=== PATIENT | male | born 1935 | race Caucasian/White ===

== ENCOUNTER 2018-05-21 10:45 | Outpatient (CLI) | payer MEDICARE, BC, SELFPAY ==
[2018-05-21 13:43] LABS: Anion Gap 10.1 mmol/L (3-11); BUN 28 mg/dL (7-18); CO2 24.9 mmol/L (21.0-32.0); CREATININE 1.37 mg/dL (0.70-1.30); Calcium 9.1 mg/dL (8.5-10.1); Chloride 106 mmol/L (98-107); Cholesterol 131 mg/dL (50-200); Glucose 118 mg/dL (70-100); HDL Cholesterol 37 mg/dL (40-60); LDL CHOLESTEROL 86 mg/dL (<100); Potassium 4.6 mmol/L (3.5-5.1); Sodium 141 mmol/L (136-145); Triglyceride 41 mg/dL (30-150)
[2018-05-21 13:55] LABS: Hemoglobin A1C 6.7 % (4.5-6.2)
[2018-05-21 14:02] LABS: Vitamin D 25 Total 94.3 ng/ml (30-100)
== END 2018-05-21 11:05 ==
PROVIDERS: PCP Family Medicine; Visit Provider Family Medicine
DX: I10 Essential (primary) hypertension (principal); E11.9 Type 2 diabetes mellitus without complications
CPT/HCPCS: 36415; 80048; 80061; 82306; 83721; 83036

== ENCOUNTER 2018-08-20 10:43 | Outpatient (CLI) | payer MEDICARE, BC, SELFPAY ==
[2018-08-20 13:51] LABS: Hemoglobin A1C 6.8 % (4.5-6.2)
== END 2018-08-20 11:03 ==
PROVIDERS: PCP Family Medicine; Visit Provider Family Medicine
DX: E11.9 Type 2 diabetes mellitus without complications (principal)
CPT/HCPCS: 36415; 83036

== ENCOUNTER 2018-09-16 13:09 | Inpatient (IN) | payer MEDICARE, BC, SELFPAY ==
[2018-09-16] VITALS (36 sets, daily range): BP systolic 100–131; BP diastolic 47–71; PULSE 63–99; RESP 9–26; TEMP 36.7–37.7; O2SAT 94–98
--- NOTE | 2018-09-16 13:38 | DI.RAD_ITS ---
SYMPTOMS/DIAGNOSIS: NOTABLE RIGHT LOWER LOBE RHONCHI AND RALES CHEST X-RAY, PA AND LATERAL: Comparison is 05/30/17. The heart size and pulmonary vasculature are within normal limits given the technique. The lungs are clear. No effusions or pneumothoraces are identified. The bones appear intact. IMPRESSION: No acute pulmonary process.
[2018-09-16 14:14] LABS: Abs Immature Grans 0.02 k/cumm (0.0-0.09); Absolute Basophil Count 0.02 k/cumm (0.0-0.2); Absolute Eosinophil Count 0.02 k/cumm (0.0-0.7); Absolute Lymphocyte Count 1.05 k/cumm (1.2-3.4); Absolute Monocyte Count 0.72 k/cumm (0.11-0.7); Absolute Neutrophil Count 7.17 k/cumm (1.2-6.7); Basophils % 0.2; Eosinophils % 0.2; HCT 37.7 % (40.0-50.0); HGB 12.6 g/dL (13.5-17.5); Immature Grans % 0.2; Lymphocytes % 11.7; Mean Corp. HGB Concentration 33.4 g/dL (32.0-36.0); Mean Corpuscular Hemoglobin 32.8 pg (27.0-33.0); Mean Corpuscular Volume 98.2 fL (80-95); Mean Platelet Volume 11.3 fL (8.0-11.0); Neutrophils % 79.7; Platelet Count 126 x1000/uL (130-400); RBC 3.84 m/cumm (4.50-6.00); RBC Distribution Width 14.3 % (11.8-14.1)
[2018-09-16 14:20] LABS: Bilirubin Negative (Negative); Blood Negative (Negative); Clarity Clear; Glucose Negative (Negative); Ketones Negative (Negative); Leukocyte Esterase Negative (Negative); Nitrite Negative (Negative); Specific Gravity 1.015 (1.005-1.025); Urobilinogen 0.2 EU/dL (Up TO 0.2)
[2018-09-16 14:23] LABS: PTT Activated 28.5 sec (21.0-31.4); Prothrombin Time 12.5 sec (9.3-11.0)
[2018-09-16 14:26] LABS: INR 1.2 (0.9-1.1)
[2018-09-16 14:31] LABS: ALT 19 U/L (12-78); AST 19 U/L (15-37); Albumin 3.2 g/dL (3.4-5.0); Alkaline Phosphatase 104 U/L (46-116); Anion Gap 10.4 mmol/L (3-11); BUN 27 mg/dL (7-18); Bilirubin, Total 0.9 mg/dL (0.2-1.0); CO2 25.6 mmol/L (21.0-32.0); CREATININE 1.25 mg/dL (0.70-1.30); Calcium 8.7 mg/dL (8.5-10.1); Chloride 98 mmol/L (98-107); Estimated GFR 55.57 (mL/min/1.73m2); Glucose 124 mg/dL (70-100); NT-proBNP 5542 pg/mL; Potassium 3.9 mmol/L (3.5-5.1); Sodium 134 mmol/L (136-145); Total Protein 7.1 g/dL (6.4-8.2)
--- NOTE | 2018-09-16 14:31 | W.ED.GENAD ---
Discharge Plan Disposition Patient Disposition: [facility] INPATIENT Condition: Stable Discharge Details Chief Complaint: RespSymp Clinical Impression: CHF exacerbation, Community acquired pneumonia Primary Care Provider: Zander Mancini ED Provider: Rigoberto Lopez Home Meds and New Rx's Prescriptions: No Action escitalopram oxalate 5 mg tablet 5 mg PO DAILY Qty: 90 RF: 4 blood-glucose meter [OneTouch UltraMini] 1 EACH kit 1 kit UD PRN RF: 0 Multi-Betic 1 EACH tablet 1 tab PO DAILY RF: 0 OneTouch Ultra Test 1 EACH strip 1 strip Intradermal 2X/WEEK Qty: 100 RF: 4 lancets [OneTouch Delica Lancets] 1 EACH misc 1 ea Intradermal 2X/WEEK Qty: 100 RF: 4 acetaminophen [Acetaminophen Extra Strength] 500 MG tablet 500 mg PO BID RF: 0 cholecalciferol (vitamin D3) 5,000 UNIT tablet 5,000 unit PO DAILY RF: 0 torsemide 10 MG tablet 10 mg PO DAILY Qty: 90 RF: 3 diltiazem HCl 120 MG capsule,extended release 24hr 120 mg PO DAILY Qty: 90 RF: 4 spironolactone 25 MG tablet 25 mg PO DAILY Qty: 90 RF: 4 metformin 500 mg tablet 500 mg PO BID Qty: 180 RF: 3 levothyroxine 50 mcg tablet 50 mcg PO DAILY Qty: 90 RF: 3 apixaban 2.5 mg tablet 2.5 mg PO BID Qty: 180 RF: 4 Medical Decision Making This is a pleasant 82-year-old male who presents with his daughter for evaluation of cough for the last 4 days, mild chest tightness, chills, foul-smelling urine, and shortness of breath, worsened when he lies flat at night, improved by sitting upright. Exam demonstrates multiple rhonchi throughout, notably worse on the right than the left. Crackles in the bases, significant pitting edema of his lower extremities bilaterally. Vital signs are otherwise unremarkable and stable. Oxygen saturation stable, non-tachycardic, afebrile. He is normally on spironolactone and has been on diuretics in the past. He has a systolic ejection fraction of 60 to 70%, and is hyperkinetic. There is evidence of wall thickness. Clinically the patient shows signs and symptoms concerning for fluid overload, however infectious etiology is also concerning with his isolated rhonchi in the right lower lung butler, his chills, cough. We will evaluate for fluid overload and likely diuresis. Will evaluate for potential infectious etiologies. Will rule out ACS. 4:32 PM Laboratory work-up has returned, the patient demonstrates no significant white count, no bandemia, electrolytes are normal, renal function stable. Troponin is elevated at 0.12, which is his chronic baseline, proBNP is high at 5500 which is higher than normal. Urinalysis shows evidence of no urinary tract infection. Chest x-ray is read by radiology is negative for acute process however I do feel that there is both a combination of air bronchograms and mild consolidation, worse on the right than the left which would correlate clinically with his symptomatology. With no admission in the last 90 days, his notable decrease in energy, and capability at home, as well as other sick contacts at home I do feel that he would benefit from inpatient admission especially in conjunction with the combination of fluid overload, as well as community-acquired pneumonia both the patient's curb 65 score and port score both recommend admission which I do feel is clinically appropriate at this time. Because of his slightly prolonged QTC we will start on Rocephin and doxycycline. We will diurese with 20 of Lasix. I discussed the case with Dr. Ballard, she agrees with the assessment and plan. I have extensively reviewed the treatment plan with the patient. I have addressed all patient concerns at this time. I have also discussed the plan with the admitting physician and they agree with the current assessment and plan and have agreed to assume responsibility for the patient. All parties demonstrate verbal understanding and agreement with our assessment and plan at this time. EKG 13: 48 Rate 94, QTc 490, QRS 106, atrial fibrillation, no significant ST elevations or depression, no T wave inversions, Q waves are noted in lead III, aVF. Artifact is present in V3, however no true ST elevation is present. No evidence of STEMI. Exam(s) a RAD:XR chest 2V PA & lateral SYMPTOMS/DIAGNOSIS: NOTABLE RIGHT LOWER LOBE RHONCHI AND RALES CHEST X-RAY, PA AND LATERAL: Comparison is 05/30/17. The heart size and pulmonary vasculature are within normal limits given the technique. The lungs are clear. No effusions or pneumothoraces are identified. The bones appear intact. IMPRESSION: No acute pulmonary process. Ordered By: Rigoberto Lopez DO CC: HPI General Date/Time Provider Initiated Documentation: 09/16/18 13:30. [facility] Narrative: This is an 82-year-old male with a past medical history of diabetes mellitus, A. fib, chronically elevated troponin, heart failure on regular diuretics, with hyperdynamic systolic dysfunction with a EF in the 60s to 70s, notable hypertrophy on echo, as well as high cholesterol and ulcerative colitis. He presents today with his daughter who is 1 of our nurses, with complaints of cough for the last 4 days, mild chest tightness, chills, and notable shortness of breath over the last 12 to 24 hours, significantly worse when he lays flat, improved by sitting upright. In addition to a mild subtle weight gain and notable swelling in his lower extremities. He denies any fevers. He does admit to other sick contacts with similar symptoms. He also admits to mild urinary incontinence, and some foul-smelling urine which is atypical for him. He is on Eliquis for his atrial fibrillation. He denies any recent medications. He has not been eating or drinking well at home secondary to his symptoms. He denies any other complaints or any other modifying factors. He has no history of myocardial infarction. He denies any vomiting or diarrhea. He denies any neck pain or stiffness. He is not on home oxygen. Related Data Home Medications Medication Instructions Recorded Confirmed Multi-Betic 1 tab PO DAILY 07/24/12 09/16/18 blood-glucose meter [OneTouch kit 07/24/12 09/16/18 UltraMini] Lonely SockTouch Ultra Test #100 strip 06/30/14 09/16/18 lancets [OneTouch Delica Lancets] #100 ea 06/30/14 09/16/18 acetaminophen [Acetaminophen Extra 500 mg PO BID tab-cap 06/05/17 09/16/18 Strength] cholecalciferol (vitamin D3) 5,000 unit PO DAILY 06/05/17 09/16/18 torsemide 10 mg PO DAILY #90 tab-cap 09/19/17 09/16/18 diltiazem HCl 120 mg PO DAILY #90 cap 12/25/17 09/16/18 spironolactone 25 mg PO DAILY #90 tab 01/01/18 09/16/18 metformin 500 mg tablet 500 mg PO BID #180 tab-cap 08/03/18 09/16/18 escitalopram 5 mg tablet 5 mg PO DAILY #90 tab-cap 08/20/18 09/16/18 levothyroxine 50 mcg tablet 50 mcg PO DAILY #90 tab-cap 08/31/18 09/16/18 apixaban 2.5 mg tablet 2.5 mg PO BID #180 tab 09/07/18 09/16/18 Previous Rx's Medication Instructions Recorded torsemide 10 mg PO DAILY #90 tab-cap 09/19/17 diltiazem HCl 120 mg PO DAILY #90 cap 12/25/17 spironolactone 25 mg PO DAILY #90 tab 01/01/18 metformin 500 mg tablet 500 mg PO BID #180 tab-cap 08/03/18 escitalopram 5 mg tablet 5 mg PO DAILY #90 tab-cap 08/20/18 levothyroxine 50 mcg tablet 50 mcg PO DAILY #90 tab-cap 08/31/18 apixaban 2.5 mg tablet 2.5 mg PO BID #180 tab 09/07/18 Allergies Allergy/AdvReac Type Severity Reaction Status Date / Time procaine [Procaine] Allergy Severe Anaphylaxsi Unverified 09/16/18 13:27 s thiopental [Thiopental] Allergy Severe Anaphylaxsi Unverified 09/16/18 13:27 s shellfish derived Allergy Intermediate Swelling/Ed Unverified 09/16/18 13:27 gerson Iodinated Contrast- Oral and Allergy Unknown Swelling/Ed Unverified 09/16/18 13:27 IV Dye gerson nitroglycerin AdvReac Severe bottomed Unverified 09/16/18 13:27 out BP General Stated Complaint: RespSymp IRWIN: 3 Review of Systems Review of Systems All systems reviewed & are unremarkable except as noted in HPI and below PFSH Family History Mother Diabetes Stroke Father Heart disease Sister Psoriasis Social History Smoking/Tobacco Use Status: Former Tobacco Use Alcohol Intake: current Alcohol Intake frequency: a few times a month Drug use: Never Sun/Alevism: No preference Special sun needs: No Do you feel safe at home: Yes Do you feel safe in your relationship?: Yes Exam Narrative Exam Narrative: 1.Const: Well-nourished, Well-developed, appearing stated age 2.Eyes: PERRL, no conjunctival injection, and symmetrical lids. 3.ENT: Atraumatic external nose and ears. Moist MM. Neck: Symmetric, trachea midline, No thyromegaly. 4.CVS: +S1/S2, No murmurs or gallops. Peripheral pulses 2+ and equal in all extremities. Brisk capillary refill in all extremities. 5.RESP: Mildly labored respiratory effort, notable rhonchi throughout, crackles in the bases bilaterally, significantly worse on the right than the left. 6.GI: Soft, Nontender/Nondistended, No hepatosplenomegaly. No guarding or rebound. 7.MSK: Normocephalic/Atraumatic, Extremities w/o deformity or ttp No cyanosis or clubbing, Normal movement of all extremities. +2 pitting edema of the lower extremities bilaterally. No calf tenderness. 8.Skin: Warm, Dry. No rashes or lesions. 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 Sensation grossly intact, no focal neurologic deficits. 10.Psych: (AAO) x3. Appropriate mood and affect Course Vital Signs Temperature 37.1 C 09/16/18 13:25 Pulse 93 H 09/16/18 13:25 Respiratory Rate 20 09/16/18 13:25 Blood Pressure 119/69 09/16/18 13:25 Pulse Oximetry 97 09/16/18 13:25 Temperature 37.1 C 09/16/18 13:25 Temperature Source Temporal Artery Scan 09/16/18 13:25 Pulse 93 H 09/16/18 13:25 Respiratory Rate 20 09/16/18 13:25 Respiratory Effort Non-Labored 09/16/18 14:14 Respiratory Depth Normal 09/16/18 14:14 Blood Pressure 119/69 09/16/18 13:25 Pulse Oximetry 97 09/16/18 13:25 Pain Level 0 09/16/18 13:25 Lab/Test Results Lab/Test Results: 09/16/18 14:08 Urine - Voided Urine Culture - Pending 09/16/18 13:38 Blood Blood Culture - Pending 09/16/18 13:38 Blood Blood Culture - Pending Laboratory Tests Range/Units 09/16/18 09/16/18 14:00 14:00 WBC (4.4-10.8) k/cumm 9.00 RBC (4.50-6.00) m/cumm 3.84 L Hgb (13.5-17.5) g/dL 12.6 L Hct (40.0-50.0) % 37.7 L MCV (80-95) fL 98.2 H MCH (27.0-33.0) pg 32.8 MCHC (32.0-36.0) g/dL 33.4 RDW (11.8-14.1) % 14.3 H Plt Count (130-400) x1000/uL 126 L MPV (8.0-11.0) fL 11.3 H Immature Gran % 0.2 Neutrophils % 79.7 Lymphocytes % 11.7 Monocytes % 8.0 Eosinophils % 0.2 Basophils % 0.2 Absolute Neutrophils (1.2-6.7) k/cumm 7.17 H Absolute Lymphocytes (1.2-3.4) k/cumm 1.05 L Absolute Monocytes (0.11-0.7) k/cumm 0.72 H Absolute Eosinophils (0.0-0.7) k/cumm 0.02 Absolute Basophils (0.0-0.2) k/cumm 0.02 PT (9.3-11.0) sec 12.5 H INR (0.9-1.1) 1.2 H APTT (21.0-31.4) sec 28.5
[2018-09-16 14:40] LABS: Troponin I 0.12 ng/mL (0.00-0.06)
[2018-09-16] MEDS: Furosemide 20 MG/2 ML VIAL IVP ×2 (15:45→21:48)
[2018-09-16] MEDS: cefTRIAXone 2 GM/50 ML BAG IVPB (16:50)
--- NOTE | 2018-09-16 17:21 | W.PM.HP.N ---
Date of service: 09/16/18 Time of Service: 17:22 Assessment and Plan (1) Pneumonia: Current visit: Yes Status: Acute Either aspiration given hx or CAP. Abx adjusted to doxycycline + zosyn. Monitor respiratory status. Obtain sputum cx. Await blood cultures. (2) Acute on chronic diastolic (congestive) heart failure: Current visit: Yes Status: Acute Diurese, monitoring strict I/O's and daily weights. Ensure that the reason that the patient went into CHF this time is not rapid Afib - monitor on tele. Check TSH. (3) Toxic metabolic encephalopathy: Current visit: Yes Status: Acute Treat underlying infection. Ensure no urinary retention. (4) Non-insulin dependent type 2 diabetes mellitus: Current visit: Yes Status: Acute Hold metformin while in the hospital. Cover with SSI (5) Hypertension: Current visit: Yes Status: Chronic No change in tx except for holding torsemide while getting diuresed with IV lasix. (6) Ambulatory dysfunction: Current visit: Yes Status: Acute PT/OT consults (7) Hyperlipidemia: Current visit: No Status: Chronic Does not appear to be on a statin as outpatient. Follow up as outpatient. (8) Hypothyroidism: Current visit: No Status: Chronic Continue synthroid. Check TSH. (9) Atrial fibrillation: Current visit: No Status: Chronic Currently rate controlled. Continue cardizem CD, anticoagulation with eliquis. Monitor on tele to ensure that the rate does not become high. (10) Urinary incontinence: Current visit: Yes Status: Chronic Monitor PVRs (11) DVT prophylaxis: Current visit: Yes Status: Acute Therapeutic eliquis (12) Discharge planning issues: Current visit: Yes Status: Acute Full code History of Present Illness Chief Complaint: I couldn't breathe Narrative: Mr Borrego is an 82 year old male with PMHx of chronic diastolic CHF with EF of 65-70% due to hypertrophic cardiomyopathy, Atrial fibrillation on eliquis, NIDDM2, HTN, hyperlipidemia, hypothyroidism, who came in to [facility] ED today complaining of shortness of breath, which he describes as starting acutely last night, cough, productive of green-yellow sputum for 2-3 days, and orthopnea. The patient reports palpitations at home, denies chest pain, but reports chest squeezing last night at the top of his chest, reports feeling warm for the last two days. He states he had a choking episode yesterday evening. His daughter also reports generalized weakness for 1 week, acute on chronic confusion, which is normal for him when he gets sick, and urinary incontinence of large amounts of urine. She also states that the patient's , with whom he lives, has also had a respiratory illness. She does not think that his edema looks any different than normal. His daughter also mentions that he has had a lot of nosebleeds, most recent being about 2 weeks ago. His eliquis dose was recently lowered due to this. The patient uses a walker to ambulate. There have not been any falls at home. Review of Systems Review of Systems 12 systems reviewed. Pertinent positives and negatives as per HPI. [facility] Medical History Ulcerative colitis (Inactive) Type 2 diabetes mellitus without complication (Chronic) Spinal stenosis (Chronic) Rosacea (Chronic) Osteoarthritis (Chronic) Hypothyroidism (Chronic) Hyperlipidemia (Chronic) Essential hypertension, benign (Chronic 12/01/14) 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) Decubitus ulcer of left buttock, stage 2 (Resolved 07/18/17) Cataracts, bilateral (Resolved 10/24/15) Atrial fibrillation (Chronic) Ataxia (Chronic) Mild cognitive impairment (Chronic) Surgical History Appendectomy Colonoscopy - IV Sedation (11/18/12) Family History Mother Diabetes Stroke Father Heart disease Sister Psoriasis Social History Smoking/Tobacco Use Status: Former Tobacco Use Alcohol Intake: current Alcohol Intake frequency: a few times a month Drug use: Never Sun/Christianity: No preference Special sun needs: No Do you feel safe at home: Yes Do you feel safe in your relationship?: Yes Meds Home Medications Medication Instructions Recorded Confirmed Type blood-glucose meter [OneTouch kit 07/24/12 09/16/18 History UltraMini] OneTouch Ultra Test #100 strip 06/30/14 09/16/18 History lancets [OneTouch Delica Lancets] #100 ea 06/30/14 09/16/18 History torsemide 10 mg PO DAILY #90 tab-cap 09/19/17 09/16/18 Rx diltiazem HCl 120 mg PO DAILY #90 cap 12/25/17 09/16/18 Rx spironolactone 25 mg PO DAILY #90 tab 01/01/18 09/16/18 Rx metformin 500 mg tablet 500 mg PO BID #180 tab-cap 08/03/18 09/16/18 Rx escitalopram 5 mg tablet 5 mg PO DAILY #90 tab-cap 08/20/18 09/16/18 Rx levothyroxine 50 mcg tablet 50 mcg PO DAILY #90 tab-cap 08/31/18 09/16/18 Rx apixaban 2.5 mg tablet 2.5 mg PO BID #180 tab 09/07/18 09/16/18 Rx Allergies Allergy/AdvReac Type Severity Reaction Status Date / Time procaine [Procaine] Allergy Severe Anaphylaxsi Unverified 09/16/18 13:27 s thiopental [Thiopental] Allergy Severe Anaphylaxsi Unverified 09/16/18 13:27 s shellfish derived Allergy Intermediate Swelling/Ed Unverified 09/16/18 13:27 gerson Iodinated Contrast- Oral and Allergy Unknown Swelling/Ed Unverified 09/16/18 13:27 IV Dye gerson nitroglycerin AdvReac Severe bottomed Unverified 09/16/18 13:27 out BP Exam Narrative Exam Narrative: General: Very pleasant elderly male, sitting up in bed at about 30 degree angle, does not appear to have shortness of breath speaking, appears weak, A&Ox2, NAD Neurological: A&Ox2, quickly forgets what he was just talking about, uses large words; knows who the president is ; no focal deficits Psychiatric: appropriate speech pattern/content Skin: chronic venous stasis dermatitis HEENT: Atraumatic, normocephalic, EOMI, MMM, clear oropharynx, no submandibular or cervical lymphadenopathy, no goiter or JVD Cardiovascular: seemingly RRR, quiet [place]. Lungs: Crackles at B bases Gastrointestinal: abdomen is soft, nontender, nondistended Extremities: 2+ edema BLE's, 2+ BLE pedal pulses, dry skin on feet, no lesions, preserved sensation on feet, no clubbing/cyanosis. Chronic venous stasis dermatitis. Results Imaging Additional studies: CXR: per official read, no acute pulmonary process. Per my read, air bronchograms are seen in RML/RLL. Also, vascular congestion can be seen. EKG: Afib (though in some places it does look as NSR), PVCs, no acute ischemia Labs : 09/16/18 14:00 09/16/18 14:00 Laboratory Results - last 24 hr 09/16/18 09/16/18 09/16/18 14:00 14:00 14:00 WBC 9.00 RBC 3.84 L Hgb 12.6 L Hct 37.7 L MCV 98.2 H MCH 32.8 MCHC 33.4 RDW 14.3 H Plt Count 126 L MPV 11.3 H Immature Gran % 0.2 Neutrophils % 79.7 Lymphocytes % 11.7 Monocytes % 8.0 Eosinophils % 0.2 Basophils % 0.2 Absolute Neutrophils 7.17 H Absolute Lymphocytes 1.05 L Absolute Monocytes 0.72 H Absolute Eosinophils 0.02 Absolute Basophils 0.02 PT 12.5 H INR 1.2 H APTT 28.5 Sodium 134 L Potassium 3.9 Chloride 98 Carbon Dioxide 25.6 Anion Gap 10.4 BUN 27 H Creatinine 1.25 Estimated GFR/1.73 m2 55.57 Glucose 124 H Calcium 8.7 Total Bilirubin 0.9 AST 19 ALT 19 Alkaline Phosphatase 104 Troponin I 0.12 H* NT-Pro-B Natriuret Pep 5542 H Total Protein 7.1 Albumin 3.2 L Urine Color Urine Clarity Urine pH Ur Specific [place] Urine Protein Urine Ketones Urine Blood Urine Nitrite Urine Bilirubin Urine Urobilinogen Ur Leukocyte Esterase Urine Glucose 09/16/18 14:08 WBC RBC Hgb Hct MCV MCH MCHC RDW Plt Count MPV Immature Gran % Neutrophils % Lymphocytes % Monocytes % Eosinophils % Basophils % Absolute Neutrophils Absolute Lymphocytes Absolute Monocytes Absolute Eosinophils Absolute Basophils PT INR APTT Sodium Potassium Chloride Carbon Dioxide Anion Gap BUN Creatinine Estimated GFR/1.73 m2 Glucose Calcium Total Bilirubin AST ALT Alkaline Phosphatase Troponin I NT-Pro-B Natriuret Pep Total Protein Albumin Urine Color Yellow Urine Clarity Clear Urine pH 6.0 Ur Specific [place] 1.015 Urine Protein Negative Urine Ketones Negative Urine Blood Negative Urine Nitrite Negative Urine Bilirubin Negative Urine Urobilinogen 0.2 Ur Leukocyte Esterase Negative Urine Glucose Negative Last Vital Signs Temp 37.1 C 09/16/18 13:25 Pulse 86 09/16/18 16:46 Resp 25 H 09/16/18 16:50 BP 123/67 09/16/18 16:46 Pulse Ox 96 09/16/18 16:50
--- NOTE | 2018-09-16 17:33 | HPE_ITS ---
Date of service: 09/16/18 Time of Service: 17:22 Assessment and Plan (1) Pneumonia: Current visit: Yes Status: Acute Either aspiration given hx or CAP. Abx adjusted to doxycycline + zosyn. Monitor respiratory status. Obtain sputum cx. Await blood cultures. (2) Acute on chronic diastolic (congestive) heart failure: Current visit: Yes Status: Acute Diurese, monitoring strict I/O's and daily weights. Ensure that the reason that the patient went into CHF this time is not rapid Afib - monitor on tele. Check TSH. (3) Toxic metabolic encephalopathy: Current visit: Yes Status: Acute Treat underlying infection. Ensure no urinary retention. (4) Non-insulin dependent type 2 diabetes mellitus: Current visit: Yes Status: Acute Hold metformin while in the hospital. Cover with SSI (5) Hypertension: Current visit: Yes Status: Chronic No change in tx except for holding torsemide while getting diuresed with IV lasix. (6) Ambulatory dysfunction: Current visit: Yes Status: Acute PT/OT consults (7) Hyperlipidemia: Current visit: No Status: Chronic Does not appear to be on a statin as outpatient. Follow up as outpatient. (8) Hypothyroidism: Current visit: No Status: Chronic Continue synthroid. Check TSH. (9) Atrial fibrillation: Current visit: No Status: Chronic Currently rate controlled. Continue cardizem CD, anticoagulation with eliquis. Monitor on tele to ensure that the rate does not become high. (10) Urinary incontinence: Current visit: Yes Status: Chronic Monitor PVRs (11) DVT prophylaxis: Current visit: Yes Status: Acute Therapeutic eliquis (12) Discharge planning issues: Current visit: Yes Status: Acute Full code History of Present Illness Chief Complaint: I couldn't breathe Narrative: Mr Borrego is an 82 year old male with PMHx of chronic diastolic CHF with EF of 65-70% due to hypertrophic c ardiomyopathy, Atrial fibrillation on eliquis, NIDDM2, HTN, hyperlipidemia, hypothyroidism, who came in to [facility] ED today complaining of shortness of breath, which he describes as starting acutely last night, cough, productive of green- yellow sputum for 2-3 days, and orthopnea. The patient reports palpitations at home, denies chest pain, but reports chest squeezing last night at the top of his chest, reports feeling warm for the last two days. He states he had a choking episode yesterday evening. His daughter also reports generalized weakness for 1 week, acute on chronic confusion, which is normal for him when he gets sick, and urinary incontinence of large amounts of urine. She also states that the patient's , with whom he lives, has also had a respiratory illness. She does not think that his edema looks any different than normal. His daughter also mentions that he has had a lot of nosebleeds, most recent being about 2 weeks ago. His eliquis dose was recently lowered due to this. The patient uses a walker to ambulate. There have not been any falls at home. Review of Systems Review of Systems 12 systems reviewed. Pertinent positives and negatives as per HPI. [facility]LY [facility] Medical History Ulcerative colitis (Inactive) Type 2 diabetes mellitus without complication (Chronic) Spinal stenosis (Chronic) Rosacea (Chronic) Osteoarthritis (Chronic) Hypothyroidism (Chronic) Hyperlipidemia (Chronic) Essential hypertension, benign (Chronic 12/01/14) 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) Decubitus ulcer of left buttock, stage 2 (Resolved 07/18/17) Cataracts, bilateral (Resolved 10/24/15) Atrial fibrillation (Chronic) Ataxia (Chronic) Mild cognitive impairment (Chronic) Surgical History Appendectomy Colonoscopy - IV Sedation (11/18/12) Family History Mother Diabetes Stroke Father Heart disease Sister Psoriasis Social History Smoking/Tobacco Use Status: Former Tobacco Use Alcohol Intake: current Alcohol Intake frequency: a few times a month Drug use: Never Sun/Advent: No preference Special sun needs: No Do you feel safe at home: Yes Do you feel safe in your relationship?: Yes Meds Home Medications Medication Instructions Recorded Confirmed Type blood-glucose meter [OneTouch kit 07/24/12 09/16/18 History UltraMini] OneTouch Ultra Test #100 strip 06/30/14 09/16/18 History lancets [OneTouch Delica Lancets] #100 ea 06/30/14 09/16/18 History torsemide 10 mg PO DAILY #90 tab-cap 09/19/17 09/16/18 Rx diltiazem HCl 120 mg PO DAILY #90 cap 12/25/17 09/16/18 Rx spironolactone 25 mg PO DAILY #90 tab 01/01/18 09/16/18 Rx metformin 500 mg tablet 500 mg PO BID #180 tab-cap 08/03/18 09/16/18 Rx escitalopram 5 mg tablet 5 mg PO DAILY #90 tab-cap 08/20/18 09/16/18 Rx levothyroxine 50 mcg tablet 50 mcg PO DAILY #90 tab-cap 08/31/18 09/16/18 Rx apixaban 2.5 mg tablet 2.5 mg PO BID #180 tab 09/07/18 09/16/18 Rx Allergies Allergy/AdvReac Type Severity Reaction Status Date / Time procaine [Procaine] Allergy Severe Anaphylaxsi Unverified 09/16/18 13:27 s thiopental [Thiopental] Allergy Severe Anaphylaxsi Unverified 09/16/18 13:27 s shellfish derived Allergy Intermediate Swelling/Ed Unverified 09/16/18 13:27 gerson Iodinated Contrast- Oral and Allergy Unknown Swelling/Ed Unverified 09/16/18 13:27 IV Dye gerson nitroglycerin AdvReac Severe bottomed Unverified 09/16/18 13:27 out BP Exam Narrative Exam Narrative: General: Very pleasant elderly male, sitting up in bed at about 30 degree angle, does not appear to have shortness of breath speaking, appears weak, A&Ox2, NAD Neurological: A&Ox2, quickly forgets what he was just talking about, uses large words; knows who the president is ; no focal deficits Psychiatric: appropriate speech pattern/content Skin: chronic venous stasis dermatitis HEENT: Atraumatic, normocephalic, EOMI, MMM, clear oropharynx, no submandibular or cervical lymphadenopathy, no goiter or JVD Cardiovascular: seemingly RRR, quiet MILTON. Lungs: Crackles at B bases Gastrointestinal: abdomen is soft, nontender, nondistended Extremities: 2+ edema BLE's, 2+ BLE pedal pulses, dry skin on feet, no lesions, preserved sensation on feet, no clubbing/cyanosis. Chronic venous stasis dermatitis. Results Imaging Additional studies: CXR: per official read, no acute pulmonary process. Per my read, air bronchograms are seen in RML/RLL. Also, vascular congestion can be seen. EKG: Afib (though in some places it does look as NSR), PVCs, no acute ischemia Labs : 09/16/18 14:00 09/16/18 14:00 Laboratory Results - last 24 hr 09/16/18 09/16/18 09/16/18 14:00 14:00 14:00 WBC 9.00 RBC 3.84 L Hgb 12.6 L Hct 37.7 L MCV 98.2 H MCH 32.8 MCHC 33.4 RDW 14.3 H Plt Count 126 L MPV 11.3 H Immature Gran % 0.2 Neutrophils % 79.7 Lymphocytes % 11.7 Monocytes % 8.0 Eosinophils % 0.2 Basophils % 0.2 Absolute Neutrophils 7.17 H Absolute Lymphocytes 1.05 L Absolute Monocytes 0.72 H Absolute Eosinophils 0.02 Absolute Basophils 0.02 PT 12.5 H INR 1.2 H APTT 28.5 Sodium 134 L Potassium 3.9 Chloride 98 Carbon Dioxide 25.6 Anion Gap 10.4 BUN 27 H Creatinine 1.25 Estimated GFR/1.73 m2 55.57 Glucose 124 H Calcium 8.7 Total Bilirubin 0.9 AST 19 ALT 19 Alkaline Phosphatase 104 Troponin I 0.12 H* NT-Pro-B Natriuret Pep 5542 H Total Protein 7.1 Albumin 3.2 L Urine Color Urine Clarity Urine pH Ur Specific [place] Urine Protein Urine Ketones Urine Blood Urine Nitrite Urine Bilirubin Urine Urobilinogen Ur Leukocyte Esterase Urine Glucose 09/16/18 14:08 WBC RBC Hgb Hct MCV MCH MCHC RDW Plt Count MPV Immature Gran % Neutrophils % Lymphocytes % Monocytes % Eosinophils % Basophils % Absolute Neutrophils Absolute Lymphocytes Absolute Monocytes Absolute Eosinophils Absolute Basophils PT INR APTT Sodium Potassium Chloride Carbon Dioxide Anion Gap BUN Creatinine Estimated GFR/1.73 m2 Glucose Calcium Total Bilirubin AST ALT Alkaline Phosphatase Troponin I NT-Pro-B Natriuret Pep Total Protein Albumin Urine Color Yellow Urine Clarity Clear Urine pH 6.0 Ur Specific [place] 1.015 Urine Protein Negative Urine Ketones Negative Urine Blood Negative Urine Nitrite Negative Urine Bilirubin Negative Urine Urobilinogen 0.2 Ur Leukocyte Esterase Negative Urine Glucose Negative Last Vital Signs Temp 37.1 C 09/16/18 13:25 Pulse 86 09/16/18 16:46 Resp 25 H 09/16/18 16:50 BP 123/67 09/16/18 16:46 Pulse Ox 96 09/16/18 16:50
[2018-09-16] MEDS: Albuterol/Ipratropium 3 ML UPD VIAL UPD (17:51)
[2018-09-16] MEDS: DOXYCYCLINE 100 MG in Normal Saline 100 ML IVPB (18:35)
[2018-09-16 19:31] LABS: Troponin I 0.12 ng/mL (0.00-0.06)
[2018-09-16 19:32] LABS: Potassium 3.8 mmol/L (3.5-5.1)
[2018-09-16] MEDS: Docusate Sodium 100 MG CAP PO (19:33)
[2018-09-16] MEDS: guaiFENesin 600 MG TABCR PO (19:33)
[2018-09-16] MEDS: Apixaban 2.5 MG TAB PO (19:34)
[2018-09-16] MEDS: Acetaminophen 325 MG TAB PO (19:43)
[2018-09-16] MEDS: PIPERACILLIN/TAZO 3.375 GM in Normal Saline 50 ML IVPB (19:57)
[2018-09-16] MEDS: Potassium Chloride 10 MEQ CAPCR 20 MEQ PO (20:24)
[2018-09-16 23:42] LABS: Troponin I 0.19 ng/mL (0.00-0.06)
[2018-09-17] VITALS (13 sets, daily range): BP systolic 104–133; BP diastolic 60–76; PULSE 63–98; RESP 8–20; TEMP 36.3–36.9; O2SAT 93–97
[2018-09-17] MEDS: PIPERACILLIN/TAZO 3.375 GM in Normal Saline 50 ML IVPB ×3 (03:57→20:32)
[2018-09-17] MEDS: Levothyroxine 50 MCG TAB PO (06:06)
[2018-09-17] MEDS: Albuterol/Ipratropium 3 ML UPD VIAL UPD ×4 (06:06→23:40)
[2018-09-17 07:02] LABS: Abs Immature Grans 0.01 k/cumm (0.0-0.09); Absolute Basophil Count 0.03 k/cumm (0.0-0.2); Absolute Eosinophil Count 0.08 k/cumm (0.0-0.7); Absolute Lymphocyte Count 1.38 k/cumm (1.2-3.4); Absolute Monocyte Count 0.67 k/cumm (0.11-0.7); Absolute Neutrophil Count 5.58 k/cumm (1.2-6.7); Basophils % 0.4; HCT 35.5 % (40.0-50.0); HGB 11.8 g/dL (13.5-17.5); Immature Grans % 0.1; Lymphocytes % 17.8; Mean Corp. HGB Concentration 33.2 g/dL (32.0-36.0); Mean Corpuscular Hemoglobin 32.8 pg (27.0-33.0); Mean Corpuscular Volume 98.6 fL (80-95); Mean Platelet Volume 11.2 fL (8.0-11.0); Monocytes % 8.6; Neutrophils % 72.1; Platelet Count 129 x1000/uL (130-400); RBC Distribution Width 14.4 % (11.8-14.1); White Blood Cell Count 7.75 k/cumm (4.4-10.8)
[2018-09-17 07:18] LABS: BUN 27 mg/dL (7-18); Chloride 100 mmol/L (98-107); Estimated GFR 45.03 (mL/min/1.73m2); Glucose 119 mg/dL (70-100); Magnesium 2.1 mg/dL (1.8-2.4); Potassium 3.7 mmol/L (3.5-5.1); Sodium 138 mmol/L (136-145)
[2018-09-17 07:29] LABS: Troponin I 0.18 ng/mL (0.00-0.06)
--- NOTE | 2018-09-17 07:51 | INITIAL_ITS ---
- If Service Date Differs Date of service: 09/17/18 Time of Service: 07:35 Care Management Initial Assess REASON FOR HOSPITALIZATION:: Pneumonia PAST MEDICAL HISTORY/PAST SURGICAL HISTORY:: Ulcerative colitis (Inactive). Type 2 diabetes mellitus without complication (Chronic). Spinal stenosis (Chronic). Rosacea (Chronic). Osteoarthritis (Chronic). Hypothyroidism (Chronic). Hyperlipidemia (Chronic). Essential hypertension, benign (Chronic 12/01/14). 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 Decubitus ulcer of left buttock, stage 2 (Resolved 07/18/17). Cataracts, bilateral (Resolved 10/24/15). Atrial fibrillation (Chronic). Ataxia (Chronic). Mild cognitive impairment (Chronic). Appendectomy. Colonoscopy - IV Sedation (11/18/12 PREVIOUS FUNCTIONAL STATUS/SOCIAL/FAMILY SUPPORTS:: Juan Pablo resides with his Mel in [facility]. He has three daughters, two of whom reside locally (Rut & Tash). Juan Pablo reports that he no longer drives and depends on his to transport him to appointments. His daughter Rut brings him on outings a couple times a week as well. CURRENT FUNCTIONAL STATUS:: Currently Juan Pablo is sitting up in his chair. His daughter Rut and two grandsons are visiting. Juan Pablo is pleasant and receptive to discussion. ADVANCE DIRECTIVES:: [employer] on file. AD - Rut Hess is agent, Tash Borrego is alternate agent Has patient been provided with information about the portal?: Yes Did the patient sign up for the portal?: No CODE STATUS:: Full Code INSURANCE COVERAGE / FINANCIAL ISSUES:: MCR, BCBS CURRENT HOME/COMMUNITY SERVICES/EQUIPMENT:: Currently Juan Pablo has no services in the community. He does have a FWW, Tray for walker, grab bars, and glucometer at home. PRIMARY CARE PHYSICIAN:: Dr. Mancini POTENTIAL DISCHARGE NEEDS:: F/U appointment with PCP PATIENT/FAMILY EDUCATION NEEDS:: Review DC instructions, any limitations, and ongoing DC planning discussion. Discuss Ask Me Three ANTICIPATED BARRIERS TO DISCHARGE:: None identified at this time TRANSPORTATION:: Via private vehicle with with Mel PLAN:: Juan Pablo will return home with no anticipated services once medically cleared. He will F/U with PCP and plan of care as prescribed. Mel to transport when ready.
[2018-09-17] MEDS: DOXYCYCLINE 100 MG in Normal Saline 100 ML IVPB ×2 (08:27→18:25)
[2018-09-17] MEDS: guaiFENesin 600 MG TABCR PO ×2 (08:30→20:32)
[2018-09-17] MEDS: Spironolactone 25 MG TAB PO (08:30)
[2018-09-17] MEDS: dilTIAZem CD 120 MG CAPCR PO (08:30)
[2018-09-17] MEDS: Escitalopram 10 MG TAB 5 MG PO (08:30)
[2018-09-17] MEDS: Furosemide 20 MG/2 ML VIAL IVP ×2 (08:30→16:27)
[2018-09-17] MEDS: Docusate Sodium 100 MG CAP PO ×3 (08:30→20:32)
[2018-09-17] MEDS: Apixaban 2.5 MG TAB PO ×2 (08:31→20:32)
--- NOTE | 2018-09-17 09:05 | MERGE_ITS ---
*[facility]* *[facility]* [address] [place] [address] Date of study: 09/17/2018 Transthoracic Echocardiography M-mode, complete 2D, complete spectral Doppler, and color Doppler *STUDY CONCLUSIONS* Impressions: Severe LVH. Summary: 1. Left ventricle: The cavity size was at the lower limits of normal. Wall thickness was increased in a pattern of severe LVH. Systolic function was at the lower limits of normal. The estimated ejection fraction was 50-55%. Moderate hypokinesis of the basalinferolateral and inferior myocardium. 2. Aortic valve: There was mild to moderate regurgitation. 3. Aortic root: The aortic root was at upper normal limits. 4. Ascending aorta: The ascending aorta was at upper normal limits. 5. Mitral valve: There was moderate regurgitation. 6. Left atrium: The atrium was severely dilated. 7. Right ventricle: The cavity size was mildly dilated. Wall thickness was normal. Systolic function was normal. 8. Right atrium: The atrium was moderately dilated. 9. Atrial septum: No defect or patent foramen ovale was identified. 10. Tricuspid valve: There was moderate regurgitation. 11. Pulmonic valve: There was moderate regurgitation. 12. Pulmonary arteries: Pulmonary systolic pressure was mildly increased. PA peak pressure: 47mm Hg (S). *PATIENT PRESENTATION* Height: 170.2cm ((67in) ) S/D Pressure: 122 / 69 Weight: 80.3kg ((176.6lb) ) BSA: 1.97m^2 Test start time: 09:15 AM. Test stop time: 10:35 AM. PERFORMING Unknown CONSULTING Zander Mancini [facility] ORDERING Nolan Pizarro REFERRING Nolan Pizarro MANAGER PROGRAM MANAGEMENT Kim Hoppe, RT (R)(CT), [facility] *PROCEDURE DATA* Procedure information: The patient was identified by two identifiers. This study was interpreted by [facility]. Pertinent images and digital data are archived for permanent storage and are available for subsequent review. Comparison was made to the study of 10/28/2016. Study status: Routine. Transthoracic echocardiography. M-mode, complete 2D, complete spectral Doppler, and color Doppler. A Transthoracic Echocardiogram was performed. Scanning was performed from the parasternal, apical, subcostal, and suprasternal notch acoustic windows. Images were obtained using an [id number] cardiac ultrasound machine. Image quality was fair. Study completion: The patient tolerated the procedure well. History: PMH: Acute CHF exacerbation. Eval LV function. *CARDIAC ANATOMY* Left ventricle: The cavity size was at the lower limits of normal. Wall thickness was increased in a pattern of severe LVH. Systolic function was at the lower limits of normal. The estimated ejection fraction was 50-55%. Regional wall motion abnormalities: Moderate hypokinesis of the basalinferolateral and inferior myocardium. Aortic valve: Trileaflet; mildly thickened leaflets. Mobility was not restricted. Doppler: Transvalvular velocity was within the normal range. There was no stenosis. There was mild to moderate regurgitation. VTI ratio of LVOT to aortic valve: 0.83. Valve area (VTI): 3.5cm^2. Indexed valve area (VTI): 1.8cm^2/m^2. Peak velocity ratio of LVOT to aortic valve: 0.76. Valve area (Vmax): 3.2cm^2. Indexed valve area (Vmax): 1.6cm^2/m^2. Mean velocity ratio of LVOT to aortic valve: 0.77. Valve area (Vmean): 3.2cm^2. Indexed valve area (Vmean): 1.6cm^2/m^2. Mean gradient (S): 3.6mm Hg. Peak gradient (S): 5.5mm Hg. Aorta: Aortic root: The aortic root was at upper normal limits. Ascending aorta: The ascending aorta was at upper normal limits. Mitral valve: Mildly thickened leaflets. Mobility was not restricted. Doppler: Transvalvular velocity was within the normal range. There was no evidence for stenosis. There was moderate regurgitation. Valve area by pressure half-time: 4.1cm^2. Indexed valve area by pressure half-time: 2.1cm^2/m^2. Peak gradient (D): 2.5mm Hg. Left atrium: The atrium was severely dilated. Atrial septum: No defect or patent foramen ovale was identified. Right ventricle: The cavity size was mildly dilated. Wall thickness was normal. Systolic function was normal. Pulmonic valve: Doppler: Transvalvular velocity was within the normal range. There was no evidence for stenosis. There was moderate regurgitation. Tricuspid valve: Structurally normal valve. Doppler: Transvalvular velocity was within the normal range. There was no evidence for stenosis. There was moderate regurgitation. Pulmonary artery: Pulmonary systolic pressure was mildly increased. Main pulmonary artery: The artery was not well visualized. Right atrium: The atrium was moderately dilated. Pericardium: There was no pericardial effusion. Systemic veins: Inferior vena cava: The vessel was patent and dilated. The respirophasic diameter changes were blunted (less than 50%), consistent with elevated central venous pressure. Baseline ECG: Atrial fibrillation. Measurements Left ventricle Value 10/28/2016 Reference LV ID, ED, PLAX (L) 3.3 cm 3.5 3.5 - 6.0 LV ID, ES, PLAX 2.6 cm 2.8 2.1 - 4.0 LV PW thickness, ED, PLAX 1.5 cm 1.9 LV end-diastolic volume, 44 ml 50 1-p A2C LV ejection fraction, 1-p 49 % 55 A2C LV end-diastolic volume, 42 ml 105 1-p A4C LV ejection fraction, 1-p 48 % 48 A4C LV e', lateral 0.074 m/sec LV E/e', lateral 11 LV e', medial 0.052 m/sec LV E/e', medial 15 LV e', average 0.063 m/sec LV E/e', average 13 Ventricular septum Value 10/28/2016 Reference IVS thickness, ED, PLAX 2.5 cm 2.0 LVOT Value 10/28/2016 Reference LVOT ID, A-P 2.3 cm 2.3 LVOT area 4.2 cm^2 4 LVOT peak velocity, S 0.88 m/sec 0.85 LVOT mean velocity, S 0.7 m/sec LVOT VTI, S 17.5 cm 17.8 LVOT peak gradient, S 3.1 mm Hg LVOT mean gradient, S 2.2 mm Hg 1.5 Stroke volume (SV), LVOT 73 ml DP Stroke index (SV/bsa), 37 ml/m^2 LVOT DP Aortic valve Value 10/28/2016 Reference Aortic valve peak 1.2 m/sec velocity, S Aortic valve mean 0.9 m/sec velocity, S Aortic valve VTI, S 21.0 cm Aortic mean gradient, S 3.6 mm Hg Aortic peak gradient, S 5.5 mm Hg VTI ratio, LVOT/AV 0.83 Aortic valve area, VTI 3.5 cm^2 2.9 Velocity ratio, peak, 0.76 LVOT/AV Aortic valve area, peak 3.2 cm^2 2.7 velocity Velocity ratio, mean, 0.77 LVOT/AV Aortic valve area, mean 3.2 cm^2 velocity Aortic valve area/bsa, 1.6 cm^2/m^2 mean velocity Aorta Value 10/28/2016 Reference Aortic root ID, ED 4.0 cm 4.0 Ascending aorta ID, A-P, S 3.8 cm 3.7 Left atrium Value 10/28/2016 Reference LA ID, A-P, ES 4.0 cm LA ID/bsa, A-P 2.0 cm/m^2 <=2.2 LA area, ES, A4C (H) 29.9 cm^2 31 8.8 - 23.4 LA volume/bsa, ES, 1-p A4C 59 ml/m^2 56 LA/aortic root ratio 1 0.99 Mitral valve Value 10/28/2016 Reference Mitral E-wave peak 0.79 m/sec 0.97 velocity Mitral deceleration time 185 ms 150 - 230 Mitral pressure half-time 54 ms 39 Mitral peak gradient, D 2.5 mm Hg 3.8 Mitral valve area, PHT, DP 4.1 cm^2 5.6 Pulmonary arteries Value 10/28/2016 Reference PA pressure, S, DP (H) 47 mm Hg <=30 Tricuspid valve Value 10/28/2016 Reference Tricuspid regurg peak 3.2 m/sec 3 velocity Tricuspid peak RV-RA 41 mm Hg 36 gradient Right atrium Value 10/28/2016 Reference RA area, ES, A4C (H) 25.3 cm^2 20.5 8.3 - 19.5 Systemic veins Value 10/28/2016 Reference Estimated CVP 10 mm Hg Right ventricle Value 10/28/2016 Reference RV pressure, S, DP (H) 51 mm Hg <=30 Legend: (L) and (H) [place] values outside specified reference range. I have personally reviewed the images and have reviewed and edited the reported findings. Electronically signed by Ruben Manning 09/17/2018 17:02
--- NOTE | 2018-09-17 10:51 | OT.INIE ---
Occupational Therapy Notes Inpatient Occupational Therapy Evaluation Date: 09/17/18 Referring Doctor:Dania Chavarria MD OT Orders: Eval and Treat Precautions: Fall, Standard PATIENT PROFILE/ADMITTING DIAGNOSIS: Pt is an 82 year old male who was admitted through the ER for Pneumonia. Past Medical History: Medical History Ulcerative colitis (Inactive) Type 2 diabetes mellitus without complication (Chronic) Spinal stenosis (Chronic) Rosacea (Chronic) Osteoarthritis (Chronic) Hypothyroidism (Chronic) Hyperlipidemia (Chronic) Essential hypertension, benign (Chronic 12/01/14) 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) Decubitus ulcer of left buttock, stage 2 (Resolved 07/18/17) Cataracts, bilateral (Resolved 10/24/15) Atrial fibrillation (Chronic) Ataxia (Chronic) Mild cognitive impairment (Chronic) Surgical History Appendectomy Colonoscopy - IV Sedation (11/18/12) Social History/Home Situation: Pt lives with his in a private home. He reports that he has two daughters who check on him frequently. He states that prior to admission he was (I) with his ADLs/IADLs. Equipment owned/DME: Grab bars, shower seat SUBJECTIVE: Pt was transferring to chair with nursing when OT arrived. Pt states that he is agreeable to OT session and has a test that he has to go to at 9:00. OBJECTIVE: General Observation: Pleasant and answers questions appropriately Mental Status: A&Ox3 Pain: no c/o pain ROM: RUE Shoulder flexion 100*, elbow WNL, hand/wrist WNL L UE Shoulder flexion 120*, elbow WNL, hand/wrist WNL STRENGTH: RUE Shoulder flexion 3-/5, elbow 4/5, fitness plan coordinator is weak (L) > (R) LUE Shoulder flexion 3+/5, elbow 4/5, fitness plan coordinator is weak (L) > (R) *Pt states that he is ambidextrous FUNCTIONAL MOBILITY/ADLS: Sit-Stand SBA, FWW Stand-sit SBA, FWW EATING Sitting in chair pt states that he is unable to feed himself. Per OT assessment pt was able to functionally grab cup and drink milk (I), cut his food (I) and (I) with food to mouth translation. BALANCE: Static sitting Good Dynamic Sitting Good Static Standing Good Dynamic Standing Good SPECIAL TESTS: Daily Activity Limitations Standardized Measure [facility] AM -PAC ?6 clicks? Daily Activity Inpatient Short Form: Raw score: 22 Standardized score: 47.10 CMS score: 25.80% INFORMED CONSENT/EDUCATION: Pt instructed in purpose of OT Consult and plan of care. ASSESSMENT: Patient is a 82-year-old female referred to occupational therapy services with diagnosis of pneumonia. Patient presents with clinical signs and symptoms consistent with dx, as demonstrated by the following impairment level findings/ functional limitations: Decreased functional activity tolerance, decreased strength in (B) hands/fitness plan coordinator, decreased (R) ROM which pt states is d/t rotator issue, decreased functional mobility tolerance. AMPAC score 22, CMS score 25.80% Patient is assessed as a Moderate 23464 complexity based on the following: History: See Above Examination: See Above Presentation: Evolving Decision Making: Moderate complexity GOALS Goals x1 week in hospital setting 1. Transfers FWW (I) 2. Dressing (I) sitting in chair 3. Bathing (I) sitting in chair 4. Toileting (I) on toilet 5. Eating (I) 6. Grooming (I) standing at sink PLAN OF CARE/TREATMENT PLAN: 1x/day, 5 days/ week x 1week Initiate Occupational Therapy Services for bathing, dressing, grooming, toileting, eating, transfer training. DISCHARGE RECOMMENDATIONS Home with services TREATMENT TIME/MINUTES/CODES 37342, 20 minutes (08:00) HALLE Zambrano/[facility]
[2018-09-17] MEDS: Insulin Aspart 300 UNITS/3 ML PEN SC ×2 (12:02→17:29)
--- NOTE | 2018-09-17 12:47 | PHARADMIT ---
Admission Pharmacy Clinical Review acute exacerbation os CHF, CAP Vs aspiration Code Status Full Code Current Weight Wgt-79.1 kg Renally Cleared and Narrow Therapeutic Index Meds CrCl~ 36 Ml/MIN Meds-OK QTc Value / Action Taken QTc-489 (Lexapro, Lasix, Zosyn) BP Control, Fever BP- 118/72 Tmax- 36.7C Electrolytes reviewed Na-138 K+3.7 mag-2.1 DVT Prophylaxis Apixaban Opiate Usage / Scheduled Bowel Regimen Ordered No Yes Plt/SCr for Heparin / Enoxaparin Plts-129 SCr-1.50 INR for Warfarin INR-1.2 H/H stable, WBC/Bands H&H- 11.8/35.5 WBC- 7.75 Antibiotic appropriateness Doxycycline, Zosyn Cultures and Sensitivities Urine-mixed flavia, Blood-pending Surgical ABX d/c within 24 hr NA DM control / Insulin Dosing BG-119 Aspart Heart Failure (Check EF%) (AMRY's, B-Block, Diuretics) Diltiazem, Lasix, Spironolactone IV to PO Switch No Home Meds Reviewed Yes Home Meds Not Ordered Metformin, Torsemide Comments
--- NOTE | 2018-09-17 13:42 | PGE_ITS ---
Date of Service Date of service: 09/17/18 Time of Service: 13:40 Assessment and Plan (1) Pneumonia: Current visit: Yes Status: Acute Either aspiration given hx or CAP. Continue doxycycline/zosyn - day 2. Not requiring oxygen. Blood cultures are pending; sputum culture not yet collected - obtain. Discussed with nursing. Repeat CXR in am. (2) Acute on chronic diastolic (congestive) heart failure: Current visit: Yes Status: Acute Continue diuresis; monitoring strict I/O's and daily weights. No rapid Afib on tele; did have 21 beats of vtach - asymptomatic overnight. Continue tele. Await echo read. Check TSH. (3) Toxic metabolic encephalopathy: Current visit: Yes Status: Acute Treat underlying infection. Ensure no urinary retention. (4) Non-insulin dependent type 2 diabetes mellitus: Current visit: Yes Status: Acute Hold metformin while in the hospital. Cover with SSI (5) Hypertension: Current visit: Yes Status: Chronic No change in tx except for holding torsemide while getting diuresed with IV lasix. (6) Ambulatory dysfunction: Current visit: Yes Status: Acute PT/OT consults (7) Hyperlipidemia: Current visit: No Status: Chronic Does not appear to be on a statin as outpatient. Follow up as outpatient. (8) Hypothyroidism: Current visit: No Status: Chronic Continue synthroid. Check TSH. (9) Atrial fibrillation: Current visit: No Status: Chronic Currently rate controlled. Continue cardizem CD, anticoagulation with eliquis. Monitor on tele to ensure that the rate does not become high. (10) Urinary incontinence: Current visit: Yes Status: Chronic Monitor PVRs (11) DVT prophylaxis: Current visit: Yes Status: Acute Therapeutic eliquis (12) Discharge planning issues: Current visit: Yes Status: Acute Full code Subjective Interval history since last seen: Mr Borrego says that he has been urinating/having urinary incontinence a lot since he was put on lasix. His PVRs have been low (20 cc, 136 cc). He states his breathing is better. He is still coughing, cough is productive of yellow green sputum. Complains of dizziness when he got out of bed. Denies chest pain, nausea, vomiting. Exam Narrative Exam Narrative: General: Very pleasant elderly male, sitting in a chair, speaking fluently, not on oxygen, A&Ox2, NAD HEENT: EOMI, MMM, no JVD Cardiovascular: seemingly RRR, quiet MILTON. Lungs: Crackles at B bases, which I hear more today on the left than the R. Gastrointestinal: abdomen is soft, nontender, nondistended Extremities: 2+ edema BLE's, improved from yesterday, some wrinkling noted, chronic venous stasis dermatitis, no c/c. Objective Objective Clinical Data: Abnormal lab results 09/16/18 09/16/18 09/16/18 Range/Units 14:00 14:00 14:00 RBC 3.84 L (4.50-6.00) m/cumm Hgb 12.6 L (13.5-17.5) g/dL Hct 37.7 L (40.0-50.0) % MCV 98.2 H (80-95) fL RDW 14.3 H (11.8-14.1) % Plt Count 126 L (130-400) x1000/uL MPV 11.3 H (8.0-11.0) fL Absolute Neutrophils 7.17 H (1.2-6.7) k/cumm Absolute Lymphocytes 1.05 L (1.2-3.4) k/cumm Absolute Monocytes 0.72 H (0.11-0.7) k/cumm PT 12.5 H (9.3-11.0) sec INR 1.2 H (0.9-1.1) Sodium 134 L (136-145) mmol/L BUN 27 H (7-18) mg/dL Creatinine (0.70-1.30) mg/dL Glucose 124 H (70-100) mg/dL Troponin I 0.12 H* (0.00-0.06) ng/mL NT-Pro-B Natriuret Pep 5542 H ( - 299) pg/mL Albumin 3.2 L (3.4-5.0) g/dL 09/16/18 09/16/18 09/17/18 Range/Units 19:00 23:00 06:30 RBC (4.50-6.00) m/cumm Hgb (13.5-17.5) g/dL Hct (40.0-50.0) % MCV (80-95) fL RDW (11.8-14.1) % Plt Count (130-400) x1000/uL MPV (8.0-11.0) fL Absolute Neutrophils (1.2-6.7) k/cumm Absolute Lymphocytes (1.2-3.4) k/cumm Absolute Monocytes (0.11-0.7) k/cumm PT (9.3-11.0) sec INR (0.9-1.1) Sodium (136-145) mmol/L BUN 27 H (7-18) mg/dL Creatinine 1.50 H (0.70-1.30) mg/dL Glucose 119 H (70-100) mg/dL Troponin I 0.12 H* 0.19 H* 0.18 H* (0.00-0.06) ng/mL NT-Pro-B Natriuret Pep ( - 299) pg/mL Albumin (3.4-5.0) g/dL 09/17/18 Range/Units 06:30 RBC 3.60 L (4.50-6.00) m/cumm Hgb 11.8 L (13.5-17.5) g/dL Hct 35.5 L (40.0-50.0) % MCV 98.6 H (80-95) fL RDW 14.4 H (11.8-14.1) % Plt Count 129 L (130-400) x1000/uL MPV 11.2 H (8.0-11.0) fL Absolute Neutrophils (1.2-6.7) k/cumm Absolute Lymphocytes (1.2-3.4) k/cumm Absolute Monocytes (0.11-0.7) k/cumm PT (9.3-11.0) sec INR (0.9-1.1) Sodium (136-145) mmol/L BUN (7-18) mg/dL Creatinine (0.70-1.30) mg/dL Glucose (70-100) mg/dL Troponin I (0.00-0.06) ng/mL NT-Pro-B Natriuret Pep ( - 299) pg/mL Albumin (3.4-5.0) g/dL Vital Signs Temperature 36.6 C 09/17/18 11:05 Temperature Source Tympanic 09/17/18 11:05 Pulse 69 09/17/18 11:05 Pulse Rhythm Irregular 09/17/18 07:50 Pulse 79 09/16/18 16:50 Respiratory Rate 20 09/17/18 11:05 Respiratory Effort Non-Labored 09/17/18 07:50 Respiratory Depth Normal 09/17/18 07:50 Respiratory Pattern Normal 09/17/18 07:50 Blood Pressure 118/72 09/17/18 11:05 Blood Pressure Mean 81 09/16/18 16:46 Pulse Oximetry 97 09/17/18 11:05 Oxygen Delivery Method Room Air 09/17/18 11:05 Oxygen Flow Rate 0 09/17/18 11:05 Pain Level 0 09/16/18 17:30 Intake & Output 09/16/18 09/17/18 09/17/18 23:59 11:59 23:59 Intake Total 1350 / 1350 650 / 650 Output Total 1350 / 1350 550 / 550 Balance 0 / 0 100 / 100 Weight 80.739 kg 79.1 kg Intake: IV 150 / 150 150 / 150 Oral 1200 / 1200 500 / 500 Output: Urine 1350 / 1350 550 / 550 Other: Urine Color Yellow Yellow Urine Appearance Clear Clear Urine Odor Normal None Comment patient was also incontinent of large amount of urine. Stool Occult Blood Negative Stool Size Moderate Stool Characteristics Soft Brown Voiding Methods Bedside Commode Urinal Diaper Incontinent Laboratory Results WBC 7.75 k/cumm (4.4-10.8) 09/17/18 06:30 RBC 3.60 m/cumm (4.50-6.00) L 09/17/18 06:30 Hgb 11.8 g/dL (13.5-17.5) L 09/17/18 06:30 Hct 35.5 % (40.0-50.0) L 09/17/18 06:30 MCV 98.6 fL (80-95) H 09/17/18 06:30 MCH 32.8 pg (27.0-33.0) 09/17/18 06:30 MCHC 33.2 g/dL (32.0-36.0) 09/17/18 06:30 RDW 14.4 % (11.8-14.1) H 09/17/18 06:30 Plt Count 129 x1000/uL (130-400) L 09/17/18 06:30 MPV 11.2 fL (8.0-11.0) H 09/17/18 06:30 Immature Gran % 0.1 09/17/18 06:30 Neutrophils % 72.1 09/17/18 06:30 Lymphocytes % 17.8 09/17/18 06:30 Monocytes % 8.6 09/17/18 06:30 Eosinophils % 1.0 09/17/18 06:30 Basophils % 0.4 09/17/18 06:30 Absolute Neutrophils 5.58 k/cumm (1.2-6.7) 09/17/18 06:30 Absolute Lymphocytes 1.38 k/cumm (1.2-3.4) 09/17/18 06:30 Absolute Monocytes 0.67 k/cumm (0.11-0.7) 09/17/18 06:30 Absolute Eosinophils 0.08 k/cumm (0.0-0.7) 09/17/18 06:30 Absolute Basophils 0.03 k/cumm (0.0-0.2) 09/17/18 06:30 PT 12.5 sec (9.3-11.0) H 09/16/18 14:00 INR 1.2 (0.9-1.1) H 09/16/18 14:00 APTT 28.5 sec (21.0-31.4) 09/16/18 14:00 Sodium 138 mmol/L (136-145) 09/17/18 06:30 Potassium 3.7 mmol/L (3.5-5.1) 09/17/18 06:30 Chloride 100 mmol/L (98-107) 09/17/18 06:30 Carbon Dioxide 30.0 mmol/L (21.0-32.0) 09/17/18 06:30 Anion Gap 8.0 mmol/L (3-11) 09/17/18 06:30 BUN 27 mg/dL (7-18) H 09/17/18 06:30 Creatinine 1.50 mg/dL (0.70-1.30) H 09/17/18 06:30 Estimated GFR/1.73 m2 45.03 (mL/min/1.73m2) 09/17/18 06:30 Glucose 119 mg/dL (70-100) H 09/17/18 06:30 Calcium 9.0 mg/dL (8.5-10.1) 09/17/18 06:30 Magnesium 2.1 mg/dL (1.8-2.4) 09/17/18 06:30 Total Bilirubin 0.9 mg/dL (0.2-1.0) 09/16/18 14:00 AST 19 U/L (15-37) 09/16/18 14:00 ALT 19 U/L (12-78) 09/16/18 14:00 Alkaline Phosphatase 104 U/L (46-116) 09/16/18 14:00 Troponin I 0.18 ng/mL (0.00-0.06) H* 09/17/18 06:30 NT-Pro-B Natriuret Pep 5542 pg/mL (-299) H 09/16/18 14:00 Total Protein 7.1 g/dL (6.4-8.2) 09/16/18 14:00 Albumin 3.2 g/dL (3.4-5.0) L 09/16/18 14:00 Urine Color Yellow (Yellow) 09/16/18 14:08 Urine Clarity Clear 09/16/18 14:08 Urine pH 6.0 (5-8) 09/16/18 14:08 Ur Specific [place] 1.015 (1.005-1.025) 09/16/18 14:08 Urine Protein Negative mg/dL (Negative) 09/16/18 14:08 Urine Ketones Negative mg/dL (Negative) 09/16/18 14:08 Urine Blood Negative (Negative) 09/16/18 14:08 Urine Nitrite Negative (Negative) 09/16/18 14:08 Urine Bilirubin Negative (Negative) 09/16/18 14:08 Urine Urobilinogen 0.2 EU/dL (Up TO 0.2) 09/16/18 14:08 Ur Leukocyte Esterase Negative (Negative) 09/16/18 14:08 Urine Glucose Negative mg/dL (Negative) 09/16/18 14:08
[2018-09-17] MEDS: Lidocaine 2% Jelly 11 ML SYR UR (14:02)
[2018-09-17 14:32] LABS: TSH 4.46 uIU/mL (0.358-3.74)
--- NOTE | 2018-09-17 15:43 | PT.INTREAT ---
Date of service: 09/17/18 Time of Service: 15:43 PT Notes Inpatient Physical Therapy Treatment Note [facility] Date: 09/17/18 PRECAUTIONS: Fall SUBJECTIVE: Juan Pablo is agreeable to participating in PT. He reports that he just had a Martin catheter inserted this afternoon and that he is still getting used to how it feels. OBJECTIVE: PAIN: No c/o pain BED MOBILITY/TRANSFERS Supine-sit: SBA Sit-stand: SBA Stand-sit: CGA GAIT Assistive Device: FWW Weight bearing: Full Assist: CGA Distance: 150' Deviation: Decreased alireza and stride TOILETING: Patient toileted with assist ASSESSMENT: Patient tolerated session well without complaint. He would benefit from continued gait and transfers and strengthening for improved mobility and improved activity tolerance. PLAN: Continue with PT's POC TREATMENT CODE/TIME: 20 minutes; 63183
[2018-09-17] MEDS: Normal Saline Flush 10 ML SYR (16:28)
--- NOTE | 2018-09-17 16:31 | PT.INIE ---
Date of service: 09/17/18 Time of Service: 11:21 PT Notes Inpatient Physical Therapy Evaluation Date: 09/17/2018 Referring Doctor: Dania Navas MD PT Orders: PT CONSULT: Eval/treat Precautions: Fall. Standard. Patient Profile/Admitting Diagnosis: Orders received for this 82-year-old male who presented to the ED on 09/16/2018 with chief complaints of shortness of breath, cough, green-yellow sputum, generalized weakness, and orthopnea. Patient was diagnosed with pneumonia, toxic metabolic encephalopathy, and NIDDM. 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 He reports that he has two daughters who check on him frequently. Patient was independent with all transfers and ambulation task performance using a FWW. Current Functional Limitations: Need for assistance for all mobility ADL performance using FWW. Equipment Owned/DME: FWW, grab bars, shower seat Subjective: Patient available for and agreeable to a physical therapy evaluation. He denies pain, headache, and chest pain throughout this session. Objective: General Observation: Patient seen sitting on recliner chair. IV in the right UE. Brownish discoloration of bilateral legs most probably from hemosiderin staining related to possible presence of chronic venous insufficiency with right leg more discolored than the left. Swelling noted to bilateral legs with the right more affected than the left. Mental Status: Patient is able to follow instructions with repetition and redirection needed. Some mild confusion noted during conversation. Pain: 0/10 Vital Signs: 98% on room air, 87 bpm. ROM: Right Upper Extremity: Shoulder Flexion 0 to 110 degrees. Shoulder abduction 0 to 80 degrees. Elbow flexion WFL. Wrist flexion WFL. Functional opening and closing of hand WFL. Left Upper Extremity: Shoulder Flexion 0 to 110 degrees. Shoulder abduction 0 to 80 degrees. Elbow flexion WFL. Wrist flexion WFL. Functional opening and closing of hand WFL. Right Lower Extremity: Hip flexion WFL. Hip abduction WFL. Knee flexion WFL. Ankle dorsiflexion 10 degrees beyond neutral. Ankle plantarflexion WFL. Left Lower Extremity: Hip flexion WFL. Hip abduction WFL. Knee flexion WFL. Ankle dorsiflexion 10 degrees beyond neutral. Ankle plantarflexion WFL. Strength: Right Upper Extremity: Shoulder flexors 3-/5. Shoulder abductors 3-/5. Elbow flexors 4-/5. Elbow extensors 4-/5. Debt Recovery Officer strong. Left Upper Extremity: Shoulder flexors 3-/5. Shoulder abductors 3-/5. Elbow flexors 4-/5. Elbow extensors 4-/5. Debt Recovery Officer strong. Right Lower Extremity: Hip flexors 4-/5. Hip abductors 4-/5. Knee flexors 4-/5. Knee extensors 53+5. Ankle dorsiflexors 4/5. Ankle plantarflexors 4/5. Left Lower Extremity:Hip flexors 4-/5. Hip abductors 4-/5. Knee flexors 4-/5. Knee extensors 53+5. Ankle dorsiflexors 4/5. Ankle plantarflexors 4/5. Sensation: Bed Mobility/Transfers: Sit to stand minimal assist Stand to sit minimal assist Bed to chair minimal assist Chair to bed minimal assist Gait: Patient tolerated level surface ambulation with minimal assist using FWW with full weight bearing for 120 feet with 4 turns, moderate verbal cues given for directions and continued focus to task. Patient demonstrated increased tendency to shuffle with fatigue, mild retropulsion x 2 during gait activity. Balance: Static Sitting: Good Dynamic Sitting: Good Static Standing: Fair Dynamic Standing: Fair Special Tests: Mobility Limitations Standardized Measure [facility] 6 clicks Basic Mobility Inpatient Short Form: Raw Score: 18 CMS Score: 47% deficit Informed Consent/Education: Patient instructed in purpose of PT consult and plan of care. Assessment: Patient is a 82 year old male referred to physical therapy services with the diagnosis of generalized weakness from pneumonia, toxic metabolic encephalopathy, and NIDDM. Patient presents with clinical signs and symptoms consistent with current/admitting diagnoses that have resulted to mobility limitations, gait instability, generalized weakness, and impairment of motor control as demonstrated by the following impairment level findings: 1. Decreased strength to B LE major muscle groups 2. Impaired sitting/standing balance 3. Impaired activity tolerance 4. Limitation of joint range of motion in both shoulders (chronic) Impairments are contributing to the following functional limitations: 1. Dependent bed mobility skills 2. Increased dependence with transfers 3. Inability to safely ambulate without assistive device and physical assistance 4. Increase completion time for mobility ADL performance 5. Increased fall risk 6. Inability to negotiate steps alone safely Patient is assessed as a Moderate 72099 complexity based on the following: History: Patient is a 82 year old male referred to physical therapy services with the diagnosis of generalized weakness from pneumonia, toxic metabolic encephalopathy, and NIDDM Examination: Underlying impairments and functional limitations as noted above Presentation: Evolving Decision Makin moderate complexity Goals: Goals X1 week 1. Supine-Sit independent 2. Sit-Supine independent 3. Sit-Stand independent 4. Stand-Sit independent 5. Bed-Chair independent 6. Chair-Bed independent 7. Independent gait on level surface with use of least restrictive device for at least 300 feet without report of pain nor dyspnea 8. Independent stair negotiation while holding onto bilateral rails for at least 10 steps without report of pain nor dyspnea 9. Independent with home exercise program 10. Good static and dynamic standing balance/tolerance Plan of Care/Treatment Plan: 1-2x/day, 7 days/week x 1 week. Plan of care has been reviewed with the DAMPER FITTER providing the service under Physical Therapy direction. Initiate Physical Therapy intervention for strengthening, bed mobility, transfers, gait, stairs, balance training, use of assistive device. DISCHARGE RECOMMENDATIONS: Patient will benefit from care home facility placement in order to maximize functional mobility level, reduce fall risks, and regain premorbid independent level using FWW. No equipment needs at this time. TREATMENT CODE/TIME: 17800 for 36 minutes beginning at 11:21 AM. Thank you for this referral. Amanda Perkins, PT, DPT, CLT [facility]
[2018-09-17] MEDS: Normal Saline Flush 10 ML SYR IVP ×2 (18:24→20:32)
[2018-09-18] VITALS (9 sets, daily range): BP systolic 106–120; BP diastolic 64–74; PULSE 77–97; RESP 8–18; TEMP 36.3–37.2; O2SAT 93–98
[2018-09-18] MEDS: Acetaminophen 325 MG TAB PO (01:05)
[2018-09-18] MEDS: Normal Saline Flush 10 ML SYR IVP ×3 (03:55→12:03)
[2018-09-18] MEDS: PIPERACILLIN/TAZO 3.375 GM in Normal Saline 50 ML IVPB ×2 (03:55→12:04)
[2018-09-18] MEDS: DOXYCYCLINE 100 MG in Normal Saline 100 ML IVPB (06:04)
[2018-09-18] MEDS: Levothyroxine 50 MCG TAB PO (06:04)
[2018-09-18] MEDS: Albuterol/Ipratropium 3 ML UPD VIAL UPD ×2 (06:10→11:38)
[2018-09-18 07:27] LABS: Abs Immature Grans 0.02 k/cumm (0.0-0.09); Absolute Basophil Count 0.02 k/cumm (0.0-0.2); Absolute Eosinophil Count 0.11 k/cumm (0.0-0.7); Absolute Lymphocyte Count 1.93 k/cumm (1.2-3.4); Absolute Monocyte Count 0.65 k/cumm (0.11-0.7); Absolute Neutrophil Count 5.58 k/cumm (1.2-6.7); Basophils % 0.2; Eosinophils % 1.3; HCT 35.2 % (40.0-50.0); HGB 11.8 g/dL (13.5-17.5); Immature Grans % 0.2; Lymphocytes % 23.2; Mean Corp. HGB Concentration 33.5 g/dL (32.0-36.0); Mean Corpuscular Hemoglobin 32.9 pg (27.0-33.0); Mean Corpuscular Volume 98.1 fL (80-95); Mean Platelet Volume 11.1 fL (8.0-11.0); Monocytes % 7.8; Neutrophils % 67.3; Platelet Count 132 x1000/uL (130-400); RBC 3.59 m/cumm (4.50-6.00); RBC Distribution Width 14.3 % (11.8-14.1); White Blood Cell Count 8.31 k/cumm (4.4-10.8)
[2018-09-18 07:44] LABS: Anion Gap 8.2 mmol/L (3-11); BUN 26 mg/dL (7-18); CO2 28.8 mmol/L (21.0-32.0); CREATININE 1.41 mg/dL (0.70-1.30); Calcium 8.9 mg/dL (8.5-10.1); Chloride 100 mmol/L (98-107); Estimated GFR 48.36 (mL/min/1.73m2); Glucose 138 mg/dL (70-100); Potassium 3.5 mmol/L (3.5-5.1); Sodium 137 mmol/L (136-145)
--- NOTE | 2018-09-18 08:30 | DI.RAD_ITS ---
NAILA/DIAGNOSIS: FOLLOW UP CHF/PNA PORTABLE AP CHEST: 0720 HOURS 09/18/18 The heart appears enlarged. The lungs are grossly clear. No pleural effusion seen on this frontal film. CONCLUSION: Cardiomegaly, lungs appear clear.
[2018-09-18] MEDS: guaiFENesin 600 MG TABCR PO (08:32)
[2018-09-18] MEDS: Apixaban 2.5 MG TAB PO (08:32)
[2018-09-18] MEDS: Docusate Sodium 100 MG CAP PO ×2 (08:32→14:12)
[2018-09-18] MEDS: dilTIAZem CD 120 MG CAPCR PO (08:32)
[2018-09-18] MEDS: Spironolactone 25 MG TAB PO (08:32)
[2018-09-18] MEDS: Escitalopram 10 MG TAB 5 MG PO (08:32)
[2018-09-18] MEDS: Insulin Aspart 300 UNITS/3 ML PEN SC ×2 (08:33→12:01)
[2018-09-18] MEDS: Furosemide 20 MG/2 ML VIAL IVP ×2 (08:33→15:47)
--- NOTE | 2018-09-18 09:20 | EVALE_ITS ---
Date of service: 09/18/18 Time of Service: 07:15 Speech Therapy Evaluation Note: REFERRING PROVICER: Dr. Chavarria BACKGROUND This is an 82 year old naturally right-handed male who presented to the ED from home on 09/16/18 with c/o dyspnea, productive cough and orthopnea. A CXR done on that date showed clear lungs bilaterally by official read, but air brochograms RML/RUL by Dr. Chavarria's read. He was admitted for tx of pneumonia (either CAP or possibly aspiration) and a CHF exacerbation. A swallow evaluation was requested to assess for aspiration risk. PMH: CHF, A-fib, DM II, essential HTN, mild cognitive impairment, hyperlipidemia, hypothyroidism, ataxia, cataracts and a h/o tobacco use. The patient (pt) is able to provide some additional background information with regard to p.o. consistencies taken at home in the weeks prior to this admission. He states that he takes what, by description, are Thin liquids and whole pills usually in puree food. He is unclear about why he prefers his pills in puree and says that he probably could take them with a liquid. He is also unclear regarding what diet consistency he has been taking. OBJECTIVE Nursing reports: - T: 36.3 - O2 sat: 95% on RA - Pt is currently on ABX Dietary staff reports pt is currently on a Regular consistency diet and Thin liquids. The pt is sitting up in bed in the middle of a coughing episode. The cough is congested-sounding but unproductive. This is in the absence of any p.o. intake. He is able to converse but has difficulty with topic maintenance at times. 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 Oral Sensorimotor Exam The pt has some of his own dentition but is partially edentulous on both upper and lower ridges. He wears both upper and lower partial dentures to fill in these spaces. The dentures show good fit and oral hygiene is adequate. He denies any discomfort with both his teeth and dentures. Oral sensation is WNL bilaterally (B) for buccal, labial and lingual areas. Motorically, the smile is symmetrical as are forehead wrinkles. Buccal & labial strength/coordination are both WNL. No lingual deviation on protrusion is seen in a setting of good excursion. Lingual lateralization is WNL-B as are lingual rapid alternating movements. Lingual strength is WNL-B. Mandibular lateralization is WNL-B. Velopharyngeal elevation is strong & symmetrical. Volitional cough and throat- clear are both strong. Speech intelligibility to this unfamiliar listener in a setting of mild background noise is 100%. Vocal quality and intensity are both WNL. Swallowing - Honey-thick liquid: Good bolus control & posterior oral transit (POT); no laurie signs/symptoms (s/s) of aspiration/penetration (A/P); oral clearance 100%; no oral escape. These results are true for both single & consecutive swallows by cup. - [place]-thick liquid: Results are the same as for Honey-thick liquid. These results are true for single & consecutive swallows by both cup and straw. - Thin liquid: Results are the same as for [place]-thick liquid. - Puree food: Good bolus control & linguopalatal bolus compression; POT WNL; no laurie s/s A/P; oral clearance 100%; no oral escape. - Mechanically Altered food: Good bolus control & mastication quality; POT WNL; no laurie s/s A/P; oral clearance 100%; no oral escape. - Dysphagia Advanced food: Results are the same as for M.A. food. - Modified Regular food: Increased mastication time is used but this does result in good mastication quality; POT WNL; no laurie s/s A.P; oral clearance 100%; no oral escape. - Regular food: Results are the same as for modified Regular food. The pt is observed to independently self-feed with both L & R UEs, but doees need help with tray set-up due to decreased strength & mobility of UEs (e. g., removing lids, ect.). IMPRESSION The pt shows no clinical signs of an oropharyngeal dysphagia. Therefore, it is felt that his current pulmonary status is likely not an aspiration pneumonia. RECOMMENDATIONS 1. Continue current p. o. consistencies of Thin liquids and a Regular consistency diet. 2. Whole pills either with a liquid wash or in puree as desired. 3. Independent self-feeding with assist for tray set-up. 4. No speech therapy for swallowing is indicated at this time. Thank you for referring this pt.
--- NOTE | 2018-09-18 09:40 | OT.INTREAT ---
Date of service: 09/18/18 Time of Service: 08:35 Occupational Therapy Notes Occupational Therapy Inpatient Treatment Note Date: 09/18/18 PRECAUTIONS: Fall, Standard SUBJECTIVE: Pt was sitting in bed when OT arrived. He was agreeable to OT session. OBJECTIVE: PAIN:no c/o pain FUNCTIONAL MOBILITY Supine-sit: (I) Sit-supine: (I) BATHING: Sitting in bed max (A) set up Upper Body: (I) with mod vc and step by step instructions, max (A) back. Pt verbalizes what he is going to wash to maintain sequence during session. Lower Body: Max (A) (B) LE DRESSING: Sitting in bed Upper Extremity: Min (A) [facility] gown Lower Extremity: Max (A) (B) socks ASSESSMENT/PLAN: Pt is progressing with ADLs. He was pleasant and tolerated bathing in sitting position well. He does report that he is tired post bathing and dressing routines. OT will continue to progress pt per goals established per evaluation. TREATMENT CODES/TIME: [id number], 40 minutes (08:35) Adalgisa Hodges OTR/[facility]
--- NOTE | 2018-09-18 09:44 | PT.INTREAT ---
Date of service: 09/18/18 Time of Service: 09:44 PT Notes 09/18/18 SUBJECTIVE: Juan Pablo stating he has no pain. He notes he sometimes gets dizzy when walking but as long as he focuses on a spot on the wall he remains balanced and not dizzy. OBJECTIVE: Agreeable to PT treatment. TRANSFERS Supine in sit: SBA Sit to supine: Mod A Sit to stand: SBA Stand to sit: SBA GAIT Device: FWW Weight bearing: Full Assist: CGA Distance: 150' Deviation: Decreased alireza and stride length ASSESSMENT: No LOB during ambulation today without complaints of dizziness. He did require increased assistance to get back into bed today. PLAN: Continue current POC progressing toward's established goals. Treatment time: 20 minutes [id number] Betsy Corrales PTA
--- NOTE | 2018-09-18 09:45 | OTTR_ITS ---
Date of service: 09/18/18 Time of Service: 08:35 Occupational Therapy Notes Occupational Therapy Inpatient Treatment Note Date: 09/18/18 PRECAUTIONS: Fall, Standard SUBJECTIVE: Pt was sitting in bed when OT arrived. He was agreeable to OT session. OBJECTIVE: PAIN:no c/o pain FUNCTIONAL MOBILITY Supine-sit: (I) Sit-supine: (I) BATHING: Sitting in bed max (A) set up Upper Body: (I) with mod vc and step by step instructions, max (A) back. Pt verbalizes what he is going to wash to maintain sequence during session. Lower Body: Max (A) (B) LE DRESSING: Sitting in bed Upper Extremity: Min (A) [facility] gown Lower Extremity: Max (A) (B) socks ASSESSMENT/PLAN: Pt is progressing with ADLs. He was pleasant and tolerated bathing in sitting position well. He does report that he is tired post bathing and dressing routines. OT will continue to progress pt per goals established per evaluation. TREATMENT CODES/TIME: [id number], 40 minutes (08:35) Adalgisa Hodges OTR/[facility]
--- NOTE | 2018-09-18 12:17 | PDOC.CMPRO ---
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 Juan Pablo's telemetry to [place] today. CM outreached to Juan Pablo's daughter/DPOA Rut in regards to home services. A VM has been left for Rut, awaiting call at this time. A: 82 y/o male admitted 09/16/18 for acute exacerbation of CHF. P: Juan Pablo will return home with ? home health telehealth for daily weight checks, if his family is unable to help him with this. Juan Pablo's Mel will transport when ready.
--- NOTE | 2018-09-18 14:07 | W.INDIABCONS ---
Date of service: 09/18/18 Time of Service: 14:07 Diabetes Inpatient Consult DESCRIPTION/ASSESSMENT: Appreciate diabetes consult for Mr. Borrego, 82 years, who is hospitalized with pneumonia and chronic CHF. A1c 6.8 down from 7.5 in 2013. BMI 26 Blood sugars this hospitalization 99-147 except at bedtime at 223mg/dl on sensitive insulin correction. He eats well 40-60 grams carbohydrate per meal. Blood sugars at home managed with 50mg Metformin twice daily. INTERVENTION: Well managed diabetes at home with A1c consistently at goal of less than 8 for this 82 year old. No intervention suggested at this time. PLAN: Follow blood sugars and f/u with him as appropriate Time Spent in Nutritional Counseling and Treatment: 0 face to face
--- NOTE | 2018-09-18 14:19 | W.PM.DS.N ---
Date of service: 09/18/18 Time of Service: 14:19 DS: Diagnosis Discharge Diagnosis (1) Pneumonia: Status: Acute (2) Acute on chronic diastolic (congestive) heart failure: Status: Acute Asessment and Plan: EF 50-55%, moderate hypokineses of the basalinferolateral and inferior myocardium. (3) Toxic metabolic encephalopathy: Status: Acute (4) Non-insulin dependent type 2 diabetes mellitus: Status: Acute (5) Hypertension: Status: Chronic (6) Ambulatory dysfunction: Status: Acute (7) Hyperlipidemia: Status: Chronic (8) Hypothyroidism: Status: Chronic (9) Atrial fibrillation: Status: Chronic (10) Urinary incontinence: Status: Chronic Discharge Plan Disposition Patient Disposition: HOME W/HOME HEALTH SERVICE Condition: Stable Discharge Details Reason For Visit: ACUTE EXACERBATION OF CHF, CAP VS ASPIRATION PNA Admit Date/Time: 09/16/18 16:01 Admit Provider: Dania Chavarria Attending Provider: Dania Chavarria Primary Care Provider: Zander Mancini Hospital Course Hospital Course: Mr Borrego is an 82 year old male with PMHx of chronic diastolic CHF with EF of 65-70% due ot hypertrophic cardiomyopathy, Afib on eliquis, NIDDM2, hypertension, hypothyroidism, hyperlipidemia, admitted to [facility] on 09/16/18 with CAP vs acute bronchitis, acute on chronic diastolic CHF, generalized weakness and mild toxic metabolic encephalopathy. He was treated with IV doxycycline, rocephin, IV lasix, compression stockings. His swallowing was evaluated due to a report of a choking episodes at home - he does not have any evidence of oropharyngeal dysphagia. He is at his baseline, though continues to have a productive cough. He will be discharged home today with 2 days of double his normal home dose of torsemide, in addition to 3 more days of antibiotics (doxycycline,augmentin). We feel that the patient would benefit from daily weight checks and prn torsemide at home. The patient is recommended to have home health (ideally, telealth) to ensure that his CHF remains managed at home. Finally, because there was one episode of non-sustaine Vtach (21 beats, asymptomatic) and because the patient did report palpitations at home, it is felt that the patient would benefit from wearing a 30 day event monitor on discharge with follow up with his PCP. Home Meds and New Rx's Prescriptions: New guaifenesin [Mucinex] 600 mg Tablet Extended Release 12hr 600 mg PO BID PRN PRN (Reason: cough) Qty: 10 RF: 0 levothyroxine 75 mcg capsule 75 mcg PO DAILY Qty: 30 RF: 0 albuterol sulfate [ProAir HFA] 90 mcg/actuation HFA aerosol inhaler 2 puff IH Q6H PRN PRN (Reason: shortness of breath) Qty: 8 RF: 0 doxycycline hyclate 100 mg capsule 100 mg PO BID Qty: 6 RF: 0 amoxicillin-pot clavulanate [Augmentin] 500-125 mg tablet 1 tab PO BID Qty: 6 RF: 0 Continued escitalopram oxalate 5 mg tablet 5 mg PO DAILY Qty: 90 RF: 4 blood-glucose meter [[employer] UltraMini] 1 EACH kit 1 kit UD PRN RF: 0 GeneluxTouch Ultra Test 1 EACH strip 1 strip Intradermal 2X/WEEK Qty: 100 RF: 4 lancets [GeneluxTouch Delica Lancets] 1 EACH misc 1 ea Intradermal 2X/WEEK Qty: 100 RF: 4 diltiazem HCl 120 MG capsule,extended release 24hr 120 mg PO DAILY Qty: 90 RF: 4 spironolactone 25 MG tablet 25 mg PO DAILY Qty: 90 RF: 4 metformin 500 mg tablet 500 mg PO BID Qty: 180 RF: 3 apixaban 2.5 mg tablet 2.5 mg PO BID Qty: 180 RF: 4 Changed torsemide 10 MG tablet 10 mg PO DIRECTED Qty: 10 RF: 0 Discontinued levothyroxine 50 mcg tablet 50 mcg PO DAILY Qty: 90 RF: 3 Discharge Instructions Instructions: Doxycycline (By mouth), Amoxicillin/Clavulanate Potassium (By mouth), Heart Failure (DC), Bacterial Pneumonia (DC) Additional Instructions: Finish your antibiotics and steroids as prescribed. Return to the hospital with any fever, bleeding, chest pain, or worsening shortness of breath. Weigh yourself daily. Keep a log of your weights. Take an extra dose of torsemide if you have gained more than 3 lbs in 3 days. Care Plan Goals: Home with telealth via home health, physical and occupational therapy Stand Alone Forms: Nursing Discharge Form Activity:: Activity as Tolerated Equipment/Supplies:: No Equipment Needed Diet:: diabetic cardiac Discharge Orders Discharge Orders: Discharge Order (Routine); Ordered 09/18/18 Ordered By: Dania Chavarria Other Ambulatory Orders: Basic Metabolic Panel (Routine) Timeframe: 1 Week Location: Determined by Patient Ordered By: Dania Chavarria Magnesium (Routine) Timeframe: 1 Week Location: Determined by Patient Ordered By: Dania Chavarria Cardiac Event Recorder (Outpt) (ONCE) Location: Determined by Patient Ordered By: Dania Chavarria Exam Narrative Exam Narrative: General: Very pleasant elderly male, sitting up in bed, speaking fluently, not on oxygen, A&Ox2, NAD HEENT: EOMI, MMM, no JVD Cardiovascular: seemingly RRR, quiet MILTON. Lungs: CTAB Gastrointestinal: abdomen is soft, nontender, nondistended Extremities: 1+ edema BLE's, improved from yesterday, some wrinkling noted, chronic venous stasis dermatitis, no c/c. DS: Data Vitals/I&O Vitals and I&O: Vital Signs Temperature 36.8 C 09/18/18 11:22 Temperature Source Tympanic 09/18/18 11:22 Pulse 84 09/18/18 11:22 Pulse Rhythm Irregular 09/18/18 08:20 Pulse 79 09/16/18 16:50 Respiratory Rate 18 09/18/18 11:22 Respiratory Effort 09/18/18 08:20 Respiratory Depth Normal 09/18/18 08:20 Respiratory Pattern Normal 09/18/18 08:20 Blood Pressure 107/67 09/18/18 11:22 Blood Pressure Mean 81 09/16/18 16:46 Pulse Oximetry 97 09/18/18 11:22 Oxygen Delivery Method Room Air 09/18/18 11:22 Oxygen Flow Rate 0 09/18/18 11:22 Pain Level 0 09/18/18 03:30 Intake & Output 09/17/18 09/18/18 09/18/18 23:59 11:59 23:59 Intake Total 700 / 1350 790 / 1030 240 / 1030 Output Total 1825 / 2875 2200 / 2600 400 / 2600 Balance -1125 / -1525 -1410 / -1570 -160 / -1570 Weight 77.8 kg Intake: IV 220 / 370 150 / 150 Oral 480 / 980 640 / 880 240 / 880 Output: Urine 1825 / 2875 2200 / 2600 400 / 2600 Other: Urine Color Yellow Yellow Yellow Urine Appearance Clear Clear Clear Comment LEAKING AROUND ESTEBAN CATHETER. CLEANSED WITH WARM WIPES, ROSA APPLIED AND BRIEF CHANGED TO DIAPER. ESTEBAN CHECKED FOR KINKS. Stool Size Large Stool Characteristics Formed Hard Brown Voiding Methods Indwelling Catheter Completed studies during hospitalization [Text1]: CXR 09/16/18: No acute pulmonary process. Echo 09/17/18: Severe LVH. Summary: 1. Left ventricle: The cavity size was at the lower limits of normal. Wall thickness was increased in a pattern of severe LVH. Systolic function was at the lower limits of normal. The estimated ejection fraction was 50-55%. Moderate hypokinesis of the basalinferolateral and inferior myocardium. 2. Aortic valve: There was mild to moderate regurgitation. 3. Aortic root: The aortic root was at upper normal limits. 4. Ascending aorta: The ascending aorta was at upper normal limits. 5. Mitral valve: There was moderate regurgitation. 6. Left atrium: The atrium was severely dilated. 7. Right ventricle: The cavity size was mildly dilated. Wall thickness was normal. Systolic function was normal. 8. Right atrium: The atrium was moderately dilated. 9. Atrial septum: No defect or patent foramen ovale was identified. 10. Tricuspid valve: There was moderate regurgitation. 11. Pulmonic valve: There was moderate regurgitation. 12. Pulmonary arteries: Pulmonary systolic pressure was mildly increased. PA peak pressure: 47mm Hg (S). CXR 09/18/18: Cardiomegaly, lungs appear clear Labs on day of discharge: Labs from last 24 hours 09/18/18 09/18/18 09/17/18 06:45 06:45 06:30 WBC 8.31 RBC 3.59 L Hgb 11.8 L Hct 35.2 L MCV 98.1 H MCH 32.9 MCHC 33.5 RDW 14.3 H Plt Count 132 MPV 11.1 H Immature Gran % 0.2 Neutrophils % 67.3 Lymphocytes % 23.2 Monocytes % 7.8 Eosinophils % 1.3 Basophils % 0.2 Absolute Neutrophils 5.58 Absolute Lymphocytes 1.93 Absolute Monocytes 0.65 Absolute Eosinophils 0.11 Absolute Basophils 0.02 Sodium 137 Potassium 3.5 Chloride 100 Carbon Dioxide 28.8 Anion Gap 8.2 BUN 26 H Creatinine 1.41 H Estimated GFR/1.73 m2 48.36 Glucose 138 H Calcium 8.9 Magnesium 2.0 TSH 4.46 H Preliminary micro results at discharge 09/17/18 14:15 Sputum Culture - Preliminary Sputum Normal [place] 09/16/18 15:00 Blood Culture - Preliminary Blood NO GROWTH 24 HOURS 09/16/18 14:39 Blood Culture - Preliminary Blood NO GROWTH 24 HOURS PFSH Medical History Ulcerative colitis (Inactive) Type 2 diabetes mellitus without complication (Chronic) Spinal stenosis (Chronic) Rosacea (Chronic) Osteoarthritis (Chronic) Hypothyroidism (Chronic) Hyperlipidemia (Chronic) Essential hypertension, benign (Chronic 12/01/14) 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) Decubitus ulcer of left buttock, stage 2 (Resolved 07/18/17) Cataracts, bilateral (Resolved 10/24/15) Atrial fibrillation (Chronic) Ataxia (Chronic) Mild cognitive impairment (Chronic) Surgical History Appendectomy Colonoscopy - IV Sedation (11/18/12) Family History Mother Diabetes Stroke Father Heart disease Sister Psoriasis Social History Smoking/Tobacco Use Status: Former Tobacco Use Alcohol Intake: current Alcohol Intake frequency: a few times a month Drug use: Never Sun/Mormonism: No preference Special sun needs: No Do you feel safe at home: Yes Do you feel safe in your relationship?: Yes
--- NOTE | 2018-09-18 14:42 | PDOC.HHF2F ---
1. Encounter Date and Reason I certify that DELROY NEVES was seen by Dania Chavarria on 09/18/18 and that I had a [id number] encounter with this patient that meets the physician face to face encounter requirements. 2. Clinical Findings Supporting Skilled Need and Homebound Status I certify that home health services are medically necessary, include either intermittent fci and/or physical/speech therapy, and that this patient is homebound in that absences from the home require considerable and taxing effort and are infrequent or of short duration, or are attributable to the need to receive medical care. [X] (a) Attached documentation from encounter provides clinical findings supporting skilled need and homebound status (including what assistance patient requires to leave the home). The encounter with the patient was in whole, or in part, for the following medical condition, which is the primary reason for home health care: ACUTE EXACERBATION OF CHF, CAP VS ASPIRATION PNA Long-Term: evaluate and teach: CHF, Afib. Evaluate for telehealth. Please, collect CBC, BMP, Magnesium on 09/25/18. Physical Therapy: evaluate and treat Occupational therapy: evaluate and treat Homebound: Unable to leave home without assistance. 3. Certification and Authentication I certify that I composed the above information based on my clinical judgement relating to this patient's medical condition and, if applicable, clinical findings communicated to me by the NPP or inpatient physician who performed the Home Health Referral. All further orders will be obtained through Dr Zander Mancini (Community Based Physician - PCP)
--- NOTE | 2018-09-21 08:14 | OT.INDS ---
Date of service: 09/21/18 Time of Service: 08:15 Occupational Therapy Notes Occupational Therapy Inpatient Discharge Summary Date: 09/21/18 for 09/18/18 Dates of Service: 09/17/18-09/18/18 Referring Doctor:Dania Chavarria MD OT Orders: Eval and Treat Precautions: Fall, Standard PATIENT PROFILE/ADMITTING DIAGNOSIS: Pt is an 82 year old male who was admitted through the ER for Pneumonia. Past Medical History: Medical History Ulcerative colitis (Inactive) Type 2 diabetes mellitus without complication (Chronic) Spinal stenosis (Chronic) Rosacea (Chronic) Osteoarthritis (Chronic) Hypothyroidism (Chronic) Hyperlipidemia (Chronic) Essential hypertension, benign (Chronic 12/01/14) 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) Decubitus ulcer of left buttock, stage 2 (Resolved 07/18/17) Cataracts, bilateral (Resolved 10/24/15) Atrial fibrillation (Chronic) Ataxia (Chronic) Mild cognitive impairment (Chronic) Surgical History Appendectomy Colonoscopy - IV Sedation (11/18/12) Social History/Home Situation: Pt lives with his in a private home. He reports that he has two daughters who check on him frequently. He states that prior to admission he was (I) with his ADLs/IADLs. Equipment owned/DME: Grab bars, shower seat SUBJECTIVE: NT OBJECTIVE: Dates of Service: 09/17/18-09/18/18 ROM: RUE Shoulder flexion 100*, elbow WNL, hand/wrist WNL L UE Shoulder flexion 120*, elbow WNL, hand/wrist WNL STRENGTH: RUE Shoulder flexion 3-/5, elbow 4/5, research worker encyclopedia is weak (L) > (R) LUE Shoulder flexion 3+/5, elbow 4/5, research worker encyclopedia is weak (L) > (R) *Pt states that he is ambidextrous FUNCTIONAL MOBILITY/ADLS: Sit-Stand SBA, FWW Stand-sit SBA, FWW Supine-sit: (I) Sit-supine: (I) BATHING: Sitting in bed max (A) set up Upper Body: (I) with mod vc and step by step instructions, max (A) back. Lower Body: Max (A) (B) LE DRESSING: Sitting in bed Upper Extremity: Min (A) [facility] gown Lower Extremity: Max (A) (B) socks EATING Sitting in chair (I) BALANCE: Static sitting Good Dynamic Sitting Good Static Standing Good Dynamic Standing Good ASSESSMENT: Patient is a 82-year-old female referred to occupational therapy services with diagnosis of pneumonia. Pt was seen for 2 skilled OT sessions. Pt was able to demonstrate increased (I). Pt was able to perform eating, bathing and dressing (I) in sitting position. Pt was discharged home on 09/18/18 with HH Services when medically cleared per MD. GOALS 1. Transfers FWW (I) Not Met 2. Dressing (I) sitting in chair Met 3. Bathing (I) sitting in chair Met 4. Toileting (I) on toilet Met 5. Eating (I) Met 6. Grooming (I) standing at sink Not Met PLAN OF CARE/TREATMENT PLAN: Discharge from skilled OT services at this time. DISCHARGE RECOMMENDATIONS Discharged on 09/18/18 home with HH services TREATMENT TIME/MINUTES/CODES N/A Adalgisa Hodges OTR/L [facility]
--- NOTE | 2018-09-21 08:19 | OTDS_ITS ---
Date of service: 09/21/18 Time of Service: 08:15 Occupational Therapy Notes Occupational Therapy Inpatient Discharge Summary Date: 09/21/18 for 09/18/18 Dates of Service: 09/17/18-09/18/18 Referring Doctor:Dania Chavarria MD OT Orders: Eval and Treat Precautions: Fall, Standard PATIENT PROFILE/ADMITTING DIAGNOSIS: Pt is an 82 year old male who was admitted through the ER for Pneumonia. Past Medical History: Medical History Ulcerative colitis (Inactive) Type 2 diabetes mellitus without complication (Chronic) Spinal stenosis (Chronic) Rosacea (Chronic) Osteoarthritis (Chronic) Hypothyroidism (Chronic) Hyperlipidemia (Chronic) Essential hypertension, benign (Chronic 12/01/14) 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) Decubitus ulcer of left buttock, stage 2 (Resolved 07/18/17) Cataracts, bilateral (Resolved 10/24/15) Atrial fibrillation (Chronic) Ataxia (Chronic) Mild cognitive impairment (Chronic) Surgical History Appendectomy Colonoscopy - IV Sedation (11/18/12) Social History/Home Situation: Pt lives with his in a private home. He reports that he has two daughters who check on him frequently. He states that prior to admission he was (I) with his ADLs/IADLs. Equipment owned/DME: Grab bars, shower seat SUBJECTIVE: NT OBJECTIVE: Dates of Service: 09/17/18-09/18/18 ROM: RUE Shoulder flexion 100*, elbow WNL, hand/wrist WNL L UE Shoulder flexion 120*, elbow WNL, hand/wrist WNL STRENGTH: RUE Shoulder flexion 3-/5, elbow 4/5, assembly department supervisor is weak (L) > (R) LUE Shoulder flexion 3+/5, elbow 4/5, assembly department supervisor is weak (L) > (R) *Pt states that he is ambidextrous FUNCTIONAL MOBILITY/ADLS: Sit-Stand SBA, FWW Stand-sit SBA, FWW Supine-sit: (I) Sit-supine: (I) BATHING: Sitting in bed max (A) set up Upper Body: (I) with mod vc and step by step instructions, max (A) back. Lower Body: Max (A) (B) LE DRESSING: Sitting in bed Upper Extremity: Min (A) [facility] gown Lower Extremity: Max (A) (B) socks EATING Sitting in chair (I) BALANCE: Static sitting Good Dynamic Sitting Good Static Standing Good Dynamic Standing Good ASSESSMENT: Patient is a 82-year-old female referred to occupational therapy services with diagnosis of pneumonia. Pt was seen for 2 skilled OT sessions. Pt was able to demonstrate increased (I). Pt was able to perform eating, bathing and dressing (I) in sitting position. Pt was discharged home on 09/18/18 with HH Services when medically cleared per MD. GOALS 1. Transfers FWW (I) Not Met 2. Dressing (I) sitting in chair Met 3. Bathing (I) sitting in chair Met 4. Toileting (I) on toilet Met 5. Eating (I) Met 6. Grooming (I) standing at sink Not Met PLAN OF CARE/TREATMENT PLAN: Discharge from skilled OT services at this time. DISCHARGE RECOMMENDATIONS Discharged on 09/18/18 home with HH services TREATMENT TIME/MINUTES/CODES N/A Adalgisa Hodges OTR/L [facility]
--- NOTE | 2018-09-21 12:41 | PT.INDS ---
Date of service: 09/21/18 PT Notes Inpatient Physical Therapy Discharge Summary Dates: 09/21/2018 Dates of Service: 09/17/2018 through 09/18/2018 This is a clinical summary of skilled PT services provided on the dates listed above. No charge was made in the completion of this documentation. Referring Doctor: Dania Navas MD PT Orders: PT CONSULT: Eval/treat Precautions: Fall. Standard. Patient Profile/Admitting Diagnosis: Orders received for this 82-year-old male who presented to the ED on 09/16/2018 with chief complaints of shortness of breath, cough, green-yellow sputum, generalized weakness, and orthopnea. Patient was diagnosed with pneumonia, toxic metabolic encephalopathy, and NIDDM. 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 He reports that he has two daughters who check on him frequently. Patient was independent with all transfers and ambulation task performance using a FWW. Current Functional Limitations: Need for assistance for all mobility ADL performance using FWW. Equipment Owned/DME: FWW, grab bars, shower seat Subjective: NT. Please refer to [employer] WAREHOUSE AGENT notes on 09/18/2018. Objective: Please refer to [employer] AGENT notes on 09/18/2018. General Observation: NT. Please refer to [employer] W[employer] AGENT notes on 09/18/2018. Mental Status: NT. Please refer to [employer] W[employer] AGENT notes on 09/18/2018. Pain: NT ROM: Right Upper Extremity: Shoulder Flexion 0 to 110 degrees. Shoulder abduction 0 to 80 degrees. Elbow flexion WFL. Wrist flexion WFL. Functional opening and closing of hand WFL. Left Upper Extremity: Shoulder Flexion 0 to 110 degrees. Shoulder abduction 0 to 80 degrees. Elbow flexion WFL. Wrist flexion WFL. Functional opening and closing of hand WFL. Right Lower Extremity: Hip flexion WFL. Hip abduction WFL. Knee flexion WFL. Ankle dorsiflexion 10 degrees beyond neutral. Ankle plantarflexion WFL. Left Lower Extremity: Hip flexion WFL. Hip abduction WFL. Knee flexion WFL. Ankle dorsiflexion 10 degrees beyond neutral. Ankle plantarflexion WFL. Strength: Right Upper Extremity: Shoulder flexors 3-/5. Shoulder abductors 3-/5. Elbow flexors 4-/5. Elbow extensors 4-/5. Mailmaster strong. Left Upper Extremity: Shoulder flexors 3-/5. Shoulder abductors 3-/5. Elbow flexors 4-/5. Elbow extensors 4-/5. Mailmaster strong. Right Lower Extremity: Hip flexors 4-/5. Hip abductors 4-/5. Knee flexors 4-/5. Knee extensors 53+5. Ankle dorsiflexors 4/5. Ankle plantarflexors 4/5. Left Lower Extremity:Hip flexors 4-/5. Hip abductors 4-/5. Knee flexors 4-/5. Knee extensors 53+5. Ankle dorsiflexors 4/5. Ankle plantarflexors 4/5. Sensation: Bed Mobility/Transfers: Sit to stand SBA Stand to sit SBA Bed to chair SBA Chair to bed SBA Gait: Patient tolerated level surface ambulation with minimal assist using FWW with full weight bearing for 150 feet with 4 turns, moderate verbal cues given for directions and continued focus to task. Patient demonstrated increased tendency to shuffle with fatigue, mild retropulsion x 2 during gait activity. Balance: Static Sitting: Good Dynamic Sitting: Good Static Standing: Fair Dynamic Standing: Fair Assessment: Patient is a 82 year old male referred to physical therapy services with the diagnosis of generalized weakness from pneumonia, toxic metabolic encephalopathy, and NIDDM. Patient presents with clinical signs and symptoms consistent with current/admitting diagnoses that have resulted to mobility limitations, gait instability, generalized weakness, and impairment of motor control as demonstrated by the following impairment level findings: 1. Decreased strength to B LE major muscle groups 2. Impaired sitting/standing balance 3. Impaired activity tolerance 4. Limitation of joint range of motion in both shoulders (chronic) Impairments are contributing to the following functional limitations: 1. Dependent bed mobility skills 2. Increased dependence with transfers 3. Inability to safely ambulate without assistive device and physical assistance 4. Increase completion time for mobility ADL performance 5. Increased fall risk 6. Inability to negotiate steps alone safel Goals: Goals X1 week 1. Supine-Sit independent NOT MET 2. Sit-Supine independent NOT MET 3. Sit-Stand independent NOT MET 4. Stand-Sit independent NOT MET 5. Bed-Chair independent NOT MET 6. Chair-Bed independent NOT MET 7. Independent gait on level surface with use of least restrictive device for at least 300 feet without report of pain nor dyspnea NOT MET 8. Independent stair negotiation while holding onto bilateral rails for at least 10 steps without report of pain nor dyspnea NOT MET 9. Independent with home exercise program NOT MET 10. Good static and dynamic standing balance/tolerance NOT MET DISCHARGE RECOMMENDATIONS: Patient will benefit from PT/OT services in order to maximize functional mobility level, reduce fall risks, and regain premorbid independent level using FWW. No equipment needs at this time. TREATMENT CODE/TIME: CO Thank you for this referral. Amanda Perkins, PT, DPT, CLT [facility]
--- NOTE | 2018-09-21 12:48 | INDS_ITS ---
Date of service: 09/21/18 PT Notes Inpatient Physical Therapy Discharge Summary Dates: 09/21/2018 Dates of Service: 09/17/2018 through 09/18/2018 This is a clinical summary of skilled PT services provided on the dates listed above. No charge was made in the completion of this documentation. Referring Doctor: Dania Navas MD PT Orders: PT CONSULT: Eval/treat Precautions: Fall. Standard. Patient Profile/Admitting Diagnosis: Orders received for this 82-year-old male who presented to the ED on 09/16/2018 with chief complaints of shortness of breath, cough, green-yellow sputum, generalized weakness, and orthopnea. Patient was diagnosed with pneumonia, toxic metabolic encephalopathy, and NIDDM. 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 He reports that he has two daughters who check on him frequently. Patient was independent with all transfers and ambulation task performance using a FWW. Current Functional Limitations: Need for assistance for all mobility ADL performance using FWW. Equipment Owned/DME: FWW, grab bars, shower seat Subjective: NT. Please refer to OSHA INSPECTOR notes on 09/18/2018. Objective: Please refer to OSHA INSPECTOR notes on 09/18/2018. General Observation: NT. Please refer to OSHA INSPECTOR notes on 09/18/2018. Mental Status: NT. Please refer to OSHA INSPECTOR notes on 09/18/2018. Pain: NT ROM: Right Upper Extremity: Shoulder Flexion 0 to 110 degrees. Shoulder abduction 0 to 80 degrees. Elbow flexion WFL. Wrist flexion WFL. Functional opening and closing of hand WFL. Left Upper Extremity: Shoulder Flexion 0 to 110 degrees. Shoulder abduction 0 to 80 degrees. Elbow flexion WFL. Wrist flexion WFL. Functional opening and closing of hand WFL. Right Lower Extremity: Hip flexion WFL. Hip abduction WFL. Knee flexion WFL. Ankle dorsiflexion 10 degrees beyond neutral. Ankle plantarflexion WFL. Left Lower Extremity: Hip flexion WFL. Hip abduction WFL. Knee flexion WFL. Ankle dorsiflexion 10 degrees beyond neutral. Ankle plantarflexion WFL. Strength: Right Upper Extremity: Shoulder flexors 3-/5. Shoulder abductors 3-/5. Elbow flexors 4-/5. Elbow extensors 4-/5. Sterile Process Tech strong. Left Upper Extremity: Shoulder flexors 3-/5. Shoulder abductors 3-/5. Elbow flexors 4-/5. Elbow extensors 4-/5. Sterile Process Tech strong. Right Lower Extremity: Hip flexors 4-/5. Hip abductors 4-/5. Knee flexors 4-/5. Knee extensors 53+5. Ankle dorsiflexors 4/5. Ankle plantarflexors 4/5. Left Lower Extremity:Hip flexors 4-/5. Hip abductors 4-/5. Knee flexors 4-/5. Knee extensors 53+5. Ankle dorsiflexors 4/5. Ankle plantarflexors 4/5. Sensation: Bed Mobility/Transfers: Sit to stand SBA Stand to sit SBA Bed to chair SBA Chair to bed SBA Gait: Patient tolerated level surface ambulation with minimal assist using FWW with full weight bearing for 150 feet with 4 turns, moderate verbal cues given for directions and continued focus to task. Patient demonstrated increased tendency to shuffle with fatigue, mild retropulsion x 2 during gait activity. Balance: Static Sitting: Good Dynamic Sitting: Good Static Standing: Fair Dynamic Standing: Fair Assessment: Patient is a 82 year old male referred to physical therapy services with the diagnosis of generalized weakness from pneumonia, toxic metabolic encephalopathy, and NIDDM. Patient presents with clinical signs and symptoms consistent with current/admitting diagnoses that have resulted to mobility limitations, gait instability, generalized weakness, and impairment of motor control as demonstrated by the following impairment level findings: 1. Decreased strength to B LE major muscle groups 2. Impaired sitting/standing balance 3. Impaired activity tolerance 4. Limitation of joint range of motion in both shoulders (chronic) Impairments are contributing to the following functional limitations: 1. Dependent bed mobility skills 2. Increased dependence with transfers 3. Inability to safely ambulate without assistive device and physical assistance 4. Increase completion time for mobility ADL performance 5. Increased fall risk 6. Inability to negotiate steps alone safel Goals: Goals X1 week 1. Supine-Sit independent NOT MET 2. Sit-Supine independent NOT MET 3. Sit-Stand independent NOT MET 4. Stand-Sit independent NOT MET 5. Bed-Chair independent NOT MET 6. Chair-Bed independent NOT MET 7. Independent gait on level surface with use of least restrictive device for at least 300 feet without report of pain nor dyspnea NOT MET 8. Independent stair negotiation while holding onto bilateral rails for at least 10 steps without report of pain nor dyspnea NOT MET 9. Independent with home exercise program NOT MET 10. Good static and dynamic standing balance/tolerance NOT MET DISCHARGE RECOMMENDATIONS: Patient will benefit from PT/OT services in order to maximize functional mobility level, reduce fall risks, and regain premorbid independent level using FWW. No equipment needs at this time. TREATMENT CODE/TIME: [place] Thank you for this referral. Amanda Perkins, PT, DPT, CLT [facility]
--- NOTE | 2018-10-20 10:58 | CER_ITS ---
DATE OF DICTATION: October 20, 2018 [employer] MONITOR REPORT 1. Enrollment: 27 days, September 18 - October 14, 2018 2. Baseline rhythm atrial flutter with variable conduction. Average rate 80 bpm. 3. Atrial fibrillation/flutter noted to be present 67% of the time. 4. Ventricular ectopy 1% of total beats. 5. No significant bradycardia noted. 6. 20 triggered events, 2 serious: atrial flutter with variable conduction, one run NSVT, 6-beat dur ation. 7. Two symptomatic episodes, tired or fatigue noted during atrial flutter with variable conduction, 7 4, 80 bpm. 8. Eighteen auto-triggers, all during atrial flutter with variable conduction, one run of NSVT, 6-samira t duration as above, one additional run of NSVT x 5-beat duration.
== END 2018-09-18 16:55 | disposition home health service (06) | DRG 177 ==
LOC: ER 16:36 → MS 17:06
PROVIDERS: Internal Medicine; Admitting Provider Internal Medicine; Emergency Provider Student in an Organized Health Care Education/Training Program; PCP Family Medicine; Visit Provider Internal Medicine
DX: J69.0 Pneumonitis due to inhalation of food and vomit (principal); I50.33 Acute on chronic diastolic (congestive) heart failure; G92 Toxic encephalopathy; I42.2 Other hypertrophic cardiomyopathy; I47.2 Ventricular tachycardia; J18.9 Pneumonia, unspecified organism; E11.9 Type 2 diabetes mellitus without complications; I11.0 Hypertensive heart disease with heart failure; Z79.84 Long term (current) use of oral hypoglycemic drugs; R26.2 Difficulty in walking, not elsewhere classified; R53.1 Weakness; E78.5 Hyperlipidemia, unspecified; E03.9 Hypothyroidism, unspecified; I48.91 Unspecified atrial fibrillation; R32 Unspecified urinary incontinence; Z79.01 Long term (current) use of anticoagulants; I51.7 Cardiomegaly; I08.3 Combined rheumatic disorders of mitral, aortic and tricuspid valves
CPT/HCPCS: 36410; 36415; 80048; 80053; 87040; 92610; 93005; 93270; 93306; 96374; 97162; 97166; 97530; 97535; 99223; 99232; 99239; 99285; 71045; 71046; 81003; 83735; 83880; 84132; 84443; 84484; 85025; 85610; 85730; 87070; 87086; 87205; 93010; 94640; J1941; J2543; J7620

== ENCOUNTER 2018-09-24 16:31 | Outpatient (REF) | payer MEDICARE, BC, SELFPAY ==
[2018-09-24 19:10] LABS: Abs Immature Grans 0.02 k/cumm (0.0-0.09); Absolute Basophil Count 0.04 k/cumm (0.0-0.2); Absolute Eosinophil Count 0.07 k/cumm (0.0-0.7); Absolute Lymphocyte Count 1.52 k/cumm (1.2-3.4); Absolute Neutrophil Count 5.34 k/cumm (1.2-6.7); Basophils % 0.5; Eosinophils % 0.9; HCT 37.4 % (40.0-50.0); HGB 12.1 g/dL (13.5-17.5); Immature Grans % 0.3; Lymphocytes % 20.3; Mean Corp. HGB Concentration 32.4 g/dL (32.0-36.0); Mean Corpuscular Hemoglobin 32.4 pg (27.0-33.0); Mean Platelet Volume 10.7 fL (8.0-11.0); Monocytes % 6.7; Neutrophils % 71.3; Platelet Count 209 x1000/uL (130-400); RBC 3.74 m/cumm (4.50-6.00); White Blood Cell Count 7.49 k/cumm (4.4-10.8)
[2018-09-24 19:29] LABS: Anion Gap 10.3 mmol/L (3-11); BUN 38 mg/dL (7-18); CO2 26.7 mmol/L (21.0-32.0); CREATININE 1.41 mg/dL (0.70-1.30); Calcium 9.1 mg/dL (8.5-10.1); Chloride 101 mmol/L (98-107); Estimated GFR 48.36 (mL/min/1.73m2); Glucose 130 mg/dL (70-100); Potassium 4.4 mmol/L (3.5-5.1); Sodium 138 mmol/L (136-145)
== END 2018-09-24 16:51 ==
LOC: LBN 16:31
PROVIDERS: PCP Family Medicine; Visit Provider Family Medicine
DX: I50.32 Chronic diastolic (congestive) heart failure (principal); G93.41 Metabolic encephalopathy
CPT/HCPCS: 80048; 83735; 85025

== ENCOUNTER 2018-10-19 17:43 | Outpatient (CLI) | payer MEDICARE, BC, SELFPAY | END 2018-10-19 18:03 | PROVIDERS: PCP Family Medicine; Referring Provider Family Medicine; Visit Provider Internal Medicine Interventional Cardiology | DX: I48.92 Unspecified atrial flutter (principal) | CPT/HCPCS: 93228 ==

== ENCOUNTER 2018-11-16 19:34 | Emergency (ER) | payer MEDICARE, BC, SELFPAY ==
[2018-11-16 19:40] VITALS: BP 142/66; PULSE 66; RESP 16; TEMP 36.9; O2SAT 99
--- NOTE | 2018-11-16 19:59 | W.ED.GENAD ---
Discharge Plan Disposition Patient Disposition: HOME Condition: Stable Discharge Details Chief Complaint: Cellulitis Clinical Impression: Diabetic infection of right foot Primary Care Provider: Zander Mancini ED Provider: Ludwig De Oliveira Home Meds and New Rx's Prescriptions: New amoxicillin-pot clavulanate [Augmentin] 875-125 mg tablet 1 tab PO BID 14 Days Qty: 28 RF: 0 clindamycin HCl 150 mg capsule 450 mg PO TID 14 Days Qty: 126 RF: 0 Continued escitalopram oxalate 5 mg tablet 5 mg PO DAILY Qty: 90 RF: 4 blood-glucose meter [ZAO [employer] UltraMini] 1 EACH kit 1 kit UD PRN RF: 0 OneTouch Ultra Test 1 EACH strip 1 strip Intradermal 2X/WEEK Qty: 100 RF: 4 lancets [PanXchange Delica Lancets] 1 EACH misc 1 ea Intradermal 2X/WEEK Qty: 100 RF: 4 diltiazem HCl 120 MG capsule,extended release 24hr 120 mg PO DAILY Qty: 90 RF: 4 spironolactone 25 MG tablet 25 mg PO DAILY Qty: 90 RF: 4 metformin 500 mg tablet 500 mg PO BID Qty: 180 RF: 3 apixaban 2.5 mg tablet 2.5 mg PO BID Qty: 180 RF: 4 torsemide 10 mg tablet 10 mg PO DAILY Qty: 90 RF: 4 guaifenesin [Mucinex] 600 mg Tablet Extended Release 12hr 600 mg PO BID PRN PRN (Reason: cough) Qty: 10 RF: 0 levothyroxine 75 mcg capsule 75 mcg PO DAILY Qty: 30 RF: 0 albuterol sulfate [ProAir HFA] 90 mcg/actuation HFA aerosol inhaler 2 puff IH Q6H PRN PRN (Reason: shortness of breath) Qty: 8 RF: 0 doxycycline hyclate 100 mg capsule 100 mg PO BID Qty: 6 RF: 0 amoxicillin-pot clavulanate [Augmentin] 500-125 mg tablet 1 tab PO BID Qty: 6 RF: 0 Discharge Instructions Instructions: Cellulitis (ED) Additional Instructions: follow up with your primary care provider's office within 1 week if you feel more ill, have high fevers or severe pain, or redness spreads up the leg return to the emergency department for reevaluation Medical Decision Making 83 yo male comes in with one week of worsening right foot redness. He denies fevers or severe pain. He apparently had a wound on top of the foot when this started but none visible now. Has redness of dorsal surface of his foot that is warm to touch, no severe pain or crepitus and extens to the distal left tibia. Suspect diabetic foot infection. Patient and family is open to trialing PO abx and return if worsening. He has no fevers and appears well systemically so doubt sepsis at this time. Differential Diagnosis right foot cellulitis, diabetic foot HPI General Mode of arrival: ambulatory. Date/Time Provider Initiated Documentation: 11/16/18 19:37. Limitations to Documentation: no limitations. Information obtained by: patient. History of Present Illness 83 year old M presents to the emergency department with the chief complaint of right foot infection, described as moderate, Quality is described as burning, and is localized to the right and lower extremity. Patient reports no radiation. Patient started experiencing this week(s) (1) and it has been constant. No relieving factors improve symptom(s), No exacerbating factors reported . Patient did receive the following treatments prior to arrival, none Related Data Home Medications Medication Instructions Recorded Confirmed blood-glucose meter [SignpostTouch kit 07/24/12 09/16/18 UltraMini] OneTouch Ultra Test #100 strip 06/30/14 09/16/18 lancets [OneTouch Delica Lancets] #100 ea 06/30/14 09/16/18 diltiazem HCl 120 mg PO DAILY #90 cap 12/25/17 09/16/18 spironolactone 25 mg PO DAILY #90 tab 01/01/18 09/16/18 metformin 500 mg tablet 500 mg PO BID #180 tab-cap 08/03/18 09/16/18 escitalopram 5 mg tablet 5 mg PO DAILY #90 tab-cap 08/20/18 09/16/18 apixaban 2.5 mg tablet 2.5 mg PO BID #180 tab 09/07/18 09/16/18 albuterol sulfate [ProAir HFA] 2 puff IH Q6H PRN PRN #8 gm 09/18/18 amoxicillin-pot clavulanate 1 tab PO BID #6 tab 09/18/18 [Augmentin] doxycycline hyclate 100 mg PO BID #6 cap 09/18/18 guaifenesin [Mucinex] 600 mg PO BID PRN PRN #10 tab 09/18/18 levothyroxine 75 mcg PO DAILY #30 cap 09/18/18 torsemide 10 mg tablet 10 mg PO DAILY #90 tab-cap 10/16/18 amoxicillin-pot clavulanate 1 tab PO BID 14 Days #28 tab 11/16/18 [Augmentin] clindamycin HCl 450 mg PO TID 14 Days #126 cap 11/16/18 Previous Rx's Medication Instructions Recorded diltiazem HCl 120 mg PO DAILY #90 cap 12/25/17 spironolactone 25 mg PO DAILY #90 tab 01/01/18 metformin 500 mg tablet 500 mg PO BID #180 tab-cap 08/03/18 escitalopram 5 mg tablet 5 mg PO DAILY #90 tab-cap 08/20/18 apixaban 2.5 mg tablet 2.5 mg PO BID #180 tab 09/07/18 albuterol sulfate [ProAir HFA] 2 puff IH Q6H PRN PRN #8 gm 09/18/18 amoxicillin-pot clavulanate 1 tab PO BID #6 tab 09/18/18 [Augmentin] doxycycline hyclate 100 mg PO BID #6 cap 09/18/18 guaifenesin [Mucinex] 600 mg PO BID PRN PRN #10 tab 09/18/18 levothyroxine 75 mcg PO DAILY #30 cap 09/18/18 torsemide 10 mg tablet 10 mg PO DAILY #90 tab-cap 10/16/18 amoxicillin-pot clavulanate 1 tab PO BID 14 Days #28 tab 11/16/18 [Augmentin] clindamycin HCl 450 mg PO TID 14 Days #126 cap 11/16/18 Allergies Allergy/AdvReac Type Severity Reaction Status Date / Time procaine [Procaine] Allergy Severe Anaphylaxsi Unverified 09/16/18 13:27 s thiopental [Thiopental] Allergy Severe Anaphylaxsi Unverified 09/16/18 13:27 s shellfish derived Allergy Intermediate Swelling/Ed Unverified 09/16/18 13:27 gerson Iodinated Contrast- Oral and Allergy Unknown Swelling/Ed Unverified 09/16/18 13:27 IV Dye gerson nitroglycerin AdvReac Severe bottomed Unverified 09/16/18 13:27 out BP General Stated Complaint: Cellulitis IRWIN: 3 Review of Systems Review of Systems All systems reviewed & are unremarkable except as noted in HPI and below Constitutional Denies chills, Denies fever(s) and Denies weakness Cardiovascular Denies chest pain and Denies dyspnea Respiratory Denies cough and Denies dyspnea Gastrointestinal Denies abdominal pain, Denies nausea and Denies vomiting Musculoskeletal Denies joint swelling Neurologic Denies weakness PFSH Medical History Ulcerative colitis (Inactive) Type 2 diabetes mellitus without complication (Chronic) Spinal stenosis (Chronic) Rosacea (Chronic) Osteoarthritis (Chronic) Hypothyroidism (Chronic) Hyperlipidemia (Chronic) Essential hypertension, benign (Chronic 12/01/14) 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) Decubitus ulcer of left buttock, stage 2 (Resolved 07/18/17) Cataracts, bilateral (Resolved 10/24/15) Atrial fibrillation (Chronic) Ataxia (Chronic) Mild cognitive impairment (Chronic) Surgical History Appendectomy Colonoscopy - IV Sedation (11/18/12) Family History Mother Diabetes Stroke Father Heart disease Sister Psoriasis Social History Smoking/Tobacco Use Status: Former Tobacco Use Alcohol Intake: never Drug use: Never Substance use type: does not use Sun/Oriental Orthodox: No preference Special sun needs: No Do you feel safe at home: Yes Do you feel safe in your relationship?: Yes Exam Const General: no acute distress Orientation: alert HENMT Head: normal to inspection Ears: external ears normal General nose exam: external nose normal Mouth: moist mucous membranes Eyes General: appearance normal, both eyes and all related structures Neck Neck: normal visual inspection Resp Effort & Inspection: normal respiratory effort and able to speak in complete sentences Cardio Rate: regular rate Skin General skin exam: elasticity normal Neuro General: alert and oriented x3 Extrem General: full ROM and normal capillary refill Psych Mental Status: mental status grossly normal Course Vital Signs Temperature 36.9 C 11/16/18 19:40 Pulse 66 11/16/18 19:40 Respiratory Rate 16 11/16/18 19:40 Blood Pressure 142/66 H 11/16/18 19:40 Pulse Oximetry 99 11/16/18 19:40 Temperature 36.9 C 11/16/18 19:40 Temperature Source Skin 11/16/18 19:40 Pulse 66 11/16/18 19:40 Respiratory Rate 16 11/16/18 19:40 Respiratory Effort Non-Labored 11/16/18 19:40 Blood Pressure 142/66 H 11/16/18 19:40 Pulse Oximetry 99 11/16/18 19:40 Oxygen Delivery Method Room Air 11/16/18 19:40 Oxygen Flow Rate 0 11/16/18 19:40
--- NOTE | 2018-11-16 20:05 | ED.GENADUL_ITS ---
Discharge Plan Disposition Patient Disposition: HOME Condition: Stable Discharge Details Chief Complaint: Cellulitis Clinical Impression: Diabetic infection of right foot Primary Care Provider: Zander Mancini ED Provider: Ludwig De Oliveira Home Meds and New Rx's Prescriptions: New amoxicillin-pot clavulanate [Augmentin] 875-125 mg tablet 1 tab PO BID 14 Days Qty: 28 RF: 0 clindamycin HCl 150 mg capsule 450 mg PO TID 14 Days Qty: 126 RF: 0 Continued escitalopram oxalate 5 mg tablet 5 mg PO DAILY Qty: 90 RF: 4 blood-glucose meter [[employer] UltraMini] 1 EACH kit 1 kit UD PRN RF: 0 OneTouch Ultra Test 1 EACH strip 1 strip Intradermal 2X/WEEK Qty: 100 RF: 4 lancets [[employer] Delica Lancets] 1 EACH misc 1 ea Intradermal 2X/WEEK Qty: 100 RF: 4 diltiazem HCl 120 MG capsule,extended release 24hr 120 mg PO DAILY Qty: 90 RF: 4 spironolactone 25 MG tablet 25 mg PO DAILY Qty: 90 RF: 4 metformin 500 mg tablet 500 mg PO BID Qty: 180 RF: 3 apixaban 2.5 mg tablet 2.5 mg PO BID Qty: 180 RF: 4 torsemide 10 mg tablet 10 mg PO DAILY Qty: 90 RF: 4 guaifenesin [Mucinex] 600 mg Tablet Extended Release 12hr 600 mg PO BID PRN PRN (Reason: cough) Qty: 10 RF: 0 levothyroxine 75 mcg capsule 75 mcg PO DAILY Qty: 30 RF: 0 albuterol sulfate [ProAir HFA] 90 mcg/actuation HFA aerosol inhaler 2 puff IH Q6H PRN PRN (Reason: shortness of breath) Qty: 8 RF: 0 doxycycline hyclate 100 mg capsule 100 mg PO BID Qty: 6 RF: 0 amoxicillin-pot clavulanate [Augmentin] 500-125 mg tablet 1 tab PO BID Qty: 6 RF: 0 Discharge Instructions Instructions: Cellulitis (ED) Additional Instructions: follow up with your primary care provider's office within 1 week if you feel more ill, have high fevers or severe pain, or redness spreads up the leg return to the emergency department for reevaluation Medical Decision Making 83 yo male comes in with one week of worsening right foot redness. He denies fevers or severe pain. He apparently had a wound on top of the foot when this started but none visible now. Has redness of dorsal surface of his foot that is warm to touch, no severe pain or crepitus and extens to the distal left tibia. Suspect diabetic foot infection. Patient and family is open to trialing PO abx and return if worsening. He has no fevers and appears well systemically so doubt sepsis at this time. Differential Diagnosis right foot cellulitis, diabetic foot HPI General Mode of arrival: ambulatory . Date/Time Provider Initiated Documentation: 11/16/18 19:37 . Limitations to Documentation: no limitations . Information obtained by: patient . History of Present Illness 83 year old M presents to the emergency department with the chief complaint of right foot infection, described as moderate, Quality is described as burning, and is localized to the right and lower extremity. Patient reports no radiation. Patient started experiencing this week(s) (1) and it has been constant. No relieving factors improve symptom(s), No exacerbating factors reported . Patient did receive the following treatments prior to arrival, none Related Data Home Medications Medication Instructions Recorded Confirmed blood-glucose meter [[employer]Touch kit 07/24/12 09/16/18 UltraMini] OneTouch Ultra Test #100 strip 06/30/14 09/16/18 lancets [OneTouch Delica Lancets] #100 ea 06/30/14 09/16/18 diltiazem HCl 120 mg PO DAILY #90 cap 12/25/17 09/16/18 spironolactone 25 mg PO DAILY #90 tab 01/01/18 09/16/18 metformin 500 mg tablet 500 mg PO BID #180 tab-cap 08/03/18 09/16/18 escitalopram 5 mg tablet 5 mg PO DAILY #90 tab-cap 08/20/18 09/16/18 apixaban 2.5 mg tablet 2.5 mg PO BID #180 tab 09/07/18 09/16/18 albuterol sulfate [ProAir HFA] 2 puff IH Q6H PRN PRN #8 gm 09/18/18 amoxicillin-pot clavulanate 1 tab PO BID #6 tab 09/18/18 [Augmentin] doxycycline hyclate 100 mg PO BID #6 cap 09/18/18 guaifenesin [Mucinex] 600 mg PO BID PRN PRN #10 tab 09/18/18 levothyroxine 75 mcg PO DAILY #30 cap 09/18/18 torsemide 10 mg tablet 10 mg PO DAILY #90 tab-cap 10/16/18 amoxicillin-pot clavulanate 1 tab PO BID 14 Days #28 tab 11/16/18 [Augmentin] clindamycin HCl 450 mg PO TID 14 Days #126 cap 11/16/18 Previous Rx's Medication Instructions Recorded diltiazem HCl 120 mg PO DAILY #90 cap 12/25/17 spironolactone 25 mg PO DAILY #90 tab 01/01/18 metformin 500 mg tablet 500 mg PO BID #180 tab-cap 08/03/18 escitalopram 5 mg tablet 5 mg PO DAILY #90 tab-cap 08/20/18 apixaban 2.5 mg tablet 2.5 mg PO BID #180 tab 09/07/18 albuterol sulfate [ProAir HFA] 2 puff IH Q6H PRN PRN #8 gm 09/18/18 amoxicillin-pot clavulanate 1 tab PO BID #6 tab 09/18/18 [Augmentin] doxycycline hyclate 100 mg PO BID #6 cap 09/18/18 guaifenesin [Mucinex] 600 mg PO BID PRN PRN #10 tab 09/18/18 levothyroxine 75 mcg PO DAILY #30 cap 09/18/18 torsemide 10 mg tablet 10 mg PO DAILY #90 tab-cap 10/16/18 amoxicillin-pot clavulanate 1 tab PO BID 14 Days #28 tab 11/16/18 [Augmentin] clindamycin HCl 450 mg PO TID 14 Days #126 cap 11/16/18 Allergies Allergy/AdvReac Type Severity Reaction Status Date / Time procaine [Procaine] Allergy Severe Anaphylaxsi Unverified 09/16/18 13:27 s thiopental [Thiopental] Allergy Severe Anaphylaxsi Unverified 09/16/18 13:27 s shellfish derived Allergy Intermediate Swelling/Ed Unverified 09/16/18 13:27 gerson Iodinated Contrast- Oral and Allergy Unknown Swelling/Ed Unverified 09/16/18 13:27 IV Dye gerson nitroglycerin AdvReac Severe bottomed Unverified 09/16/18 13:27 out BP General Stated Complaint: Cellulitis IRWIN: 3 Review of Systems Review of Systems All systems reviewed & are unremarkable except as noted in HPI and below Constitutional Denies chills, Denies fever(s) and Denies weakness Cardiovascular Denies chest pain and Denies dyspnea Respiratory Denies cough and Denies dyspnea Gastrointestinal Denies abdominal pain, Denies nausea and Denies vomiting Musculoskeletal Denies joint swelling Neurologic Denies weakness PFSH Medical History Ulcerative colitis (Inactive) Type 2 diabetes mellitus without complication (Chronic) Spinal stenosis (Chronic) Rosacea (Chronic) Osteoarthritis (Chronic) Hypothyroidism (Chronic) Hyperlipidemia (Chronic) Essential hypertension, benign (Chronic 12/01/14) 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) Decubitus ulcer of left buttock, stage 2 (Resolved 07/18/17) Cataracts, bilateral (Resolved 10/24/15) Atrial fibrillation (Chronic) Ataxia (Chronic) Mild cognitive impairment (Chronic) Surgical History Appendectomy Colonoscopy - IV Sedation (11/18/12) Family History Mother Diabetes Stroke Father Heart disease Sister Psoriasis Social History Smoking/Tobacco Use Status: Former Tobacco Use Alcohol Intake: never Drug use: Never Substance use type: does not use Sun/Faith: No preference Special sun needs: No Do you feel safe at home: Yes Do you feel safe in your relationship?: Yes Exam Const General: no acute distress Orientation: alert HENMT Head: normal to inspection Ears: external ears normal General nose exam: external nose normal Mouth: moist mucous membranes Eyes General: appearance normal, both eyes and all related structures Neck Neck: normal visual inspection Resp Effort & Inspection: normal respiratory effort and able to speak in complete sentences Cardio Rate: regular rate Skin General skin exam: elasticity normal Neuro General: alert and oriented x3 Extrem General: full ROM and normal capillary refill Psych Mental Status: mental status grossly normal Course Vital Signs Temperature 36.9 C 11/16/18 19:40 Pulse 66 11/16/18 19:40 Respiratory Rate 16 11/16/18 19:40 Blood Pressure 142/66 H 11/16/18 19:40 Pulse Oximetry 99 11/16/18 19:40 Temperature 36.9 C 11/16/18 19:40 Temperature Source Skin 11/16/18 19:40 Pulse 66 11/16/18 19:40 Respiratory Rate 16 11/16/18 19:40 Respiratory Effort Non-Labored 11/16/18 19:40 Blood Pressure 142/66 H 11/16/18 19:40 Pulse Oximetry 99 11/16/18 19:40 Oxygen Delivery Method Room Air 11/16/18 19:40 Oxygen Flow Rate 0 11/16/18 19:40
[2018-11-16] MEDS: Amoxicillin 875/Clav. 125 TAB PO (20:13)
[2018-11-16] MEDS: Clindamycin 150 MG CAP 450 MG PO (20:13)
[2018-11-16] MEDS: Water,Injection,Bacteriostatic 30 ML VIAL (20:15)
[2018-11-16] MEDS: ceFAZolin 1,000 MG VIAL 1000 MG IM (20:15)
== END 2018-11-16 20:24 | disposition home or self-care (01) ==
PROVIDERS: Emergency Provider Emergency Medicine; PCP Family Medicine
DX: L03.115 Cellulitis of right lower limb (principal); E11.621 Type 2 diabetes mellitus with foot ulcer; I10 Essential (primary) hypertension
CPT/HCPCS: 96372; 99284; J0690

== ENCOUNTER 2018-11-17 19:40 | Inpatient (IN) | payer MEDICARE, BC, SELFPAY ==
[2018-11-17] VITALS (21 sets, daily range): BP systolic 102–120; BP diastolic 47–69; PULSE 62–86; RESP 12–25; TEMP 36.6; O2SAT 96–100
--- NOTE | 2018-11-17 20:18 | DI.RAD_ITS ---
SYMPTOM/DIAGNOSIS: CELLULITIS, SWELLING, REDNESS RIGHT FOOT: Three views were obtained. The bones of the foot are markedly demineralized. There appears to be soft tissue swelling of the ankle and mid foot. No focal erosive or destructive lesion seen although it might be difficult to appreciate a lesion due to the marked patchy demineralization of the bones. No acute fracture is seen. CONCLUSION: The bones are demineralized but otherwise grossly unremarkable. Moderate degenerative change is seen. If there is a clinical suspicion of osteomyelitis, additional evaluation with MRI or bone scan would be recommended.
[2018-11-17] MEDS: Normal Saline Flush 10 ML SYR IVP (20:30)
[2018-11-17 21:05] LABS: Lactate 1.4 mmol/L (0.6-1.4)
[2018-11-17 21:10] LABS: Abs Immature Grans 0.01 k/cumm (0.0-0.09); Absolute Basophil Count 0.02 k/cumm (0.0-0.2); Absolute Eosinophil Count 0.06 k/cumm (0.0-0.7); Absolute Lymphocyte Count 1.27 k/cumm (1.2-3.4); Absolute Neutrophil Count 4.57 k/cumm (1.2-6.7); Basophils % 0.3; Eosinophils % 0.9; HCT 38.5 % (40.0-50.0); HGB 12.7 g/dL (13.5-17.5); Immature Grans % 0.2; Lymphocytes % 19.4; Mean Corpuscular Hemoglobin 32.9 pg (27.0-33.0); Mean Corpuscular Volume 99.7 fL (80-95); Mean Platelet Volume 11.6 fL (8.0-11.0); Monocytes % 9.2; Platelet Count 113 x1000/uL (130-400); RBC 3.86 m/cumm (4.50-6.00); RBC Distribution Width 14.4 % (11.8-14.1); White Blood Cell Count 6.53 k/cumm (4.4-10.8)
[2018-11-17] MEDS: VANCOMYCIN 1,500 MG in Normal Saline 250 ML 166.6666 MG IVPB (21:27)
[2018-11-17] MEDS: Furosemide 40 MG/4 ML VIAL IVP (21:27)
--- NOTE | 2018-11-17 21:28 | ED.GENADUL_ITS ---
Discharge Plan Disposition Patient Disposition: [facility] INPATIENT Condition: Poor Discharge Details Chief Complaint: Cellulitis Clinical Impression: Pitting edema, Cellulitis Primary Care Provider: Zander Mancini ED Provider: Summer Gonzalez Home Meds and New Rx's Prescriptions: No Action escitalopram oxalate 5 mg tablet 5 mg PO DAILY Qty: 90 RF: 4 blood-glucose meter [OneTouch UltraMini] 1 EACH kit 1 kit UD PRN RF: 0 OneTouch Ultra Test 1 EACH strip 1 strip Intradermal 2X/WEEK Qty: 100 RF: 4 lancets [OneTouch Delica Lancets] 1 EACH misc 1 ea Intradermal 2X/WEEK Qty: 100 RF: 4 diltiazem HCl 120 MG capsule,extended release 24hr 120 mg PO DAILY Qty: 90 RF: 4 spironolactone 25 MG tablet 25 mg PO DAILY Qty: 90 RF: 4 metformin 500 mg tablet 500 mg PO BID Qty: 180 RF: 3 apixaban 2.5 mg tablet 2.5 mg PO BID Qty: 180 RF: 4 torsemide 10 mg tablet 10 mg PO DAILY Qty: 90 RF: 4 levothyroxine 75 mcg capsule 75 mcg PO DAILY Qty: 30 RF: 0 albuterol sulfate [ProAir HFA] 90 mcg/actuation HFA aerosol inhaler 2 puff IH Q6H PRN PRN (Reason: shortness of breath) Qty: 8 RF: 0 doxycycline hyclate 100 mg capsule 100 mg PO BID Qty: 6 RF: 0 amoxicillin-pot clavulanate [Augmentin] 500-125 mg tablet 1 tab PO BID Qty: 6 RF: 0 amoxicillin-pot clavulanate [Augmentin] 875-125 mg tablet 1 tab PO BID 14 Days Qty: 28 RF: 0 clindamycin HCl 150 mg capsule 450 mg PO TID 14 Days Qty: 126 RF: 0 Medical Decision Making <TITI Castanon - Last Filed: 11/17/18 23:40> Artemio is an 83 year old male presenting today, brought in by his , with c/c of right foot cellulitis. Patient seen here yesterday with concern for one week of redness to the foot. Was started on clindamycin and augmentin orally. Returns today as he has noted that his chronic weakness, lightheadedness, poor balance and erythema have worsened today. Patient is reported that he has had difficulty with these symptoms that since his admission in September at which time he was having CHF exacerbation and pneumonia. He denies any fevers or chills. Denies having chest pain. Reports chronic shortness of breath remains largely unchanged. States that in particular, his weakness is greatly exacerbated today. They have also noted the erythema on the dorsum of the foot to be now wrapping around to the posterior aspect of the heel and ankle. Patient is noted to have deformity over the Achilles tendon, reports that he ruptured this over 20 years ago once again. They also noted change in color to the dorsum of the foot. He is noted to have area of purple on the dorsum of the foot extending into the proximal dorsal aspect of the fourth toe which is new since evaluation yesterday. He denies any change in sensation. Reports that he has chronic peripheral neuropathy. Pain remains fairly minimal. Capillary refill remains intact. Patient does have pitting edema which his reports is chronic. Patient is on diuretic. reports that she was instructed to increase this if needed but has not done so recently. Medical history concerning for atrial fibrillation, diabetes, hypertension, h yperlipidemia, cardiomyopathy, CHF. Patient is anticoagulated. Patient appears fatigued. Appears acutely nontoxic. Vital signs are reassuring. I am concerned for worsening infection including possible osteomyelitis. Will obtain laboratory evaluation and x-ray of the foot. We will begin the patient on IV vancomycin as well as IV Lasix. FINDINGS: Bones/joints: There is no obvious erosive bone changes. Soft tissues: There is soft tissue swelling along the dorsum of the foot. Vasculature: There is vascular calcification. Other findings: The patient is osteoporotic. IMPRESSION: Osteoporosis. No obvious bone erosion to suggest osteomyelitis. If there any skin defects consider repeating films with markers. Labs reveal no leukocytosis, patient is mildly anemic which is chronic and largely unchanged, creatinine is elevated 1.53 which is typical for the patient. His troponin is 0.1 which is typical for the patient. CRP is elevated 0.68, no previous to compare to. TSH is 4.02, free T4 remains pending. Free T4 is within normal limits. Discussed elevated troponin with the patient his , they were aware of this. EKG was reviewed by Dr. Lopez with no acute abnormalities noted, please see his note. Patient, his and I discussed laboratory findings as well as x-ray. I am concerned with the increase in his constitutional symptoms as well as the spreading of the erythema and new discoloration into the fourth toe, that he has progression of infection and will require intravenous antibiotics. We discussed disposition options and they prefer inpatient stay for continued care. Patient has been urinating well since the IV Lasix. Is tolerated the IV vancomycin well. Consulted with Dr. Rosales, hospitalist, who accepts patient in admission. <Rigoberto Lopez DO - Last Filed: 11/17/18 23:00> EKG 22: 48 Rate 64, intervals normal aside for QRS of 108, sinus rhythm, left axis anterior fascicular block, nonspecific T wave abnormalities with 1 mm J-point elevation in V2 and V3, review of EKG from 10/25/2016, 04/08/2015, and 05/20/2017 demonstrates similar and consistent findings. These ST components appear chronic old and not acute. HPI <TITI Castanon - Last Filed: 11/17/18 23:40> General Mode of arrival: ambulatory . Date/Time Provider Initiated Documentation: 11/17/18 19:54 . Limitations to Documentation: no limitations . Information obtained by: patient, family (accompanied by ) and RN notes reviewed . History of Present Illness 83 year old M presents to the emergency department with the chief complaint of right foot cellulitis, described as mild, and is localized to the right and lower extremity. Patient reports no radiation. Patient started experiencing this day(s) and it has been constant. Immobilization improves symptom(s), Movement worsens symptoms . Patient notes rash and weakness (generalized, worsening since September); denies confusion, chest pain, cough, diaphoresis, fever/chills, headaches, loss of appetite, nausea/vomiting, shortness of breath and syncope. Patient did receive the following treatments prior to arrival, other (on abx, begun last night) Related Data Home Medications Medication Instructions Recorded Confirmed blood-glucose meter [[employer]Touch kit 07/24/12 09/16/18 UltraMini] OneTouch Ultra Test #100 strip 06/30/14 09/16/18 lancets [OneTouch Delica Lancets] #100 ea 06/30/14 09/16/18 diltiazem HCl 120 mg PO DAILY #90 cap 12/25/17 11/17/18 spironolactone 25 mg PO DAILY #90 tab 01/01/18 11/17/18 metformin 500 mg tablet 500 mg PO BID #180 tab-cap 08/03/18 11/17/18 escitalopram 5 mg tablet 5 mg PO DAILY #90 tab-cap 08/20/18 11/17/18 apixaban 2.5 mg tablet 2.5 mg PO BID #180 tab 09/07/18 11/17/18 albuterol sulfate [ProAir HFA] 2 puff IH Q6H PRN PRN #8 gm 09/18/18 amoxicillin-pot clavulanate 1 tab PO BID #6 tab 09/18/18 [Augmentin] doxycycline hyclate 100 mg PO BID #6 cap 09/18/18 11/17/18 levothyroxine 75 mcg PO DAILY #30 cap 09/18/18 11/17/18 torsemide 10 mg tablet 10 mg PO DAILY #90 tab-cap 10/16/18 11/17/18 amoxicillin-pot clavulanate 1 tab PO BID 14 Days #28 tab 11/16/18 [Augmentin] clindamycin HCl 450 mg PO TID 14 Days #126 cap 11/16/18 11/17/18 Previous Rx's Medication Instructions Recorded diltiazem HCl 120 mg PO DAILY #90 cap 12/25/17 spironolactone 25 mg PO DAILY #90 tab 01/01/18 metformin 500 mg tablet 500 mg PO BID #180 tab-cap 08/03/18 escitalopram 5 mg tablet 5 mg PO DAILY #90 tab-cap 08/20/18 apixaban 2.5 mg tablet 2.5 mg PO BID #180 tab 09/07/18 albuterol sulfate [ProAir HFA] 2 puff IH Q6H PRN PRN #8 gm 09/18/18 amoxicillin-pot clavulanate 1 tab PO BID #6 tab 09/18/18 [Augmentin] doxycycline hyclate 100 mg PO BID #6 cap 09/18/18 levothyroxine 75 mcg PO DAILY #30 cap 09/18/18 torsemide 10 mg tablet 10 mg PO DAILY #90 tab-cap 10/16/18 amoxicillin-pot clavulanate 1 tab PO BID 14 Days #28 tab 11/16/18 [Augmentin] clindamycin HCl 450 mg PO TID 14 Days #126 cap 11/16/18 Allergies Allergy/AdvReac Type Severity Reaction Status Date / Time procaine [Procaine] Allergy Severe Anaphylaxsi Unverified 11/17/18 19:49 s thiopental [Thiopental] Allergy Severe Anaphylaxsi Unverified 11/17/18 19:49 s shellfish derived Allergy Intermediate Swelling/Ed Unverified 11/17/18 19:49 gerson Iodinated Contrast- Oral and Allergy Unknown Swelling/Ed Unverified 11/17/18 19:49 IV Dye gerson nitroglycerin AdvReac Severe bottomed Unverified 11/17/18 19:49 out BP General Stated Complaint: Cellulitis IRWIN: 3 Review of Systems <TITI Castanon Last Filed: 11/17/18 23:40> Constitutional Reports as per HPI, Denies chills, Reports fatigue, Denies fever(s), Reports malaise, Denies poor appetite and Reports weakness Cardiovascular Reports as per HPI, Denies chest pain, Denies dyspnea and Reports dyspnea on exertion Respiratory Reports as per HPI, Denies cough, Denies dyspnea and Reports dyspnea on exertion Gastrointestinal Reports as per HPI Genitourinary Denies system reviewed and no additional complaints, except as docu (patient denies any change in urinary habits, patient incontinent at [facility]) Musculoskeletal Reports as per HPI, Denies back pain and Reports numbness (Diabetic neuropathy affecting bilateral lower extrema) Integumentary/Breasts Reports as per HPI, Reports erythema (Dorsum of the foot extending around lateral aspect), Reports rash, Reports sores (Skin tear right lateral lower extremity) and Denies wounds Neurologic Reports as per HPI, Reports numbness (Diabetic neuropathy affecting bilateral lower extrema) and Reports weakness Endocrine Reports fatigue PFS <TITI Castanon Last Filed: 11/17/18 23:40> Medical History Ulcerative colitis (Inactive) Type 2 diabetes mellitus without complication (Chronic) Spinal stenosis (Chronic) Rosacea (Chronic) Osteoarthritis (Chronic) Hypothyroidism (Chronic) Hyperlipidemia (Chronic) Essential hypertension, benign (Chronic 12/01/14) 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) Decubitus ulcer of left buttock, stage 2 (Resolved 07/18/17) Cataracts, bilateral (Resolved 10/24/15) Atrial fibrillation (Chronic) Ataxia (Chronic) Mild cognitive impairment (Chronic) Surgical History Appendectomy Colonoscopy - IV Sedation (11/18/12) Family History Mother Diabetes Stroke Father Heart disease Sister Psoriasis Social History Smoking/Tobacco Use Status: Former Tobacco Use Alcohol Intake: never Drug use: Never Substance use type: does not use Sun/Moravian: No preference Special sun needs: No Do you feel safe at home: Yes Do you feel safe in your relationship?: Yes Exam <TITI Castanon - Last Filed: 11/17/18 23:40> Const General: cooperative, healthy appearing, comfortable, no acute distress and well developed Nutritional Appearance: average body habitus and well nourished Orientation: alert and awake HENMT Head: normal to inspection Mouth: moist mucous membranes Resp Effort & Inspection: normal respiratory effort, able to speak in complete sentences and no respiratory distress Auscultation: clear to auscultation bilaterally, no rales, no rhonchi and no wheezes Cardio Rate: regular rate Rhythm: abnormal rhythm irregularly irregular Heart Sounds: S1 normal and S2 normal Skin General skin exam: ecchymosis (Purple area of the dorsum of the foot extending into the proximal dorsal fo), erythema (Dorsum of the foot and around lateral aspect) and no fluctuance Neuro General: alert and awake Cognition: normal cognition Speech: speech normal Gait: gait abnormal (Ambulates with a walker, reports baseline) Extrem Right lower extremity: edema Details: pitting Left lower extremity: full ROM, normal capillary refill, edema Details: pitting, ankle Details: achilles tendon exam abnormal Details: step-off noted; no tenderness to palpation (Rupture is 20+ years); no warmth and foot Details: abnormal to inspection Details: erythematous, tenderness Location: of the dorsal foot Location: distally and laterally, toes with normal ROM, warmth, edema Location: of the dorsal foot and vascular exam Details: dorsalis pedis pulse present (found with doppler) Ankle/foot/toe images: 1. Area of erythema 2. Area of purple discoloration. No fluctuance palpated. Pitting edema in the feet and lower extreme Psych Appearance: grossly normal and well kempt Mental Status: mental status grossly normal Speech and Movement: speech and movement normal Course <TITI Castanon - Last Filed: 11/17/18 23:40> Vital Signs Temperature 36.6 C 11/17/18 19:44 Pulse 86 11/17/18 19:44 Respiratory Rate 20 11/17/18 19:44 Blood Pressure 120/69 11/17/18 19:44 Pulse Oximetry 100 11/17/18 19:44 Temperature 36.6 C 11/17/18 19:44 Temperature Source Skin 11/17/18 19:44 Pulse 86 11/17/18 19:44 Respiratory Rate 20 11/17/18 19:44 Respiratory Effort Non-Labored 11/17/18 19:52 Blood Pressure 120/69 11/17/18 19:44 Blood Pressure Position Sitting 11/17/18 19:44 Pulse Oximetry 100 11/17/18 19:44 Oxygen Delivery Method Room Air 11/17/18 19:44 Oxygen Flow Rate 0 11/17/18 19:44 Lab/Test Results Lab/Test Results: 11/17/18 20:11 Blood Blood Culture - Pending 11/17/18 20:11 Blood Blood Culture - Pending
[2018-11-17 21:38] LABS: Bilirubin Negative (Negative); Blood Negative (Negative); Clarity Clear (Clear); Glucose Negative (Negative); Ketones Trace mg/dL (Negative); Leukocyte Esterase Negative (Negative); Nitrite Negative (Negative); pH 5.5 (5-8)
[2018-11-17 21:40] LABS: ALT 13 U/L (12-78); AST 5 U/L (15-37); Albumin 3.5 g/dL (3.4-5.0); Alkaline Phosphatase 101 U/L (46-116); Anion Gap 10.2 mmol/L (3-11); BUN 34 mg/dL (7-18); Bilirubin, Total 0.7 mg/dL (0.2-1.0); C-Reactive Protein 0.68 mg/dL (0.0-0.3); CO2 26.8 mmol/L (21.0-32.0); CREATININE 1.53 mg/dL (0.70-1.30); Calcium 9.2 mg/dL (8.5-10.1); Chloride 103 mmol/L (98-107); Glucose 155 mg/dL (70-100); Potassium 4.4 mmol/L (3.5-5.1); Sodium 140 mmol/L (136-145); TSH (W/Ref FT4) 4.02 uIU/mL (0.358-3.74); Total Protein 7.1 g/dL (6.4-8.2)
--- NOTE | 2018-11-17 21:57 | DI.VRAD_ITS ---
EXAM: XR Right Foot Complete EXAM DATE/TIME: 11/17/2018 8:18 PM CLINICAL HISTORY: 83 years old, male; Cellulitis and other: Cellulitis; Foot; Right TECHNIQUE: Imaging protocol: XR Right foot. Views: 3 or more views. COMPARISON: No relevant prior studies available. FINDINGS: Bones/joints: There is no obvious erosive bone changes. Soft tissues: There is soft tissue swelling along the dorsum of the foot. Vasculature: There is vascular calcification. Other findings: The patient is osteoporotic. IMPRESSION: Osteoporosis. No obvious bone erosion to suggest osteomyelitis. If there any skin defects consider repeating films with markers. Dictated and Authenticated by: Elo Branch MD. Ordering:ABRIL Wheeler MD
[2018-11-17 22:35] LABS: FREE T4 1.03 ng/dL (0.76-1.46)
--- NOTE | 2018-11-17 23:16 | W.PM.HP.N ---
Date of service: 11/17/18 Time of Service: 23:16 Assessment and Plan (1) Cellulitis: Current visit: Yes Status: Acute Cellulitis of foot in diabetic. No clinical evidence of osteo. I think it reasonable to try full dose IV Ancef, along with diuresis, and can add Vanco if no response. Will continue usual meds as is with exception of substituting IV diuresis. Also Metformin contraindicated with renal insufficiency, will cover with SS for now but consider alternative oral agent. History of Present Illness Chief Complaint: foot pain Narrative: 83 male with DM here with few days of right foot pain. Seen one day [employer] and started on Clinda + Augmentin for cellulitiss. Returns with continued pain, redness and swelling. In ER cellulitis agin noted, film - osteo. Given dose Vanco and dmitted ffor further managemeent. 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) Decubitus ulcer of left buttock, stage 2 (Resolved 07/18/17) Cataracts, bilateral (Resolved 10/24/15) Atrial fibrillation (Chronic) Ataxia (Chronic) Mild cognitive impairment (Chronic) Surgical History Appendectomy Colonoscopy - IV Sedation (11/18/12) Family History Mother Diabetes Stroke Father Heart disease Sister Psoriasis Social History Smoking/Tobacco Use Status: Former Tobacco Use Alcohol Intake: never Drug use: Never Substance use type: does not use Sun/Jewish: No preference Special sun needs: No Do you feel safe at home: Yes Do you feel safe in your relationship?: Yes Meds Home Medications Medication Instructions Recorded Confirmed Type blood-glucose meter [OneTouch kit 07/24/12 09/16/18 History UltraMini] Targeted TechnologiesTouch Ultra Test #100 strip 06/30/14 09/16/18 History lancets [OneTouch Delica Lancets] #100 ea 06/30/14 09/16/18 History diltiazem HCl 120 mg PO DAILY #90 cap 12/25/17 11/17/18 Rx spironolactone 25 mg PO DAILY #90 tab 01/01/18 11/17/18 Rx metformin 500 mg tablet 500 mg PO BID #180 tab-cap 08/03/18 11/17/18 Rx escitalopram 5 mg tablet 5 mg PO DAILY #90 tab-cap 08/20/18 11/17/18 Rx apixaban 2.5 mg tablet 2.5 mg PO BID #180 tab 09/07/18 11/17/18 Rx albuterol sulfate [ProAir HFA] 2 puff IH Q6H PRN PRN #8 gm 09/18/18 Rx amoxicillin-pot clavulanate 1 tab PO BID #6 tab 09/18/18 Rx [Augmentin] doxycycline hyclate 100 mg PO BID #6 cap 09/18/18 11/17/18 Rx levothyroxine 75 mcg PO DAILY #30 cap 09/18/18 11/17/18 Rx torsemide 10 mg tablet 10 mg PO DAILY #90 tab-cap 10/16/18 11/17/18 Rx amoxicillin-pot clavulanate 1 tab PO BID 14 Days #28 tab 11/16/18 Rx [Augmentin] clindamycin HCl 450 mg PO TID 14 Days #126 cap 11/16/18 11/17/18 Rx Allergies Allergy/AdvReac Type Severity Reaction Status Date / Time procaine [Procaine] Allergy Severe Anaphylaxsi Unverified 11/17/18 19:49 s thiopental [Thiopental] Allergy Severe Anaphylaxsi Unverified 11/17/18 19:49 s shellfish derived Allergy Intermediate Swelling/Ed Unverified 11/17/18 19:49 gerson Iodinated Contrast- Oral and Allergy Unknown Swelling/Ed Unverified 11/17/18 19:49 IV Dye gerson nitroglycerin AdvReac Severe bottomed Unverified 11/17/18 19:49 out BP Exam Narrative Exam Narrative: 110/60, 71, 36.6, 15. HEENT unremarkable; neck supple; lungs clear; heart RRR; abdomen soft NT; /rectal deferred; extremities: 2+ bilateral pedal edema, there are chronic stasis changes of the shins, right > left; the right foot is a mix of erythema primarily laterally and purplish elsewhere with no clear difference in warmth compared to left; pulses are not palpable but are present by Doppler Results Labs : 11/17/18 20:55 11/17/18 20:55 Laboratory Results - last 24 hr 11/17/18 11/17/18 11/17/18 20:55 20:55 20:55 WBC 6.53 RBC 3.86 L Hgb 12.7 L Hct 38.5 L MCV 99.7 H MCH 32.9 MCHC 33.0 RDW 14.4 H Plt Count 113 L MPV 11.6 H Immature Gran % 0.2 Neutrophils % 70.0 Lymphocytes % 19.4 Monocytes % 9.2 Eosinophils % 0.9 Basophils % 0.3 Absolute Neutrophils 4.57 Absolute Lymphocytes 1.27 Absolute Monocytes 0.60 Absolute Eosinophils 0.06 Absolute Basophils 0.02 Sodium 140 Potassium 4.4 Chloride 103 Carbon Dioxide 26.8 Anion Gap 10.2 BUN 34 H Creatinine 1.53 H Estimated GFR/1.73 m2 43.90 Glucose 155 H Lactate 1.4 Calcium 9.2 Magnesium 2.0 Total Bilirubin 0.7 AST 5 L ALT 13 Alkaline Phosphatase 101 Troponin I 0.10 H* C-Reactive Protein 0.68 H Total Protein 7.1 Albumin 3.5 TSH 4.02 H Free T4 1.03 Urine Color Urine Clarity Urine pH Ur Specific [place] Urine Protein Urine Ketones Urine Blood Urine Nitrite Urine Bilirubin Urine Urobilinogen Ur Leukocyte Esterase Urine Glucose 11/17/18 21:25 WBC RBC Hgb Hct MCV MCH MCHC RDW Plt Count MPV Immature Gran % Neutrophils % Lymphocytes % Monocytes % Eosinophils % Basophils % Absolute Neutrophils Absolute Lymphocytes Absolute Monocytes Absolute Eosinophils Absolute Basophils Sodium Potassium Chloride Carbon Dioxide Anion Gap BUN Creatinine Estimated GFR/1.73 m2 Glucose Lactate Calcium Magnesium Total Bilirubin AST ALT Alkaline Phosphatase Troponin I C-Reactive Protein Total Protein Albumin TSH Free T4 Urine Color Yellow Urine Clarity Clear Urine pH 5.5 Ur Specific [place] 1.020 Urine Protein Negative Urine Ketones Trace H Urine Blood Negative Urine Nitrite Negative Urine Bilirubin Negative Urine Urobilinogen 1.0 H Ur Leukocyte Esterase Negative Urine Glucose Negative Last Vital Signs Temp 36.6 C 11/17/18 19:44 Pulse 63 11/17/18 22:46 Resp 15 11/17/18 22:50 BP 110/60 11/17/18 22:46 Pulse Ox 97 11/17/18 22:01
[2018-11-18] VITALS (12 sets, daily range): BP systolic 98–139; BP diastolic 53–69; PULSE 62–88; RESP 20–22; TEMP 36.3–36.9; O2SAT 96–100
[2018-11-18] MEDS: Acetaminophen 325 MG TAB 650 MG PO (01:06)
[2018-11-18] MEDS: Levothyroxine 75 MCG TAB PO (06:13)
[2018-11-18] MEDS: Apixaban 2.5 MG TAB PO ×2 (08:01→19:40)
[2018-11-18] MEDS: dilTIAZem CD 120 MG CAPCR PO (08:02)
[2018-11-18] MEDS: Escitalopram 10 MG TAB 5 MG PO (08:03)
[2018-11-18] MEDS: Torsemide 20 MG TAB 10 MG PO (09:27)
[2018-11-18 09:32] LABS: Abs Immature Grans 0.01 k/cumm (0.0-0.09); Absolute Basophil Count 0.03 k/cumm (0.0-0.2); Absolute Eosinophil Count 0.07 k/cumm (0.0-0.7); Absolute Lymphocyte Count 1.41 k/cumm (1.2-3.4); Absolute Monocyte Count 0.53 k/cumm (0.11-0.7); Absolute Neutrophil Count 4.51 k/cumm (1.2-6.7); Basophils % 0.5; Eosinophils % 1.1; HCT 40.2 % (40.0-50.0); HGB 13.4 g/dL (13.5-17.5); Immature Grans % 0.2; Lymphocytes % 21.5; Mean Corp. HGB Concentration 33.3 g/dL (32.0-36.0); Mean Corpuscular Hemoglobin 33.3 pg (27.0-33.0); Mean Corpuscular Volume 99.8 fL (80-95); Mean Platelet Volume 11.6 fL (8.0-11.0); Monocytes % 8.1; Neutrophils % 68.6; Platelet Count 114 x1000/uL (130-400); RBC 4.03 m/cumm (4.50-6.00); RBC Distribution Width 14.5 % (11.8-14.1); White Blood Cell Count 6.56 k/cumm (4.4-10.8)
[2018-11-18 09:38] LABS: Anion Gap 9.4 mmol/L (3-11); BUN 32 mg/dL (7-18); CO2 26.6 mmol/L (21.0-32.0); CREATININE 1.52 mg/dL (0.70-1.30); Calcium 9.2 mg/dL (8.5-10.1); Chloride 102 mmol/L (98-107); Estimated GFR 44.24 (mL/min/1.73m2); Glucose 155 mg/dL (70-100); Potassium 4.2 mmol/L (3.5-5.1); Sodium 138 mmol/L (136-145)
[2018-11-18 09:47] LABS: Magnesium 2.2 mg/dL (1.8-2.4)
--- NOTE | 2018-11-18 10:48 | PHARADMIT ---
Addendum entered by Humble Bradford III 11/19/18 12:36: Pharmacy Note Subjective Diabetic foot infection appears to be responding to IV ABX. considering transitioning to Oral ABX. Objective VS-OK SCr-1.56 K+3.9 WBC, H&H,Plts-OK FSBS-119 GB-127 Wgt-76 kg BM today Assessment Vancomycin, Ancef continue for for now. MD have been renally dosed for his CKD. Plan Patient is med/surg overflow and will be transferred to the floor for further treatment Original Note: Admission Pharmacy Clinical Review CELLULITIS-foot, Diabetic, unresponsive to outpt oral Anbx Code Status Full Code Current Weight 79.4 kg Renally Cleared and Narrow Therapeutic Index Meds CrCl~39ml/min QTc Value / Action Taken QTC 462 BP Control, Fever BP 123/57 Afebrile Pain 7/10 Electrolytes reviewed WNL DVT Prophylaxis Apixiban for Afib (dose ok 2.5mg po BID) Opiate Usage / Scheduled Bowel Regimen Ordered Plt/SCr for Heparin / Enoxaparin Plt 114 SCr 1.52 INR for Warfarin H/H stable, WBC/Bands H/H 13.4/40.2 WBC 6.56 Antibiotic appropriateness day#2 Cefazolin and Vanco-watch for narrowing of therapy Cultures and Sensitivities Blood pending Surgical ABX d/c within 24 hr DM control / Insulin Dosing BG 155 (Novolog) Heart Failure (Check EF%) (MARY's, B-Block, Diuretics) Diltiazem CD, Torsemide IV to PO Switch Home Meds Reviewed failed outpt treatment w/Clinda and Augmentin Home Meds Not Ordered Metformin held intentionally Comments troponin 0.1 x 2 redness and swelling improved per RN & daughter
--- NOTE | 2018-11-18 11:55 | INITIAL_ITS ---
- If Service Date Differs Date of service: 11/18/18 Time of Service: 11:09 Care Management Initial Assess REASON FOR HOSPITALIZATION:: Cellulitis PAST MEDICAL HISTORY/PAST SURGICAL HISTORY:: Ulcerative colitis (Inactive). Type 2 diabetes mellitus without complication (Chronic). Spinal stenosis (Chronic). Rosacea (Chronic). Osteoarthritis (Chronic). Hypothyroidism (Chronic). Hyperlipidemia (Chronic). Essential hypertension, benign (Chronic 12/01/14). 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 Decubitus ulcer of left buttock, stage 2 (Resolved 07/18/17). Cataracts, bilateral (Resolved 10/24/15). Atrial fibrillation (Chronic). Ataxia (Chronic). Mild cognitive impairment (Chronic). Appendectomy. Colonoscopy - IV Sedation (11/18/12 PREVIOUS FUNCTIONAL STATUS/SOCIAL/FAMILY SUPPORTS:: Juan Pablo resides with his Mel in [facility]. He has three daughters, two of whom reside locally (Rut & Tash). Juan Pablo reports that he no longer drives and depends on his to transport him to appointments. His daughter Rut brings him on outings a couple times a week as well. His daughter checks on him daily. CURRENT FUNCTIONAL STATUS:: Juan Pablo is alert and engaged with CM during visit. Juan Pablo does become confused at times while meeting with CM and has difficulty expressing himself. Juan Pablo reports he was concerned when he left the ED and saw that he was being admitted to the ICU. He feels better today and less confused he reports. CM reviewed events prior to admission his daughter has been monitoring him at home, they did try and get an appointment with however could not get in untill the end of this week and needed to bring him back to the ED. Home health had just closed services. CM will update CCC at primary. ADVANCE DIRECTIVES:: [facility] on file. ISSA - Rut Hess is agent, Tash Borrgeo is alternate agent Has patient been provided with information about the portal?: Yes Did the patient sign up for the portal?: No CODE STATUS:: Full Code INSURANCE COVERAGE / FINANCIAL ISSUES:: MCR, BCBS CURRENT HOME/COMMUNITY SERVICES/EQUIPMENT:: Currently Juan Pablo has no services in the community. He does have a FWW, Tray for walker, grab bars, and glucometer at home. PRIMARY CARE PHYSICIAN:: Dr. Mancini POTENTIAL DISCHARGE NEEDS:: F/U appointment with PCP, scheduled prior to discharge. PATIENT/FAMILY EDUCATION NEEDS:: Discharge education, limitations and follow up plan of care. ANTICIPATED BARRIERS TO DISCHARGE:: None identified TRANSPORTATION:: Via private car with his spouse at time of dishcarge. PLAN:: Juan Pablo is receiving IV antibioitc, he is acute at this time. CM spoke with his daughter Lizette and reviewed plan she will talk with Mel to discuss renewell of home health services wound management. She would like him to have compression wraps he is unable to place the compression stockings on and has 4+ edema in his lower extremities. He would benefit from the wraps, CM will send the referral to [facility]. Juan Pablo will be discharged home anticipate new home health services, he has a follow up with on 11/20/18 at 0900 if he will not be discharged by then please contact the office and reschedule. CM will continue to provide support discharge planning and disposition.
[2018-11-18] MEDS: Normal Saline Flush 10 ML SYR IVP ×3 (12:06→18:05)
--- NOTE | 2018-11-18 12:37 | W.PM.PROGNOT ---
Date of Service Date of service: 11/18/18 Time of Service: 12:39 Assessment and Plan (1) Cellulitis: Current visit: Yes Status: Acute Foot and LE infection in diabetic male - would not consider this as failure of oral antibiotics as he only received a day or so - will continue treatment of moderate diabetic foot infection. Continue 3rd generation Cephalosporine, but change to Ceftriaxone for ease of administration, and add IV Vancomycin. Continue to monitor wound, labs, and vitals. CRP minimally elevated only. (2) Elevated troponin: Current visit: Yes Status: Acute Minimal and equivocal elevation in setting of acute illness and poor clearance due to CKD. Repeat troponin unchanged, and patient appears asymptomatic. Monitor. (3) CKD (chronic kidney disease): Current visit: Yes Status: Acute Creatinine appears at the upper limits of patient's baseline - monitor carefully, renally dose medications, and avoid nephrotoxins. Will hold Spironolactone today, and monitor renal function. (4) Hypertension: Current visit: Yes Status: Chronic Continue BB with Spironolactone on hold. (5) Non-insulin dependent type 2 diabetes mellitus: Current visit: Yes Status: Chronic Continue to hold metformin. Sliding scale coverage and ADA diet. (6) Hypothyroidism: Current visit: No Status: Chronic On replacement therapy. (7) 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: Current visit: No Status: Chronic LVEF intact, with evidence of severe LVH, mild PHTN, and moderate AR/MR/TR. Continue Torsemide, and administer additional dose of IV Lasix tonight to assist with LE edema. ARB and spironolactone on hold. Monitor daily weights, renal function, and volume status carefully. (8) Atrial fibrillation: Current visit: No Status: Chronic Continue Diltiazem, Apixaban. Monitor on tele. (9) DVT prophylaxis: Current visit: Yes Status: Acute On chronic anticoagulation with Apixaban. Subjective Interval history since last seen: Very Pleasant 83 year old man with past medical history significant for DM, admitted from [facility] Emergency Department on 11/17 with a diagnosis of RLE cellulitis. Mr. Borrego has a past Medical History significant for DM, HTN, Dyslipidemia, CKD, Afib on chronic AC, and Depression. Prior ECHO has resulted in diagnosis of Diastolic CHF, PHTN, and moderate valvulopathy with MR, AR, and TR. The patient was originally seen on 11/16 in the Emergency Department with a complaint of worsening foot pain and erythema over the course of a week, with noted wound on the dorsal aspect of his right foot. As he was stable decision was made to attempt treatment with oral antibiotics (Clindamycin & Augmentin). However, he returned to the ED the following day with worsening symptoms, and as his exam appeared worse decision was made to admit him for further evaluation and treatment. This morning Mr. Borrego appears stable, with a normal WBC, temperature, and Lactate. He has a minimal and equivocal elevation in troponin, unchanged this morning from the time of admission. No overnight events were reported. He remains afebrile. Exam Narrative Exam Narrative: General: Patient appears comfortable, sitting up in bed, awake and alert, NAD Neck: Supple CV: Regular by exam, nontachycardic, S1S2, 3/6 LLSB murmur appreciated. Pulmonary: Clear to auscultation bilaterally, no crackles, wheezing, or rhonchi on limited anterior and lateral exam Abdomen: + Bowel Sounds, soft, nontender, nondistended Vascular: B/l LE Edema, 2-3+ on right, 1+ on left. Skin: Right foot and ankle, distal RLE with dark erythema and mild warmth. Small wound on lateral aspect of distal right leg with bandage in place. Small area of skin breakdown on dorsal aspect of right foot. Dry cracked skin surrounding digits. prominent onychomycosis. Psych: Normal mood and affect. Objective Objective Clinical Data: Abnormal lab results 11/17/18 11/17/18 11/17/18 Range/Units 20:55 20:55 21:25 RBC 3.86 L (4.50-6.00) m/cumm Hgb 12.7 L (13.5-17.5) g/dL Hct 38.5 L (40.0-50.0) % MCV 99.7 H (80-95) fL MCH (27.0-33.0) pg RDW 14.4 H (11.8-14.1) % Plt Count 113 L (130-400) x1000/uL MPV 11.6 H (8.0-11.0) fL BUN 34 H (7-18) mg/dL Creatinine 1.53 H (0.70-1.30) mg/dL Glucose 155 H (70-100) mg/dL AST 5 L (15-37) U/L Troponin I 0.10 H* (0.00-0.06) ng/mL C-Reactive Protein 0.68 H (0.0-0.3) mg/dL TSH 4.02 H (0.358-3.74) uIU/mL Urine Ketones Trace H (Negative) mg/dL Urine Urobilinogen 1.0 H (Up TO 0.2) EU/dL 11/18/18 11/18/18 11/18/18 Range/Units 09:18 09:18 09:18 RBC 4.03 L (4.50-6.00) m/cumm Hgb 13.4 L (13.5-17.5) g/dL Hct (40.0-50.0) % MCV 99.8 H (80-95) fL MCH 33.3 H (27.0-33.0) pg RDW 14.5 H (11.8-14.1) % Plt Count 114 L (130-400) x1000/uL MPV 11.6 H (8.0-11.0) fL BUN 32 H (7-18) mg/dL Creatinine 1.52 H (0.70-1.30) mg/dL Glucose 155 H (70-100) mg/dL AST (15-37) U/L Troponin I 0.10 H* (0.00-0.06) ng/mL C-Reactive Protein (0.0-0.3) mg/dL TSH (0.358-3.74) uIU/mL Urine Ketones (Negative) mg/dL Urine Urobilinogen (Up TO 0.2) EU/dL Vital Signs Temperature 36.6 C 11/18/18 11:28 Temperature Source Temporal Artery Scan 11/18/18 11:28 Pulse 62 11/18/18 11:28 Pulse Rhythm Regular 11/18/18 11:05 Pulse 63 11/18/18 00:00 Respiratory Rate 22 11/18/18 11:28 Respiratory Effort 11/18/18 11:05 Respiratory Depth Normal 11/18/18 11:05 Respiratory Pattern Normal 11/18/18 11:05 Blood Pressure 113/63 11/18/18 11:28 Blood Pressure Mean 75 11/18/18 11:00 Blood Pressure Position Sitting 11/18/18 00:42 Pulse Oximetry 96 11/18/18 11:28 Oxygen Delivery Method Room Air 11/18/18 11:28 Oxygen Flow Rate 0 11/18/18 11:28 Pain Level 0 11/18/18 11:28 Comment 11/18/18 11:28 Intake & Output 11/17/18 11/18/18 11/18/18 23:59 11:59 23:59 Intake Total 250 / 250 685 / 735 50 / 735 Output Total 1125 / 1125 1400 / 1400 Balance -875 / -875 -715 / -665 50 / -665 Weight 82.962 kg 79.4 kg Intake: IV 250 / 250 50 / 100 50 / 100 Oral 635 / 635 Output: Urine 1125 / 1125 1400 / 1400 Other: Urine Color Yellow [place] Urine Appearance Clear Urine Odor Normal Comment Amount approximated Stool Size Small Stool Characteristics Soft Formed Brown Voiding Methods Bedside Commode # Voids 2 Laboratory Results WBC 6.56 k/cumm (4.4-10.8) 11/18/18 09:18 RBC 4.03 m/cumm (4.50-6.00) L 11/18/18 09:18 Hgb 13.4 g/dL (13.5-17.5) L 11/18/18 09:18 Hct 40.2 % (40.0-50.0) 11/18/18 09:18 MCV 99.8 fL (80-95) H 11/18/18 09:18 MCH 33.3 pg (27.0-33.0) H 11/18/18 09:18 MCHC 33.3 g/dL (32.0-36.0) 11/18/18 09:18 RDW 14.5 % (11.8-14.1) H 11/18/18 09:18 Plt Count 114 x1000/uL (130-400) L 11/18/18 09:18 MPV 11.6 fL (8.0-11.0) H 11/18/18 09:18 Immature Gran % 0.2 11/18/18 09:18 Neutrophils % 68.6 11/18/18 09:18 Lymphocytes % 21.5 11/18/18 09:18 Monocytes % 8.1 11/18/18 09:18 Eosinophils % 1.1 11/18/18 09:18 Basophils % 0.5 11/18/18 09:18 Absolute Neutrophils 4.51 k/cumm (1.2-6.7) 11/18/18 09:18 Absolute Lymphocytes 1.41 k/cumm (1.2-3.4) 11/18/18 09:18 Absolute Monocytes 0.53 k/cumm (0.11-0.7) 11/18/18 09:18 Absolute Eosinophils 0.07 k/cumm (0.0-0.7) 11/18/18 09:18 Absolute Basophils 0.03 k/cumm (0.0-0.2) 11/18/18 09:18 Sodium 138 mmol/L (136-145) 11/18/18 09:18 Potassium 4.2 mmol/L (3.5-5.1) 11/18/18 09:18 Chloride 102 mmol/L (98-107) 11/18/18 09:18 Carbon Dioxide 26.6 mmol/L (21.0-32.0) 11/18/18 09:18 Anion Gap 9.4 mmol/L (3-11) 11/18/18 09:18 BUN 32 mg/dL (7-18) H 11/18/18 09:18 Creatinine 1.52 mg/dL (0.70-1.30) H 11/18/18 09:18 Estimated GFR/1.73 m2 44.24 (mL/min/1.73m2) 11/18/18 09:18 Glucose 155 mg/dL (70-100) H 11/18/18 09:18 Lactate 1.4 mmol/L (0.6-1.4) 11/17/18 20:55 Calcium 9.2 mg/dL (8.5-10.1) 11/18/18 09:18 Magnesium 2.2 mg/dL (1.8-2.4) 11/18/18 09:18 Total Bilirubin 0.7 mg/dL (0.2-1.0) 11/17/18 20:55 AST 5 U/L (15-37) L 11/17/18 20:55 ALT 13 U/L (12-78) 11/17/18 20:55 Alkaline Phosphatase 101 U/L (46-116) 11/17/18 20:55 Troponin I 0.10 ng/mL (0.00-0.06) H* 11/18/18 09:18 C-Reactive Protein 0.68 mg/dL (0.0-0.3) H 11/17/18 20:55 Total Protein 7.1 g/dL (6.4-8.2) 11/17/18 20:55 Albumin 3.5 g/dL (3.4-5.0) 11/17/18 20:55 TSH 4.02 uIU/mL (0.358-3.74) H 11/17/18 20:55 Free T4 1.03 ng/dL (0.76-1.46) 11/17/18 20:55 Urine Color Yellow (Yellow) 11/17/18 21:25 Urine Clarity Clear (Clear) 11/17/18 21:25 Urine pH 5.5 (5-8) 11/17/18 21:25 Ur Specific [place] 1.020 (1.005-1.025) 11/17/18 21:25 Urine Protein Negative mg/dL (Negative) 11/17/18 21:25 Urine Ketones Trace mg/dL (Negative) H 11/17/18 21:25 Urine Blood Negative (Negative) 11/17/18 21:25 Urine Nitrite Negative (Negative) 11/17/18 21:25 Urine Bilirubin Negative (Negative) 11/17/18 21:25 Urine Urobilinogen 1.0 EU/dL (Up TO 0.2) H 11/17/18 21:25 Ur Leukocyte Esterase Negative (Negative) 11/17/18 21:25 Urine Glucose Negative mg/dL (Negative) 11/17/18 21:25
[2018-11-18] MEDS: Normal Saline 500 ML IV (14:30)
--- NOTE | 2018-11-18 15:31 | CHAPLAIN ---
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 Juan Pablo is pleasant and engages easily in a conversation. He said he has been doing any energy work lately and asks about how the Reiki program is doing here. During our conversation Juan Pablo tells me that he know he is fuzzy in his thinking at times and says he is not always cognitive but is aware of this. He is reflective about this and says he has conversations with a friend who is similar in age about what it is like to be fuzzy at times. He said he has stopped driving and that was his decision. Juan Pablo seems to be well supported by his and daughters.
[2018-11-18] MEDS: Furosemide 40 MG/4 ML VIAL IVP (16:41)
[2018-11-18] MEDS: cefTRIAXone 2 GM/50 ML BAG IVPB (18:04)
[2018-11-19] VITALS (17 sets, daily range): BP systolic 98–137; BP diastolic 47–68; PULSE 48–76; RESP 12–18; TEMP 36.3–36.8; O2SAT 90–99
[2018-11-19] MEDS: Acetaminophen 325 MG TAB 650 MG PO ×2 (02:34→08:39)
[2018-11-19] MEDS: Levothyroxine 75 MCG TAB PO (05:45)
[2018-11-19 07:21] LABS: Abs Immature Grans 0.01 k/cumm (0.0-0.09); Absolute Basophil Count 0.03 k/cumm (0.0-0.2); Absolute Eosinophil Count 0.11 k/cumm (0.0-0.7); Absolute Lymphocyte Count 1.85 k/cumm (1.2-3.4); Absolute Monocyte Count 0.56 k/cumm (0.11-0.7); Absolute Neutrophil Count 3.21 k/cumm (1.2-6.7); Basophils % 0.5; Eosinophils % 1.9; HCT 37.2 % (40.0-50.0); HGB 12.3 g/dL (13.5-17.5); Immature Grans % 0.2; Lymphocytes % 32.1; Mean Corp. HGB Concentration 33.1 g/dL (32.0-36.0); Mean Corpuscular Hemoglobin 32.7 pg (27.0-33.0); Mean Corpuscular Volume 98.9 fL (80-95); Monocytes % 9.7; Neutrophils % 55.6; Platelet Count 117 x1000/uL (130-400); RBC 3.76 m/cumm (4.50-6.00); RBC Distribution Width 14.3 % (11.8-14.1); White Blood Cell Count 5.77 k/cumm (4.4-10.8)
[2018-11-19 07:26] LABS: Anion Gap 8.1 mmol/L (3-11); BUN 36 mg/dL (7-18); CO2 29.9 mmol/L (21.0-32.0); CREATININE 1.56 mg/dL (0.70-1.30); Calcium 8.6 mg/dL (8.5-10.1); Chloride 102 mmol/L (98-107); Estimated GFR 42.93 (mL/min/1.73m2); Glucose 127 mg/dL (70-100); Potassium 3.9 mmol/L (3.5-5.1); Sodium 140 mmol/L (136-145)
[2018-11-19] MEDS: Normal Saline Flush 10 ML SYR IVP (08:37)
[2018-11-19] MEDS: Escitalopram 10 MG TAB 5 MG PO (08:41)
[2018-11-19] MEDS: dilTIAZem CD 120 MG CAPCR PO (08:42)
[2018-11-19] MEDS: Apixaban 2.5 MG TAB PO ×2 (08:42→20:56)
[2018-11-19] MEDS: Torsemide 20 MG TAB 10 MG PO (08:42)
[2018-11-19] MEDS: Potassium Chloride 10 MEQ TABCR PO (11:25)
--- NOTE | 2018-11-19 12:15 | W.PM.PROGNOT ---
Date of Service Date of service: 11/19/18 Time of Service: 12:15 Assessment and Plan (1) Cellulitis: Current visit: No Status: Acute Foot and LE infection in diabetic male - would not consider this as failure of oral antibiotics as he only received a day or so of therapy - will continue treatment of moderate diabetic foot infection. Received Ceftriaxone and Vancomycin for 2 days. Will change to oral antibiotics today, and monitor for additional day. If continued improvement consider discharge home. Continue to monitor wound, labs, and vitals. CRP minimally elevated only. (2) Elevated troponin: Current visit: No Status: Acute Minimal and equivocal elevation in setting of acute illness and poor clearance due to CKD. Repeat troponin unchanged, and patient appears asymptomatic. Also with chronic elevation during times of illness. Monitor. (3) CKD (chronic kidney disease): Current visit: No Status: Acute Creatinine appears improved - monitor carefully, renally dose medications, and avoid nephrotoxins. Will reinitiate low dose Spironolactone, and monitor renal function and blood pressure, which appears to be normotensive currently. (4) Hypertension: Current visit: No Status: Chronic Continue BB with Spironolactone restarted as above. (5) Non-insulin dependent type 2 diabetes mellitus: Current visit: No Status: Chronic Continue to hold metformin. Currently on Sliding scale coverage and ADA diet. (6) Hypothyroidism: Current visit: No Status: Chronic On replacement therapy. (7) 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: Current visit: No Status: Chronic LVEF intact, with evidence of severe LVH, mild PHTN, and moderate AR/MR/TR. Continue Torsemide to assist with LE edema. Reinitiate Spironolactone as above. Monitor daily weights, renal function, and volume status carefully. (8) Atrial fibrillation: Current visit: No Status: Chronic Continue Diltiazem, Apixaban (dosed for age and renal function, with creatinine >1.5 on multiple occasions). (9) DVT prophylaxis: Current visit: No Status: Acute On chronic anticoagulation with Apixaban. Subjective Interval history since last seen: Very Pleasant 83 year old man with past medical history significant for DM, admitted from [facility] Emergency Department on 11/17 with a diagnosis of RLE cellulitis. Mr. Borrego has a past Medical History significant for DM, HTN, Dyslipidemia, CKD, Afib on chronic AC, and Depression. Prior ECHO has resulted in diagnosis of Diastolic CHF, PHTN, and moderate valvulopathy with MR, AR, and TR. The patient was originally seen on 11/16 in the Emergency Department with a complaint of worsening foot pain and erythema over the course of a week, with noted wound on the dorsal aspect of his right foot and lateral lower leg. As he was stable decision was made to attempt treatment with oral antibiotics (Clindamycin & Augmentin). However, he returned to the ED the following day with worsening symptoms, and as his exam appeared worse decision was made to admit him for further evaluation and treatment. This morning Mr. Borrego appears stable again, with reported stability overall in his wounds. He continues to have a normal WBC and temperature, and his prior Lactate was normal as well. His wound looks mildly better this morning. He had a minimal and equivocal elevation in troponin, unchanged the morning following his admission. No overnight events were reported. He remains afebrile. Exam Narrative Exam Narrative: General: Patient appears comfortable, sitting up out of bed in chair, awake and alert, NAD Neck: Supple CV: Regular by exam, nontachycardic, S1S2, 3/6 LLSB murmur appreciated. Pulmonary: Clear to auscultation bilaterally, no crackles, wheezing, or rhonchi on limited anterior and lateral exam Abdomen: + Bowel Sounds, soft, nontender, nondistended Vascular: B/l LE Edema, vastly improved and now 1+ on RLE, mild on left. Skin: Right foot and ankle, distal RLE with dark erythema and small superficial wound - no longer warm. Area of swelling and erythema on dorsal aspect of foot mildly improved since prior exam, still with mild warmth. Dry cracked skin surrounding digits. prominent onychomycosis. Psych: Normal mood and affect. Objective Objective Clinical Data: Abnormal lab results 11/19/18 11/19/18 Range/Units 06:32 06:32 RBC 3.76 L (4.50-6.00) m/cumm Hgb 12.3 L (13.5-17.5) g/dL Hct 37.2 L (40.0-50.0) % MCV 98.9 H (80-95) fL RDW 14.3 H (11.8-14.1) % Plt Count 117 L (130-400) x1000/uL MPV 12.0 H (8.0-11.0) fL BUN 36 H (7-18) mg/dL Creatinine 1.56 H (0.70-1.30) mg/dL Glucose 127 H (70-100) mg/dL Vital Signs Temperature 36.6 C 11/19/18 11:31 Temperature Source Temporal Artery Scan 11/19/18 11:31 Pulse 76 11/19/18 11:31 Pulse Rhythm Regular 11/19/18 09:06 Pulse 63 11/18/18 00:00 Respiratory Rate 12 11/19/18 11:31 Respiratory Effort Non-Labored 11/19/18 09:06 Respiratory Depth Normal 11/19/18 09:06 Respiratory Pattern Normal 11/19/18 09:06 Blood Pressure 110/57 L 11/19/18 11:21 Blood Pressure Mean 68 11/19/18 11:21 Blood Pressure Position Sitting 11/18/18 00:42 Pulse Oximetry 98 11/19/18 11:31 Oxygen Delivery Method Room Air 11/19/18 11:31 Oxygen Flow Rate 0 11/19/18 11:31 Pain Level 3 11/19/18 08:39 Comment 11/19/18 02:14 Intake & Output 11/18/18 11/19/18 11/19/18 23:59 11:59 23:59 Intake Total 830.045 / 1515.045 687 / 687 Output Total 1525 / 2925 915 / 915 Balance -694.955 / -1409.955 -228 / -228 Weight 76 kg Intake: IV 350.045 / 400.045 200 / 200 Oral 480 / 1115 487 / 487 Output: Urine 1525 / 2925 915 / 915 Other: Urine Color Yellow Yellow Urine Appearance Clear Clear Urine Odor Normal Normal Comment Small speck of blood noted in side pt's brief. Pt. states that's unusual! Will report to [facility]coming day shift. Stool Size Moderate Small Stool Characteristics Soft Formed Formed Hard Brown Voiding Methods Bedside Commode Urinal Laboratory Results WBC 5.77 k/cumm (4.4-10.8) 11/19/18 06:32 RBC 3.76 m/cumm (4.50-6.00) L 11/19/18 06:32 Hgb 12.3 g/dL (13.5-17.5) L 11/19/18 06:32 Hct 37.2 % (40.0-50.0) L 11/19/18 06:32 MCV 98.9 fL (80-95) H 11/19/18 06:32 MCH 32.7 pg (27.0-33.0) 11/19/18 06:32 MCHC 33.1 g/dL (32.0-36.0) 11/19/18 06:32 RDW 14.3 % (11.8-14.1) H 11/19/18 06:32 Plt Count 117 x1000/uL (130-400) L 11/19/18 06:32 MPV 12.0 fL (8.0-11.0) H 11/19/18 06:32 Immature Gran % 0.2 11/19/18 06:32 55.6 11/19/18 06:32 32.1 11/19/18 06:32 9.7 11/19/18 06:32 1.9 11/19/18 06:32 0.5 11/19/18 06:32 Absolute Neutrophils 3.21 k/cumm (1.2-6.7) 11/19/18 06:32 Absolute Lymphocytes 1.85 k/cumm (1.2-3.4) 11/19/18 06:32 Absolute Monocytes 0.56 k/cumm (0.11-0.7) 11/19/18 06:32 Absolute Eosinophils 0.11 k/cumm (0.0-0.7) 11/19/18 06:32 Absolute Basophils 0.03 k/cumm (0.0-0.2) 11/19/18 06:32 Sodium 140 mmol/L (136-145) 11/19/18 06:32 Potassium 3.9 mmol/L (3.5-5.1) 11/19/18 06:32 Chloride 102 mmol/L (98-107) 11/19/18 06:32 Carbon Dioxide 29.9 mmol/L (21.0-32.0) 11/19/18 06:32 8.1 mmol/L (3-11) 11/19/18 06:32 BUN 36 mg/dL (7-18) H 11/19/18 06:32 1.56 mg/dL (0.70-1.30) H 11/19/18 06:32 42.93 (mL/min/1.73m2) 11/19/18 06:32 Glucose 127 mg/dL (70-100) H 11/19/18 06:32 1.4 mmol/L (0.6-1.4) 11/17/18 20:55 Calcium 8.6 mg/dL (8.5-10.1) 11/19/18 06:32 Magnesium 2.0 mg/dL (1.8-2.4) 11/19/18 06:32 0.7 mg/dL (0.2-1.0) 11/17/18 20:55 AST 5 U/L (15-37) L 11/17/18 20:55 ALT 13 U/L (12-78) 11/17/18 20:55 101 U/L (46-116) 11/17/18 20:55 0.10 ng/mL (0.00-0.06) H* 11/18/18 09:18 0.68 mg/dL (0.0-0.3) H 11/17/18 20:55 7.1 g/dL (6.4-8.2) 11/17/18 20:55 3.5 g/dL (3.4-5.0) 11/17/18 20:55 TSH 4.02 uIU/mL (0.358-3.74) H 11/17/18 20:55 Free T4 1.03 ng/dL (0.76-1.46) 11/17/18 20:55 Yellow (Yellow) 11/17/18 21:25 Clear (Clear) 11/17/18 21:25 5.5 (5-8) 11/17/18 21:25 Ur Specific [place] 1.020 (1.005-1.025) 11/17/18 21:25 Negative mg/dL (Negative) 11/17/18 21:25 Trace mg/dL (Negative) H 11/17/18 21:25 Negative (Negative) 11/17/18 21:25 Negative (Negative) 11/17/18 21:25 Negative (Negative) 11/17/18 21:25 1.0 EU/dL (Up TO 0.2) H 11/17/18 21:25 Ur Leukocyte Esterase Negative (Negative) 11/17/18 21:25 Negative mg/dL (Negative) 11/17/18 21:25
--- NOTE | 2018-11-19 12:41 | CMPROGNOTE_ITS ---
- If Service Date Differs Date of service: 11/19/18 Time of Service: 12:41 Care Management Progress Note S/O: CM met with Juan Pablo and his spouse at the bedside. Juan Pablo is feeling better he continues on IV antibiotics he will transition to oral antibiotics when he is ready and plan to discharge home. He will have new home health services for wound care. Juan Pablo spouse would like compression wraps at home and diabetic shoes coordinated through [facility]. CM provided contact information for [facility] at [facility]. and CM will assist with LTM application. A:Juan Pablo is an 83 year old male admitted for Diabetic ulcer, LE cellulites with a history of CHF and DM. P:Juan Pablo is receiving IV antibiotic, He would benefit from the wraps, CM will send the referral to [facility]. Juan Pablo will be discharged home anticipate new home health services, he has a follow up with on 11/20/18 at 0900 if he will not be discharged by then please contact the office and reschedule. CM will continue to provide support discharge planning and disposition.
[2018-11-19] MEDS: Insulin Aspart 300 UNITS/3 ML PEN SC (16:36)
[2018-11-19] MEDS: cefTRIAXone 2 GM/50 ML BAG IVPB (18:01)
--- NOTE | 2018-11-20 01:51 | NUR.NOTE ---
Nursing Note: Transferred from ICU to Med/Surg room 211. VSS. Made comfortable in bed, call nichols in place.
[2018-11-20 01:58] VITALS: BP 125/75; PULSE 63; RESP 17; TEMP 36.5; O2SAT 98
[2018-11-20] MEDS: Levothyroxine 75 MCG TAB PO (05:54)
[2018-11-20 07:35] LABS: Abs Immature Grans 0.01 k/cumm (0.0-0.09); Absolute Basophil Count 0.03 k/cumm (0.0-0.2); Absolute Eosinophil Count 0.09 k/cumm (0.0-0.7); Absolute Lymphocyte Count 1.41 k/cumm (1.2-3.4); Absolute Monocyte Count 0.59 k/cumm (0.11-0.7); Absolute Neutrophil Count 3.35 k/cumm (1.2-6.7); Basophils % 0.5; Eosinophils % 1.6; HCT 37.6 % (40.0-50.0); HGB 12.2 g/dL (13.5-17.5); Immature Grans % 0.2; Lymphocytes % 25.7; Mean Corp. HGB Concentration 32.4 g/dL (32.0-36.0); Mean Corpuscular Hemoglobin 31.9 pg (27.0-33.0); Mean Corpuscular Volume 98.4 fL (80-95); Mean Platelet Volume 11.8 fL (8.0-11.0); Monocytes % 10.8; Neutrophils % 61.2; Platelet Count 120 x1000/uL (130-400); RBC 3.82 m/cumm (4.50-6.00); RBC Distribution Width 14.4 % (11.8-14.1); White Blood Cell Count 5.48 k/cumm (4.4-10.8)
[2018-11-20 07:40] VITALS: BP 117/67; PULSE 62; RESP 16; TEMP 36.5; O2SAT 97
[2018-11-20 08:30] LABS: Anion Gap 8.3 mmol/L (3-11); BUN 36 mg/dL (7-18); CO2 27.7 mmol/L (21.0-32.0); CREATININE 1.25 mg/dL (0.70-1.30); Calcium 8.8 mg/dL (8.5-10.1); Chloride 103 mmol/L (98-107); Estimated GFR 55.44 (mL/min/1.73m2); Glucose 116 mg/dL (70-100); Magnesium 2.2 mg/dL (1.8-2.4); Sodium 139 mmol/L (136-145)
[2018-11-20] MEDS: Apixaban 2.5 MG TAB PO ×2 (08:41→19:57)
[2018-11-20] MEDS: Torsemide 20 MG TAB 10 MG PO (08:41)
[2018-11-20] MEDS: Escitalopram 10 MG TAB 5 MG PO (08:42)
[2018-11-20] MEDS: Esomeprazole 40 MG CAPCR PO (08:42)
[2018-11-20] MEDS: Acetaminophen 325 MG TAB 650 MG PO ×2 (08:42→23:24)
[2018-11-20] MEDS: dilTIAZem CD 120 MG CAPCR PO (08:42)
[2018-11-20 11:35] VITALS: BP 126/69; PULSE 64; RESP 20; TEMP 36.2; O2SAT 98
[2018-11-20] MEDS: Insulin Aspart 300 UNITS/3 ML PEN SC ×2 (11:55→17:00)
--- NOTE | 2018-11-20 12:10 | PDOC.CMPRO ---
- If Service Date Differs Date of service: 11/20/18 Time of Service: 12:10 Care Management Progress Note S/O: CM met with Juan Pablo at the bedside he is slowly recovering he continues to receive IV antibiotics anticipate he will transition to oral and be discharged over the weekend. He will have new home health services for nursing only as requested by family. [facility] notified of new referral over the phone. CM contacted [facility] today and provided update. His appointment at [facility] was canceled it will need to be rescheduled prior to discharge. A:Juan Pablo is an 83 year old male admitted for Diabetic ulcer, LE cellulites with a history of CHF and DM. P:Juan Pablo is receiving IV antibiotic, He would benefit from the compression wraps, CM will send the referral to [facility]. Jua nPablo will be discharged home with new home health services for nursing wound care. CM will continue to provide support discharge planning and disposition.
[2018-11-20 13:24] LABS: Vancomycin, Trough 18.4 ug/mL (10.0-20.0)
[2018-11-20] MEDS: Clindamycin 150 MG CAP 450 MG PO ×2 (15:45→22:28)
[2018-11-20] MEDS: levoFLOXacin 500 MG, levoFLOXacin 250 MG 750 MG PO (15:45)
[2018-11-20 15:48] VITALS: BP 110/67; PULSE 63; RESP 19; TEMP 36.5; O2SAT 98
[2018-11-20 23:51] VITALS: BP 112/70; PULSE 61; RESP 19; TEMP 36.3; O2SAT 97
[2018-11-21] MEDS: Acetaminophen 325 MG TAB 650 MG PO (04:07)
[2018-11-21] MEDS: Clindamycin 150 MG CAP 450 MG PO ×2 (05:38→14:43)
[2018-11-21] MEDS: Levothyroxine 75 MCG TAB PO (05:38)
[2018-11-21 07:30] LABS: Abs Immature Grans 0.01 k/cumm (0.0-0.09); Absolute Basophil Count 0.03 k/cumm (0.0-0.2); Absolute Eosinophil Count 0.08 k/cumm (0.0-0.7); Absolute Lymphocyte Count 1.33 k/cumm (1.2-3.4); Absolute Neutrophil Count 2.82 k/cumm (1.2-6.7); Basophils % 0.6; Eosinophils % 1.7; HCT 36.9 % (40.0-50.0); HGB 12.3 g/dL (13.5-17.5); Immature Grans % 0.2; Lymphocytes % 27.9; Mean Corp. HGB Concentration 33.3 g/dL (32.0-36.0); Mean Corpuscular Hemoglobin 32.7 pg (27.0-33.0); Mean Corpuscular Volume 98.1 fL (80-95); Mean Platelet Volume 11.2 fL (8.0-11.0); Monocytes % 10.5; Neutrophils % 59.1; Platelet Count 124 x1000/uL (130-400); RBC 3.76 m/cumm (4.50-6.00); RBC Distribution Width 14.2 % (11.8-14.1); White Blood Cell Count 4.77 k/cumm (4.4-10.8)
[2018-11-21] MEDS: Esomeprazole 40 MG CAPCR PO (07:30)
[2018-11-21 07:35] VITALS: BP 116/70; PULSE 59; RESP 18; TEMP 36.2; O2SAT 97
[2018-11-21 07:44] LABS: Anion Gap 7.4 mmol/L (3-11); BUN 34 mg/dL (7-18); CO2 27.6 mmol/L (21.0-32.0); CREATININE 1.25 mg/dL (0.70-1.30); Calcium 8.7 mg/dL (8.5-10.1); Chloride 104 mmol/L (98-107); Estimated GFR 55.44 (mL/min/1.73m2); Glucose 120 mg/dL (70-100); Magnesium 2.1 mg/dL (1.8-2.4); Potassium 4.1 mmol/L (3.5-5.1); Sodium 139 mmol/L (136-145)
[2018-11-21] MEDS: Torsemide 20 MG TAB 10 MG PO (08:59)
[2018-11-21] MEDS: dilTIAZem CD 120 MG CAPCR PO (09:00)
[2018-11-21] MEDS: Escitalopram 10 MG TAB 5 MG PO (09:00)
[2018-11-21] MEDS: Apixaban 2.5 MG TAB PO (09:01)
[2018-11-21] MEDS: Spironolactone 25 MG TAB PO (09:01)
[2018-11-21] MEDS: Normal Saline Flush 10 ML SYR IVP (11:56)
[2018-11-21] MEDS: Insulin Aspart 300 UNITS/3 ML PEN SC (12:10)
--- NOTE | 2018-11-21 15:34 | W.PM.PROGNOT ---
Date of Service Date of service: 11/21/18 Time of Service: 15:34 Assessment and Plan (1) Cellulitis: Current visit: No Status: Acute R foot in setting of diabetes. Based on the appearance of the foot today, an abscess must be ruled out. No MRI is available today - CT of the foot is ordered. For now, continue clindamycin + levofloxaicn. (2) Elevated troponin: Current visit: No Status: Acute Minimal and equivocal, due to CKD and acute illness. No evidence for ACS at this time. (3) CKD (chronic kidney disease): Current visit: No Status: Acute Cr stable. No change in tx. (4) Hypertension: Current visit: No Status: Chronic BP stable on current tx - no changes. (5) Non-insulin dependent type 2 diabetes mellitus: Current visit: No Status: Chronic Continue to hold metformin. Currently on Sliding scale coverage and ADA diet. (6) Hypothyroidism: Current visit: No Status: Chronic On replacement therapy. (7) 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: Current visit: No Status: Chronic LVEF intact, with evidence of severe LVH, mild PHTN, and moderate AR/MR/TR. Continue spironolactone and torsemide. (8) Atrial fibrillation: Current visit: No Status: Chronic Continue Diltiazem, Apixaban (dose adjusted). (9) DVT prophylaxis: Current visit: No Status: Acute On chronic anticoagulation with Apixaban. Subjective Interval history since last seen: Mr Borrego states he is comfortable. He denies dizziness, chest pain, shortness of breath, nausea, vomiting. Exam Narrative Exam Narrative: General: very pleasant elderly male, napping in a chair, easily arousable HEENT: EOMI, MMM Heart: RRR Lungs; CTAB GI: abdomen is soft, nontender, nondistended Extremities: B feet with chronic venous stasis and dry skin. R foot with erythema and induration with focal tenderness to palpation dorsal surface of R foot. Objective Objective Clinical Data: Abnormal lab results 11/21/18 11/21/18 Range/Units 07:10 07:10 RBC 3.76 L (4.50-6.00) m/cumm Hgb 12.3 L (13.5-17.5) g/dL Hct 36.9 L (40.0-50.0) % MCV 98.1 H (80-95) fL RDW 14.2 H (11.8-14.1) % Plt Count 124 L (130-400) x1000/uL MPV 11.2 H (8.0-11.0) fL BUN 34 H (7-18) mg/dL Glucose 120 H (70-100) mg/dL Vital Signs Temperature 36.2 C L 11/21/18 07:35 Temperature Source Skin 11/21/18 07:35 Pulse 59 L 11/21/18 07:35 Pulse Rhythm Regular 11/21/18 07:31 Pulse 63 11/18/18 00:00 Respiratory Rate 18 11/21/18 07:35 Respiratory Effort Non-Labored 11/21/18 07:31 Respiratory Depth Normal 11/21/18 07:31 Respiratory Pattern Normal 11/21/18 07:31 Blood Pressure 116/70 11/21/18 07:35 Blood Pressure Mean 84 11/19/18 15:52 Blood Pressure Position Sitting 11/18/18 00:42 Pulse Oximetry 97 11/21/18 07:35 Oxygen Delivery Method Room Air 11/21/18 07:35 Oxygen Flow Rate 0 11/21/18 07:35 Pain Level 5 11/21/18 04:07 Comment 11/20/18 11:35 Intake & Output 11/20/18 11/21/18 11/21/18 23:59 11:59 23:59 Intake Total 1040 / 1840 430 / 430 Output Total 600 / 1900 Balance 440 / -60 430 / 430 Weight 78.4 kg Intake: IV Oral 1040 / 1640 420 / 420 Output: Urine 600 / 1900 Other: Urine Color Yellow Yellow Yellow Urine Appearance Clear Clear Clear Urine Odor Normal Comment pt was incontinent when brought to the bathroom, also voided on the toilet but was mixed with stool so couldn't measure Stool Size Small Small Stool Characteristics Soft Soft Formed Voiding Methods Urinal Bedside Commode Toilet Diaper Incontinent Laboratory Results WBC 4.77 k/cumm (4.4-10.8) 11/21/18 07:10 RBC 3.76 m/cumm (4.50-6.00) L 11/21/18 07:10 Hgb 12.3 g/dL (13.5-17.5) L 11/21/18 07:10 Hct 36.9 % (40.0-50.0) L 11/21/18 07:10 MCV 98.1 fL (80-95) H 11/21/18 07:10 MCH 32.7 pg (27.0-33.0) 11/21/18 07:10 MCHC 33.3 g/dL (32.0-36.0) 11/21/18 07:10 RDW 14.2 % (11.8-14.1) H 11/21/18 07:10 Plt Count 124 x1000/uL (130-400) L 11/21/18 07:10 MPV 11.2 fL (8.0-11.0) H 11/21/18 07:10 Immature Gran % 0.2 11/21/18 07:10 59.1 11/21/18 07:10 27.9 11/21/18 07:10 10.5 11/21/18 07:10 1.7 11/21/18 07:10 0.6 11/21/18 07:10 Absolute Neutrophils 2.82 k/cumm (1.2-6.7) 11/21/18 07:10 Absolute Lymphocytes 1.33 k/cumm (1.2-3.4) 11/21/18 07:10 Absolute Monocytes 0.50 k/cumm (0.11-0.7) 11/21/18 07:10 Absolute Eosinophils 0.08 k/cumm (0.0-0.7) 11/21/18 07:10 Absolute Basophils 0.03 k/cumm (0.0-0.2) 11/21/18 07:10 Sodium 139 mmol/L (136-145) 11/21/18 07:10 Potassium 4.1 mmol/L (3.5-5.1) 11/21/18 07:10 Chloride 104 mmol/L (98-107) 11/21/18 07:10 Carbon Dioxide 27.6 mmol/L (21.0-32.0) 11/21/18 07:10 7.4 mmol/L (3-11) 11/21/18 07:10 BUN 34 mg/dL (7-18) H 11/21/18 07:10 1.25 mg/dL (0.70-1.30) 11/21/18 07:10 55.44 (mL/min/1.73m2) 11/21/18 07:10 Glucose 120 mg/dL (70-100) H 11/21/18 07:10 1.4 mmol/L (0.6-1.4) 11/17/18 20:55 Calcium 8.7 mg/dL (8.5-10.1) 11/21/18 07:10 Magnesium 2.1 mg/dL (1.8-2.4) 11/21/18 07:10 0.7 mg/dL (0.2-1.0) 11/17/18 20:55 AST 5 U/L (15-37) L 11/17/18 20:55 ALT 13 U/L (12-78) 11/17/18 20:55 101 U/L (46-116) 11/17/18 20:55 0.10 ng/mL (0.00-0.06) H* 11/18/18 09:18 0.68 mg/dL (0.0-0.3) H 11/17/18 20:55 7.1 g/dL (6.4-8.2) 11/17/18 20:55 3.5 g/dL (3.4-5.0) 11/17/18 20:55 TSH 4.02 uIU/mL (0.358-3.74) H 11/17/18 20:55 Free T4 1.03 ng/dL (0.76-1.46) 11/17/18 20:55 Yellow (Yellow) 11/17/18 21:25 Clear (Clear) 11/17/18 21:25 5.5 (5-8) 11/17/18 21:25 Ur Specific [place] 1.020 (1.005-1.025) 11/17/18 21:25 Negative mg/dL (Negative) 11/17/18 21:25 Trace mg/dL (Negative) H 11/17/18 21:25 Negative (Negative) 11/17/18 21:25 Negative (Negative) 11/17/18 21:25 Negative (Negative) 11/17/18 21:25 1.0 EU/dL (Up TO 0.2) H 11/17/18 21:25 Ur Leukocyte Esterase Negative (Negative) 11/17/18 21:25 Negative mg/dL (Negative) 11/17/18 21:25 Vancomycin Trough 18.4 ug/mL (10.0-20.0) 11/20/18 12:53
[2018-11-21 15:49] VITALS: BP 122/68; PULSE 61; RESP 18; TEMP 36.5; O2SAT 99
--- NOTE | 2018-11-21 16:10 | DI.CT_ITS ---
SYMPTOM/DIAGNOSIS: INDURATION AND CELLULITIS RT FOOT, ? ABSCESS RIGHT MID AND HIND FOOT CT: The exam was performed without intravenous contrast material. Moderate to severe arthritic changes are seen in the mid and hind foot. Multi joint areas of joint space narrowing, subchondral sclerosis and subchondral cystic change is noted. 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 Subchondral sclerosis and cyst formation is also noted at the ankle. No acute fracture, dislocation, lytic or sclerotic lesion is seen. No CT findings to suggest osteomyelitis are present. There is marked soft tissue thickening around the foot and ankle. No focal fluid collection is seen to suggest an abscess. Vascular calcifications are present. IMPRESSION: 1. No CT evidence of an abscess. There is marked soft tissue swelling about the foot and ankle.
--- NOTE | 2018-11-21 16:44 | DI.VRAD_ITS ---
EXAM: CT Right Lower Extremity Without Contrast, Foot EXAM DATE/TIME: 11/21/2018 3:29 PM CLINICAL HISTORY: 83 years old, male; Right; Patient HX: Induration and cellulitis R foot, ? abscess. TECHNIQUE: Imaging protocol: CT of the Right lower extremity without contrast was performed. Exam focused on the foot. Coronal and sagittal reformatted images were created and reviewed. Radiation optimization: All CT scans at this facility use at least one of these dose optimization techniques: automated exposure control; mA and/or kV adjustment per patient size (includes targeted exams where dose is matched to clinical indication); or iterative reconstruction. COMPARISON: CR XR foot RT complete 11/17/2018 9:07 PM FINDINGS: Bones/joints: Moderate to severe arthritic change in the midfoot, with areas of joint space narrowing, and scattered subchondral sclerosis with small cystic changes. Additional arthritic change in the hindfoot with chondrocalcinosis in the tibial talar and tibiotalar joint, with subchondral sclerosis and cystic change. No gross evidence of bony erosion. Heterogeneous marrow density is seen in the osseous structures. Soft tissues: Marked soft tissue thickening/edema along the ankle and foot, most prominent at the lateral and dorsal aspect. No definite loculated collection to suggest abscess. Vasculature: Atherosclerotic disease. IMPRESSION: 1. Marked soft tissue thickening/edema along the ankle and foot, most prominent at the lateral and dorsal aspect. No definite loculated collection to suggest abscess. 2. Moderate to severe arthritic change in the midfoot, with areas of joint space narrowing, and scattered subchondral sclerosis with small cystic changes. Additional arthritic change in the hindfoot with chondrocalcinosis in the tibial talar and tibiotalar joint, with subchondral sclerosis and cystic change. 3. Atherosclerotic disease. Dictated and Authenticated by: Shailesh Mccoy MD. Ordering:HECTOR Najera MD
--- NOTE | 2018-11-21 16:53 | W.PM.DS.N ---
Date of service: 11/21/18 Time of Service: 16:53 DS: Diagnosis Discharge Diagnosis (1) Cellulitis: Status: Acute Asessment and Plan: Diabetic foot infection R foot; abscess/osteomyelitis ruled out (2) Elevated troponin: Status: Resolved Asessment and Plan: No ACS; in setting of CKD, flat/stable. (3) CKD (chronic kidney disease): Status: Acute Asessment and Plan: Stage 3, Cr 1.25 on discharge (4) Hypertension: Status: Chronic (5) Non-insulin dependent type 2 diabetes mellitus: Status: Chronic (6) Hypothyroidism: Status: Chronic (7) 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: Status: Chronic (8) Atrial fibrillation: Status: Chronic Discharge Plan Disposition Patient Disposition: HOME W/HOME HEALTH SERVICE Condition: Stable Discharge Details Chief Complaint: Cellulitis Clinical Impression: Pitting edema, Cellulitis Reason For Visit: CELLULITIS Admit Date/Time: 11/17/18 23:30 Admit Provider: Sudheer Rosales Attending Provider: Sudheer Rosales Primary Care Provider: Zander Mancini ED Provider: [facility] Hospital Course Hospital Course: Mr Borrego is an 83 year old male with PMHx of NIDDM2, Afib on anticoagulation with apixaban, chronic diastolic CHF, CKD, admitted to [facility] hospitalist service on 11/17/18 with diabetic infection of his R foot with a small ulcer on dorsal aspect of the foot, having just being initiated on PO antibiotic therapy less than 24 hours prior. Osteomyelitis was ruled out by XR on admission and this was confirmed by CT of the foot. Abscess was also ruled out. He was initiated on IV ancef, then transitioned to IV rocephin and vancomycin was added on hospital day 2. With this therapy x 2 days, he did improve, and was switched to PO antibiotics (levofloxacin and clindamycin). He continues to improve with this therapy. He is felt safe to be discharged home with home health nursing to complete 10 more days of antibiotics and with follow up with podiatry. Of note, his apixaban dose was adjusted to 2.5 mg PO BID. Home Meds and New Rx's Prescriptions: New levofloxacin [Levaquin] 750 mg Tablet 750 mg PO Q48H Qty: 5 RF: 0 Lactobacillus acidophilus 1 billion cell tablet 1,000 mmu cells PO DAILY Qty: 30 RF: 0 Continued escitalopram oxalate 5 mg tablet 5 mg PO DAILY Qty: 90 RF: 4 (DME) blood-glucose meter [[employer] UltraMini] 1 EACH kit 1 kit UD PRN RF: 0 (DME) OneTouch Ultra Test 1 EACH strip 1 strip Intradermal 2X/WEEK Qty: 100 RF: 4 (DME) lancets [OneTouch Delica Lancets] 1 EACH misc 1 ea Intradermal 2X/WEEK Qty: 100 RF: 4 diltiazem HCl 120 MG capsule,extended release 24hr 120 mg PO DAILY Qty: 90 RF: 4 spironolactone 25 MG tablet 25 mg PO DAILY Qty: 90 RF: 4 metformin 500 mg tablet 500 mg PO BID Qty: 180 RF: 3 torsemide 10 mg tablet 10 mg PO DAILY Qty: 90 RF: 4 levothyroxine 75 mcg capsule 75 mcg PO DAILY Qty: 30 RF: 0 albuterol sulfate [ProAir HFA] 90 mcg/actuation HFA aerosol inhaler 2 puff IH Q6H PRN PRN (Reason: shortness of breath) Qty: 8 RF: 0 clindamycin HCl 150 mg capsule 450 mg PO TID Qty: 90 RF: 0 apixaban 2.5 mg tablet 2.5 mg PO BID Qty: 60 RF: 4 Discontinued doxycycline hyclate 100 mg capsule 100 mg PO BID Qty: 6 RF: 0 amoxicillin-pot clavulanate [Augmentin] 500-125 mg tablet 1 tab PO BID Qty: 6 RF: 0 amoxicillin-pot clavulanate [Augmentin] 875-125 mg tablet 1 tab PO BID 14 Days Qty: 28 RF: 0 Discharge Instructions Instructions: Cellulitis (DC) Additional Instructions: Finish your antibiotics as prescribed. Return to the hospital with any fever, bleeding, chest pain, or shortness of breath. Follow up with your PCP and with Dr Care Plan Goals: Home with home health. Stand Alone Forms: Nursing Discharge Form Referrals: Kushal Sinha DPM [[facility] STAFF PHYSICIAN] - Zander Mancini MD [Primary Care Provider] - 11/27/18 10:20 am Activity:: Activity as Tolerated Equipment/Supplies:: No Equipment Needed Diet:: As Tolerated Discharge Orders Discharge Orders: Discharge Order (Routine); Ordered 11/21/18 Ordered By: Dania Chavarria Exam Narrative Exam Narrative: General: very pleasant elderly male, napping in a chair, easily arousable HEENT: EOMI, MMM Heart: RRR Lungs; CTAB GI: abdomen is soft, nontender, nondistended Extremities: B feet with chronic venous stasis and dry skin. R foot with erythema and induration with focal tenderness to palpation dorsal surface of R foot. DS: Data Vitals/I&O Vitals and I&O: Vital Signs Temperature 36.5 C 11/21/18 15:49 Temperature Source Tympanic 11/21/18 15:49 Pulse 61 11/21/18 15:49 Pulse Rhythm Regular 11/21/18 07:31 Pulse 63 11/18/18 00:00 Respiratory Rate 18 11/21/18 15:49 Respiratory Effort Non-Labored 11/21/18 07:31 Respiratory Depth Normal 11/21/18 07:31 Respiratory Pattern Normal 11/21/18 07:31 Blood Pressure 122/68 11/21/18 15:49 Blood Pressure Mean 84 11/19/18 15:52 Blood Pressure Position Sitting 11/18/18 00:42 Pulse Oximetry 99 11/21/18 15:49 Oxygen Delivery Method Room Air 11/21/18 15:49 Oxygen Flow Rate 0 11/21/18 15:49 Pain Level 0 11/21/18 15:49 Comment 11/20/18 11:35 Intake & Output 11/20/18 11/21/18 11/21/18 23:59 11:59 23:59 Intake Total 1040 / 1840 430 / 430 Output Total 600 / 1900 Balance 440 / -60 430 / 430 Weight 78.4 kg Intake: IV Oral 1040 / 1640 420 / 420 Output: Urine 600 / 1900 Other: Urine Color Yellow Yellow Yellow Urine Appearance Clear Clear Clear Urine Odor Normal Comment pt was incontinent when brought to the bathroom, also voided on the toilet but was mixed with stool so couldn't measure Stool Size Small Small Stool Characteristics Soft Soft Formed Voiding Methods Urinal Bedside Commode Toilet Diaper Incontinent Completed studies during hospitalization [Text1]: XR foot 11/17/18: The bones are demineralized but otherwise grossly unremarkable. Moderate degenerative change is seen. If there is a clinical suspicion of osteomyelitis, additional evaluation with MRI or bone scan would be recommended. CT R foot 11/17/18: 1. Marked soft tissue thickening/edema along the ankle and foot, most prominent at the lateral and dorsal aspect. No definite loculated collection to suggest abscess. 2. Moderate to severe arthritic change in the midfoot, with areas of joint space narrowing, and scattered subchondral sclerosis with small cystic changes. Additional arthritic change in the hindfoot with chondrocalcinosis in the tibial talar and tibiotalar joint, with subchondral sclerosis and cystic change. 3. Atherosclerotic disease. Labs on day of discharge: Labs from last 24 hours 11/21/18 11/21/18 07:10 07:10 WBC 4.77 RBC 3.76 L Hgb 12.3 L Hct 36.9 L MCV 98.1 H MCH 32.7 MCHC 33.3 RDW 14.2 H Plt Count 124 L MPV 11.2 H Immature Gran % 0.2 Neutrophils % 59.1 Lymphocytes % 27.9 Monocytes % 10.5 Eosinophils % 1.7 Basophils % 0.6 Absolute Neutrophils 2.82 Absolute Lymphocytes 1.33 Absolute Monocytes 0.50 Absolute Eosinophils 0.08 Absolute Basophils 0.03 Sodium 139 Potassium 4.1 Chloride 104 Carbon Dioxide 27.6 Anion Gap 7.4 BUN 34 H Creatinine 1.25 Estimated GFR/1.73 m2 55.44 Glucose 120 H Calcium 8.7 Magnesium 2.1 Preliminary micro results at discharge 11/17/18 20:40 Blood Culture - Preliminary Blood NO GROWTH 72 HOURS 11/17/18 20:55 Blood Culture - Preliminary Blood NO GROWTH 72 HOURS [facility] Medical History (Updated 11/21/18 @ 17:06 by Dania Chavarria MD) Actinic keratosis (Chronic) Ambulatory dysfunction (Chronic) Ataxia (Chronic) Atrial fibrillation (Chronic) Cataracts, bilateral (Resolved 10/24/15) 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) Decubitus ulcer of left buttock, stage 2 (Resolved 07/18/17) Depressive disorder (Chronic) Essential hypertension, benign (Chronic 12/01/14) Falls frequently (Chronic 07/11/16) Fatigue (Chronic) Hyperlipidemia (Chronic) Hypertension (Chronic) Hypothyroidism (Chronic) Mild cognitive impairment (Chronic) 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) Non-neoplastic nevus (Chronic) Osteoarthritis (Chronic) Rosacea (Chronic) Spinal stenosis (Chronic) Ulcerative colitis (Inactive) Urinary incontinence (Chronic) Surgical History (Updated 11/18/18 @ 07:50 by Javier Jordan MD) Appendectomy Colonoscopy - IV Sedation (11/18/12) History of appendectomy (Chronic) Status post laminectomy (Chronic) Family History Mother Diabetes Stroke Father Heart disease Sister Psoriasis Social History Smoking/Tobacco Use Status: Former Tobacco Use Alcohol Intake: never Drug use: Never Substance use type: does not use Sun/Voodoo: No preference Special sun needs: No Do you feel safe at home: Yes Do you feel safe in your relationship?: Yes
--- NOTE | 2018-11-21 17:26 | PDOC.HHF2F ---
1. Encounter Date and Reason I certify that DELROY NEVES was seen by Dania Chavarria on 11/21/18 and that I had a [id number] encounter with this patient that meets the physician face to face encounter requirements. 2. Clinical Findings Supporting Skilled Need and Homebound Status I certify that home health services are medically necessary, include either intermittent detention and/or physical/speech therapy, and that this patient is homebound in that absences from the home require considerable and taxing effort and are infrequent or of short duration, or are attributable to the need to receive medical care. [X] (a) Attached documentation from encounter provides clinical findings supporting skilled need and homebound status (including what assistance patient requires to leave the home). The encounter with the patient was in whole, or in part, for the following medical condition, which is the primary reason for home health care: CELLULITIS Long-Term: medication assessment/teaching, patient with Afib, CHF, recovering from diabetic foot infection Homebound: unable to leave home without assistance 3. Certification and Authentication I certify that I composed the above information based on my clinical judgement relating to this patient's medical condition and, if applicable, clinical findings communicated to me by the NPP or inpatient physician who performed the Home Health Referral. All further orders will be obtained through ___Dr Mancini (Community Based Physician - PCP)
--- NOTE | 2018-11-21 18:06 | PDOC.CMDIS ---
- If Service Date Differs Date of service: 11/21/18 Time of Service: 18:06 LACE Index Scoring Tool - Questions: Length of Stay (in days): 4 - 6 Acuity (Admit via E.D.?): Yes Comorbidities: Diabetes w/o Complication, Congestive Heart Failure, Dementia E.D. Visits: 3 - Answers: Total Score: 15 Risk of Readmission: High Risk Care Management Discharge Reason for Hospitalization: Cellulitis Discharge Plan: Juan Pablo will be discharged home with new home health services for nursing. he will be transported via private vehicle with family. Juan Pablo will follow up with his PCP and discharge plan of care. Patient/Family Education Needs: Discharge plan, limitations, follow up plan and Ask Me Three. Services Needed at Discharge: Home Health Care Services
== END 2018-11-21 17:50 | disposition home health service (06) | DRG 638 ==
LOC: ER 23:28 → ICU 11-18 00:13 → MS 11-21 17:03 → ICU 11-23 12:57
PROVIDERS: Internal Medicine; Admitting Provider General Practice; Emergency Provider Physician Assistant; PCP Family Medicine; Visit Provider Internal Medicine
DX: E11.628 Type 2 diabetes mellitus with other skin complications (principal); L03.116 Cellulitis of left lower limb; I42.2 Other hypertrophic cardiomyopathy; I50.32 Chronic diastolic (congestive) heart failure; I13.0 Hypertensive heart and chronic kidney disease with heart failure and stage 1 through stage 4 chronic kidney disease, or unspecified chronic kidney disease; R74.8 Abnormal levels of other serum enzymes; N18.3 Chronic kidney disease, stage 3 (moderate); E11.22 Type 2 diabetes mellitus with diabetic chronic kidney disease; E03.9 Hypothyroidism, unspecified; I48.91 Unspecified atrial fibrillation; Z79.01 Long term (current) use of anticoagulants; Z79.84 Long term (current) use of oral hypoglycemic drugs; I08.3 Combined rheumatic disorders of mitral, aortic and tricuspid valves
CPT/HCPCS: 36415; 80048; 80053; 87040; 93005; 96365; 96366; 99222; 99232; 99233; 99239; 99285; 73630; 73700; 80202; 81003; 83605; 83735; 84439; 84443; 84484; 85025; 86140; 93010; J0690; J1940

== ENCOUNTER → 2018-11-26 13:49 | Outpatient (BNVA) | payer MEDICARE, BC, SELFPAY | PROVIDERS: PCP Family Medicine; Referring Provider Family Medicine; Visit Provider Nurse Practitioner Adult Health | DX: G56.01 Carpal tunnel syndrome, right upper limb (principal); G56.21 Lesion of ulnar nerve, right upper limb; E11.9 Type 2 diabetes mellitus without complications; I10 Essential (primary) hypertension | CPT/HCPCS: 95908; 99203; 99214 ==

== ENCOUNTER 2019-01-29 07:00 | Outpatient (CLI) | payer MEDICARE, BC, SELFPAY ==
[2019-01-29 12:51] LABS: Abs Immature Grans 0.01 k/cumm (0.0-0.09); Absolute Basophil Count 0.02 k/cumm (0.0-0.2); Absolute Eosinophil Count 0.06 k/cumm (0.0-0.7); Absolute Lymphocyte Count 1.44 k/cumm (1.2-3.4); Absolute Monocyte Count 0.41 k/cumm (0.11-0.7); Absolute Neutrophil Count 3.74 k/cumm (1.2-6.7); Basophils % 0.4; Eosinophils % 1.1; HGB 13.1 g/dL (13.5-17.5); Immature Grans % 0.2; Lymphocytes % 25.4; Mean Corp. HGB Concentration 33.6 g/dL (32.0-36.0); Mean Corpuscular Hemoglobin 32.4 pg (27.0-33.0); Mean Corpuscular Volume 96.5 fL (80-95); Mean Platelet Volume 11.6 fL (8.0-11.0); Monocytes % 7.2; Neutrophils % 65.7; Platelet Count 113 x1000/uL (130-400); RBC 4.04 m/cumm (4.50-6.00); RBC Distribution Width 14.1 % (11.8-14.1); White Blood Cell Count 5.68 k/cumm (4.4-10.8)
[2019-01-29 13:14] LABS: ALT 22 U/L (16-63); AST 14 U/L (15-37); Albumin 4.1 g/dL (3.4-5.0); Alkaline Phosphatase 80 U/L (46-116); Anion Gap 11.1 mmol/L (3-11); BUN 51 mg/dL (7-18); Bilirubin, Total 0.4 mg/dL (0.2-1.0); CO2 24.9 mmol/L (21.0-32.0); CREATININE 1.58 mg/dL (0.70-1.30); Calcium 9.2 mg/dL (8.5-10.1); Chloride 102 mmol/L (98-107); Glucose 118 mg/dL (70-100); Potassium 4.5 mmol/L (3.5-5.1); Sodium 138 mmol/L (136-145); TSH 1.61 uIU/mL (0.36-3.74); Total Protein 7.1 g/dL (6.4-8.2)
== END 2019-01-29 07:20 ==
PROVIDERS: PCP Family Medicine; Visit Provider Family Medicine
DX: R41.0 Disorientation, unspecified (principal); R50.9 Fever, unspecified
CPT/HCPCS: 36415; 80053; 84443; 85025

== ENCOUNTER → 2019-02-08 13:49 | Outpatient (BNVA) | payer MEDICARE, BC, SELFPAY | PROVIDERS: PCP Family Medicine; Referring Provider Family Medicine; Visit Provider Student in an Organized Health Care Education/Training Program | DX: G56.21 Lesion of ulnar nerve, right upper limb (principal); G56.01 Carpal tunnel syndrome, right upper limb; E11.9 Type 2 diabetes mellitus without complications; Z79.84 Long term (current) use of oral hypoglycemic drugs; I10 Essential (primary) hypertension | CPT/HCPCS: 99203; 99214 ==

== ENCOUNTER 2019-03-26 10:53 | Outpatient (CLI) | payer MEDICARE, BC, MEDICAID, SELFPAY ==
--- NOTE | 2019-03-27 10:57 | HPE_ITS ---
Date of service: 03/26/19 Assessment and Plan Assessment and plan (1) Carpal tunnel syndrome of right wrist: Status: Chronic Assessment and plan: Right ECTR. Details of surgery were discussed with patient as well as risks and pertinent anatomy. All questions were answered. There are a discussion about anesthesia because of his chronic kidney disease as well as CHF with Migdalia cabrera, and a regional anesthetic may be the best way to proceed. Anesthesia will be consulted and a plan discussed at the time of surgery. History of Present Illness History of Present Illness Chief Complaint: Right hand numbness and tingling Narrative: Juan Pablo is an 83-year-old male who comes in today for a preop history and physical for a right ECTR. He does have some dementia and memory loss at this visit, so his does provide some of the history. Over the last 6-12 months he has noticed that he has numbness and tingling on the tips of the fingers especially in the thumb and index finger. He is finding it difficult to button up shirt because of the inability to feel what he is trying to do. He also notices that he has been dropping things more often. He has discomfort with the numbness and tingling into his index finger and thumb. This also bothers him at night. He has had nerve conduction studies which show severe entrapment of the median nerve at the area of the carpal tunnel ligament. Dr. Kligore at this time does offer a right ECTR, and he is anxious to proceed. Pertinent Surgical Information Juan Pablo has a history of CHF and chronic atrial fibrillation which is treated by his primary care Dr. Zander Mancini. He is currently on Eliquis for his atrial fibrillation, but stopped his Eliquis for oral procedure about 6 months ago. We will plan to stop his Eliquis 24 hours prior to surgery. He also has a history of chronic kidney disease. Patient denies history of hypertension, CVA, PR, angina, asthma, COPD, liver disorders, hepatitis, bleeding disorders,immune disorders. No complications from anesthesia. Review of Systems Constitutional Constitutional: Denies fever(s) ENT Ears, Nose, Mouth, and Throat: Denies dizziness and Denies sore throat Cardiovascular Cardiovascular: Denies chest pain, Reports rapid heart rate (Associated with some shortness of breath), Reports palpitations and Reports dyspnea (Associated with runs of tachycardia) Respiratory Respiratory: Denies cough and Reports dyspnea (Associated with runs of tachycardia) Gastrointestinal Gastrointestinal: Denies abdominal pain, Denies melena, Denies hematochezia, Denies diarrhea, Denies nausea and Denies vomiting Genitourinary Genitourinary: Denies hematuria and Denies dysuria Neurologic Neurologic: Denies dizziness Endocrine Endocrine: Reports palpitations [facility] Medical History (Updated 02/26/19 @ 11:10 by Zander Mancini MD) Actinic keratosis (Resolved) Acute on chronic diastolic (congestive) heart failure (Resolved) Ambulatory dysfunction (Chronic) Ataxia (Chronic) Atrial fibrillation (Chronic) Cataracts, bilateral (Resolved 10/24/15) Status post cataract surgery Cellulitis (Inactive) 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) Decubitus ulcer of left buttock, stage 2 (Resolved 07/18/17) Depressive disorder (Chronic) Elevated troponin (Resolved) Essential hypertension, benign (Chronic 12/01/14) Falls frequently (Chronic 07/11/16) Fatigue (Chronic) Hyperlipidemia (Chronic) Hypothyroidism (Chronic) Mild cognitive impairment (Chronic) 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) Non-neoplastic nevus (Resolved) Osteoarthritis (Chronic) Pneumonia (Resolved) Rosacea (Chronic) Spinal stenosis (Chronic) surgery Ulcerative colitis (Inactive) Urinary incontinence (Chronic) Visual disturbance (Inactive) Surgical History (Updated 03/26/19 @ 11:19 by Radha Umana RN) Appendectomy Colonoscopy - IV Sedation (11/18/12) [facility]; NO FURTHER TESTING NEEDED History of appendectomy (Resolved) History of oral surgery (Acute) tooth extraction History of tonsillectomy (Chronic) Status post laminectomy (Chronic) Family History (Updated 03/26/19 @ 11:20 by Radha Umana RN) Mother Diabetes Stroke Father Heart disease Colon cancer Sister Psoriasis Social History Smoking/Tobacco Use Status: Former Tobacco Use Alcohol Intake: never Drug use: Never Substance use type: does not use Current gender identity: male Sun/Yazidi: No preference Special sun needs: No Do you feel safe at home: Yes Do you feel safe in your relationship?: Yes Meds Home Medications and Allergies Home Medications Medication Instructions Recorded Confirmed Type blood-glucose meter [OneTouch kit 07/24/12 03/26/19 History UltraMini] OneTouch Ultra Test #100 strip 06/30/14 03/26/19 History lancets [OneTouch Delica Lancets] #100 ea 06/30/14 03/26/19 History metformin 500 mg tablet 500 mg PO BID #180 tab-cap 08/03/18 03/26/19 Rx albuterol sulfate [ProAir HFA] 2 puff IH Q6H PRN PRN #8 gm 09/18/18 03/26/19 Rx torsemide 10 mg tablet 10 mg PO DAILY #90 tab-cap 10/16/18 03/26/19 Rx Lactobacillus acidophilus 1,000 mmu cells PO DAILY #30 tab 11/21/18 03/26/19 Rx apixaban 2.5 mg PO BID #60 tab 11/21/18 03/26/19 Rx diltiazem HCl 120 mg 120 mg PO DAILY #90 cap 11/27/18 03/26/19 Rx capsule,extended release 24 hr spironolactone 25 mg tablet 25 mg PO DAILY #90 tab 11/27/18 03/26/19 Rx levothyroxine 75 mcg capsule 75 mcg PO DAILY #90 cap 01/19/19 03/26/19 Rx nystatin 100,000 unit/gram topical 1 applic TP BID #60 gm 02/26/19 03/26/19 Rx powder escitalopram oxalate 5 mg PO HS 03/26/19 03/26/19 History Allergies Allergy/AdvReac Type Severity Reaction Status Date / Time procaine [Procaine] Allergy Severe Anaphylaxsi Unverified 03/26/19 11:14 s thiopental [Thiopental] Allergy Severe Anaphylaxsi Unverified 03/26/19 11:14 s shellfish derived Allergy Intermediate Swelling/Ed Unverified 03/26/19 11:14 gerson Iodinated Contrast Media Allergy Unknown Swelling/Ed Unverified 03/26/19 11:14 [Iodinated Contrast- Oral gerson and IV Dye] nitroglycerin AdvReac Severe bottomed Unverified 03/26/19 11:14 out BP Exam HENMT Head: normocephalic and atraumatic General nose exam: no nasal discharge Throat: uvula midline and no uvular edema Other: soft palate rises symmetrically, no erythema Eyes Conjunctivae: conjunctivae normal Sclera: sclerae normal Pupils: PERRL Resp Effort & Inspection: normal respiratory effort Auscultation: clear to auscultation bilaterally and no wheezes Cardio Rhythm: abnormal rhythm (Irregularly irregular) Heart Sounds: no murmurs and other (Irregular rhythm of heart sounds, no murmur) GI Palpation: soft, no hepatosplenomegaly and nontender Auscultation: normal bowel sounds
== END 2019-03-26 11:13 ==
PROVIDERS: PCP Family Medicine; Visit Provider Student in an Organized Health Care Education/Training Program
DX: G56.01 Carpal tunnel syndrome, right upper limb (principal); Z01.818 Encounter for other preprocedural examination; I11.0 Hypertensive heart disease with heart failure; I50.32 Chronic diastolic (congestive) heart failure; E11.9 Type 2 diabetes mellitus without complications; Z79.84 Long term (current) use of oral hypoglycemic drugs
CPT/HCPCS: NC

== ENCOUNTER 2019-04-07 06:14 | Day surgery (SDC) | payer MEDICARE, BC, MEDICAID, SELFPAY ==
[2019-04-07 06:33] VITALS: BP 123/60; PULSE 69; RESP 18; TEMP 37; O2SAT 100
--- NOTE | 2019-04-07 06:44 | PDOC.DSDIS_ITS ---
Discharge Plan Disposition Patient Disposition: HOME Condition: Good Discharge Details Reason For Visit: (R) CTS Attending Provider: Dimitry Kilgore Primary Care Provider: Zander Mancini Home Meds and New Rx's Prescriptions: New acetaminophen 500 mg tablet 500 mg PO Q4H PRN (Reason: pain) Qty: 60 RF: 3 ibuprofen 600 mg tablet 600 mg PO TID PRNQty: 15 RF: 0 Continued nystatin 100,000 unit/gram powder 1 applic TP BID Qty: 60 RF: 3 spironolactone 25 mg tablet 25 mg PO DAILY Qty: 90 RF: 4 diltiazem HCl 120 mg capsule,extended release 24hr 120 mg PO DAILY Qty: 90 RF: 4 (DME) blood-glucose meter [[employer] UltraMini] 1 EACH kit 1 kit UD PRN RF: 0 (DME) OneTouch Ultra Test 1 EACH strip 1 strip Intradermal 2X/WEEK Qty: 100 RF: 4 (DME) lancets [[employer] Delica Lancets] 1 EACH misc 1 ea Intradermal 2X/WEEK Qty: 100 RF: 4 metformin 500 mg tablet 500 mg PO BID Qty: 180 RF: 3 torsemide 10 mg tablet 10 mg PO DAILY Qty: 90 RF: 4 levothyroxine 75 mcg capsule 75 mcg PO DAILY Qty: 90 RF: 4 albuterol sulfate [ProAir HFA] 90 mcg/actuation HFA aerosol inhaler 2 puff IH Q6H PRN PRN (Reason: shortness of breath) Qty: 8 RF: 0 escitalopram oxalate 5 mg tablet 5 mg PO HS RF: 0 apixaban 2.5 mg tablet 2.5 mg PO BID Qty: 60 RF: 4 Lactobacillus acidophilus 1 billion cell tablet 1,000 mmu cells PO DAILY Qty: 30 RF: 0 Discharge Instructions Stand Alone Forms: Jame Dela Cruz Tunnel Release Referrals: Dimitry Kilgore MD [ [facility] STAFF PHYSICIAN] - Equipment/Supplies: Sling Activity:: Elevate Remove Dressings/Wound Care:: 72 hours Shower/Bathe:: 72 hours Diet:: As Tolerated Discharge Orders Discharge Orders: Discharge Order (Routine); Ordered 04/07/19 Ordered By: Dimitry Kilgore DS: Diagnosis Discharge Diagnosis (1) Carpal tunnel syndrome of right wrist: Status: Chronic
[2019-04-07] MEDS: Lactated Ringers 1,000 ML 80 ML IV (07:20)
[2019-04-07] MEDS: ceFAZolin 2 GM/50 ML BAG IVPB (07:30)
[2019-04-07] MEDS: Sodium Bicarbonate 50 MEQ/50 ML VIAL (07:40)
[2019-04-07] MEDS: Lidocaine 1% Pres-Free 5 ML VIAL (07:40)
[2019-04-07 08:27] VITALS: BP 127/54; PULSE 62; RESP 16; TEMP 37; O2SAT 99
--- NOTE | 2019-04-07 08:30 | ROE_ITS ---
Date of service: 04/07/19 Time of Service: 08:30 Operative Note Operative Note DATE OF PROCEDURE: 04/07/19 PRE-OP DIAGNOSIS: Right Carpal Tunnel Syndrome POST-OP DIAGNOSIS: same PROCEDURE: Right Endoscopic Carpal Tunnel Release SURGEON: Dimitry Kilgore ANESTHESIA: regional (William Block) ESTIMATED BLOOD LOSS: 0 PATHOLOGY: none sent TOURNIQUET TIME: 20 COMPLICATIONS: None Patient was transported to: same day Patient's condition: stable Indications: I have seen Juan Pablo in clinic for symptoms of carpal tunnel syndrome. The numbness, tingling, and pain limited function. Clinical exam findings with nerve conduction tests confirmed the diagnosis of carpal tunnel syndrome. Nonoperative measures such as bracing, time, activity modifications had been tried but disability and pain persisted. I discussed carpal tunnel release with the patient. I reviewed the risks of the procedure to include, but not limited to, bleeding, infection, pain, stiffness, incomplete release, damage to nerves or vessels, persistent numbness, recurrence. Despite these risks, the patient elected to proceed. Findings: There was tightened carpal tunnel. This was dilated and released successfully with the endoscopic with increased space within the tunnel. The antebrachial fascia was released proximally freeing the median nerve at the wrist. Procedure Description: Juan Pablo was greeted in the preoperative holding area where the correct side was identified and marked. The consent was reviewed with the patient and signed. The history and physical was updated. All questions were answered. He was taken back to the operating room. The patient was placed into the supine position on the operating room table with the right arm on an arm board. A nonsterile tourniquet was placed high onto the arm. All bony prominences were well padded. Prophylactic antibiotics in the form of Cefazolin were administered. A timeout to confirm correct identity, side and site, procedure, allergies, anesthesia, and medical concerns was performed. A William Block was administered by Montse Navarro CRNA. After successful blockade, the right arm was then prepped with Chloraprep and draped in a standard fashion with stockinette and extremity drape. The surgical site was marked in the volar wrist creases in line with the radial border of the fourth ray. This area was anesthetized with approximately 6cc of 1% Lidocaine. The limb was then exsanguinated with an Esmarch. The skin was incised with a 15 blade, approximately 1cm. The skin only was cut and the deeper tissue was dissected bluntly with a tenotomy scissor, avoiding passing nerve and venous structures. The fascia was penetrated and opened bluntly. A two-prong skin hook was placed under this proximal fascial edge. A series of hamate finders were used to identify and dilate the carpal tunnel. Synovial elevator was used to free synovial attachments to the underside of the transverse carpal ligament. My thumb was kept in the palm to [place] the distal extent of the carpal tunnel and correctly position the hand. The Microaire endoscope was inserted without difficulty and without resistance. Excellent visualization showed horizontally running fibers of the transverse carpal ligament (TCL). The distal extent of the TCL was visualized and the end of the scope palpated with the thumb. The blade was elevated and withdrawn from distal to proximal. The TCL was split into two flaps. The endoscope was reinserted to confirm complete release and any remnant ligament was incised. The scope was withdrawn and the proximal aspect of the carpal tunnel was grossly inspected and appeared release with the median nerve visible. The antebrachial fascia at the level of the wrist was then freed from the overlying skin and then the underlying median nerve with blunt dissection. This was transected longitudinally for about 3cm proximal to the wrist incision. The wound was then irrigated with easy flow of irrigant distally and proximally. The incision was closed with a single 4-0 Nylon suture. The wound was dressed with Xeroform, Gauze, Kerlix and Jayme. The tourniquet was deflated afer 20 minutes per [place] Block standard. Blood flow returned easily to all digits with capillary refill less than 2 seconds. The patient tolerated the procedure well and was returned to the Same Day Surgery area in a stable condition suffering no known complication.
== END 2019-04-07 09:20 | disposition home or self-care (01) ==
PROVIDERS: PCP Family Medicine; Visit Provider Student in an Organized Health Care Education/Training Program
PROC: 01N54ZZ Release Median Nerve, Percutaneous Endoscopic Approach (ICD-10-PCS; CPT 29848; principal; 2019-04-07 07:30)
DX: G56.01 Carpal tunnel syndrome, right upper limb (principal); I13.0 Hypertensive heart and chronic kidney disease with heart failure and stage 1 through stage 4 chronic kidney disease, or unspecified chronic kidney disease; I50.9 Heart failure, unspecified; E11.22 Type 2 diabetes mellitus with diabetic chronic kidney disease; N18.9 Chronic kidney disease, unspecified; Z79.84 Long term (current) use of oral hypoglycemic drugs
CPT/HCPCS: 29848; J0690; J2250; L3650

== ENCOUNTER → 2019-04-15 13:48 | Outpatient (BNVA) | payer MEDICARE, BC, SELFPAY | PROVIDERS: PCP Family Medicine; Referring Provider Family Medicine; Visit Provider Student in an Organized Health Care Education/Training Program | DX: Z47.89 Encounter for other orthopedic aftercare (principal); G56.01 Carpal tunnel syndrome, right upper limb; I50.32 Chronic diastolic (congestive) heart failure; I11.0 Hypertensive heart disease with heart failure; E11.9 Type 2 diabetes mellitus without complications; Z79.84 Long term (current) use of oral hypoglycemic drugs; I42.2 Other hypertrophic cardiomyopathy; R60.0 Localized edema ==

== ENCOUNTER 2019-04-15 15:24 | Outpatient (CLI) | payer MEDICARE, BC, MEDICAID, SELFPAY ==
[2019-04-15 17:03] LABS: Anion Gap 7.4 mmol/L (3-11); BUN 39 mg/dL (7-18); CO2 29.6 mmol/L (21.0-32.0); CREATININE 1.88 mg/dL (0.70-1.30); Calcium 9.6 mg/dL (8.5-10.1); Chloride 105 mmol/L (98-107); Estimated GFR 34.61 (mL/min/1.73m2); Glucose 119 mg/dL (74-106); NT-proBNP 4791 pg/mL (<300); Sodium 142 mmol/L (136-145)
== END 2019-04-15 15:44 ==
PROVIDERS: PCP Family Medicine; Visit Provider Physician Assistant
DX: I50.32 Chronic diastolic (congestive) heart failure (principal); I42.2 Other hypertrophic cardiomyopathy
CPT/HCPCS: 36415; 80048; 83880

== ENCOUNTER 2019-05-16 14:30 | Emergency (ER) | payer MEDICARE, BC, MEDICAID, SELFPAY ==
[2019-05-16] VITALS (20 sets, daily range): BP systolic 112–135; BP diastolic 56–67; PULSE 62–79; RESP 10–21; TEMP 36.8; O2SAT 96–100
--- NOTE | 2019-05-16 14:57 | W.ED.GENAD ---
Discharge Plan Disposition Patient Disposition: HOME Condition: Improving Discharge Details Chief Complaint: HeadInjury Clinical Impression: Closed head injury, Abrasion of forehead, Back pain, Fall at home Primary Care Provider: Zander Mancini ED Provider: Jaky Martin Home Meds and New Rx's Prescriptions: Continued spironolactone 25 mg tablet 25 mg PO DAILY Qty: 90 RF: 4 diltiazem HCl 120 mg capsule,extended release 24hr 120 mg PO DAILY Qty: 90 RF: 4 (DME) blood-glucose meter [[employer] UltraMini] 1 EACH kit 1 kit UD PRN RF: 0 (DME) OneTouch Ultra Test 1 EACH strip 1 strip Intradermal 2X/WEEK Qty: 100 RF: 4 (DME) lancets [ClickPay ServicesTouch Delica Lancets] 1 EACH misc 1 ea Intradermal 2X/WEEK Qty: 100 RF: 4 metformin 500 mg tablet 500 mg PO BID Qty: 180 RF: 3 torsemide 10 mg tablet 10 mg PO DAILY Qty: 90 RF: 4 levothyroxine 75 mcg capsule 75 mcg PO DAILY Qty: 90 RF: 4 escitalopram oxalate 5 mg tablet 5 mg PO HS RF: 0 ibuprofen 600 mg tablet 600 mg PO TID PRNQty: 15 RF: 0 apixaban 2.5 mg tablet 2.5 mg PO BID Qty: 60 RF: 4 Discharge Instructions Instructions: Head Injury (ED), Back Pain (ED) Additional Instructions: Take Tylenol as needed and directed for pain. Apply lidocaine patches as needed and directed for pain. Follow-up with your primary care doctor in 1 week. Return to the emergency department with any worsening or new concerning symptoms. Discharge Data Discharge Date/Time-TO BE ENTERED AT DEPARTURE: 05/16/19 17:40 Discharge Physician: Jaky Martin Medical Decision Making 8880 -- 83-year-old male with a history of dementia, atrial fibrillation on Eliquis, CHF, hypertension, hyperlipidemia presents for fall at home of unknown cause. Daughter states that patient has fallen at times before and unknown how. She states he sometimes is unsteady on his feet. She states he was home alone at the time which is not unusual. Patient complains of headache and lower back pain. He has a superficial abrasion to the left forehead. He has tenderness palpation midline T-spine. Lungs clear, abdomen nontender, full range of motion of all extremities. No obvious orthopedic deformities noted. Daughter states the patient has also been more confused over the past few days. EKG on arrival notes a rate of 71, sinus with no acute ST ischemic changes. Will obtain CT head and cervical spine, chest abdomen pelvis, thoracic and lumbar spine. We will give a dose of Tylenol, bolus IV fluids and reassess. 1715 -- Labs and imaging reviewed and unremarkable. Troponin chronically elevated, now decreased compared to previous, 0.08. Urinalysis negative. CT imaging negative for acute findings. Some incidental findings noted but no acute fracture or organ injury. Family feels good with patient going home. Advised to give fluids, and ensure patient is taking his medicines as directed. Advised to follow-up with a primary care doctor this week for reevaluation. Medical Records Medical records reviewed: Yes I reviewed the patient's medical records. Lab Data Lab results reviewed: Yes I reviewed the patient's lab results. Labs: Laboratory Tests Range/Units 05/16/19 05/16/19 05/16/19 14:42 14:42 15:50 WBC (4.4-10.8) k/cumm 5.73 RBC (4.50-6.00) m/cumm 4.14 L Hgb (13.5-17.5) g/dL 13.6 Hct (40.0-50.0) % 40.2 MCV (80-95) fL 97.1 H MCH (27.0-33.0) pg 32.9 MCHC (32.0-36.0) g/dL 33.8 RDW (11.8-14.1) % 14.7 H Plt Count (130-400) x1000/uL 115 L MPV (8.0-11.0) fL 11.9 H Immature Gran % % 0.2 Neutrophils % 66.5 Lymphocytes % 25.8 Monocytes % 6.3 Eosinophils % 0.9 Basophils % 0.3 Absolute Neutrophils (1.2-6.7) k/cumm 3.81 Absolute Lymphocytes (1.2-3.4) k/cumm 1.48 Absolute Monocytes (0.11-0.7) k/cumm 0.36 Absolute Eosinophils (0.0-0.7) k/cumm 0.05 Absolute Basophils (0.0-0.2) k/cumm 0.02 Sodium (136-145) mmol/L 144 Potassium (3.5-5.1) mmol/L 4.4 Chloride (98-107) mmol/L 105 Carbon Dioxide (21.0-32.0) mmol/L 27.5 Anion Gap (3-11) mmol/L 11.5 H BUN (7-18) mg/dL 40 H Creatinine (0.70-1.30) mg/dL 1.56 H Estimated GFR/1.73 m2 (mL/min/1.73m2) 42.93 Glucose (74-106) mg/dL 143 H Calcium (8.5-10.1) mg/dL 9.1 Magnesium (1.8-2.4) mg/dL 2.1 Total Bilirubin (0.2-1.0) mg/dL 0.8 AST (15-37) U/L 20 ALT (16-63) U/L 26 Alkaline Phosphatase (46-116) U/L 84 Troponin I (<0.06) ng/Ml 0.08 H* Total Protein (6.4-8.2) g/dL 7.4 Albumin (3.4-5.0) g/dL 3.7 Urine Color (Yellow) Yellow Urine Clarity (Clear) Clear Urine pH (5-8) 5.5 Ur Specific [place] (1.005-1.025) 1.015 Urine Protein (Negative) mg/dL Negative Urine Ketones (Negative) mg/dL Negative Urine Blood (Negative) Negative Urine Nitrite (Negative) Negative Urine Bilirubin (Negative) Negative Urine Urobilinogen (Up TO 0.2) EU/dL 0.2 Ur Leukocyte Esterase (Negative) Negative Urine Glucose (Negative) mg/dL Negative ECG Data Attestation: I personally reviewed and interpreted this ECG (s) as follows: Interpretation: Rate of 71, sinus, no acute ST elevation or depression. MA 174. QTc 461. QRS 106. HPI General Mode of arrival: ambulatory. Date/Time Provider Initiated Documentation: 05/16/19 14:49. Limitations to Documentation: no limitations. Information obtained by: patient and family. History of Present Illness 83 year old M presents to the emergency department with the chief complaint of Status post fall at home; unknown cause. Head abrasion and lower back pain, and is localized to the head and back. Patient started experiencing this hour(s) and it has been constant. No relieving factors improve symptom(s), No exacerbating factors reported . Patient notes other (Daughter admits to increasing confusion of the last few days). Patient did receive the following treatments prior to arrival, none Related Data Home Medications Medication Instructions Recorded Confirmed blood-glucose meter [ClickPay ServicesTouch kit 07/24/12 04/20/19 UltraMini] OneTouch Ultra Test #100 strip 06/30/14 04/20/19 lancets [[employer] ServicesTouch Delica Lancets] #100 ea 06/30/14 04/20/19 metformin 500 mg tablet 500 mg PO BID #180 tab-cap 08/03/18 05/16/19 torsemide 10 mg tablet 10 mg PO DAILY #90 tab-cap 10/16/18 05/16/19 apixaban 2.5 mg PO BID #60 tab 11/21/18 05/16/19 diltiazem HCl 120 mg 120 mg PO DAILY #90 cap 11/27/18 05/16/19 capsule,extended release 24 hr spironolactone 25 mg tablet 25 mg PO DAILY #90 tab 11/27/18 05/16/19 levothyroxine 75 mcg capsule 75 mcg PO DAILY #90 cap 01/19/19 05/16/19 escitalopram oxalate 5 mg PO HS 03/26/19 05/16/19 ibuprofen 600 mg PO TID PRN #15 tab 04/07/19 05/16/19 Previous Rx's Medication Instructions Recorded metformin 500 mg tablet 500 mg PO BID #180 tab-cap 08/03/18 torsemide 10 mg tablet 10 mg PO DAILY #90 tab-cap 10/16/18 apixaban 2.5 mg PO BID #60 tab 11/21/18 diltiazem HCl 120 mg 120 mg PO DAILY #90 cap 11/27/18 capsule,extended release 24 hr spironolactone 25 mg tablet 25 mg PO DAILY #90 tab 11/27/18 levothyroxine 75 mcg capsule 75 mcg PO DAILY #90 cap 01/19/19 ibuprofen 600 mg PO TID PRN #15 tab 04/07/19 Allergies Allergy/AdvReac Type Severity Reaction Status Date / Time procaine [Procaine] Allergy Severe Anaphylaxsi Unverified 04/15/19 14:05 s thiopental [Thiopental] Allergy Severe Anaphylaxsi Unverified 04/15/19 14:05 s shellfish derived Allergy Intermediate Swelling/Ed Unverified 04/15/19 14:05 gerson Iodinated Contrast Media Allergy Unknown Swelling/Ed Unverified 04/15/19 14:05 [Iodinated Contrast- Oral gerson and IV Dye] nitroglycerin AdvReac Severe bottomed Unverified 04/15/19 14:05 out BP General Stated Complaint: HeadInjury IRWIN: 3 Review of Systems All systems reviewed & are unremarkable except as noted in HPI and below Constitutional Constitutional: Reports as per HPI, Denies chills, Denies fever(s) and Reports headache(s) Eyes Eyes: Denies blurry vision ENT Ears, Nose, Mouth, and Throat: Denies dizziness, Reports headache(s), Denies sore throat and Denies throat swelling Cardiovascular Cardiovascular: Denies chest pain and Denies dyspnea Respiratory Respiratory: Denies cough and Denies dyspnea Gastrointestinal Gastrointestinal: Denies abdominal pain, Denies diarrhea and Denies vomiting Genitourinary Genitourinary: Denies hematuria and Denies dysuria Musculoskeletal Musculoskeletal: Reports back pain and Denies numbness Integumentary/Breasts Skin/Breast: Denies lesions and Denies rash Neurologic Neurologic: Denies dizziness, Reports headache(s), Denies focal weakness and Denies numbness Allergic/Immunologic Allergic/Immunologic: Denies throat swelling [facility] Medical History Actinic keratosis (Resolved) Acute on chronic diastolic (congestive) heart failure (Resolved) Ambulatory dysfunction (Chronic) Ataxia (Chronic) Atrial fibrillation (Chronic) Cataracts, bilateral (Resolved 10/24/15) Status post cataract surgery Cellulitis (Inactive) 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) Decubitus ulcer of left buttock, stage 2 (Resolved 07/18/17) Depressive disorder (Chronic) Elevated troponin (Resolved) Essential hypertension, benign (Chronic 12/01/14) Falls frequently (Chronic 07/11/16) Fatigue (Chronic) Hyperlipidemia (Chronic) Hypothyroidism (Chronic) Mild cognitive impairment (Chronic) 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) Non-neoplastic nevus (Resolved) Osteoarthritis (Chronic) Pneumonia (Resolved) Rosacea (Chronic) Spinal stenosis (Chronic) surgery Ulcerative colitis (Inactive) Urinary incontinence (Chronic) Visual disturbance (Inactive) Surgical History (Updated 04/15/19 @ 14:53 by TITI Rodriguez) Appendectomy Carpal tunnel syndrome of right wrist (Chronic) ECTR: 04/07/2019 Colonoscopy - IV Sedation (11/18/12) [facility] [place]; NO FURTHER TESTING NEEDED History of appendectomy (Resolved) History of cataract surgery (Chronic) Bilaterally History of oral surgery (Acute) tooth extraction History of tonsillectomy (Chronic) Status post laminectomy (Chronic) Family History (Updated 03/26/19 @ 11:20 by Radha Umana RN) Mother Diabetes Stroke Father Heart disease Colon cancer Sister Psoriasis Social History Smoking/Tobacco Use Status: Former Tobacco Use Alcohol Intake: never Drug use: Never Substance use type: does not use Current gender identity: male Sun/Anglican: No preference Special sun needs: No Do you feel safe at home: Yes Do you feel safe in your relationship?: Yes Exam Const General: cooperative and healthy appearing Orientation: alert and awake HENMT Head: normal to inspection Head images: 1. Superficial abrasion, 3 x 3 cm Ears: hearing grossly normal bilaterally, external ears normal and TM's normal bilaterally General nose exam: external nose normal Face and sinus: normal facial exam Mouth: oral mucosae normal Teeth and gingiva: dentition normal Throat: posterior oropharynx normal Eyes General: appearance normal, both eyes and all related structures Eyelids: eyelids normal Pupils: PERRL EOM: EOM intact bilaterally Neck Neck: normal visual inspection Lymphatic: no lymphadenopathy noted Chest Chest: normal inspection of the chest, normal palpation of entire chest wall and no tenderness Resp Effort & Inspection: normal respiratory effort and able to speak in complete sentences Auscultation: clear to auscultation bilaterally Cardio Rate: regular rate Rhythm: regular rhythm GI Inspection: normal to inspection Palpation: soft, not firm, no guarding, no hepatosplenomegaly, no masses and nontender Auscultation: normal bowel sounds Back/Spine/Pelvis Cervical Spine: No cervical spinal tenderness Thoracic/Lumbar Spine: thoracic spinal tenderness and No lumbar spinal tenderness Pelvis: no pain with anterior-posterior compression and no pain with lateral compression Skin General skin exam: no rashes or lesions noted Neuro General: alert, awake and oriented Patient Orientation: Person, Place and Time (2018) Cranial Nerves: CN's II-XI intact bilaterally Cognition: normal cognition Speech: speech normal Motor: muscle tone normal throughout and strength 5/5 throughout Sensory Exam: no sensory deficits noted Other: Able to move all extremities. Chronic skin changes to bilateral lower extremities, consistent with likely peripheral vascular disease Extrem General: normal to inspection, full ROM and normal capillary refill Psych Appearance: grossly normal Mental Status: mental status grossly normal Speech and Movement: speech and movement normal Affect: normal affect Thought Process: normal Course Vital Signs Vital signs: Vital Signs Temperature 98.2 F 05/16/19 14:34 Pulse 66 05/16/19 14:34 Respiratory Rate 16 05/16/19 14:34 Blood Pressure 130/65 05/16/19 14:34 Pulse Oximetry 97 05/16/19 14:34 Temperature 98.2 F 05/16/19 14:34 Temperature Source Skin 05/16/19 14:34 Pulse 66 05/16/19 14:34 Respiratory Rate 16 05/16/19 14:34 Respiratory Effort 05/16/19 14:40 Blood Pressure 130/65 05/16/19 14:34 Blood Pressure Position Supine 05/16/19 14:34 Pulse Oximetry 97 05/16/19 14:34 Oxygen Delivery Method Room Air 05/16/19 14:34 Oxygen Flow Rate 0 05/16/19 14:34 Pain Level 0 05/16/19 14:34
--- NOTE | 2019-05-16 15:09 | NUR.NOTE ---
Nursing Note: Provider in with patient
--- NOTE | 2019-05-16 15:29 | NUR.NOTE ---
Nursing Note: Abrasion to forehead cleaned with Hibiclens and sterile water. Patient tolerated well.
[2019-05-16 15:44] LABS: Abs Immature Grans 0.01 k/cumm (0.0-0.09); Absolute Basophil Count 0.02 k/cumm (0.0-0.2); Absolute Eosinophil Count 0.05 k/cumm (0.0-0.7); Absolute Lymphocyte Count 1.48 k/cumm (1.2-3.4); Absolute Monocyte Count 0.36 k/cumm (0.11-0.7); Absolute Neutrophil Count 3.81 k/cumm (1.2-6.7); Basophils % 0.3; Eosinophils % 0.9; HCT 40.2 % (40.0-50.0); HGB 13.6 g/dL (13.5-17.5); Immature Grans % 0.2 %; Lymphocytes % 25.8; Mean Corp. HGB Concentration 33.8 g/dL (32.0-36.0); Mean Corpuscular Hemoglobin 32.9 pg (27.0-33.0); Mean Corpuscular Volume 97.1 fL (80-95); Mean Platelet Volume 11.9 fL (8.0-11.0); Monocytes % 6.3; Neutrophils % 66.5; Platelet Count 115 x1000/uL (130-400); RBC 4.14 m/cumm (4.50-6.00); RBC Distribution Width 14.7 % (11.8-14.1); White Blood Cell Count 5.73 k/cumm (4.4-10.8)
[2019-05-16] MEDS: Normal Saline 250 ML IV (15:45)
[2019-05-16] MEDS: Acetaminophen 500 MG TAB 1000 MG PO (15:45)
[2019-05-16 15:56] LABS: Bilirubin Negative (Negative); Blood Negative (Negative); Clarity Clear (Clear); Glucose Negative (Negative); Ketones Negative (Negative); Leukocyte Esterase Negative (Negative); Nitrite Negative (Negative); Specific Gravity 1.015 (1.005-1.025); Urobilinogen 0.2 EU/dL (Up TO 0.2); pH 5.5 (5-8)
[2019-05-16 15:59] LABS: ALT 26 U/L (16-63); AST 20 U/L (15-37); Albumin 3.7 g/dL (3.4-5.0); Alkaline Phosphatase 84 U/L (46-116); Anion Gap 11.5 mmol/L (3-11); BUN 40 mg/dL (7-18); Bilirubin, Total 0.8 mg/dL (0.2-1.0); CO2 27.5 mmol/L (21.0-32.0); CREATININE 1.56 mg/dL (0.70-1.30); Calcium 9.1 mg/dL (8.5-10.1); Chloride 105 mmol/L (98-107); Estimated GFR 42.93 (mL/min/1.73m2); Glucose 143 mg/dL (74-106); Magnesium 2.1 mg/dL (1.8-2.4); Potassium 4.4 mmol/L (3.5-5.1); Sodium 144 mmol/L (136-145); Total Protein 7.4 g/dL (6.4-8.2)
[2019-05-16 16:00] LABS: Troponin I 0.08 ng/Ml (<0.06)
--- NOTE | 2019-05-16 16:03 | DI.CT_ITS ---
EXAM: CT HEAD CERVICAL SPINE WO CLINICAL HISTORY: s/p fall, r/o acute intracranial injury TECHNIQUE: Noncontrast COMPARISON: HEAD WITHOUT CONTRAST from 05/20/2017 FINDINGS: Head CT: No intracranial hemorrhage or skull fracture is seen. There is atrophy and mild white mat ter changes of small vessel disease. The ventricles are normal in size. C-spine CT: No fracture or subluxation is seen. There is no paraspinal hematoma. There are degenera tive disc changes, greatest at C5-6 as well as facet joint degenerative changes. IMPRESSION: No acute abnormality.
--- NOTE | 2019-05-16 16:08 | DI.CT_ITS ---
EXAM: CT THORACIC LUMBAR SPINE REC CLINICAL HISTORY: midline t spine tenderness, s/p fall TECHNIQUE: Images were reconstructed from the chest, abdomen and pelvic CT. COMPARISON: RENAL COLIC WO CONTRAST from 10/25/2016 FINDINGS: Thoracic spine CT. There is no evidence of fracture. The alignment appears normal. Endplate osteop hytes are noted. Lumbar spine CT: Laminectomy defects are seen at L4-5 and L5-S1. Degenerative disc changes and facet degenerative changes are seen throughout. There is a small deformity at the anterior superior endpl ate of S1 which appears unchanged when compared with the previous renal colic CT. Again noted is L4- 5 spondylolisthesis. No acute fracture or significant change is seen. IMPRESSION: Degenerative and postsurgical changes. No acute abnormality.
--- NOTE | 2019-05-16 16:08 | DI.CT_ITS ---
EXAM: CT CHEST/ABD/PEL WO CLINICAL HISTORY: s/p fall, r/o acute injury TECHNIQUE: Noncontrast COMPARISON: LUMBAR SPINE WITHOUT CONTRAST from 05/07/2010 RENAL COLIC WO CONTRAST from 10/25/2016 RENAL COLIC WO CONTRAST from 10/25/2016 FINDINGS: Chest CT: There are degenerative changes of the right shoulder. No rib or spine fracture or pneumothorax is see n. The heart is mildly enlarged. There is no aortic aneurysm. Coronary artery calcifications are no eric. There is no pneumothorax. Two small nodules in the minor fissure, likely lymph nodes. Depende nt changes are seen at the lung bases. Abdomen and pelvic CT: No spine or pelvic fracture is seen. There has been previous left laminectomy at L4-5 and L5-S1. De generative disc changes and facet degenerative changes are again noted. There is no free air or free fluid. There is increased stool as well as diverticulosis. The liver, gallbladder, spleen, adrenal s and kidneys appear intact. There is no evidence of pancreatic injury. There is a cystic area in t he head of the pancreas which has a rounded benign appearance and measures 2.7 cm in greatest dimensi on. It may represent pancreatic cyst or choledochal cyst. No ductal dilatation is seen. The bladder is intact. Prostate is mildly enlarged. IMPRESSION: No acute abnormality in the chest, abdomen or pelvis. Incidental findings as mentioned above.
--- NOTE | 2019-05-16 16:54 | DI.VRAD_ITS ---
PROCEDURE INFORMATION: Exam: CT Chest Without Contrast Exam date and time: 05/16/2019 4:06 PM Age: 83 years old Clinical indication: Injury or trauma; Fall; Initial encounter; Generalized; Blunt trauma (contusions or hematomas) TECHNIQUE: Imaging protocol: Computed tomography of the chest without contrast. COMPARISON: No relevant prior studies available. FINDINGS: Thyroid: Thyroid gland unremarkable as visualized. Lungs: Fibrotic changes/scarring at the lung bases. Dependent atelectasis bilaterally. Fissural pulmonary nodules in the RIGHT mid to lower lung field measuring up to 8 mm. (series 2, images 33 and 34 and series 3, image 28). No LEFT lung nodules. Pleural space: There is no evidence of pleural effusion or pneumothorax. Heart: The heart is normal in size. There is no evidence of pericardial effusion. Coronary artery calcification. Aorta: Atherosclerotic calcification of the nonaneurysmal thoracic aorta. Lymph nodes: Unremarkable. No enlarged lymph nodes. Bones/joints: Images of the thoracic demonstrate degenerative changes without fracture. Vertebrae are normal in. No focal lesions. There is severe RIGHT and moderate glenohumeral joint degenerative change. Soft tissues: Bilateral moderate gynecomastia. IMPRESSION: 1. No acute findings. 2. Fissural nodules in the RIGHT mid to lower lung field measuring up to 8 mm.For patients at low risk (minimal or absent history of smoking and of other known risk factors), recommend CT at 3-6 months, then consider CT at 18-24 months. For patients at high risk (history of smoking or of other known risk factors), recommend CT at 3-6 months, then CT at 18-24 months. (Schuyler et al., Fleischner Society, 2017). 3. Additional incidental/nonemergent findings as discussed above. PROCEDURE INFORMATION: Exam: CT Abdomen And Pelvis Without Contrast Exam date and time: 05/16/2019 4:06 PM Age: 83 years old Clinical indication: Injury or trauma; Fall; Initial encounter; Generalized; Blunt trauma (contusions or hematomas) TECHNIQUE: Imaging protocol: Computed tomography of the abdomen and pelvis without contrast. COMPARISON: No relevant prior studies available. FINDINGS: Limitations: The absence of intravenous and oral contrast material limits evaluation of the abdominal and pelvic viscera, vasculature and bowel. Liver: The liver is normal in size and density. The hepatic contour is normal. There are no focal hepatic masses. Gallbladder and bile ducts: The gall bladder is normal in size. There is no gall bladder wall thickening. There are no gallstones or pericholecystic collection. The intrahepatic bile ducts are normal in caliber. There is a well-circumscribed fluid density structure measuring 2.2 x 2.7 x 2.1 cm adjacent to the pancreatic head which may represent a choledochal cyst and less likely an exophytic pancreatic cystic lesion. The remainder of the common duct normal in caliber. Pancreas: Pancreatic duct not dilated. Spleen: The spleen is normal in size. No focal splenic lesions are noted. Adrenals: There is thickening of the adrenal glands bilaterally is consistent with adrenal cortical hyperplasia Kidneys and ureters: No hydronephrosis. Upper to mid LEFT renal hypoattenuating lesion with foci of calcification at the periphery (series 2, image 59 and series). Hypoattenuating mid RIGHT renal lesion measuring 1.5 cm. No obstructing renal calculi. Possible nonobstructing lower pole RIGHT calculus. Bilateral perinephric stranding. Stomach and bowel: Diverticulosis of the descending and sigmoid colon without CT evidence of diverticulitis. No bowel obstruction. Appendix: No evidence of appendicitis. Intraperitoneal space: There is no evidence of free intraperitoneal air. There is no abdominal or pelvic ascites. Vasculature: Extensive atherosclerotic calcification abdominal aorta and iliac arteries without aneurysmal dilatation. 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 Small hiatus hernia. Bladder: The bladder is normally distended. There is no bladder wall thickening. There are no radioopaque bladder calculi. Reproductive: Prominent prostate gland with foci calcification. Seminal vesicles are unremarkable. Bones/joints: 12 mm anterolisthesis at L4-L5 and 5 mm retrolisthesis L3-L4. Multilevel degenerative changes of the lumbar spine. Status post bilateral laminectomy at L4-L5 and L5-S1. No acute fracture. Soft tissues: The soft tissues are unremarkable. IMPRESSION: 1. No acute findings. 2. 2.7 cm well-circumscribed fluid density structure adjacent to the pancreatic head may represent a choledochal cyst. An exophytic pancreatic cystic lesion is unlikely. MRCP could be performed for further assessment. 3. Hypoattenuating lesions in the kidneys bilaterally. The LEFT renal lesion contains foci of peripheral calcification. No further workup recommended. Reference: Pierre BR, Management of the Incidental Renal Mass on CT: A White Paper of the ACR Incidental Findings Committee, J Am Abdi Radiol 2018. 4. Additional incidental/nonemergent findings as discussed above. Dictated and Authenticated by: Whit Ross MD. Ordering:JACKY Starkey MD
--- NOTE | 2019-05-16 17:11 | DI.VRAD_ITS ---
PROCEDURE INFORMATION: Exam: CT Head Without Contrast Exam date and time: 05/16/2019 3:57 PM Age: 83 years old Clinical indication: Injury or trauma; Initial encounter; Blunt trauma (contusions or hematomas); Consciousness not specified; Injury details: Fall/ R/O intercranial injury TECHNIQUE: Imaging protocol: Computed tomography of the head without contrast. Radiation optimization: All CT scans at this facility use at least one of these dose optimization techniques: automated exposure control; mA and/or kV adjustment per patient size (includes targeted exams where dose is matched to clinical indication); or iterative reconstruction. COMPARISON: CT HEAD WITHOUT CONTRAST 05/20/2017 7:16 PM FINDINGS: Brain: No intracranial hemorrhage. No mass or midline. Mild periventricular and subcortical white matter hypoattenuation, nonspecific but consistent with chronic microvascular ischemic disease. No extra-axial collections. Normal yanes-white differentiation. Ventricles: The ventricles are normal in position and mildly enlarged. There is commensurate cortical sulcal prominence. The findings are consistent with age appropriate cerebral atrophy. No hydrocephalus. Bones/joints: No acute fracture. No focal osseous lesions. Sinuses: The visualized paranasal sinuses are well-aerated. There are no air fluid levels to suggest acute sinusitis. Mastoid air cells: The tympanomastoid air cells are normally aerated as visualized. Orbits: The red cliff lenses are absent. The orbits are otherwise unremarkable as visualized. Soft tissues: The soft tissues are unremarkable. Vasculature: Intracranial arterial calcification is present. IMPRESSION: 1. No acute intracranial findings. 2. Cerebral atrophy and chronic microvascular ischemic change. PROCEDURE INFORMATION: Exam: CT Cervical Spine Without Contrast Exam date and time: 05/16/2019 3:57 PM Age: 83 years old Clinical indication: Injury or trauma; Initial encounter; Blunt trauma (contusions or hematomas); Consciousness not specified; Injury details: Fall/ R/O intercranial injury TECHNIQUE: Imaging protocol: Computed tomography images of the cervical spine without contrast. Radiation optimization: All CT scans at this facility use at least one of these dose optimization techniques: automated exposure control; mA and/or kV adjustment per patient size (includes targeted exams where dose is matched to clinical indication); or iterative reconstruction. COMPARISON: CT HEAD WITHOUT CONTRAST 05/20/2017 7:16 PM FINDINGS: Vertebrae: Cervical lordosis is straightened. There is minimal anterolisthesis of C3-C4 and C4-C5 likely on a degenerative basis. There is no of acute fracture. No traumatic subluxation. Discs/Spinal canal/Neural foramina: Multilevel degenerative changes throughout the cervical spine. There is mild central canal stenosis at C3-C4 and C4-C5. Multilevel bilateral foraminal stenosis is present. Soft tissues: Soft tissues are unremarkable. Thyroid: Thyroid gland unremarkable as visualized. Lungs: Lung apices are unremarkable. Vasculature: Calcification of the common carotid artery bifurcations. IMPRESSION: 1. No acute findings. 2. Multilevel degenerative changes of cervical spine. Dictated and Authenticated by: Whit Ross MD. Ordering:JACKY Starkey MD
[2019-05-16] MEDS: Lidocaine 5% Patch 1 PATCH TP (17:44)
--- NOTE | 2019-05-16 18:28 | DI.VRAD_ITS ---
PROCEDURE INFORMATION: Exam: CT Thoracic Spine Without Contrast Exam date and time: 05/16/2019 17:22 Age: 83 years old Clinical indication: Injury or trauma; Fall; Initial encounter; Blunt trauma (contusions or hematomas) TECHNIQUE: Imaging protocol: Computed tomography images of the thoracic spine without contrast. COMPARISON: No relevant prior studies available. FINDINGS: Vertebrae: No acute fracture or subluxation in the thoracic spine. Discs/Spinal canal/Neural foramina: Mild degenerative changes in the thoracic spine. No significant neuroforaminal or central canal stenosis. IMPRESSION: No acute fracture or subluxation in the thoracic spine. PROCEDURE INFORMATION: Exam: CT Lumbar Spine Without Contrast Exam date and time: 05/16/2019 17:22 Age: 83 years old Clinical indication: Injury or trauma; Fall; Initial encounter; Blunt trauma (contusions or hematomas) TECHNIQUE: Imaging protocol: Computed tomography images of the lumbar spine without contrast. COMPARISON: No relevant prior studies available. FINDINGS: Vertebrae: No acute fracture in the lumbar spine. Anterolisthesis of L4 relative to L3 and L5 appearing likely chronic and degenerative/postsurgical. Minor anterolisthesis of L4 relative to L3, anterolisthesis of L4 relative to L5 is 9 mm. L4-L5 and S1 laminectomy, extensive distal lumbar facet hypertrophy. Distal lumbar neuroforaminal stenosis. Sacrum/coccyx: A shallow vertical defect anterior aspect of the S1 vertebral body, appearing relatively well-corticated on axial imaging. Other bones/joints: Heterogeneous demineralization. No convincing pathologic lesions. Multiple small lucencies in the pelvis, consider further workup if there is a history of primary malignancy or other suspicious clinical findings. Soft tissues: Please see same day CT abdomen pelvis. IMPRESSION: 1. No acute fracture in the lumbar spine. 2. Anterolisthesis of L4 relative to L3 and L5 appearing likely chronic and degenerative/postsurgical. 3. A shallow vertical defect anterior aspect of the S1 vertebral body, appearing relatively well-corticated on axial imaging. I favor a chronic deformity however consider an acute nondisplaced fracture depending on the location of the patient's pain. 4. Additional findings as described. Dictated and Authenticated by: Melvi Chandler MD. Ordering:JACKY Starkey MD
== END 2019-05-16 17:40 | disposition home or self-care (01) ==
PROVIDERS: Emergency Provider Physician Assistant; PCP Family Medicine
DX: S09.90XA Unspecified injury of head, initial encounter (principal); S00.81XA Abrasion of other part of head, initial encounter; W19.XXXA Unspecified fall, initial encounter; M54.5 Low back pain; F03.90 Unspecified dementia, unspecified severity, without behavioral disturbance, psychotic disturbance, mood disturbance, and anxiety; Z79.01 Long term (current) use of anticoagulants; I48.91 Unspecified atrial fibrillation; I10 Essential (primary) hypertension; R29.6 Repeated falls; E11.9 Type 2 diabetes mellitus without complications; Z79.84 Long term (current) use of oral hypoglycemic drugs
CPT/HCPCS: 36415; 71250; 80053; 93005; 96360; 99284; 70450; 72125; 74176; 81003; 83735; 84484; 85025; 93010; 99285

== ENCOUNTER 2019-07-06 09:59 | Outpatient (CLI) | payer MEDICARE, BC, SELFPAY ==
[2019-07-06 10:57] LABS: Abs Immature Grans 0.01 k/cumm (0.0-0.09); Absolute Basophil Count 0.02 k/cumm (0.0-0.2); Absolute Eosinophil Count 0.11 k/cumm (0.0-0.7); Absolute Lymphocyte Count 1.59 k/cumm (1.2-3.4); Absolute Monocyte Count 0.46 k/cumm (0.11-0.7); Absolute Neutrophil Count 3.96 k/cumm (1.2-6.7); Basophils % 0.3; Eosinophils % 1.8; HCT 40.3 % (40.0-50.0); HGB 13.4 g/dL (13.5-17.5); Immature Grans % 0.2 %; Lymphocytes % 25.9; Mean Corp. HGB Concentration 33.3 g/dL (32.0-36.0); Mean Corpuscular Hemoglobin 32.3 pg (27.0-33.0); Mean Corpuscular Volume 97.1 fL (80-95); Mean Platelet Volume 11.8 fL (8.0-11.0); Monocytes % 7.5; Neutrophils % 64.3; Platelet Count 144 x1000/uL (130-400); RBC 4.15 m/cumm (4.50-6.00); RBC Distribution Width 15.6 % (11.8-14.1); White Blood Cell Count 6.15 k/cumm (4.4-10.8)
[2019-07-06 11:41] LABS: ALT 22 U/L (16-63); AST 13 U/L (15-37); Albumin 3.7 g/dL (3.4-5.0); Alkaline Phosphatase 112 U/L (46-116); Anion Gap 12.4 mmol/L (3-11); BUN 33 mg/dL (7-18); Bilirubin, Total 0.8 mg/dL (0.2-1.0); CO2 24.6 mmol/L (21.0-32.0); CREATININE 1.62 mg/dL (0.70-1.30); Calcium 9.2 mg/dL (8.5-10.1); Chloride 101 mmol/L (98-107); Glucose 152 mg/dL (74-106); Potassium 4.4 mmol/L (3.5-5.1); Sodium 138 mmol/L (136-145); TSH 3.29 uIU/mL (0.36-3.74); Total Protein 6.9 g/dL (6.4-8.2); Vitamin B12 347 pg/mL (193-986)
[2019-07-06 12:58] LABS: Hemoglobin A1C 6.8 % (3.8-5.6)
== END 2019-07-06 10:19 ==
PROVIDERS: PCP Family Medicine; Visit Provider Nurse Practitioner Adult Health
DX: E11.9 Type 2 diabetes mellitus without complications (principal); E78.5 Hyperlipidemia, unspecified; E03.9 Hypothyroidism, unspecified; R53.82 Chronic fatigue, unspecified
CPT/HCPCS: 36415; 80053; 82607; 83036; 84443; 85025

== ENCOUNTER 2019-07-18 12:47 | Outpatient (REF) | payer MEDICARE, BC, SELFPAY ==
[2019-07-18 13:48] LABS: Abs Immature Grans 0.02 k/cumm (0.0-0.09); Absolute Basophil Count 0.02 k/cumm (0.0-0.2); Absolute Eosinophil Count 0.07 k/cumm (0.0-0.7); Absolute Lymphocyte Count 1.48 k/cumm (1.2-3.4); Absolute Monocyte Count 0.57 k/cumm (0.11-0.7); Absolute Neutrophil Count 4.92 k/cumm (1.2-6.7); Basophils % 0.3; HCT 39.6 % (40.0-50.0); HGB 13.2 g/dL (13.5-17.5); Immature Grans % 0.3 %; Lymphocytes % 20.9; Mean Corp. HGB Concentration 33.3 g/dL (32.0-36.0); Mean Corpuscular Hemoglobin 32.5 pg (27.0-33.0); Mean Corpuscular Volume 97.5 fL (80-95); Mean Platelet Volume 11.3 fL (8.0-11.0); Monocytes % 8.1; Neutrophils % 69.4; Platelet Count 157 x1000/uL (130-400); RBC 4.06 m/cumm (4.50-6.00); RBC Distribution Width 15.3 % (11.8-14.1); White Blood Cell Count 7.08 k/cumm (4.4-10.8)
[2019-07-18 14:11] LABS: ALT 17 U/L (16-63); AST 12 U/L (15-37); Albumin 3.5 g/dL (3.4-5.0); Alkaline Phosphatase 110 U/L (46-116); Anion Gap 9.8 mmol/L (3-11); BUN 29 mg/dL (7-18); Bilirubin, Total 0.7 mg/dL (0.2-1.0); CO2 28.2 mmol/L (21.0-32.0); CREATININE 1.63 mg/dL (0.70-1.30); Calcium 8.4 mg/dL (8.5-10.1); Chloride 103 mmol/L (98-107); Estimated GFR 40.81 (mL/min/1.73m2); Glucose 205 mg/dL (74-106); Potassium 4.3 mmol/L (3.5-5.1); Sodium 141 mmol/L (136-145); Total Protein 6.6 g/dL (6.4-8.2)
[2019-07-18 14:44] LABS: Bilirubin Negative (Negative); Blood Negative (Negative); Clarity Clear (Clear); Glucose Negative (Negative); Ketones Negative (Negative); Leukocyte Esterase Negative (Negative); Nitrite Negative (Negative)
== END 2019-07-18 13:07 ==
LOC: LBN 12:47
PROVIDERS: PCP Family Medicine; Visit Provider Family Medicine
DX: I10 Essential (primary) hypertension (principal); E11.9 Type 2 diabetes mellitus without complications; E03.9 Hypothyroidism, unspecified; R53.82 Chronic fatigue, unspecified; R82.998 Other abnormal findings in urine; R41.0 Disorientation, unspecified
CPT/HCPCS: 80053; 81003; 85025

== ENCOUNTER 2019-09-29 14:27 | Outpatient (REF) | payer MEDICARE, BC, SELFPAY ==
[2019-09-29 15:12] LABS: Absolute Basophil Count 0.01 k/cumm (0.0-0.2); Absolute Eosinophil Count 0.08 k/cumm (0.0-0.7); Absolute Lymphocyte Count 1.33 k/cumm (1.2-3.4); Absolute Monocyte Count 0.51 k/cumm (0.11-0.7); Absolute Neutrophil Count 3.61 k/cumm (1.2-6.7); Basophils % 0.2; Eosinophils % 1.4; HCT 39.2 % (40.0-50.0); Mean Corp. HGB Concentration 33.2 g/dL (32.0-36.0); Mean Corpuscular Hemoglobin 31.6 pg (27.0-33.0); Mean Corpuscular Volume 95.1 fL (80-95); Mean Platelet Volume 11.5 fL (8.0-11.0); Monocytes % 9.2; Neutrophils % 65.2; Platelet Count 133 x1000/uL (130-400); RBC 4.12 m/cumm (4.50-6.00); RBC Distribution Width 14.9 % (11.8-14.1); White Blood Cell Count 5.54 k/cumm (4.4-10.8)
[2019-09-29 15:54] LABS: Hemoglobin A1C 6.8 % (3.8-5.6)
[2019-09-29 16:01] LABS: Bilirubin Negative (Negative); Blood Negative (Negative); Clarity Clear (Clear); Glucose Negative (Negative); Ketones Negative (Negative); Leukocyte Esterase Negative (Negative); Nitrite Negative (Negative); Specific Gravity 1.015 (1.005-1.025); Urobilinogen 0.2 EU/dL (Up TO 0.2)
[2019-09-29 16:02] LABS: ALT 20 U/L (16-63); AST 14 U/L (15-37); Albumin 3.9 g/dL (3.4-5.0); Alkaline Phosphatase 104 U/L (46-116); Anion Gap 11.9 mmol/L (3-11); BUN 34 mg/dL (7-18); Bilirubin, Total 0.6 mg/dL (0.2-1.0); C-Reactive Protein 0.17 mg/dL (0.0-0.3); CO2 25.1 mmol/L (21.0-32.0); CREATININE 1.56 mg/dL (0.70-1.30); Calcium 9.6 mg/dL (8.5-10.1); Chloride 101 mmol/L (98-107); Estimated GFR 42.93 (mL/min/1.73m2); Glucose 119 mg/dL (74-106); Potassium 4.5 mmol/L (3.5-5.1); Sodium 138 mmol/L (136-145); TSH 2.95 uIU/mL (0.36-3.74); Total Protein 7.2 g/dL (6.4-8.2)
[2019-09-29 16:21] LABS: ESR 16 mm/hr (1-20)
== END 2019-09-29 14:47 ==
LOC: LBN 14:27
PROVIDERS: PCP Family Medicine; Visit Provider Family Medicine
DX: E11.9 Type 2 diabetes mellitus without complications (principal); I50.32 Chronic diastolic (congestive) heart failure; E03.9 Hypothyroidism, unspecified; F32.9 Major depressive disorder, single episode, unspecified; G30.9 Alzheimer's disease, unspecified; R82.998 Other abnormal findings in urine
CPT/HCPCS: 80053; 85652; 81003; 83036; 84443; 85025; 86140; 87086

== ENCOUNTER 2019-10-01 18:27 | Emergency (ER) | payer MEDICARE, BC, MEDICAID, SELFPAY ==
[2019-10-01] VITALS (33 sets, daily range): BP systolic 91–118; BP diastolic 41–60; PULSE 58–64; RESP 10–25; TEMP 36.9; O2SAT 95–98
--- NOTE | 2019-10-01 18:27 | ED.GENADUL_ITS ---
Discharge Plan Disposition Patient Disposition: SNF (LEVEL 1) [facility] Condition: Fair Discharge Details Chief Complaint: AMS/LOC Clinical Impression: Alzheimers disease Primary Care Provider: Zander Mancini ED Provider: Summer Gonzalez Home Meds and New Rx's Prescriptions: Continued spironolactone 25 mg tablet 25 mg PO DAILY Qty: 90 RF: 4 diltiazem HCl 120 mg capsule,extended release 24hr 120 mg PO DAILY Qty: 90 RF: 4 (DME) blood-glucose meter [[employer] UltraMini] 1 EACH kit 1 kit UD PRN RF: 0 (DME) blood sugar diagnostic [OneTouch Ultra Test] 1 EACH strip 1 strip Intradermal 2X/WEEK Qty: 100 RF: 4 (DME) lancets [[employer] Delica Lancets] 1 EACH misc 1 ea Intradermal 2X/WEEK Qty: 100 RF: 4 metformin 500 mg tablet 500 mg PO BID Qty: 180 RF: 3 torsemide 10 mg tablet 10 mg PO DAILY Qty: 90 RF: 4 levothyroxine 75 mcg capsule 75 mcg PO DAILY Qty: 90 RF: 4 Glucerna Liquid See Rx Instructions .ROUTE .COMPLEX Qty: 2133 RF: 4 escitalopram oxalate 5 mg tablet 5 mg PO HS RF: 0 ibuprofen 600 mg tablet 600 mg PO TID PRNQty: 15 RF: 0 apixaban 2.5 mg tablet 2.5 mg PO BID Qty: 60 RF: 4 loperamide 2 mg Capsule 2 mg PO QID PRNRF: 0 Discharge Instructions Instructions: Dementia (ED) Additional Instructions: Patient is improving since being in the department. He did receive hydration. Please encourage water intake. There is concern that this could have been a TIA. Also concerning is lesion noted on CT the does appear to be chronic. However, we strongly recommend MRI at the beginning of the week for further evaluation of this lesion. We also recommend follow-up with cardiology for further evaluation of EKG abnormalities. Advised beginning baby aspirin daily. If Juan Pablo develops any new or worsening symptoms please seek care urgently once again. Follow-up with primary care next week. Referrals: Zander Mancini MD [Primary Care Provider] - Discharge Data Discharge Date/Time-TO BE ENTERED AT DEPARTURE: 10/01/19 22:15 Medical Decision Making <TITI Castanon - Last Filed: 10/02/19 14:22> Patient is a pleasantly confused 83-year-old gentleman presenting today, brought in via EMS, with chief complaint of increased confusion and right-sided weakn ess. Past medical history significant for Alzheimer's, failure to thrive, iron deficiency anemia, hypertension, hypokalemia, CKD, urinary incontinence, type 2 diabetes, ulcerative colitis, hypothyroidism, hyperlipidemia, frequent falls, chronic diastolic heart failure secondary to hypertrophic cardiomyopathy, depression, atrial fibrillation, ataxia. Patient is anticoagulated on half dose apixaban. Nursing staff today was concerned that the patient had clinically deteriorated. They advised the patient had increased confusion compared to his baseline. They were also concerned that he may be developing some right-sided deficits as he was needing to use his left hand to assist with feeding himself. He states this is unusual for the patient. They did note low-grade fever. Patient is denying any discomfort. He is denying shortness of breath. He is alert and oriented x2. Reviewed the note from primary care who advised he has been seen several times this past week for increased disorganization and confusion. They also noted his speech is a bit more garbled and disorganized. Patient's daughter is at bedside. She reports that the patient appears physically to be at his baseline. Patient is listing more to the right and has a kyphotic appearance which is baseline per daughter's report. However, she feels that his speech is not as crisp and clear as it typically is. She does feel that his mentation is similar to what is been historically. She reports that he has had exacerbations like this when he has had episodes of pneumonia as well as UTI. As far as we are aware, there has been no evidence of URI. I did not receive report of change in urinary habits. On exam, the patient appears chronically unwell. He is alert and oriented x2. He has no focal motor deficit. Lungs are clear. Abdomen is benign. No CVA tenderness. He did have compression Jayme wraps on bilateral lower extremities. Pulses remained intact. At this time, differential is quite large. He is not within the window for lytic therapy if this was secondary to his CVA. As he has no notable physical deficits, do not feel that he would be a candidate for this anyway. CVA versus TIA is on the differential. There is a patient was reported to have a low-grade fever and has had a history of pneumonia as well as UTI with similar episodic changes. This too is on the differential. Also considered metabolic derangements. BGL 148. Also considered cardiac or pulmonary source. This may also be deterioration of the baseline Alzheimer's. Plan for EKG, CT, chest x- ray, laboratory evaluation. Discussed this plan with patient and his daughter. Daughter is at bedside given the patient's baseline confusion. EKG was reviewed by Dr. Newton. There is question regarding potential block. This does not appear to be new. Labs reviewed. No leukocytosis. Patient's mildly anemic this appears to be baseline. BUN is elevated at 31, this to his baseline for the patient. Creatinine is elevated at 1.63, this is baseline for the patient. His daughter reports that he can have increased confusion associate with dehydration patient is receiving gentle hydration. TSH is elevated at 5.23. Free T4 is pending. No other acute metabolic derangements are noted on CMP. Troponin is pending. UA without evidence of infection. Imaging is pending. FINDINGS: Lungs: Low lung volumes. Probable minor atelectasis in the lung bases. No airspace consolidation. Pleural space: Trace pleural fluid is possible, laterality uncertain. No pneumothorax. Heart/Mediastinum: Stable mild cardiomegaly with mild vascular congestion. Bones/joints: Marked degenerative changes again seen in the right glenohumeral joint. No displaced fracture. IMPRESSION: 1. Stable mild cardiomegaly with mild vascular congestion. 2. Trace pleural fluid is possible, laterality uncertain. 3. Probable minor atelectasis in the lung bases. FINDINGS: Brain: Moderate cerebral atrophy. Moderate cerebellar atrophy. Mild periventricular white matter hypodensity. Ventricles: No ventriculomegaly. Bones/joints: A mixed density right supraorbital/frontal calvarial lesion measuring approximately 13 mm, with a narrow zone of transition however slight erosion inner aspect of the right frontal outer table. Given the appearance this is probably a benign or indolent lesion however given the presence of erosion further workup may be necessary particularly if there is a history of known primary malignancy or other suspicious clinical finding. Much smaller lucency, left frontal calvarium appearance more suggestive of a benign incidental arachnoid granulation. No acute fracture in the calvarium. Sinuses: Minimal left ethmoid sinus mucosal thickening. No air-fluid levels. Mastoid air cells: No mastoid effusion. Orbits: Postsurgical changes in the globes. Soft tissues: No suspicious lesions. Vasculature: Atherosclerosis. IMPRESSION: No acute intracranial findings. Atrophy and small vessel ischemic changes. Nonurgent findings as above. Reviewed compared to previous and note that this calvarial lesion appears to be chronic. I have requested comparison imaging to be performed. Troponin elevated 0.11, this is baseline for patient. He has not been endorsing any shortness of breath or chest pain. No change in EKG. Time, no evidence of acute abnormality. Unclear if this is associated with progression of this focal finding on CT or progression of underlying pathology. Imaging is reviewed again by radiologist and feels this is chronic and unchanged. With family regarding patient's reassuring work-up. At this point, I do not see any evidence of acute abnormality. However, as the patient has had a sudden decline, we remain concerned for possible TIA versus CVA and feel that admission is appropriate. Spoke with Dr. Rosales who evaluated the patient. At the time hospitalist evaluated the patient, his speech had returned to normal as did his mentation per family. Patient is much more clear and alert. While he remains confused, his cognition is improved. Family reports that this is his baseline associated with his known Alzheimer's. We discussed inpatient versus outpatient evaluation. Dr. Rosales advised that over the weekend they would give aspirin in conjunction with his current therapy and plan for further work-up next Friday at 1 MRI would be available. Family would prefer for him to be able to go back to [facility] where he currently resides. They feel that this would be better for the patient's mentality and also reduce risk of potential exposures being admitted. Patient will be started on the aspirin. I did advise outpatient MRI the beginning of next week. With the EKG abnormalities, although they do appear chronic, there is less and I felt that evaluation with cardiology would be appropriate. They are given return precautions. All of their questions and concerns were addressed and family and patient are in agreement with this plan <Marvin Newton MD - Last Filed: 10/08/19 15:00> Medical Records Medical records narrative: 19:25 --patient seen, examined, and discussed with TITI Gonzalez. Patient confused oriented to person. No focal weakness appreciated on exam at this time. He apparently did exhibit some weakness of his right side at long term. Consider CVA/TIA versus infectious etiology. Will check chest x-ray and urinalysis. I agree with treatment plan as discussed/documented. ECG Data Attestation: I personally reviewed and interpreted this ECG (s) as follows: (Atrial flutter with ventricular rate at 61 bpm, no STEMI) HPI <TITI Castanon - Last Filed: 10/02/19 14:22> General Mode of arrival: EMS . Date/Time Provider Initiated Documentation: 10/01/19 18:27 . Limitations to Documentation: altered mental status . Information obtained by: family, RN/MD (contaced by RN from [facility]), EMS and RN notes reviewed . HPI Narrative: Patient is a pleasantly confused 83-year-old male brought in via EMS from the long term residence with chief complaint of increased confusion and right sided weakness. Last known well unknown. Per nursing report he was noted to not be himself earlier today when this particular nurse came on shift. However, is unclear when this change occurred. Nurse states that the patient has baseline confusion and at baseline speaks quite slowly. However, he noted that the patient had more confusion than his normal a nd he felt that he might be weak on his right side. He states that when eating dinner he noted that the patient was supporting the right arm with his left which is unusual. Patient is anticoagulated on Eliquis. Has been taking medications as prescribed. Was noted to have a low-grade temp by long term staff with a temp of 99*F. afebrile per EMS. No known trauma. No recent change in medications. Related Data Home Medications Medication Instructions Recorded Confirmed blood-glucose meter [OneTouch kit 07/24/12 10/01/19 UltraMini] blood sugar diagnostic [OneTouch #100 strip 06/30/14 10/01/19 Ultra Test] lancets [OneTouch Delica Lancets] #100 ea 06/30/14 10/01/19 metformin 500 mg tablet 500 mg PO BID #180 tab-cap 08/03/18 10/01/19 torsemide 10 mg tablet 10 mg PO DAILY #90 tab-cap 10/16/18 05/16/19 apixaban 2.5 mg PO BID #60 tab 11/21/18 10/01/19 diltiazem HCl 120 mg 120 mg PO DAILY #90 cap 11/27/18 10/01/19 capsule,extended release 24 hr spironolactone 25 mg tablet 25 mg PO DAILY #90 tab 11/27/18 10/01/19 levothyroxine 75 mcg capsule 75 mcg PO DAILY #90 cap 01/19/19 10/01/19 escitalopram oxalate 5 mg PO HS 03/26/19 10/01/19 ibuprofen 600 mg PO TID PRN #15 tab 04/07/19 05/16/19 nut.tx.gluc.intol,lac-free,soy See Rx Instructions .ROUTE 05/27/19 .COMPLEX #2133 ml loperamide 2 mg PO QID PRN 10/01/19 10/01/19 Previous Rx's Medication Instructions Recorded metformin 500 mg tablet 500 mg PO BID #180 tab-cap 08/03/18 torsemide 10 mg tablet 10 mg PO DAILY #90 tab-cap 10/16/18 apixaban 2.5 mg PO BID #60 tab 11/21/18 diltiazem HCl 120 mg 120 mg PO DAILY #90 cap 11/27/18 capsule,extended release 24 hr spironolactone 25 mg tablet 25 mg PO DAILY #90 tab 11/27/18 levothyroxine 75 mcg capsule 75 mcg PO DAILY #90 cap 01/19/19 ibuprofen 600 mg PO TID PRN #15 tab 04/07/19 nut.tx.gluc.intol,lac-free,soy See Rx Instructions .ROUTE 05/27/19 .COMPLEX #2133 ml Allergies Allergy/AdvReac Type Severity Reaction Status Date / Time procaine [Procaine] Allergy Severe Anaphylaxsi Unverified 04/15/19 14:05 s thiopental [Thiopental] Allergy Severe Anaphylaxsi Unverified 04/15/19 14:05 s shellfish derived Allergy Intermediate Swelling/Ed Unverified 04/15/19 14:05 gerson Iodinated Contrast Media Allergy Unknown Swelling/Ed Unverified 04/15/19 14:05 [Iodinated Contrast- Oral gerson and IV Dye] nitroglycerin AdvReac Severe bottomed Unverified 04/15/19 14:05 out BP General IRWIN: 3 Review of Systems <TITI Castanon - Last Filed: 10/02/19 14:22> Unobtainable due to mental status PFSH <TITI Castanon - Last Filed: 10/02/19 14:22> Medical History Actinic keratosis (Resolved) Acute on chronic diastolic (congestive) heart failure (Resolved) Ambulatory dysfunction (Chronic) Ataxia (Chronic) Atrial fibrillation (Chronic) Cataracts, bilateral (Resolved 10/24/15) Status post cataract surgery Cellulitis (Inactive) 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) Decubitus ulcer of left buttock, stage 2 (Resolved 07/18/17) Depressive disorder (Chronic) Elevated troponin (Resolved) Essential hypertension, benign (Chronic 12/01/14) Falls frequently (Chronic 07/11/16) Fatigue (Chronic) Hyperlipidemia (Chronic) Hypothyroidism (Chronic) Mild cognitive impairment (Chronic) 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) Non-neoplastic nevus (Resolved) Osteoarthritis (Chronic) Pneumonia (Resolved) Rosacea (Chronic) Spinal stenosis (Chronic) surgery Toxic metabolic encephalopathy (Resolved) Ulcerative colitis (Inactive) Urinary incontinence (Chronic) Visual disturbance (Inactive) Surgical History Appendectomy Carpal tunnel syndrome of right wrist (Chronic) ECTR: 04/07/2019 Colonoscopy - IV Sedation (11/18/12) [facility] [place] FURTHER TESTING NEEDED History of appendectomy (Resolved) History of cataract surgery (Chronic) Bilaterally History of oral surgery (Acute) tooth extraction History of tonsillectomy (Chronic) Status post laminectomy (Chronic) Family History (Updated 03/26/19 @ 11:20 by Radha Umana RN) Mother Diabetes Stroke Father Heart disease Colon cancer Sister Psoriasis Social History Smoking/Tobacco Use Status: Former Tobacco Use Alcohol Intake: never Drug use: Never Substance use type: does not use Current gender identity: male Sun/Orthodoxy: No preference Special sun needs: No Do you feel safe at home: Yes Do you feel safe in your relationship?: Yes Exam <TITI Castanon - Last Filed: 10/02/19 14:22> Const General: cooperative, comfortable, no acute distress, well developed and ill appearing chronically Nutritional Appearance: average body habitus and well nourished Orientation: alert, awake, oriented to person, oriented to place and confused HENMT Head: normal to inspection, no palpable skull fracture, normocephalic and atraumatic Ears: hearing grossly normal bilaterally General nose exam: external nose normal Face and sinus: normal facial exam Mouth: oral mucosae normal and moist mucous membranes Throat: posterior oropharynx normal Eyes General: appearance normal, both eyes and all related structures Alignment and Position: alignment normal Periorbital: periorbital findings normal Neck Neck: normal visual inspection, no lymphadenopathy and no meningeal signs Chest Chest: normal inspection of the chest, normal palpation of entire chest wall and no crepitus Resp Effort & Inspection: normal respiratory effort, able to speak in complete sentences and no respiratory distress Auscultation: clear to auscultation bilaterally, no rales, no rhonchi and no wheezes Cardio Rate: regular rate Rhythm: regular rhythm Heart Sounds: S1 normal and S2 normal GI Inspection: normal to inspection, no edema and non-distended Palpation: soft, no hepatosplenomegaly, not firm, no guarding, not rigid and nontender Auscultation: normal bowel sounds Back/Spine/Pelvis Back: no CVA tenderness Thoracic/Lumbar Spine: thoracic and lumbar spine normal to inspection Skin General skin exam: no rashes or lesions noted Trauma: no lacerations or abrasions Neuro General: patient alert, patient awake, oriented Patient Orientation: Person, Place and Confused and tone normal Cranial Nerves: CN's II-XI intact bilaterally Cognition: abnormal cognition Speech: abnormal speech slurred Motor: muscle tone normal throughout, strength 5/5 throughout, no pronator drift, no movement abnormalities noted and no fasciculations Coordination: [id number] test normal Extrem General: normal to inspection, capillary refill normal, no pedal edema, no calf tenderness and normal gait Psych Appearance: grossly normal and well kempt Mental Status: mental status grossly normal Speech and Movement: speech and movement normal
[2019-10-01 18:54] LABS: Abs Immature Grans 0.01 k/cumm (0.0-0.09); Absolute Basophil Count 0.02 k/cumm (0.0-0.2); Absolute Eosinophil Count 0.11 k/cumm (0.0-0.7); Absolute Lymphocyte Count 2.06 k/cumm (1.2-3.4); Absolute Monocyte Count 0.58 k/cumm (0.11-0.7); Absolute Neutrophil Count 3.07 k/cumm (1.2-6.7); Basophils % 0.3; Eosinophils % 1.9; HGB 12.8 g/dL (13.5-17.5); Immature Grans % 0.2 %; Lymphocytes % 35.2; Mean Corp. HGB Concentration 33.7 g/dL (32.0-36.0); Mean Corpuscular Hemoglobin 32.3 pg (27.0-33.0); Mean Platelet Volume 10.9 fL (8.0-11.0); Monocytes % 9.9; Neutrophils % 52.5; Platelet Count 143 x1000/uL (130-400); RBC 3.96 m/cumm (4.50-6.00); RBC Distribution Width 14.8 % (11.8-14.1); White Blood Cell Count 5.85 k/cumm (4.4-10.8)
[2019-10-01 19:02] LABS: INR 1.2 (0.9-1.1); Prothrombin Time 11.9 sec (9.3-11.0)
[2019-10-01 19:13] LABS: Bilirubin Negative (Negative); Blood Negative (Negative); Clarity Clear (Clear); Glucose Negative (Negative); Ketones Negative (Negative); Leukocyte Esterase Negative (Negative); Nitrite Negative (Negative); Urobilinogen 0.2 EU/dL (Up TO 0.2); pH 5.5 (5-8)
[2019-10-01] MEDS: Lactated Ringers 1,000 ML 500 ML IV (19:13)
[2019-10-01 19:18] LABS: ALT 17 U/L (16-63); AST 13 U/L (15-37); Albumin 3.6 g/dL (3.4-5.0); Alkaline Phosphatase 93 U/L (46-116); Anion Gap 8.5 mmol/L (3-11); BUN 31 mg/dL (7-18); Bilirubin, Total 0.6 mg/dL (0.2-1.0); CO2 26.5 mmol/L (21.0-32.0); CREATININE 1.63 mg/dL (0.70-1.30); Calcium 9.1 mg/dL (8.5-10.1); Chloride 102 mmol/L (98-107); Estimated GFR 40.81 (mL/min/1.73m2); Glucose 143 mg/dL (74-106); Potassium 4.1 mmol/L (3.5-5.1); Sodium 137 mmol/L (136-145); TSH (W/Ref FT4) 5.23 uIU/mL (0.36-3.74)
--- NOTE | 2019-10-01 19:49 | DI.CT_ITS ---
EXAM: CT HEAD - STROKE PROTOCOL CLINICAL HISTORY: altered, right sided weakness. TECHNIQUE: Imaging Protocol: Axial computed tomography images with coronal and sagittal reformatted images were created and reviewed COMPARISON: CT HEAD WITHOUT CONTRAST from 05/20/[address] HEAD CERVICAL SPINE WO from 05/16/2019 FINDINGS: Ventricles and Extra axial spaces: Normal in size and morphology for the patient's age. Hemorrhage: None. Cerebral parenchyma: Mild age-related atrophy. Midline shift: None. Brainstem/Cerebellum: Normal. Calvarium: Chronic sclerotic lesion superior right orbital rim unchanged from the previous exams.. Visualized Paranasal sinuses/Mastoids: Clear. Soft Tissues: Unremarkable. IMPRESSION: No acute intracranial process. RADIATION DOSE DELIVERED: 841.66mGy.cm Total DLP DATA REPOSITORY: All CT scans at this facility are submitted to the National Radiology Data Registry (NRDR) Dose Index Registry (DIR) with the [employer] (ACR). RADIATION OPTIMIZATION: All CT scans at this facility use at least one of these dose optimization te chniques: automated exposure control; mA and/or kV adjustment per patient size (includes targeted exa ms where dose is matched to clinical indication); or iterative reconstruction.
--- NOTE | 2019-10-01 19:55 | DI.RAD_ITS ---
EXAM: XR CHEST 2V PA LATERAL CLINICAL HISTORY: altered mentation TECHNIQUE: 2D digital imaging was performed. COMPARISON: CR XR CHEST 2V PA LATERAL from 09/16/2018 CR XR PORTABLE CHEST AP from 09/18/2018 FINDINGS: The lungs are not well inflated on either view. There is motion on the lateral view. Heart is enlar ged, unchanged. There are increased densities at both lung bases could represent atelectasis versus infiltrates. Severe degenerative changes are seen in the right shoulder. No thoracic compression fr actures or pneumothorax is seen. IMPRESSION: Limited exam. Bibasilar atelectasis versus infiltrates.
[2019-10-01 19:57] LABS: Troponin I 0.11 ng/Ml (<0.06)
--- NOTE | 2019-10-01 20:02 | DI.VRAD_ITS ---
Addendum created by Melvi Chandler MD on 10/01/2019 8:33:31 PM EDT A prior report is now available for comparison, May 16, 2019. No change in today's finding or impression based on the prior report. Initial report created on 10/01/2019 8:02:46 PM EDT PROCEDURE INFORMATION: Exam: CT Head Without Contrast Exam date and time: 10/01/2019 18:41 Age: 83 years old Clinical indication: Alteration of consciousness and weakness, extremity; Right TECHNIQUE: Imaging protocol: Computed tomography of the head without contrast. Radiation optimization: All CT scans at this facility use at least one of these dose optimization techniques: automated exposure control; mA and/or kV adjustment per patient size (includes targeted exams where dose is matched to clinical indication); or iterative reconstruction. Other technique: STROKE PROTOCOL was implemented. COMPARISON: No relevant prior studies available. FINDINGS: Brain: Moderate cerebral atrophy. Moderate cerebellar atrophy. Mild periventricular white matter hypodensity. Ventricles: No ventriculomegaly. Bones/joints: A mixed density right supraorbital/frontal calvarial lesion measuring approximately 13 mm, with a narrow zone of transition however slight erosion inner aspect of the right frontal outer table. Given the appearance this is probably a benign or indolent lesion however given the presence of erosion further workup may be necessary particularly if there is a history of known primary malignancy or other suspicious clinical finding. Much smaller lucency, left frontal calvarium appearance more suggestive of a benign incidental arachnoid granulation. No acute fracture in the calvarium. Sinuses: Minimal left ethmoid sinus mucosal thickening. No air-fluid levels. Mastoid air cells: No mastoid effusion. Orbits: Postsurgical changes in the globes. Soft tissues: No suspicious lesions. Vasculature: Atherosclerosis. IMPRESSION: No acute intracranial findings. Atrophy and small vessel ischemic changes. Nonurgent findings as above. ASSESSMENT: ASPECTS (Patricia Stroke Program Early CT Score) is 10 Dictated and Authenticated by: Melvi Chandler MD. Ordering:DENTON Wong MD
--- NOTE | 2019-10-01 20:03 | DI.VRAD_ITS ---
PROCEDURE INFORMATION: Exam: XR Chest, 2 Views Exam date and time: 10/01/2019 19:44 Age: 83 years old Clinical indication: Other: Altered mentation TECHNIQUE: Imaging protocol: XR of the chest Views: 2 views. COMPARISON: CR XR PORTABLE CHEST AP 09/18/2018 07:17 FINDINGS: Lungs: Low lung volumes. Probable minor atelectasis in the lung bases. No airspace consolidation. Pleural space: Trace pleural fluid is possible, laterality uncertain. No pneumothorax. Heart/Mediastinum: Stable mild cardiomegaly with mild vascular congestion. Bones/joints: Marked degenerative changes again seen in the right glenohumeral joint. No displaced fracture. IMPRESSION: 1. Stable mild cardiomegaly with mild vascular congestion. 2. Trace pleural fluid is possible, laterality uncertain. 3. Probable minor atelectasis in the lung bases. Dictated and Authenticated by: Melvi Chandler MD. Ordering:DENTON Wong MD
== END 2019-10-01 22:15 | disposition skilled nursing facility (03) ==
PROVIDERS: Student in an Organized Health Care Education/Training Program; Emergency Provider Physician Assistant; PCP Family Medicine
DX: R41.0 Disorientation, unspecified (principal); R47.81 Slurred speech; G83 Other paralytic syndromes; R94.31 Abnormal electrocardiogram [ECG] [EKG]; G30.9 Alzheimer's disease, unspecified; F02.80 Dementia in other diseases classified elsewhere, unspecified severity, without behavioral disturbance, psychotic disturbance, mood disturbance, and anxiety; I12.9 Hypertensive chronic kidney disease with stage 1 through stage 4 chronic kidney disease, or unspecified chronic kidney disease; N18.9 Chronic kidney disease, unspecified; E11.22 Type 2 diabetes mellitus with diabetic chronic kidney disease; Z79.84 Long term (current) use of oral hypoglycemic drugs
CPT/HCPCS: 36415; 36416; 80053; 82962; 93005; 96360; 96361; 99285; 70450; 71046; 81003; 84439; 84443; 84484; 85025; 85610; 93010

== ENCOUNTER 2019-10-08 16:05 | Outpatient (REF) | payer BC, MEDICARE, MEDICAID, SELFPAY ==
[2019-10-09 17:47] LABS: COVID-19 RT-PCR Result Not Detected ((See Note))
== END 2019-10-08 16:25 ==
LOC: LBN 16:05
PROVIDERS: PCP Family Medicine; Visit Provider Nurse Practitioner Adult Health
DX: Z11.59 Encounter for screening for other viral diseases (principal)
CPT/HCPCS: U0003

== ENCOUNTER 2019-12-04 11:44 | Emergency (ER) | payer MEDICARE, BC, MEDICAID, SELFPAY ==
[2019-12-04 11:48] VITALS: PULSE 79; RESP 14; TEMP 36.4; O2SAT 95
--- NOTE | 2019-12-04 11:58 | ED.GENADUL_ITS ---
Discharge Plan Disposition Patient Disposition: [facility] Condition: Stable Discharge Details Chief Complaint: GenMedical Clinical Impression: Penile edema, Bilateral lower extremity edema Primary Care Provider: Zander Mancini ED Provider: Jaky Martin Home Meds and New Rx's Prescriptions: No Action spironolactone 25 mg tablet 25 mg PO DAILY Qty: 90 RF: 4 diltiazem HCl 120 mg capsule,extended release 24hr 120 mg PO DAILY Qty: 90 RF: 4 (DME) blood-glucose meter [OneTouch UltraMini] 1 EACH kit 1 kit UD PRN RF: 0 (DME) OneTouch Ultra Test 1 EACH strip 1 strip Intradermal 2X/WEEK Qty: 100 RF: 4 (DME) lancets [IsowalkTouch Delica Lancets] 1 EACH misc 1 ea Intradermal 2X/WEEK Qty: 100 RF: 4 metformin 500 mg tablet 500 mg PO BID Qty: 180 RF: 3 torsemide 10 mg tablet 10 mg PO DAILY Qty: 90 RF: 4 levothyroxine 75 mcg capsule 75 mcg PO DAILY Qty: 90 RF: 4 Glucerna Liquid See Rx Instructions .ROUTE .COMPLEX Qty: 2133 RF: 4 escitalopram oxalate 5 mg tablet 5 mg PO HS RF: 0 aspirin [Aspir-81] 81 mg Tablet,Delayed Release (Dr/Ec) 81 mg PO DAILY RF: 0 apixaban 2.5 mg tablet 2.5 mg PO BID Qty: 60 RF: 4 loperamide 2 mg Capsule 2 mg PO QID PRNRF: 0 Medical Decision Making 1420 -- 84-year-old male with a history of Alzheimer's disease, CHF, atrial fibrillation on Eliquis, diabetes, hypertension hyperlipidemia presents for concern for painful and edematous penis and scrotum noticed 1 hour prior to arrival. There is a 2 x 4 cm area of edema noted on ventral distal aspect of shaft of penis but glands penis appears soft and foreskin is normal and does not appear to have any retracted circular ring. Concern would be for paraphimosis but clinical exam does not appear clinically consistent with this. He has significant lower extremity edema, 2+ pitting. Patient's daughter Tash Borrego is a nurse here as well and she evaluated at bedside and noted that this edema is significantly worse than when she saw him most recently 3 weeks ago. His abdomen is soft and nontender. Case discussed with [facility] urology who agreed that likely with patient's cl inical presentation, symptoms may be more consistent with edema rather than paraphimosis. Can possibly attempt manual reduction, however likely treatment would be to correct the edema. Will check screening labs and CT chest abdomen and pelvis. Labs reviewed. Normal white blood cell count. Troponin 0 0.10 which is his baseline for the last couple years. BNP slightly elevated to 6287. Urinalysis negative. CT abdomen and pelvis negative for acute findings. Discussed with patient's daughter Tash and patient's regarding be right lateral rib fractures of uncertain acuity and that this likely could be old. Case discussed with Dr. Palacios urology who agreed that likely this is due to dependent edema. 1700 --patient reassessed after Lasix -glans penis appears more edematous, foreskin still mobile but edematous portion on ventral aspect still present. Suspect could still be edema but concerned about possible paraphimosis. Dr. Palacios unable to come to the ED. Family agreeable with plan to transfer to [facility] for urology consult. 184 --patient accepted for transfer to [facility] ED for evaluation by urology. Accepting physician Dr. Parks. Also spoke with ED physician Dr. Callejas. Family also concerned about patient returning back to [facility] due to the significant lower extremity edema that they feel has been neglected at the [facility] and they were not notified about this. They do not want patient going back to [facility] if urology at [facility] clears him for discharge. Case discussed with Dr. Chavarria who will accept patient for admission if he returns from [facility]. Dr. De Oliveira was notified about this plan. This was also discussed with care management who will place referrals for other sites for placement. Dr. Chavarria had inquired about obtaining Doppler ultrasounds of bilateral lower extremities while at [facility]. This was discussed with [facility] and they do not have ultrasound capability this evening. Dr. Chavarria was notified about this. Medical Records Medical records reviewed: Yes I reviewed the patient's medical records. Imaging Data Radiologic Study: Radiologist's impression: CT Chest Without Contrast Exam date and time: 12/04/2019 1:48 PM Age: 84 years old Clinical indication: Other: Scrotal edema/le swelling/possible paraphimosis; Other: R/O acute chest/abd abnormality/chf TECHNIQUE: Imaging protocol: Computed tomography of the chest without contrast. Radiation optimization: All CT scans at this facility use at least one of these dose optimization techniques: automated exposure control; mA and/or kV adjustment per patient size (includes targeted exams where dose is matched to clinical indication); or iterative reconstruction. COMPARISON: CT CHEST/ABD/PEL WO 05/16/2019 4:08 PM FINDINGS: Mediastinum unremarkable. Minimal right pleural effusion. Mild bibasilar consolidation consistent with atelectasis. No evidence of pneumothorax. Irregularity to the right 8th and 9th lateral ribs not seen on the prior examination. The exact acuity is uncertain however given the history the possibility minimally displaced acute fractures could not be excluded. 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 IMPRESSION: 1. Right 8th and 9th lateral rib fractures of uncertain acuity. 2. Minimal right pleural effusion and bibasilar atelectasis. CT Abdomen And Pelvis Without Contrast Exam date and time: 12/04/2019 1:48 PM Age: 84 years old Clinical indication: Other: Scrotal edema/le swelling/possible paraphimosis; Other: R/O acute chest/abd abnormality/chf TECHNIQUE: Imaging protocol: Computed tomography of the abdomen and pelvis without contrast. Radiation optimization: All CT scans at this facility use at least one of these dose optimization techniques: automated exposure control; mA and/or kV adjustment per patient size (includes targeted exams where dose is matched to clinical indication); or iterative reconstruction. COMPARISON: CT CHEST/ABD/PEL WO 05/16/2019 4:08 PM FINDINGS: Liver, spleen, and kidneys intact. No definite abnormal fluid collections. Diverticulosis without evidence of diverticulitis. Prior laminectomy L4 through S1. Degenerative disc and facet disease of the lumbar spine. IMPRESSION: Incidental findings as described with no definite evidence of significant abdominal or pelvic trauma. Lab Data Lab results reviewed: Yes I reviewed the patient's lab results. ECG Data Attestation: I personally reviewed and interpreted this ECG (s) as follows: Interpretation: Rate of 59, sinus, right bundle branch block which appears new. HPI General Mode of arrival: ambulatory . Date/Time Provider Initiated Documentation: 12/04/19 11:57 . Limitations to Documentation: no limitations . Information obtained by: patient . HPI Narrative: Patient is a an 84-year-old male with a history of Alzheimer's disease, chronic CHF, chronic kidney disease, diabetes, frequent falls and atrial fibrillation on Eliquis who presents for swollen and painful penis noticed 1 hour prior to arrival by staff at [facility]. Patient is confused at baseline and states he was unsure if someone injured his penis while he was urinating. Patient is uncircumcised and it was reported that the head of the penis appeared edematous and possibly ecchymotic. Denies any recent falls. No reported fever. Related Data Home Medications Medication Instructions Recorded Confirmed blood-glucose meter [IsowalkTouch kit 07/24/12 12/04/19 UltraMini] OneTouch Ultra Test #100 strip 06/30/14 12/04/19 lancets [IsowalkTouch Delica Lancets] #100 ea 06/30/14 12/04/19 metformin 500 mg tablet 500 mg PO BID #180 tab-cap 08/03/18 12/04/19 torsemide 10 mg tablet 10 mg PO DAILY #90 tab-cap 10/16/18 12/04/19 apixaban 2.5 mg PO BID #60 tab 11/21/18 12/04/19 diltiazem HCl 120 mg 120 mg PO DAILY #90 cap 11/27/18 12/04/19 capsule,extended release 24 hr spironolactone 25 mg tablet 25 mg PO DAILY #90 tab 11/27/18 12/04/19 levothyroxine 75 mcg capsule 75 mcg PO DAILY #90 cap 01/19/19 12/04/19 escitalopram oxalate 5 mg PO HS 03/26/19 12/04/19 nut.tx.gluc.intol,lac-free,soy See Rx Instructions .ROUTE 05/27/19 12/04/19 .COMPLEX #2133 ml loperamide 2 mg PO QID PRN 10/01/19 12/04/19 aspirin [Aspir-81] 81 mg PO DAILY 12/04/19 12/04/19 Previous Rx's Medication Instructions Recorded metformin 500 mg tablet 500 mg PO BID #180 tab-cap 08/03/18 torsemide 10 mg tablet 10 mg PO DAILY #90 tab-cap 10/16/18 apixaban 2.5 mg PO BID #60 tab 11/21/18 diltiazem HCl 120 mg 120 mg PO DAILY #90 cap 11/27/18 capsule,extended release 24 hr spironolactone 25 mg tablet 25 mg PO DAILY #90 tab 11/27/18 levothyroxine 75 mcg capsule 75 mcg PO DAILY #90 cap 01/19/19 nut.tx.gluc.intol,lac-free,soy See Rx Instructions .ROUTE 05/27/19 .COMPLEX #2133 ml Allergies Allergy/AdvReac Type Severity Reaction Status Date / Time procaine [Procaine] Allergy Severe Anaphylaxsi Unverified 12/04/19 13:07 s thiopental [Thiopental] Allergy Severe Anaphylaxsi Unverified 12/04/19 13:07 s shellfish derived Allergy Intermediate Swelling/Ed Unverified 12/04/19 13:07 gerson Iodinated Contrast Media Allergy Unknown Swelling/Ed Unverified 12/04/19 13:07 [Iodinated Contrast- Oral gerson and IV Dye] nitroglycerin AdvReac Severe bottomed Unverified 12/04/19 13:07 out BP General Stated Complaint: GenMedical IRWIN: 3 Review of Systems All systems reviewed & are unremarkable except as noted in HPI and below Constitutional Constitutional: Reports as per HPI, Denies chills and Denies fever(s) Eyes Eyes: Denies blurry vision ENT Ears, Nose, Mouth, and Throat: Denies dizziness, Denies sore throat and Denies throat swelling Cardiovascular Cardiovascular: Denies chest pain and Denies dyspnea Respiratory Respiratory: Denies cough and Denies dyspnea Gastrointestinal Gastrointestinal: Denies abdominal pain, Denies diarrhea and Denies vomiting Genitourinary Genitourinary: Denies hematuria, Reports genital pain, Denies dysuria and Reports scrotal swelling Musculoskeletal Musculoskeletal: Denies back pain and Denies numbness Integumentary/Breasts Skin/Breast: Denies lesions and Denies rash Neurologic Neurologic: Denies dizziness, Denies localized weakness and Denies numbness Allergic/Immunologic Allergic/Immunologic: Denies throat swelling [facility] Family History (Updated 03/26/19 @ 11:20 by Radha Umana RN) Mother Diabetes Stroke Father Heart disease Colon cancer Sister Psoriasis Social History Smoking/Tobacco Use Status: Former Tobacco Use Alcohol Intake: never Drug use: Never Substance use type: does not use Current gender identity: male Sun/Samaritan: No preference Special sun needs: No Do you feel safe at home: Yes Do you feel safe in your relationship?: Yes Exam Const General: cooperative and no acute distress Orientation: alert and awake [facility] Head: normal to inspection Ears: hearing grossly normal bilaterally and external ears normal Eyes General: appearance normal, both eyes and all related structures Eyelids: eyelids normal Pupils: PERRL EOM: EOM intact bilaterally Neck Neck: normal visual inspection Lymphatic: no lymphadenopathy noted Chest Chest: normal inspection of the chest Resp Effort & Inspection: normal respiratory effort and able to speak in complete sentences Auscultation: clear to auscultation bilaterally Cardio Rate: regular rate Rhythm: regular rhythm GI Inspection: normal to inspection Palpation: soft, not firm, no guarding, no hepatosplenomegaly, no masses and nontender Auscultation: normal bowel sounds Male genitals images: 1. 4 x 2 cm area of boggy edema noted on ventral aspect of distal end of shaft of penis. Foreskin is mobile. Glans penis is soft without ecchymosis, induration, drainage, bleeding or lesions. Skin General skin exam: no rashes or lesions noted Neuro General: patient alert and patient awake Cognition: normal cognition Speech: speech normal Gait: normal gait Motor: muscle tone normal throughout Sensory Exam: no sensory deficits noted Extrem Other: Significant 2+ pitting edema bilateral lower extremities. Psych Appearance: grossly normal Mental Status: mental status grossly normal Speech and Movement: speech and movement normal Affect: normal affect Thought Process: normal Course Vital Signs Vital signs: Vital Signs Temperature 97.5 F L 12/04/19 11:48 Pulse 79 12/04/19 11:48 Respiratory Rate 14 12/04/19 11:48 Pulse Oximetry 95 12/04/19 11:48 Temperature 97.5 F L 12/04/19 11:48 Temperature Source Tympanic 12/04/19 11:48 Pulse 79 12/04/19 11:48 Respiratory Rate 14 12/04/19 11:48 Respiratory Effort Non-Labored 12/04/19 11:52 Blood Pressure Position Sitting 12/04/19 11:48 Pulse Oximetry 95 12/04/19 11:48 Oxygen Delivery Method Room Air 12/04/19 11:48 Oxygen Flow Rate 0 12/04/19 11:48 Pain Level 5 12/04/19 11:48
[2019-12-04 12:18] VITALS: RESP 16
[2019-12-04 12:32] LABS: Bilirubin Negative (Negative); Blood Negative (Negative); Clarity Clear (Clear); Glucose Negative (Negative); Ketones Negative (Negative); Leukocyte Esterase Negative (Negative); Nitrite Negative (Negative); Specific Gravity 1.015 (1.005-1.025); Urobilinogen 0.2 EU/dL (Up TO 0.2); pH 5.5 (5-8)
[2019-12-04 12:57] LABS: Absolute Basophil Count 0.01 k/cumm (0.0-0.2); Absolute Eosinophil Count 0.05 k/cumm (0.0-0.7); Absolute Monocyte Count 0.62 k/cumm (0.11-0.7); Absolute Neutrophil Count 3.75 k/cumm (1.2-6.7); Basophils % 0.2; Eosinophils % 0.8; HCT 39.8 % (40.0-50.0); HGB 13.1 g/dL (13.5-17.5); Lymphocytes % 25.3; Mean Corp. HGB Concentration 32.9 g/dL (32.0-36.0); Mean Corpuscular Hemoglobin 31.9 pg (27.0-33.0); Mean Corpuscular Volume 96.8 fL (80-95); Mean Platelet Volume 11.4 fL (8.0-11.0); Monocytes % 10.5; Neutrophils % 63.2; Platelet Count 137 x1000/uL (130-400); RBC 4.11 m/cumm (4.50-6.00); RBC Distribution Width 15.3 % (11.8-14.1); White Blood Cell Count 5.93 k/cumm (4.4-10.8)
[2019-12-04 13:13] LABS: INR 1.2 (0.9-1.1); PTT Activated 28.9 sec (21.0-31.4)
[2019-12-04 13:21] LABS: ALT 15 U/L (16-63); AST 16 U/L (15-37); Albumin 3.6 g/dL (3.4-5.0); Alkaline Phosphatase 107 U/L (46-116); Anion Gap 8.3 mmol/L (3-11); BUN 33 mg/dL (7-18); Bilirubin, Total 0.6 mg/dL (0.2-1.0); CO2 26.7 mmol/L (21.0-32.0); CREATININE 1.52 mg/dL (0.70-1.30); Calcium 9.1 mg/dL (8.5-10.1); Chloride 103 mmol/L (98-107); Estimated GFR 44.13 (mL/min/1.73m2); Glucose 92 mg/dL (74-106); Magnesium 2.3 mg/dL (1.8-2.4); NT-proBNP 6287 pg/mL (<300); Potassium 4.2 mmol/L (3.5-5.1); Sodium 138 mmol/L (136-145); Total Protein 7.3 g/dL (6.4-8.2)
--- NOTE | 2019-12-04 14:00 | DI.CT_ITS ---
EXAM: CT CHEST/ABD/PEL WO CLINICAL HISTORY: scrotal edema/LE swelling/possible paraphimosis. TECHNIQUE: Imaging Protocol: Axial computed tomography images with coronal and sagittal reformatted images were created and reviewed CONTRAST MATERIAL: Intravenous: Omnipaque 350 Contrast volume:structured data in ml Oral: yes / no COMPARISON: CT CT CHEST/ABD/PEL WO from 05/16/2019 FINDINGS: CHEST: The exam is limited by respiratory motion. There is a small right pleural effusion. There is mild bibasilar atelectasis. The heart is enlarged . The aorta is tortuous and shows atherosclerotic calcification. No focal consolidation is seen. T here is no evidence of compression fractures. There is no pneumothorax. There are subacute appearin g fractures of the right lateral 8th and 9th ribs. ABDOMEN: Exam is limited by motion. Liver: Normal density. No measurable mass. Gallbladder and biliary tract: No radiodense calculus or dilation. Pancreas: Normal density, no abnormal calcifications or inflammatory process. Spleen: Normal. Kidneys: Normal size, contour and axis. No radiodense stones or obstructive uropathy. No masses seen. Bilateral cysts. Adrenal glands: No masses seen. Aorta: Abdominal portion non-dilated. Heavily calcified. Lymph nodes: Within normal limits. PELVIS: Bladder: Symmetric distention, no gross wall thickening. Bowel: Not well evaluated due to motion and lack of oral and IV contrast. Severe diverticulosis is a gain noted. No obstruction or bowel wall thickening. Peritoneal cavity: No ascites, collection or mesenteric inflammatory response. Bones: Postsurgical and degenerative changes. Stable L4-5 spondylolisthesis. Reproductive organs: Enlarged prostate. Penile artery calcifications. Soft tissue swelling around t he penis and scrotum. No visible abscess or drainable collection. IMPRESSION: Limited exam due to motion. Small right pleural effusion. Soft tissue swelling around the penis and scrotum. No evidence normal gas collection or abscess. RADIATION DOSE DELIVERED: Total DLP DATA REPOSITORY: All CT scans at this facility are submitted to the National Radiology Data Registry (NRDR) Dose Index Registry (DIR) with the [employer] (A[employer]). RADIATION OPTIMIZATION: All CT scans at this facility use at least one of these dose optimization te chniques: automated exposure control; mA and/or kV adjustment per patient size (includes targeted exa ms where dose is matched to clinical indication); or iterative reconstruction.
[2019-12-04 14:16] VITALS: BP 114/59; PULSE 60; RESP 17; TEMP 37.2; O2SAT 96
[2019-12-04 14:58] LABS: TSH (W/Ref FT4) 2.31 uIU/mL (0.36-3.74)
--- NOTE | 2019-12-04 15:14 | DI.VRAD_ITS ---
PROCEDURE INFORMATION: Exam: CT Chest Without Contrast Exam date and time: 12/04/2019 1:48 PM Age: 84 years old Clinical indication: Other: Scrotal edema/le swelling/possible paraphimosis; Other: R/O acute chest/abd abnormality/chf TECHNIQUE: Imaging protocol: Computed tomography of the chest without contrast. Radiation optimization: All CT scans at this facility use at least one of these dose optimization techniques: automated exposure control; mA and/or kV adjustment per patient size (includes targeted exams where dose is matched to clinical indication); or iterative reconstruction. COMPARISON: CT CHEST/ABD/PEL WO 05/16/2019 4:08 PM FINDINGS: Mediastinum unremarkable. Minimal right pleural effusion. Mild bibasilar consolidation consistent with atelectasis. No evidence of pneumothorax. Irregularity to the right 8th and 9th lateral ribs not seen on the prior examination. The exact acuity is uncertain however given the history the possibility minimally displaced acute fractures could not be excluded. 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 IMPRESSION: 1. Right 8th and 9th lateral rib fractures of uncertain acuity. 2. Minimal right pleural effusion and bibasilar atelectasis. PROCEDURE INFORMATION: Exam: CT Abdomen And Pelvis Without Contrast Exam date and time: 12/04/2019 1:48 PM Age: 84 years old Clinical indication: Other: Scrotal edema/le swelling/possible paraphimosis; Other: R/O acute chest/abd abnormality/chf TECHNIQUE: Imaging protocol: Computed tomography of the abdomen and pelvis without contrast. Radiation optimization: All CT scans at this facility use at least one of these dose optimization techniques: automated exposure control; mA and/or kV adjustment per patient size (includes targeted exams where dose is matched to clinical indication); or iterative reconstruction. COMPARISON: CT CHEST/ABD/PEL WO 05/16/2019 4:08 PM FINDINGS: Liver, spleen, and kidneys intact. No definite abnormal fluid collections. Diverticulosis without evidence of diverticulitis. Prior laminectomy L4 through S1. Degenerative disc and facet disease of the lumbar spine. IMPRESSION: Incidental findings as described with no definite evidence of significant abdominal or pelvic trauma. Dictated and Authenticated by: Valeriano Wang MD. Ordering:JACKY Starkey MD
[2019-12-04] MEDS: Furosemide 40 MG/4 ML VIAL IVP (15:49)
[2019-12-04] MEDS: Acetaminophen 500 MG TAB (16:25)
--- NOTE | 2019-12-04 17:45 | RT.EKG_ITS ---
APPROVED REPORT Exam: Resting ECG Patient Location: E HR:59 bpm ECG Measurements Heart Rate 59 AXIS LA 177 P 124 QRSd 167 QRS -87 QT 508 T 18 QTc 504 <Conclusion> Sinus bradycardia...rate< 60 Right bundle branch block...QRSd>120, terminal axis(90,270) Inferior infarct, old...Q >35mS, II III aVF Right bundle branch block appears new. No acute ST elevation or depression.
[2019-12-04] MEDS: LORazepam 2 MG/ML VIAL 0.5 MG IVP (18:05)
[2019-12-04 18:13] VITALS: BP 123/63; PULSE 58; RESP 18; TEMP 36.4; O2SAT 96
[2019-12-04 20:15] VITALS: BP 110/63; PULSE 60; RESP 18; TEMP 36.2; O2SAT 96
== END 2019-12-04 20:15 | disposition short-term general hospital (02) ==
PROVIDERS: Emergency Provider Physician Assistant; PCP Family Medicine
DX: N48.89 Other specified disorders of penis (principal); R60.0 Localized edema; I12.9 Hypertensive chronic kidney disease with stage 1 through stage 4 chronic kidney disease, or unspecified chronic kidney disease; I50.9 Heart failure, unspecified; E11.22 Type 2 diabetes mellitus with diabetic chronic kidney disease; N18.9 Chronic kidney disease, unspecified; Z79.84 Long term (current) use of oral hypoglycemic drugs
CPT/HCPCS: 71250; 80053; 93005; 96374; 99285; 74176; 81003; 83735; 83880; 84443; 84484; 85025; 85610; 85730; 93010; J1940; J2060

== ENCOUNTER 2019-12-04 23:42 | Inpatient (IN) | payer MEDICARE, BC, MEDICAID, SELFPAY ==
[2019-12-05] VITALS (23 sets, daily range): BP systolic 97–144; BP diastolic 44–72; PULSE 53–78; RESP 9–21; TEMP 36.1–36.8; O2SAT 90–97
--- NOTE | 2019-12-05 | RT.EKG_ITS ---
APPROVED REPORT Exam: Resting ECG Patient Location: I HR:58 bpm ECG Measurements Heart Rate 58 AXIS WV [id number] P [id number] QRSd 163 QRS -87 QT 535 T 11 QTc 525 <Conclusion> Age and gender not entered, assume 52 yo male for purpose of ECG interpretation Atrial flutter with predominant 4:1 AV block...A-rate 230, multiple Ps Right bundle branch block...QRSd>120, terminal axis(90,270) Inferior infarct, old...Q >35mS, II III aVF I have reviewed and interpreted ECG and agree with software generated interpretation.
--- NOTE | 2019-12-05 04:31 | HPE_ITS ---
Date of service: 12/05/19 Time of Service: 04:32 Assessment and Plan Assessment and plan (1) Acute on chronic right-sided congestive heart failure: Status: Acute Assessment and plan: Diurese with lasix 40 mg IV BID, continue aldactone. Monitor I/Os, daily weights. Repeat echo on this admission. R/o DVT with venous dopplers of BLEs (2) Pulmonary hypertension: Status: Chronic Assessment and plan: Likely a big contributor to patient's edema. Sleep study should be considered if never done previously. Diurese and monitor volume status. Repeat echo. (3) Paraphimosis: Status: Resolved Assessment and plan: [place] [facility] follow up will be needed for this. alf/family/nursing should be educated to always return the foreskin to the orthotopic position/need to retract it after manipulation. (4) Atrial fibrillation: Status: Chronic Assessment and plan: Continue diltiazem, eliquis Qualifiers: Atrial fibrillation type: persistent Qualified Code(s): I48.1 - Persistent atrial fibrillation (5) Non-insulin dependent type 2 diabetes mellitus: Status: Chronic Assessment and plan: Hold metformin. Cover with SSI (6) DVT prophylaxis: Status: Acute Assessment and plan: On therapeutic eliquis (7) Discharge planning issues: Status: Acute Assessment and plan: Full code. Family does not want Mr Borrego to return to [facility] - care management to address disposition. History of Present Illness History of Present Illness Chief Complaint: penile swelling, leg swelling Narrative: Mr Borrego is an 84 year old male with PMHx of HFpEF (EF 50-55% per echo in 2019) due to hypertrophic cardiomyopathy, pulmonary hypertension, atrial fibrillation on eliquis, NIDDM2, and Alzheimer's dementia, who was taken to [facility] ED on 12/04/[facility] with penile swelling. Additionally, he was noted to have BLE edema, worse than baseline, and an elevated proBNP at 6287 (normally closer to 2000). His troponin was elevated at 0.10, which is the patient's baseline. There were no acute ischemic changes on his EKG. He was given IV lasix and referred for an emergent urology evaluation at [facility], where urology reduced his paraphimosis, after which the patient felt much better and was sent back to our facility. The patient arrived back at [facility] at around 4 am and has just finally fallen asleep - I did not wake him up for an interview. Per nursing, he was alert and interactive before finally falling asleep. Patient's family does not want him to return to [facility] at this time and would like to plan for alternative placement. Review of Systems Narrative: Not obtained - patient asleep [facility] Family History (Updated 03/26/19 @ 11:20 by Radha Umana RN) Mother Diabetes Stroke Father Heart disease Colon cancer Sister Psoriasis Social History Smoking/Tobacco Use Status: Former Tobacco Use Alcohol Intake: never Drug use: Never Substance use type: does not use Current gender identity: male Sun/Congregational: No preference Special sun needs: No Do you feel safe at home: Yes Do you feel safe in your relationship?: Yes Meds Home Medications and Allergies Home Medications Medication Instructions Recorded Confirmed Type blood-glucose meter [GalazarTouch kit 07/24/12 12/05/19 History UltraMini] OneTouch Ultra Test #100 strip 06/30/14 12/05/19 History lancets [OneTouch Delica Lancets] #100 ea 06/30/14 12/05/19 History metformin 500 mg tablet 500 mg PO BID #180 tab-cap 08/03/18 12/05/19 Rx torsemide 10 mg tablet 10 mg PO DAILY #90 tab-cap 10/16/18 12/05/19 Rx apixaban 2.5 mg PO BID #60 tab 11/21/18 12/05/19 Rx spironolactone 25 mg tablet 25 mg PO DAILY #90 tab 11/27/18 12/05/19 Rx levothyroxine 75 mcg capsule 75 mcg PO DAILY #90 cap 01/19/19 12/05/19 Rx escitalopram oxalate 5 mg PO HS 03/26/19 12/05/19 History loperamide 2 mg PO QID PRN 10/01/19 12/05/19 History aspirin [Aspir-81] 81 mg PO DAILY 12/04/19 12/05/19 History acetaminophen 650 mg PO Q4H PRN PRN 12/05/19 12/05/19 History bisacodyl [Dulcolax (bisacodyl)] 10 mg MO DAILY PRN PRN 12/05/19 12/05/19 History diltiazem HCl 120 mg PO DAILY 12/05/19 12/05/19 History magnesium hydroxide [Milk of 400 mg PO DAILY PRN 12/05/19 12/05/19 History Magnesia] torsemide 10 mg PO Q72H PRN 12/05/19 12/05/19 History Allergies Allergy/AdvReac Type Severity Reaction Status Date / Time procaine [Procaine] Allergy Severe Anaphylaxsi Unverified 12/05/19 02:33 s thiopental [Thiopental] Allergy Severe Anaphylaxsi Unverified 12/05/19 02:33 s shellfish derived Allergy Intermediate Swelling/Ed Unverified 12/05/19 02:33 gerson Iodinated Contrast Media Allergy Unknown Swelling/Ed Unverified 12/05/19 02:33 [Iodinated Contrast- Oral gerson and IV Dye] nitroglycerin AdvReac Severe bottomed Unverified 12/05/19 02:33 out BP Exam Narrative Exam Narrative: General: Elderly male, asleep in bed, appears comfortable Neurological: Asleep Psychiatric: Asleep Skin: chronic venous stasis dermatitis of BLEs HEENT: Atraumatic, normocephalic, eyes closed, MMM, no goiter or JVD Cardiovascular: RRR, no m/r/g Lungs: Diminished breath sounds B Gastrointestinal: soft, nontender, nondistended Genitourinary: deferred as asleep Extremities: 2+ BLE pitting edema with some wrinkling, chronic venous stasis de rmatitis Results Imaging Additional studies: CT chest/abdomen/pelvis 12/04/2019: 1. Right 8th and 9th lateral rib fractures of uncertain acuity. 2. Minimal right pleural effusion and bibasilar atelectasis. Diverticulosis without evidence of diverticulitis. Prior laminectomy L4 through S1. Degenerative disc and facet disease of the lumbar spine. No definite evidence of significant abdominal or pelvic trauma. EKG: Aflutter, RBBB (new), HR 59, no acute ischemia Labs Result diagrams: 12/05/19 05:35 12/05/19 05:35 COVID-19 Screening Have you,or household,traveled outside [place] in last 14 days?: No
--- NOTE | 2019-12-05 05:00 | DI.US_ITS ---
APPROVED REPORT Exam: Resting ECG Patient Location: I HR:58 bpm ECG Measurements Heart Rate 58 AXIS AK [id number] P [id number] QRSd 163 QRS -87 QT 535 T 11 QTc 525 <Conclusion> Age and gender not entered, assume 52 yo male for purpose of ECG interpretation Atrial flutter with predominant 4:1 AV block...A-rate 230, multiple Ps Right bundle branch block...QRSd>120, terminal axis(90,270) Inferior infarct, old...Q >35mS, II III aVF
--- NOTE | 2019-12-05 05:38 | NUR.NOTE ---
pt swabbed for COVID 19 and sent to lab.
[2019-12-05] MEDS: Levothyroxine 75 MCG TAB PO (06:13)
[2019-12-05 07:04] LABS: Abs Immature Grans 0.01 k/cumm (0.0-0.09); Absolute Basophil Count 0.02 k/cumm (0.0-0.2); Absolute Eosinophil Count 0.06 k/cumm (0.0-0.7); Absolute Lymphocyte Count 1.34 k/cumm (1.2-3.4); Absolute Monocyte Count 0.49 k/cumm (0.11-0.7); Absolute Neutrophil Count 3.15 k/cumm (1.2-6.7); Basophils % 0.4; Eosinophils % 1.2; HCT 35.9 % (40.0-50.0); Immature Grans % 0.2 %; Lymphocytes % 26.4; Mean Corp. HGB Concentration 33.4 g/dL (32.0-36.0); Mean Corpuscular Hemoglobin 32.3 pg (27.0-33.0); Mean Corpuscular Volume 96.8 fL (80-95); Mean Platelet Volume 11.6 fL (8.0-11.0); Monocytes % 9.7; Neutrophils % 62.1; Platelet Count 123 x1000/uL (130-400); RBC 3.71 m/cumm (4.50-6.00); RBC Distribution Width 15.2 % (11.8-14.1); White Blood Cell Count 5.07 k/cumm (4.4-10.8)
[2019-12-05 07:10] LABS: BUN 35 mg/dL (7-18); CREATININE 1.49 mg/dL (0.70-1.30); Chloride 105 mmol/L (98-107); Estimated GFR 45.15 (mL/min/1.73m2); Glucose 106 mg/dL (74-106); Magnesium 2.1 mg/dL (1.8-2.4); Potassium 3.9 mmol/L (3.5-5.1); Sodium 140 mmol/L (136-145)
[2019-12-05 07:11] LABS: Hemoglobin A1C 6.8 % (3.8-5.6)
[2019-12-05 07:24] LABS: Calculated LDL 90 mg/dL (<100); Cholesterol 128 mg/dL (<200); HDL Cholesterol 33 mg/dL (40-60); TSH 2.71 uIU/mL (0.36-3.74); Triglyceride 29 mg/dL (<150)
[2019-12-05 07:28] LABS: Troponin I 0.14 ng/mL (<0.06)
--- NOTE | 2019-12-05 08:16 | PDOC.CMIN ---
- If Service Date Differs Date of service: 12/05/19 Time of Service: 08:16 Care Management Initial Assess REASON FOR HOSPITALIZATION:: Congestive heart failure. PAST MEDICAL HISTORY/PAST SURGICAL HISTORY:: Medical History: Actinic keratosis (Resolved), Acute on chronic diastolic (congestive) heart failure, Ambulatory dysfunction (Chronic), Ataxia (Chronic), Atrial fibrillation (Chronic), Cataracts, bilateral (Resolved 10/24/15) Status post cataract surgery, Cellulitis (Inactive), 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),. Decubitus ulcer of left buttock, stage 2 (Resolved 07/18/17), Depressive disorder (Chronic), Elevated troponin (Resolved), Essential hypertension, benign (Chronic 12/01/14), Falls frequently (Chronic 07/11/16), Fatigue (Chronic), Hyperlipidemia (Chronic), Hypothyroidism (Chronic), Mild cognitive impairment (Chronic), 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), Non-neoplastic nevus (Resolved), Osteoarthritis (Chronic),. Pneumonia (Resolved), Rosacea (Chronic), Spinal stenosis (Chronic), surgery, Toxic metabolic encephalopathy (Resolved), Ulcerative colitis (Inactive), Urinary incontinence (Chronic), and Visual disturbance (Inactive). Surgical History: Appendectomy, Carpal tunnel syndrome of right wrist (Chronic) ECTR: 04/07/2019, Colonoscopy - [place]18/12[place] [facility]URTHER TESTING NEEDED, History of appendectomy (Resolved), History of cataract surgery (Chronic) Bilaterally, History of oral surgery (Acute) tooth extraction, History of tonsillectomy (Chronic), and Status post laminectomy (Chronic). PREVIOUS FUNCTIONAL STATUS/SOCIAL/FAMILY SUPPORTS:: Juan Pablo is an 84 year old male who has been living at the [facility] for the past few months. He is and his , Mel, resides in [place]. Juan Pablo has 3 daughters, 2 of whom live locally. The family does not want Juan Pablo to return to the [facility] and [facility] and wish to find an alternative placement for him. YISEL speaks with Mel on the telephone today to offer assistance in exploring available placements. CURRENT FUNCTIONAL STATUS:: Juan Pablo is asleep when YISEL comes to meet with him. YISEL chooses to let him sleep as he did not get much sleep last evening due to going [place] [facility] [place]. CM will continue to follow. ADVANCE DIRECTIVES:: [facility] on file. AD also on file, Rut Hess is healthcare agent and Tash Borrego alternate agent. Has patient been provided with info about the portal/API?: Yes Did the patient sign up for the portal?: Yes (Previously enrolled) CODE STATUS:: Full Code INSURANCE COVERAGE / FINANCIAL ISSUES:: BCBS, Medicare, Medicaid, and Financial Asst 70 CURRENT HOME/COMMUNITY SERVICES/EQUIPMENT:: Juan Pablo has a FWW. No home/community services. PRIMARY CARE PHYSICIAN:: Zander Mancini MD POTENTIAL DISCHARGE NEEDS:: Follow-up appointment with PCP and new SNF placement PATIENT/FAMILY EDUCATION NEEDS:: Discharge instructions, limitations, follow-up plan of care, including Ask Me Three and self-management. ANTICIPATED BARRIERS TO DISCHARGE:: None anticipated at this time. TRANSPORTATION:: Via private vehicle with family. PLAN:: Anticipate Juan Pablo will be discharged when medically cleared by provider. Juan Pablo's family does not want him to return to [facility]. The family is currently searching for a different placement. CM will assist with placement and will continue to support patient, family, and discharge planning needs.
[2019-12-05] MEDS: Furosemide 40 MG/4 ML VIAL IVP ×2 (08:35→16:43)
[2019-12-05] MEDS: Apixaban 2.5 MG TAB PO ×2 (08:36→19:31)
[2019-12-05] MEDS: Acetaminophen 325 MG TAB PO ×2 (08:36→23:04)
[2019-12-05] MEDS: dilTIAZem CD 120 MG CAPCR PO (08:36)
[2019-12-05] MEDS: Spironolactone 25 MG TAB PO (08:36)
[2019-12-05] MEDS: Aspirin E.C. 81 MG TABEC PO (08:37)
[2019-12-05] MEDS: Normal Saline Flush 10 ML SYR IVP ×2 (08:37→16:43)
--- NOTE | 2019-12-05 08:50 | W.PM.PROGNOT ---
Date of Service Date of service: 12/05/19 Time of Service: 08:51 Assessment and Plan Assessment and plan (1) Acute on chronic right-sided congestive heart failure: Status: Acute Assessment and plan: AndDiuretics as ordered by Dr. Chavarria. Check an echocardiogram in the morning. His duplex of his legs was performed this morning is pending at this time the fact he is chronically on apixaban it is unlikely that he has a DVT. (2) Pulmonary hypertension: Status: Chronic Assessment and plan: I agree with Dr. Chavarria's assessment that a sleep study should be performed if this is not already been done so. Otherwise continue diuretics until is euvolemic. Check an echocardiogram to reevaluate LV and RV function. We will get an overnight pulse oximetry to document a nocturnal desaturation. (3) Paraphimosis: Status: Resolved Assessment and plan: Per urology at [facility], no follow up will be needed for this. correction/family/nursing should be educated to always return the foreskin to the orthotopic position/need to retract it after manipulation. (4) Atrial fibrillation: Status: Chronic Assessment and plan: Continue diltiazem, eliquis Qualifiers: Atrial fibrillation type: persistent Qualified Code(s): I48.1 - Persistent atrial fibrillation (5) Non-insulin dependent type 2 diabetes mellitus: Status: Chronic Assessment and plan: Hold metformin. Cover with SSI (6) DVT prophylaxis: Status: Acute Assessment and plan: On therapeutic eliquis (7) Discharge planning issues: Status: Acute Assessment and plan: Full code. Family does not want Mr Borrego to return to [facility] - care management to address disposition. Subjective Subjective Interval history since last seen: 84-year-old male with a history of heart failure with preserved ejection fraction (last echocardiogram from 2019 demonstrated LVEF 50-55%), hypertrophic cardiomyopathy, Alzheimer's dementia, chronic atrial fibrillation/atrial flutter, pulmonary pretension, type 2 diabetes mellitus who was brought to emergency department from [facility] because of increasing bilateral leg edema and penile edema with a paraphimosis. Patient was transferred to the ED at [facility] with urology reduce the paraphimosis. He was sent back to [facility] for reevaluation of his heart failure and was subsequently admitted early this morning. Patient has elevated proBNP of 6200 and a troponin of 0.10 with a repeat level of 0.14. Patient had no acute ischemic changes on his EKG and had no chest pain. Patient historically has had a history of chronically mildly elevated troponin levels. He also has chronic renal insufficiency. His BUN was elevated [address] Chavarria admitted the patient start him on IV Lasix and put him on his routine medications including his diltiazem CD and apixaban for his A. fib and his levothyroxine for his hypothyroidism and Spironolactone along with the IV Lasix for his heart failure. Echocardiogram is been ordered for tomorrow. Venous duplex scan was ordered and completed this morning results are pending. Patient denies any chest pain or pressure he has a dry nonproductive cough. He is not dyspneic. He is sitting up in bed eating his breakfast. He is incontinent of urine. Exam Narrative Exam Narrative: Elderly male sitting up in bed in semi-sotelo position eating his breakfast. He is alert oriented to person and knows he is in the hospital but otherwise is not oriented. Lungs with bibasilar rales Heart irregular irregular thigh could detect a soft systolic murmur at the apex but was difficult to discern over the noise from the room fan that is on because he still being ruled out for COVID-19. There is no palpable thrill. Abdomen is nontender nondistended. Lower extremities with 2+ pitting edema. Penis and foreskin are slightly edematous but the foreskin retracts over the head and shaft of the penis easily. No rash and no evidence for yeast. Skin over his feet and ankles show dry scaly skin. Objective Objective Clinical Data: Abnormal lab results 12/05/19 12/05/19 12/05/19 Range/Units 06:15 06:15 06:15 RBC 3.71 L (4.50-6.00) m/cumm Hgb 12.0 L (13.5-17.5) g/dL Hct 35.9 L (40.0-50.0) % MCV 96.8 H (80-95) fL RDW 15.2 H (11.8-14.1) % Plt Count 123 L (130-400) x1000/uL MPV 11.6 H (8.0-11.0) fL BUN 35 H (7-18) mg/dL Creatinine 1.49 H (0.70-1.30) mg/dL Hemoglobin A1c (3.8-5.6) % Troponin I 0.14 H* (<0.06) ng/mL HDL Cholesterol 33 L (40-60) mg/dL 12/05/19 Range/Units 06:15 RBC (4.50-6.00) m/cumm Hgb (13.5-17.5) g/dL Hct (40.0-50.0) % MCV (80-95) fL RDW (11.8-14.1) % Plt Count (130-400) x1000/uL MPV (8.0-11.0) fL BUN (7-18) mg/dL Creatinine (0.70-1.30) mg/dL Hemoglobin A1c 6.8 H (3.8-5.6) % Troponin I (<0.06) ng/mL HDL Cholesterol (40-60) mg/dL Vital Signs Temperature 36.1 C L 12/05/19 07:30 Temperature Source Temporal Artery Scan 12/05/19 07:30 Pulse 58 L 12/05/19 07:30 Pulse 67 12/05/19 07:30 Respiratory Rate 12 12/05/19 07:30 Respiratory Effort 12/05/19 07:30 Respiratory Depth Normal 12/05/19 07:30 Respiratory Pattern Normal 12/05/19 07:30 Blood Pressure 115/55 L 12/05/19 07:30 Blood Pressure Mean 69 12/05/19 07:30 Blood Pressure Position Supine 12/05/19 07:30 Pulse Oximetry 97 12/05/19 07:30 Oxygen Delivery Method Room Air 12/05/19 07:30 Oxygen Flow Rate 0 12/05/19 07:30 Pain Level 0 12/05/19 07:30 Intake & Output 12/04/19 12/04/19 12/05/19 11:59 23:59 11:59 Weight 83.8 kg Other: Urine Odor None Comment brief wet at this time; meatal and la care; foreskin retracted, cleaned and returned to cover penile head Voiding Methods Incontinent Laboratory Results WBC 5.07 k/cumm (4.4-10.8) 12/05/19 06:15 RBC 3.71 m/cumm (4.50-6.00) L 12/05/19 06:15 Hgb 12.0 g/dL (13.5-17.5) L 12/05/19 06:15 Hct 35.9 % (40.0-50.0) L 12/05/19 06:15 MCV 96.8 fL (80-95) H 12/05/19 06:15 MCH 32.3 pg (27.0-33.0) 12/05/19 06:15 MCHC 33.4 g/dL (32.0-36.0) 12/05/19 06:15 RDW 15.2 % (11.8-14.1) H 12/05/19 06:15 Plt Count 123 x1000/uL (130-400) L 12/05/19 06:15 MPV 11.6 fL (8.0-11.0) H 12/05/19 06:15 Immature Gran % 0.2 % 12/05/19 06:15 Neutrophils % 62.1 12/05/19 06:15 Lymphocytes % 26.4 12/05/19 06:15 Monocytes % 9.7 12/05/19 06:15 Eosinophils % 1.2 12/05/19 06:15 Basophils % 0.4 12/05/19 06:15 Absolute Neutrophils 3.15 k/cumm (1.2-6.7) 12/05/19 06:15 Absolute Lymphocytes 1.34 k/cumm (1.2-3.4) 12/05/19 06:15 Absolute Monocytes 0.49 k/cumm (0.11-0.7) 12/05/19 06:15 Absolute Eosinophils 0.06 k/cumm (0.0-0.7) 12/05/19 06:15 Absolute Basophils 0.02 k/cumm (0.0-0.2) 12/05/19 06:15 Sodium 140 mmol/L (136-145) 12/05/19 06:15 Potassium 3.9 mmol/L (3.5-5.1) 12/05/19 06:15 Chloride 105 mmol/L (98-107) 12/05/19 06:15 Carbon Dioxide 29.0 mmol/L (21.0-32.0) 12/05/19 06:15 Anion Gap 6.0 mmol/L (3-11) 12/05/19 06:15 BUN 35 mg/dL (7-18) H 12/05/19 06:15 Creatinine 1.49 mg/dL (0.70-1.30) H 12/05/19 06:15 Estimated GFR/1.73 m2 45.15 (mL/min/1.73m2) 12/05/19 06:15 Glucose 106 mg/dL (74-106) 12/05/19 06:15 Hemoglobin A1c 6.8 % (3.8-5.6) H 12/05/19 06:15 Calcium 9.0 mg/dL (8.5-10.1) 12/05/19 06:15 Magnesium 2.1 mg/dL (1.8-2.4) 12/05/19 06:15 Troponin I 0.14 ng/mL (<0.06) H* 12/05/19 06:15 Triglycerides 29 mg/dL (<150) 12/05/19 06:15 Total Cholesterol 128 mg/dL (<200) 12/05/19 06:15 LDL Cholesterol, Calc 90 mg/dL (<100) 12/05/19 06:15 HDL Cholesterol 33 mg/dL (40-60) L 12/05/19 06:15 TSH 2.71 uIU/mL (0.36-3.74) 12/05/19 06:15
--- NOTE | 2019-12-05 10:10 | IN_ITS ---
Date of service: 12/05/19 Time of Service: 09:40 PT Notes Visit Reasons: Congestive heart failure Inpatient Physical Therapy Evaluation Date: December 05, 2019 Referring Doctor:Dania Chavarria MD PT Orders: PT CONSULT: Limited ability Precautions: Fall precautions, COVID-19 test pending Patient Profile/Admitting Diagnosis: Patient arrives to [facility] emergency room on December 04, 2019 [facility] secondary to penile swelling with bilateral lower extremity edema. Following his ER visit he was seen by urology at [facility] to address his paraphimosis which has resolved. Came back to the ICU at 4 in the morning on 04 December. PMHX: PAST MEDICAL HISTORY/PAST SURGICAL HISTORY:: Medical History: Actinic keratosis (Resolved), Acute on chronic diastolic (congestive) heart failure, Ambulatory dysfunction (Chronic), Ataxia (Chronic), Atrial fibrillation (Chronic), Cataracts, bilateral (Resolved 10/24/15) Status post cataract surgery, Cellulitis (Inactive), 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),. Decubitus ulcer of left buttock, stage 2 (Resolved 07/18/17), Depressive disorder (Chronic), Elevated troponin (Resolved), Essential hypertension, benign (Chronic 12/01/14), Falls frequently (Chronic 07/11/16), Fatigue (Chronic), Hyperlipidemia (Chronic), Hypothyroidism (Chronic), Mild cognitive impairment (Chronic), 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), Non-neoplastic nevus (Resolved), Osteoarthritis (Chronic),. Pneumonia (Resolved), Rosacea (Chronic), Spinal stenosis (Chronic), surgery, Toxic metabolic encephalopathy (Resolved), Ulcerative colitis (Inactive), Urinary incontinence (Chronic), and Visual disturbance (Inactive). Surgical History: Appendectomy, Carpal tunnel syndrome of right wrist (Chronic) ECTR: 04/07/2019, Colonoscopy - IV Sedation (11/18/12[place] [facility] [place]URTHER TESTING NEEDED, History of appendectomy (Resolved), History of cataract surgery (Chronic) Bilaterally, History of oral surgery (Acute) tooth extraction, History of tonsillectomy (Chronic), and Status post laminectomy (Chronic). Social History/Home Situation: [facility]. Current Functional Limitations: Impaired bed mobility, transfer capability, ambulation, balance, self-care ADLs Equipment Owned/DME: Front wheeled walker and utilizes a wheelchair for mobility purposes in [facility] facility Subjective: Patient is agreeable to consult. Upon entering the room he is getting cleaned up with nursing. Admits no significant pain other than some right shoulder soreness which she has chronic rotator cuff tear. Objective: General Observation: On telemetry, IV port in right antecubital fossa. Pitting edema throughout bilateral lower extremities. Mental Status: Alert and orientated to person and place but not time ROM: Right Upper Extremity: Glenohumeral joint flexion and abduction 40 degrees with pain active assisted 80 degrees. Elbow flexion 110 degrees, extension lacks 10 degrees. Left Upper Extremity: Glenohumeral joint flexion 110 degrees active 125 active assisted, abduction 80 degrees, 90 active assisted. Elbow flexion and extension within normal limits. Right Lower Extremity: Patient performs heel slide to 75 degrees of hip flexion, active assisted 85 degrees. He is able to sit bedside assuming 90 degrees of hip flexion. Knee flexion 85 degrees active, 100 active assisted extension -5 degrees. Ankle dorsiflexion limited to 0 degrees, plantar flexion 25 degrees. Left Lower Extremity: Patient performs heel slide to 65 degrees of hip flexion, active assisted to 80 degrees. He is able to sit bedside assuming 90 degrees of hip flexion. Knee flexion 90 degrees active 105 active assisted. Ankle dorsiflexion to 0 degrees, plantarflexion 25 degrees. 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 Good combat rifle crewmember Right Lower Extremity: Patient perform straight leg raise with 0 degree lag. Hip flexion 4-/5, hip abduction 3+/5, plantar and dorsiflexion 4-/5. Hamstring 4-/5 Left Lower Extremity: Perform straight leg raise with 0 degree lag. Hip flexion 4-/5, hip abduction 3+/5, plantar and dorsiflexion 4-/5. Hamstring 4-/5 Sensation: Decreased sensation stocking distribution bilateral lower extremities Bed Mobility/Transfers: Supine?sit: Head of bed 50 degrees mod assist x2 Sit?stand: Mod assist x2 to front wheeled walker Stand?sit: Mod assist x1 from front wheeled walker Sit?supine: Mod assist x2 Gait: No formal gait performed from a distance standpoint. He did maintain static standing at front wheeled walker with contact-guard x1 for 2 minutes. Did some sidestepping 3 feet to his left to achieve proper sit position for transfer to supine in hospital bed. Balance: Static Sitting: Fair Dynamic Sitting: Fair Static Standing: Poor Dynamic Standing: Poor Special Tests: Mobility Limitations Standardized Measure [facility]-PAC 6 clicks Basic Mobility Inpatient Short Form: Raw Score: 10 standardized Score: 32.29 CMS Score: 76.75 CMS Modifier: CL Informed Consent/Education: Patient instructed in purpose of PT consult and plan of care. Assessment: Patient is a 84 year old male referred to physical therapy services with the diagnosis of paraphimosis and bilateral lower extremity edema. Patient presents with clinical signs and symptoms consistent with above diagnosis, as demonstrated by the following impairment level findings: Motor function, muscle performance, range of motion and strength. Impairments are contributing to the following functional limitations: AMPAC score. Patient gives good effort with verbal cues and follows verbal commands for hand placement but does require reminding for proper hand positioning during transfers. Patient is assessed as a [] Low 00026 X Moderate 15106 [] High 91874 complexity based on the following: History: See above Examination: See above Presentation: Evolving Decision Making:-[facility] 76.75% Goals: Goals X1 week 1. Supine-Sit: Min assist x1 2. Sit-Supine: Min assist x1 3. Sit-Stand: Contact-guard x1 to front wheeled walker 4. Stand-Sit: Contact-guard x1 from wheeled walker 5. Bed-Chair: Contact-guard x1 with front wheeled walker 6. Chair-Bed: Contact-guard x1 with front wheeled walker 7. Gait: 50 feet with front wheeled walker with contact-guard x1 Plan of Care/Treatment Plan: 1-2x/day, 7 days/week x 1 week. Plan of care has been reviewed with the FILLING AND PACKING SUPERVISOR providing the service under Physical Therapy direction. Initiate Physical Therapy intervention for strengthening, bed mobility, transfers, gait, stairs, balance training, use of assistive device. DISCHARGE RECOMMENDATIONS: Return to [facility] and rehab with utili zation of PT services to promote further functional mobility training and lower extremity strengthening and gait training TREATMENT CODE/TIME: 38971; 30 minutes direct one-to-one care 9 40-10 10 Thank you for this referral Ludwig Mcguire PT, DPT Disclaimer: This note was created using [employer] voice recognition software. It was reviewed for major content. However, there may be multiple small di screpancies and errors due to the voice recognition aspects of the software.
--- NOTE | 2019-12-05 11:09 | PHA.REVIEW ---
Pharmacy Admission Review - Admission Clinical Review (Last Updated 12/05/19 @ 05:36 by Dania Chavarria MD) Discharge planning issues (Acute) DVT prophylaxis (Acute) Acute on chronic right-sided congestive heart failure (Acute) procaine [Procaine] Allergy (Severe, Unverified 12/05/19 02:33) Anaphylaxsis thiopental [Thiopental] Allergy (Severe, Unverified 12/05/19 02:33) Anaphylaxsis shellfish derived Allergy (Intermediate, Unverified 12/05/19 02:33) Swelling/Edema Iodinated Contrast Media [Iodinated Contrast- Oral and IV Dye] Allergy (Unknown, Unverified 12/05/19 02:33) Swelling/Edema nitroglycerin Adverse Reaction (Severe, Unverified 12/05/19 02:33) bottomed out BP Height 5 ft 9 in Weight 83.8 kg - Renal Dosing Renal Dosing: BUN 35 mg/dL (7-18) H 12/05/19 06:15 Creatinine 1.49 mg/dL (0.70-1.30) H 12/05/19 06:15 Medications needing adjustments: Reviewed (crcl ~38ml/min) - Anticoagulation Anticoagulation: Hgb 12.0 g/dL (13.5-17.5) L 12/05/19 06:15 Hct 35.9 % (40.0-50.0) L 12/05/19 06:15 Plt Count 123 x1000/uL (130-400) L 12/05/19 06:15 Creatinine 1.49 mg/dL (0.70-1.30) H 12/05/19 06:15 DVT Prohphylaxis: Reviewed Medications: Apixaban Therapeutic Anticoagulation: Reviewed Medications: Apixaban - Relevant Labs Sodium 140 mmol/L (136-145) 12/05/19 06:15 Potassium 3.9 mmol/L (3.5-5.1) 12/05/19 06:15 Chloride 105 mmol/L (98-107) 12/05/19 06:15 Magnesium 2.1 mg/dL (1.8-2.4) 12/05/19 06:15 Electrolytes, C-Reactive P, ESR: Reviewed - DM Control DM Control: Glucose 106 mg/dL (74-106) 12/05/19 06:15 Hemoglobin A1c 6.8 % (3.8-5.6) H 12/05/19 06:15 Finger Stick Blood Glucose 112 Insulin Dosing: Reviewed (insulin aspart SS) - Heart Failure/KS Heart Failure/KS: Troponin I 0.14 ng/mL (<0.06) H* 12/05/19 06:15 EF%, MARY's, B-Blockers, Diuretics: Reviewed (spronolactone, furosemide,diltiazem) - BP Control BP Control: Blood Pressure [Left Arm] 119/57 Blood Pressure 112/66 Blood Pressure 115/55 Blood Pressure 101/48 Blood Pressure 97/45 Blood Pressure 105/44 Blood Pressure 105/46 - Qtc Review If Elevated: N/A - IV to PO Switch IV Medications: Reviewed (iv furosemide) - Home Meds Home Med List reviewed: Reviewed (metformin, torsemide not ordered) - Comments Comments/Follow Ups: from [facility], has chronic elevated troponin. ruling out DVT
[2019-12-05] MEDS: Nystatin POWDER 15 GM JAR TP ×2 (11:30→19:34)
[2019-12-05] MEDS: Insulin Aspart 300 UNITS/3 ML PEN SC ×3 (12:04→22:27)
[2019-12-05 12:49] LABS: COVID-19 RT-PCR UVMMC Result Negative (Negative)
[2019-12-05] MEDS: Docusate Sodium 100 MG CAP PO (16:43)
[2019-12-05] MEDS: Escitalopram 10 MG TAB 5 MG PO (22:27)
--- NOTE | 2019-12-05 22:32 | NUR.NOTE ---
Nursing Note: 21:11: Pt is transferred from ICU to Room No:208 Med Surg unit at this time.
[2019-12-06 03:25] VITALS: BP 137/75; PULSE 58; RESP 18; TEMP 35.9; O2SAT 97
[2019-12-06] MEDS: Levothyroxine 75 MCG TAB PO (05:32)
[2019-12-06 07:21] LABS: Anion Gap 5.5 mmol/L (3-11); BUN 38 mg/dL (7-18); CO2 31.5 mmol/L (21.0-32.0); CREATININE 1.63 mg/dL (0.70-1.30); Calcium 8.8 mg/dL (8.5-10.1); Chloride 101 mmol/L (98-107); Estimated GFR 40.71 (mL/min/1.73m2); Glucose 123 mg/dL (74-106); NT-proBNP 5812 pg/mL (<300); Potassium 3.8 mmol/L (3.5-5.1); Sodium 138 mmol/L (136-145)
[2019-12-06 07:22] LABS: Troponin I 0.11 ng/mL (<0.06)
[2019-12-06 07:46] VITALS: BP 136/71; PULSE 59; RESP 19; TEMP 36.9; O2SAT 98
--- NOTE | 2019-12-06 08:00 | DI.US_ITS ---
APPROVED REPORT EXAM: Comprehensive 2D, Doppler, and color-flow Echocardiogram Patient Location: In-Patient Room/Bed: 208 Meal Room Hand: Ileana Rice RDCS (AE) Other Information Study Quality: Adequate Conclusion Severe concentric left ventricular hypertrophy with estimated ejection fraction of 50 to 55%. 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 There is mild aortic regurgitation Mitral valve is structurally normal. Mild mitral regurgitation Structurally normal tricuspid valve, trace regurgitation Pulmonic valve is structurally normal, moderate regurgitation The ascending aorta is dilated measuring 4.02 cm Wall motion Left Ventricle The left ventricle is grossly normal size. Left ventricular systolic function is borderline. Severe c oncentric left ventricular hypertrophy. Regional wall motion is grossly normal. There is no ventricul ar septal defect visualized. LVEF is 50%-55% Right Ventricle The right ventricle is normal size. The right ventricular systolic function is normal. The RVSP is 21 .0 mmHg. Atria Left atrium is mildly dilated. Right atrium is mildly dilated. Atrial septal aneurysm is present. Aortic Valve Aortic valve is trileaflet. There is no aortic valvular stenosis. Mild aortic regurgitation. Mitral Valve The mitral valve is normal in structure. No evidence of mitral valve stenosis. Mild mitral regurgitat ion. Tricuspid Valve The tricuspid valve is normal in structure. There is no tricuspid valve stenosis. Trace tricuspid reg urgitation. Pulmonic Valve The pulmonary valve is normal in structure. There is no pulmonic valvular stenosis. Moderate pulmonic regurgitation. Great Vessels The aortic root is normal in size. The ascending aorta is dilated. 4.02 cm Aortic arch is not well vi sualized. Pericardium There is no pericardial effusion. 2D Dimensions IVSD d PLAX 1.75 cm M: 0.6-1.2 LV Vol A2C d MOD 116.1 mL LVPW d PLAX 1.75 cm M: 0.6 - 1.2 LV Vol A4C d MOD 132.2 mL LVID d PLAX 3.95 cm M: 4.2 - 5.8 LA vol/ BSA A2C s A-L 32.4 mL/m2 LVDs 3.25 cm M: 2.5 - 4.0 LA vol/ BSA A4C s A-L 37.3 mL/m2 Ao Root d 3.20 cm M: 3.1 - 3.7 LA Vol/ BSA Biplane s A-L 35.3 mL/m2 RA Area A4C 20.08 cm2 LA Area A4C s MOD 23.48 cm2 RA Vol/ BSA A4C s A-L 29.8 mL/m2 LA Area A2C s MOD 21.58 cm2 Ao Asc Diam d 4.02 cm M: 2.6 - 3.4 LV EF A4C MOD 46.2 % LV EF Teichholz 37.1 % LV EF A2C MOD 45.3 % LVEF (Quezada's) 45.25 % M: 52 - 72 LV EF Biplane MOD 45.2 % LV Volume 93.35 mL M: 62 - 150 SV 56.26 mL LV Volume Index 46.90 mL/m2 M: 34 - 74 SV Index 28.22 mL/m2 LV Vol Biplane MOD 124.3 mL FS 17.50 % M-Mode TAPSE 1.37 cm (M/F) >1.7 LV Diastology MV E' medial 0.046 (>0.07 m/s) MV E Vmax 0.69 (0.4-1.3 m/s) LV E/e MED 15.10 (<14) MV E' lateral 0.068 (>0.1 m/s) LV E/e LAT 10.20 (<14) MV E/E' medial 15.13 MV E/E' lateral 10.21 Aortic Valve LVOT Area 3.56 cm2 AoV Area Vmax 2.59 cm2 LVOT Vmax 0.81 m/s AoV Area/ BSA (Vmax) 1.30 cm2/m2 LVOT Mean Roney. 0.60 m/s CASSIDY Mean Roney. 2.62 cm2 LVOT Peak Grad 2.6 mmHg CASSIDY Mean Roney. Index 1.32 cm2/m2 LVOT Mean Grad 1.6 mmHg AR DT 3392 msec LVOT VTI 0.142 m AR PHT 984 msec LVOT Diam s 2.10 cm AoV Vmax 1.12 m/s Velocity Ratio 0.72 AoV Mean Roney. 0.82 m/s AoV Peak Grad 5.0 mmHg LVOT SV 50.66 mL AoV Mean Grad 3.0 mmHg AoV VTI 0.227 m AoV Area VTI 2.23 cm2 AoV Area/ BSA (VTI) 1.12 cm/m2 Mitral Valve MV DT 174 (160-240 msec) MV PHT 50 msec MV Area PHT 4.36 cm2 Pulmonary Valve PV Vmax 0.93 (0.5-1.5 m/s) RVOT Peak Gr. 2.49 mmHg PV Peak Grad 3.5 mmHg RVOT Mean Gr. 1.15 mmHg PV Mean Grad 1.9 mmHg RVOT VTI 0.141 m PV VTI 0.177 m RVOT Vmax 0.79 m/s Tricuspid Valve TR Peak Grad 17.9 mmHg TR Vmax 2.12 m/s RA Pressure 3.00 mmHg RVSP (TR) 21.0 mmHg
[2019-12-06] MEDS: Furosemide 40 MG/4 ML VIAL IVP (08:18)
[2019-12-06] MEDS: dilTIAZem CD 120 MG CAPCR PO (08:18)
[2019-12-06] MEDS: Apixaban 2.5 MG TAB PO ×2 (08:18→19:31)
[2019-12-06] MEDS: Spironolactone 25 MG TAB PO (08:18)
[2019-12-06] MEDS: Nystatin POWDER 15 GM JAR TP ×2 (08:18→19:33)
[2019-12-06] MEDS: Aspirin E.C. 81 MG TABEC PO (08:18)
[2019-12-06] MEDS: Normal Saline Flush 10 ML SYR IVP (08:18)
--- NOTE | 2019-12-06 08:59 | W.PM.PROGNOT ---
Date of Service Date of service: 12/06/19 Time of Service: 09:00 Assessment and Plan Assessment and plan (1) Acute on chronic right-sided congestive heart failure: Status: Acute Assessment and plan: Venous duplex scan apparently was not done yesterday despite the icon showing up in the results section of his diagnostic tab. His EKG interpretation was attached to the venous duplex study. As for his CHF, his edema is considerably down today. His BNP remains high however, but his lungs are clear today and his weight is down 7 kg to 75 kg from 83.8 kg. I am going to dc his iv lasix and resume his torsemide but increase his dose to 20 mg daily. If he continues to do well, he can be transferred to a SNF tomorrow. However, family has indicated that they do not want him to go back to [facility]. CM will discuss this w/ the family. (2) Pulmonary hypertension: Status: Chronic Assessment and plan: I agree with Dr. Chavarria's assessment that a sleep study should be performed if this is not already been done so. Otherwise continue diuretics until is euvolemic. Check an echocardiogram to reevaluate LV and RV function. We will get an overnight pulse oximetry to document a nocturnal desaturation. (3) Paraphimosis: Status: Resolved Assessment and plan: [place] [facility] [place] follow up will be needed for this. USP/family/nursing should be educated to always return the foreskin to the orthotopic position/need to retract it after manipulation. (4) Atrial fibrillation: Status: Chronic Assessment and plan: Patient remains in SR to SB w/ PVC's. Has one pause up to 2 seconds overnight. Continue diltiazem, eliquis. Qualifiers: Atrial fibrillation type: persistent Qualified Code(s): I48.1 - Persistent atrial fibrillation (5) Non-insulin dependent type 2 diabetes mellitus: Status: Chronic Assessment and plan: blood glucose well controlled w/ FBS 121 and all otheres from 120's to 148. continue to hold metformin. Cover with SSI (6) DVT prophylaxis: Status: Acute Assessment and plan: On therapeutic eliquis (7) Discharge planning issues: Status: Acute Assessment and plan: Full code. Family does not want Mr Borrego to return to [facility] - care management to address disposition. Subjective Subjective Interval history since last seen: Patient denies any dyspnea or chest discomfort. No penile discomfort. His edema has gone down remarkably. No abdominal discomfort. Exam Narrative Exam Narrative: Elderly male sitting up in his chair with his legs elevated. He is alert and seems to be oriented to person and place although at times he gets lost his train of thought when he tries to answer my questions. He did correctly recognize me and call me by my last name without any prompting or reading of my name tag. Lungs are clear to auscultation. Heart is regular with frequent ectopic beats and there is a grade 3/6 systolic murmur over the apex Abdomen soft and nontender and nondistended with normal active bowel sounds. Penis is nonedematous and foreskin retracts easily Objective Objective Clinical Data: Abnormal lab results 12/06/19 Range/Units 06:15 BUN 38 H (7-18) mg/dL Creatinine 1.63 H (0.70-1.30) mg/dL Glucose 123 H (74-106) mg/dL Troponin I 0.11 H* (<0.06) ng/mL NT-Pro-B Natriuret Pep 5812 H (<300) pg/mL Vital Signs Temperature 36.9 C 12/06/19 07:46 Temperature Source Tympanic 12/06/19 07:46 Pulse 59 L 12/06/19 07:46 Pulse Rhythm Irregular 12/05/19 22:35 Pulse 68 12/05/19 16:03 Respiratory Rate 19 12/06/19 07:46 Respiratory Effort Non-Labored 12/05/19 22:35 Respiratory Depth Normal 12/05/19 22:35 Respiratory Pattern Normal 12/05/19 22:35 Blood Pressure 136/71 12/06/19 07:46 Blood Pressure Mean 77 12/05/19 16:03 Blood Pressure Position Supine 12/05/19 07:30 Pulse Oximetry 98 12/06/19 07:46 Oxygen Delivery Method Room Air 12/06/19 07:46 Oxygen Flow Rate 0 12/06/19 07:46 Pain Level 0 12/06/19 07:46 Comment 12/05/19 11:52 Intake & Output 12/05/19 12/05/19 12/06/19 11:59 23:59 11:59 Intake Total 370 / 710 340 / 710 Output Total 450 / 900 450 / 900 250 / 250 Balance -80 / -190 -110 / -190 -250 / -250 Weight 83.8 kg 75 kg Intake: IV Oral 350 / 690 340 / 690 Output: Urine 450 / 900 450 / 900 250 / 250 Other: Urine Color Pale Pale Yellow Urine Appearance Clear Clear Clear Urine Odor None None Comment incontint; meatal and la care; foreskin retracted, cleaned and returned to cover penile head Large incontinent diaper changed at this time. Large incontinent diaper changed at this time. Stool Size Moderate Stool Characteristics Soft Formed Voiding Methods Urinal Incontinent Urinal Laboratory Results WBC 5.07 k/cumm (4.4-10.8) 12/05/19 06:15 RBC 3.71 m/cumm (4.50-6.00) L 12/05/19 06:15 Hgb 12.0 g/dL (13.5-17.5) L 12/05/19 06:15 Hct 35.9 % (40.0-50.0) L 12/05/19 06:15 MCV 96.8 fL (80-95) H 12/05/19 06:15 MCH 32.3 pg (27.0-33.0) 12/05/19 06:15 MCHC 33.4 g/dL (32.0-36.0) 12/05/19 06:15 RDW 15.2 % (11.8-14.1) H 12/05/19 06:15 Plt Count 123 x1000/uL (130-400) L 12/05/19 06:15 MPV 11.6 fL (8.0-11.0) H 12/05/19 06:15 Immature Gran % 0.2 % 12/05/19 06:15 Neutrophils % 62.1 12/05/19 06:15 Lymphocytes % 26.4 12/05/19 06:15 Monocytes % 9.7 12/05/19 06:15 Eosinophils % 1.2 12/05/19 06:15 Basophils % 0.4 12/05/19 06:15 Absolute Neutrophils 3.15 k/cumm (1.2-6.7) 12/05/19 06:15 Absolute Lymphocytes 1.34 k/cumm (1.2-3.4) 12/05/19 06:15 Absolute Monocytes 0.49 k/cumm (0.11-0.7) 12/05/19 06:15 Absolute Eosinophils 0.06 k/cumm (0.0-0.7) 12/05/19 06:15 Absolute Basophils 0.02 k/cumm (0.0-0.2) 12/05/19 06:15 Sodium 138 mmol/L (136-145) 12/06/19 06:15 Potassium 3.8 mmol/L (3.5-5.1) 12/06/19 06:15 Chloride 101 mmol/L (98-107) 12/06/19 06:15 Carbon Dioxide 31.5 mmol/L (21.0-32.0) 12/06/19 06:15 Anion Gap 5.5 mmol/L (3-11) 12/06/19 06:15 BUN 38 mg/dL (7-18) H 12/06/19 06:15 Creatinine 1.63 mg/dL (0.70-1.30) H 12/06/19 06:15 Estimated GFR/1.73 m2 40.71 (mL/min/1.73m2) 12/06/19 06:15 Glucose 123 mg/dL (74-106) H 12/06/19 06:15 Hemoglobin A1c 6.8 % (3.8-5.6) H 12/05/19 06:15 Calcium 8.8 mg/dL (8.5-10.1) 12/06/19 06:15 Magnesium 2.1 mg/dL (1.8-2.4) 12/05/19 06:15 Troponin I 0.11 ng/mL (<0.06) H* 12/06/19 06:15 NT-Pro-B Natriuret Pep 5812 pg/mL (<300) H 12/06/19 06:15 Triglycerides 29 mg/dL (<150) 12/05/19 06:15 Total Cholesterol 128 mg/dL (<200) 12/05/19 06:15 LDL Cholesterol, Calc 90 mg/dL (<100) 12/05/19 06:15 HDL Cholesterol 33 mg/dL (40-60) L 12/05/19 06:15 TSH 2.71 uIU/mL (0.36-3.74) 12/05/19 06:15 COVID-19 PCR Negative (Negative) 12/05/19 04:30 Nasopharyn COVID-19 PCR Not Applicable 12/05/19 04:30 Ref Test Perform Site [facility] 12/05/19 04:30
--- NOTE | 2019-12-06 09:27 | CMPROGNOTE_ITS ---
- If Service Date Differs Date of service: 12/06/19 Time of Service: 09:27 Care Management Progress Note S/O:Per report, upon admission, Juan Pablo's family shared that they are not happy with the care he is receiving at [facility] and would prefer that he not go back there. YISEL met with his Mel this afternoon and discussed her concerns. She shared that she does not feel that her is being managed well medically and that his needs are not always being met. CM provided Mel with contact information for area SNFs in both [place] and [place]. Mel admitted that she realized that he may have to return to [facility] in the short term but that she would like to initiate the process for transfer to another facility. A:P Juan Pablo is an 84 year old man admitted on 12/04/19 with CHF P:Juan Pablo was transferred to [facility] from [facility]. He will likely return when medically cleared and transport via the facility's W/C van. CM will continue to support patient, family and assess for discharge planning needs.
--- NOTE | 2019-12-06 10:00 | DI.US_ITS ---
EXAM: US EXTREMITY VENOUS BI CLINICAL HISTORY: BLE EDEMA. TECHNIQUE: Bilateral lower extremity venous ultrasound performed using grayscale, color-flow, and sp ectral Doppler analysis. COMPARISON: No exams were available for comparison FINDINGS: The bilateral common femoral, femoral and popliteal veins demonstrate normal compressibility, augment ation, and color Doppler. The posterior tibial veins are patent. IMPRESSION: Right: Negative for DVT Left: Negative for DVT DATA REPOSITORY:
--- NOTE | 2019-12-06 10:59 | DM INPTCON_ITS ---
Date of service: 12/06/19 Time of Service: 10:59 Diabetes Inpatient Consult DESCRIPTION/ASSESSMENT: 84 year old male, resident of SNF with CHF, HTN, NIDDM and Alzheimer's Disease. BMI wnl. Following Diabetic Diet with regular texture with good acceptance. Estimated Needs: 5903-5312 kcal, 75-85 g protein. Currently meeting nutrient and fluid needs by mouth. Recent A1C: 6.8% indicates good glycemic control in last 3 months, finger sticks in house ranging from 121- 144 mg/dl. SNF meds include metformin 500 mg BID. Current medication for diabetic control adequate at this time. INTERVENTION: Diabetic education not appropriate due to confusion of patient and diabetic management done by SNF staff. PLAN: continue current meal plan continue current home meds for diabetic control Time Spent in Nutritional Counseling and Treatment: 0 time spent face to face
[2019-12-06 11:20] VITALS: BP 126/75; PULSE 60; RESP 19; TEMP 36.6; O2SAT 98
--- NOTE | 2019-12-06 14:19 | PT.INTREAT ---
Date of service: 12/06/19 Time of Service: 13:00 PT Notes Visit Reasons: Congestive heart failure Inpatient Physical Therapy Treatment Note [facility] Date: 12/06/2019 SUBJECTIVE: Pt is somewhat confused today. He begins to tell me something but loses track easily and begins to ramble. He wants to know a plan or should he just go lie down on the hospice bed. OBJECTIVE: [] BED MOBILITY/TRANSFERS Sit-stand: CGA Stand-sit: CGA GAIT Assistive Device: FWW Weight bearing: FWB Assist: CGA Distance: 6' in am and 200' in pm THEREX: global LE strengthening in both seated and supine positions. See flowsheet for details. ASSESSMENT: no LOB noted during ambulation today. He did need reminders and tactile cues to help steer his walker. C/o his penis hurting frequently t/o both am and pm sessions. PLAN: continue to progress following PT POC. TREATMENT CODE/TIME: 25 min in am and 25 min in pm. [id number], [id number].
[2019-12-06 15:10] VITALS: BP 108/62; PULSE 59; RESP 17; TEMP 37.1; O2SAT 95
[2019-12-06] MEDS: Insulin Aspart 300 UNITS/3 ML PEN SC ×2 (16:52→21:22)
[2019-12-06 18:55] VITALS: BP 113/69; PULSE 60; RESP 18; TEMP 36; O2SAT 98
[2019-12-06] MEDS: Acetaminophen 325 MG TAB PO (19:31)
[2019-12-06] MEDS: Escitalopram 10 MG TAB 5 MG PO (21:22)
[2019-12-06 22:55] VITALS: BP 112/65; PULSE 55; RESP 17; TEMP 36.4; O2SAT 99
[2019-12-07] MEDS: Acetaminophen 325 MG TAB PO (03:26)
[2019-12-07 03:27] VITALS: BP 104/65; PULSE 58; RESP 16; TEMP 36.6; O2SAT 98
[2019-12-07] MEDS: Levothyroxine 75 MCG TAB PO (05:55)
[2019-12-07 06:57] LABS: Anion Gap 8.5 mmol/L (3-11); BUN 43 mg/dL (7-18); CO2 29.5 mmol/L (21.0-32.0); CREATININE 1.63 mg/dL (0.70-1.30); Calcium 9.1 mg/dL (8.5-10.1); Chloride 99 mmol/L (98-107); Estimated GFR 40.71 (mL/min/1.73m2); Glucose 162 mg/dL (74-106); NT-proBNP 4851 pg/mL (<300); Potassium 4.1 mmol/L (3.5-5.1); Sodium 137 mmol/L (136-145)
[2019-12-07 07:41] VITALS: BP 133/73; PULSE 59; RESP 17; TEMP 36.4; O2SAT 98
[2019-12-07] MEDS: Nystatin POWDER 15 GM JAR TP (07:47)
[2019-12-07] MEDS: dilTIAZem CD 120 MG CAPCR PO (07:47)
[2019-12-07] MEDS: Aspirin E.C. 81 MG TABEC PO (07:47)
[2019-12-07] MEDS: Spironolactone 25 MG TAB PO (07:47)
[2019-12-07] MEDS: Insulin Aspart 300 UNITS/3 ML PEN SC (07:47)
[2019-12-07] MEDS: Torsemide 20 MG TAB PO (07:47)
[2019-12-07] MEDS: Apixaban 2.5 MG TAB PO (07:47)
--- NOTE | 2019-12-07 09:06 | PGE_ITS ---
Date of Service Date of service: 12/07/19 Time of Service: 09:06 Assessment and Plan Assessment and plan (1) Acute on chronic right-sided congestive heart failure: Status: Acute Assessment and plan: stable. tolerating increased torsemide dose of 20 mg daily. Venous duplex scan negative for DVT bilaterally. (2) Pulmonary hypertension: Status: Chronic Assessment and plan: overnight oximetry study last night. continue diuretics until is euvolemic. Check an echocardiogram to reevaluate LV and RV function. sleep study outpatient (3) Paraphimosis: Status: Resolved Assessment and plan: [place] [facility] [place] be needed for this. FDC/family/nursing should be educated to always return the foreskin to the orthotopic position/need to retract it after manipulation. (4) Atrial fibrillation: Status: Chronic Assessment and plan: Patient remains in SR to SB w/ PVC's. Continue diltiazem, eliquis. Qualifiers: Atrial fibrillation type: persistent Qualified Code(s): I48.1 - Persistent atrial fibrillation (5) Non-insulin dependent type 2 diabetes mellitus: Status: Chronic Assessment and plan: blood glucose well controlled . continue to hold metformin. Cover with SSI (6) DVT prophylaxis: Status: Acute Assessment and plan: On therapeutic eliquis (7) Discharge planning issues: Status: Acute Assessment and plan: Full code. Family does not want Mr Borrego to return to [facility] - care management to address disposition. Objective Objective Clinical Data: Abnormal lab results 12/07/19 Range/Units 06:08 BUN 43 H (7-18) mg/dL Creatinine 1.63 H (0.70-1.30) mg/dL Glucose 162 H (74-106) mg/dL NT-Pro-B Natriuret Pep 4851 H (<300) pg/mL Vital Signs Temperature 36.4 C L 12/07/19 07:41 Temperature Source Tympanic 12/07/19 07:41 Pulse 59 L 12/07/19 07:41 Pulse Rhythm Irregular 12/07/19 08:57 Pulse 68 12/05/19 16:03 Respiratory Rate 17 12/07/19 07:41 Respiratory Effort Non-Labored 12/07/19 08:57 Respiratory Depth Normal 12/07/19 08:57 Respiratory Pattern Normal 12/07/19 08:57 Blood Pressure 133/73 12/07/19 07:41 Blood Pressure Mean 77 12/05/19 16:03 Blood Pressure Position Supine 12/05/19 07:30 Pulse Oximetry 98 12/07/19 07:41 Oxygen Delivery Method Room Air 12/07/19 07:41 Oxygen Flow Rate 0 12/07/19 07:41 Pain Level 2 12/07/19 07:41 Comment 12/05/19 11:52 Intake & Output 12/06/19 12/06/19 12/07/19 11:59 23:59 11:59 Intake Total 250 / 750 500 / 750 240 / 240 Output Total 250 / 750 500 / 750 150 / 150 Balance 0 / 0 0 / 0 90 / 90 Weight 75 kg 75.381 kg 75.9 kg Intake: Oral 250 / 750 500 / 750 240 / 240 Output: Urine 250 / 750 500 / 750 150 / 150 Other: Urine Color Yellow Yellow Yellow Urine Appearance Clear Clear Clear Urine Odor Normal Normal Comment Large incontinent diaper changed at this time. Stool Size Moderate Stool Characteristics Soft Brown Voiding Methods Toilet Urinal Diaper Diaper Incontinent Laboratory Results WBC 5.07 k/cumm (4.4-10.8) 12/05/19 06:15 RBC 3.71 m/cumm (4.50-6.00) L 12/05/19 06:15 Hgb 12.0 g/dL (13.5-17.5) L 12/05/19 06:15 Hct 35.9 % (40.0-50.0) L 12/05/19 06:15 MCV 96.8 fL (80-95) H 12/05/19 06:15 MCH 32.3 pg (27.0-33.0) 12/05/19 06:15 MCHC 33.4 g/dL (32.0-36.0) 12/05/19 06:15 RDW 15.2 % (11.8-14.1) H 12/05/19 06:15 Plt Count 123 x1000/uL (130-400) L 12/05/19 06:15 MPV 11.6 fL (8.0-11.0) H 12/05/19 06:15 Immature Gran % 0.2 % 12/05/19 06:15 Neutrophils % 62.1 12/05/19 06:15 Lymphocytes % 26.4 12/05/19 06:15 Monocytes % 9.7 12/05/19 06:15 Eosinophils % 1.2 12/05/19 06:15 Basophils % 0.4 12/05/19 06:15 Absolute Neutrophils 3.15 k/cumm (1.2-6.7) 12/05/19 06:15 Absolute Lymphocytes 1.34 k/cumm (1.2-3.4) 12/05/19 06:15 Absolute Monocytes 0.49 k/cumm (0.11-0.7) 12/05/19 06:15 Absolute Eosinophils 0.06 k/cumm (0.0-0.7) 12/05/19 06:15 Absolute Basophils 0.02 k/cumm (0.0-0.2) 12/05/19 06:15 Sodium 137 mmol/L (136-145) 12/07/19 06:08 Potassium 4.1 mmol/L (3.5-5.1) 12/07/19 06:08 Chloride 99 mmol/L (98-107) 12/07/19 06:08 Carbon Dioxide 29.5 mmol/L (21.0-32.0) 12/07/19 06:08 Anion Gap 8.5 mmol/L (3-11) 12/07/19 06:08 BUN 43 mg/dL (7-18) H 12/07/19 06:08 Creatinine 1.63 mg/dL (0.70-1.30) H 12/07/19 06:08 Estimated GFR/1.73 m2 40.71 (mL/min/1.73m2) 12/07/19 06:08 Glucose 162 mg/dL (74-106) H 12/07/19 06:08 Hemoglobin A1c 6.8 % (3.8-5.6) H 12/05/19 06:15 Calcium 9.1 mg/dL (8.5-10.1) 12/07/19 06:08 Magnesium 2.1 mg/dL (1.8-2.4) 12/05/19 06:15 Troponin I 0.11 ng/mL (<0.06) H* 12/06/19 06:15 NT-Pro-B Natriuret Pep 4851 pg/mL (<300) H 12/07/19 06:08 Triglycerides 29 mg/dL (<150) 12/05/19 06:15 Total Cholesterol 128 mg/dL (<200) 12/05/19 06:15 LDL Cholesterol, Calc 90 mg/dL (<100) 12/05/19 06:15 HDL Cholesterol 33 mg/dL (40-60) L 12/05/19 06:15 TSH 2.71 uIU/mL (0.36-3.74) 12/05/19 06:15 COVID-19 PCR Negative (Negative) 12/05/19 04:30 Nasopharyn COVID-19 PCR Not Applicable 12/05/19 04:30 Ref Test Perform Site [facility] 12/05/19 04:30
--- NOTE | 2019-12-07 10:01 | CMDISCH_ITS ---
- If Service Date Differs Date of service: 12/07/19 Time of Service: 10:01 LACE Index Scoring Tool - Questions: Length of Stay (in days): 3 Acuity (Admit via E.D.?): Yes Comorbidities: Congestive Heart Failure E.D. Visits: 2 - Answers: Total Score: 10 Risk of Readmission: High Risk Care Management Discharge Reason for Hospitalization: Congestive heart failure. Discharge Plan: Juan Pablo [facility] at this time. He will be discharged to skilled level of care for PT related to weakness and recent illness. CM will asssist in cooridnation of SNF. CM met with both Juan Pablo and his Mel and reviewed plan. Wheelchair van to pick him up at time of discharge. Patient/Family Education Needs: Discharge education, limitations and follow up plan of care, review of benefits and reviewed plan for discharge. Services Needed at Discharge: Senior Care Facility, Transportation
--- NOTE | 2019-12-07 10:29 | PT.INTREAT ---
Date of service: 12/07/19 Time of Service: 10:29 PT Notes Visit Reasons: Congestive heart failure Inpatient Physical Therapy Treatment Note [facility] Date: 12/07/19 PRECAUTIONS: Fall SUBJECTIVE: Juan Pablo is agreeable to participate in PT this morning. He reports that he needs extra time to perform tasks. OBJECTIVE: PAIN: No c/o pain BED MOBILITY/TRANSFERS Sit-stand: Min A Stand-sit: CGA GAIT Assistive Device: FWW Weight bearing: Full Assist: CGA-SBA Distance: 350' Deviation: Slow pace, path deviation to L, self correction of FWW direction THEREX: Patient completed standing LE strengthening exercises, as per flow sheet. ASSESSMENT: Patient tolerated session well, without complaint. He does require extended time to complete functional tasks. He demonstrates steady pacing and ambulation utilizing FWW support, requiring CGA-SBA. PLAN: Continue with PT's POC TREATMENT CODE/TIME: 40 minutes; [id number] x2, [id number]
--- NOTE | 2019-12-07 11:04 | W.PM.DS.N ---
Date of service: 12/07/19 Time of Service: 11:20 DS: Diagnosis Discharge Diagnosis (1) Acute on chronic right-sided congestive heart failure: Status: Acute (2) Pulmonary hypertension: Status: Chronic (3) Paraphimosis: Status: Resolved (4) Atrial fibrillation: Status: Chronic (5) Non-insulin dependent type 2 diabetes mellitus: Status: Chronic Discharge Plan Disposition Patient Disposition: SNF (LEVEL 1) [facility] Condition: Improving Discharge Details Reason For Visit: CHF Admit Date/Time: 12/04/19 23:42 Admit Provider: Dania Chavarria Attending Provider: Dania Chavarria Primary Care Provider: Zander Mancini [facility] Hospital Course: This is an 84 year old male with PMHx of HFpEF (EF 50-55% per echo in 2019) due to hypertrophic cardiomyopathy, pulmonary hypertension, atrial fibrillation on eliquis, NIDDM2, and Alzheimer's dementia, who was taken to [facility] ED on 12/04/2019 from [facility] with penile swelling. Additionally, he was noted to have BLE edema, worse than baseline, and an elevated proBNP at 6287 (normally closer to 2000). His troponin was elevated at 0.10, which is the patient's baseline. There were no acute ischemic changes on his EKG. He was given IV lasix and referred for an emergent urology evaluation [place] [facility] [place], where urology reduced his paraphimosis, after which the patient felt much better and was sent back to our facility. He was admitted to the hospitalist services for acute on chronic heart failure. He was put on IV Lasix in addition to continuing his other cardiac medications. An echocardiogram was obtained which shows estimated ejection fraction of 50 to 55% which was unchanged from 2019. He responded to the IV diuresis and was transitioned to oral torsemide but at a increased daily dose from 10 to 20 daily. His kidney function remained stable with a baseline creatinine of 1.5-1.6 he is 1.63 at discharge which was what he was yesterday. His proBNP improved from 6200 to 4800. He did undergo bilateral venous ultrasound for the edema which showed no evidence of DVT. He is anticoagulated on apixaban. He also was noted to desat at night and an overnight oximetry test did demonstrate O2 requirements at 1 to 2 L to keep his sats above 90. Cardiac troponins remained elevated at 0.1 which is chronic for him. He has been hemodynamically stable and feels he is at her baseline. He should have his basic metabolic panel rechecked on December 12. Also continue to monitor weights and adjust diuretics as needed. Discharge plan discussed with Dr Pizarro who is in agreement. Home Meds and New Rx's Prescriptions: Continued spironolactone 25 mg tablet 25 mg PO DAILY Qty: 90 RF: 4 (DME) blood-glucose meter [WP Engineuch UltraMini] 1 EACH kit 1 kit UD PRN RF: 0 (DME) TOSA (Tests On Software Applications)Touch Ultra Test 1 EACH strip 1 strip Intradermal 2X/WEEK Qty: 100 RF: 4 (DME) lancets [TOSA (Tests On Software Applications)Touch Delica Lancets] 1 EACH misc 1 ea Intradermal 2X/WEEK Qty: 100 RF: 4 levothyroxine 75 mcg capsule 75 mcg PO DAILY Qty: 90 RF: 4 escitalopram oxalate 5 mg tablet 5 mg PO HS RF: 0 aspirin [Aspir-81] 81 mg Tablet,Delayed Release (Dr/Ec) 81 mg PO DAILY RF: 0 acetaminophen 325 mg Capsule 650 mg PO Q4H PRN PRN (Reason: Mild Pain (Scale Score 1-4)) RF: 0 magnesium hydroxide [Milk of Magnesia] 400 mg/5 mL Suspension 400 mg PO DAILY PRNRF: 0 diltiazem HCl 120 mg capsule,extended release 12 hr 120 mg PO DAILY RF: 0 bisacodyl [Dulcolax (bisacodyl)] 10 mg Suppository 10 mg NH DAILY PRN PRN (Reason: Constipation) RF: 0 apixaban 2.5 mg tablet 2.5 mg PO BID Qty: 60 RF: 4 loperamide 2 mg Capsule 2 mg PO QID PRNRF: 0 Changed torsemide 10 mg tablet 20 mg PO DAILY Qty: 90 RF: 4 Discontinued metformin 500 mg tablet 500 mg PO BID Qty: 180 RF: 3 torsemide 10 mg tablet 10 mg PO Q72H PRN (Reason: edema/weight gain) RF: 0 Discharge Instructions Instructions: Heart Failure (DC) Additional Instructions: Continue daily weights and report greater than a 3 to 5 pound weight gain to primary care. ARMAAN stockings on in the morning off at bedtime Referrals: Zander Mancini MD [Primary Care Provider] - (Routine follow-up per [facility]) Activity:: Activity as Tolerated Equipment/Supplies:: No Equipment Needed Diet:: Carb counting Discharge Orders Discharge Orders: Discharge Order (Routine); Ordered 12/07/19 Ordered By: Enma Dowell DS: Summary Status at Discharge Functional status at discharge: uses cane/walker Overall status at discharge: patient is progressing back to baseline Mental Status: mental status grossly normal Speech and Movement: speech and movement normal Mood: congruent mood Affect: normal affect Exam Const General: cooperative (frail elderly male) and comfortable Nutritional Appearance: average body habitus Orientation: alert, awake, oriented to person and oriented to place HENNE Head: normal to inspection, normocephalic and atraumatic Mouth: oral mucosae normal Resp Effort & Inspection: normal respiratory effort Auscultation: clear to auscultation bilaterally Cardio Rate: regular rate Rhythm: regular rhythm GI Inspection: normal to inspection Palpation: soft Auscultation: normal bowel sounds Skin General skin exam: no rashes or lesions noted Neuro General: patient alert, patient awake and oriented Patient Orientation: Person and Place Extrem General: normal to inspection, full ROM and edema (trace) Laterality: bilateral Psych Appearance: grossly normal Mental Status: mental status grossly normal Speech and Movement: speech and movement normal Mood: congruent mood Affect: normal affect DS: Data Vitals/I&O Vitals and I&O: Vital Signs Temperature 36.4 C L 12/07/19 07:41 Temperature Source Tympanic 12/07/19 07:41 Pulse 59 L 12/07/19 07:41 Pulse Rhythm Irregular 12/07/19 08:57 Pulse 68 12/05/19 16:03 Respiratory Rate 17 12/07/19 07:41 Respiratory Effort Non-Labored 12/07/19 08:57 Respiratory Depth Normal 12/07/19 08:57 Respiratory Pattern Normal 12/07/19 08:57 Blood Pressure 133/73 12/07/19 07:41 Blood Pressure Mean 77 12/05/19 16:03 Blood Pressure Position Supine 12/05/19 07:30 Pulse Oximetry 98 12/07/19 07:41 Oxygen Delivery Method Room Air 12/07/19 07:41 Oxygen Flow Rate 0 12/07/19 07:41 Pain Level 2 12/07/19 07:41 Comment 12/05/19 11:52 Intake & Output 0712/06/19 12/07/19 11:59 23:59 11:59 Intake Total 250 / 750 500 / 750 240 / 240 Output Total 250 / 750 500 / 750 550 / 550 Balance 0 / 0 0 / 0 -310 / -310 Weight 75 kg 75.381 kg 75.9 kg Intake: Oral 250 / 750 500 / 750 240 / 240 Output: Urine 250 / 750 500 / 750 550 / 550 Other: Urine Color Yellow Yellow Yellow Urine Appearance Clear Clear Clear Urine Odor Normal Normal Comment Large incontinent diaper changed at this time. Stool Size Moderate Stool Characteristics Soft Brown Voiding Methods Toilet Urinal Urinal Diaper Data Completed and Pending Labs on day of discharge: Labs from last 24 hours 12/07/19 06:08 Sodium 137 Potassium 4.1 Chloride 99 Carbon Dioxide 29.5 Anion Gap 8.5 BUN 43 H Creatinine 1.63 H Estimated GFR/1.73 m2 40.71 Glucose 162 H Calcium 9.1 NT-Pro-B Natriuret Pep 4851 [facility] Medical History (Updated 12/05/19 @ 05:41 by Dania Chavarria MD) Actinic keratosis (Resolved) Acute on chronic diastolic (congestive) heart failure (Resolved) Ambulatory dysfunction (Chronic) Ataxia (Chronic) Atrial fibrillation (Chronic) Cataracts, bilateral (Resolved 10/24/15) Status post cataract surgery Cellulitis (Inactive) 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) Decubitus ulcer of left buttock, stage 2 (Resolved 07/18/17) Depressive disorder (Chronic) Elevated troponin (Resolved) Essential hypertension, benign (Chronic 12/01/14) Falls frequently (Chronic 07/11/16) Fatigue (Chronic) Hyperlipidemia (Chronic) Hypothyroidism (Chronic) Mild cognitive impairment (Chronic) 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) Non-neoplastic nevus (Resolved) Osteoarthritis (Chronic) Pneumonia (Resolved) Pulmonary hypertension (Chronic) Rosacea (Chronic) Spinal stenosis (Chronic) surgery Toxic metabolic encephalopathy (Resolved) Ulcerative colitis (Inactive) Urinary incontinence (Chronic) Visual disturbance (Inactive) Surgical History Appendectomy Carpal tunnel syndrome of right wrist (Chronic) ECTR: 04/07/2019 Colonoscopy - IV Sedation (11/18/12) [facility] [place]; NO FURTHER TESTING NEEDED History of appendectomy (Resolved) History of cataract surgery (Chronic) Bilaterally History of oral surgery (Acute) tooth extraction History of tonsillectomy (Chronic) Status post laminectomy (Chronic) Family History (Updated 03/26/19 @ 11:20 by Radha Umana RN) Mother Diabetes Stroke Father Heart disease Colon cancer Sister Psoriasis Social History Smoking/Tobacco Use Status: Former Tobacco Use Alcohol Intake: never Drug use: Never Substance use type: does not use Current gender identity: male Sun/Hinduism: No preference Special sun needs: No Do you feel safe at home: Yes Do you feel safe in your relationship?: Yes
[2019-12-07 11:30] VITALS: BP 154/73; PULSE 50; RESP 16; TEMP 36; O2SAT 99
--- NOTE | 2019-12-07 12:01 | NUR.NOTE ---
Pt being discharged to [facility] at 1300. Called and gave Nurse Madelyn report. Nursing Note:
--- NOTE | 2019-12-08 13:53 | PT.INDS ---
Date of service: 12/08/19 Time of Service: 13:53 PT Notes Visit Reasons: Congestive heart failure Inpatient Physical Therapy Discharge Summary Dates: 12/08/2019 Dates of Service: 2019 through 12/07/2019 This is a clinical summary of care provided on the duration of dates listed above. No charge was made in the completion of this documentation. Referring Doctor:Dania Chavarria MD PT Orders: PT CONSULT: Limited ability Precautions: Fall. Standard. Activity as tolerated. Patient Profile/Admitting Diagnosis: Patient arrives to [facility] emergency room on December 04, [facility] from [facility] secondary to penile swelling with bilateral lower extremity edema. Following his ER visit he was seen by urology at [facility] to address his paraphimosis which has resolved. Came back to the ICU at 4 in the morning on 04 December. Subjective: NT. See most recent ECONOMIC RESEARCH ASSISTANT notes. Objective: General Observation: NT. See most recent ECONOMIC RESEARCH ASSISTANT notes. Mental Status: NT. See most recent ECONOMIC RESEARCH ASSISTANT notes. ROM: Right Upper Extremity: Glenohumeral joint flexion and abduction 40 degrees with pain active assisted 80 degrees. Elbow flexion 110 degrees, extension lacks 10 degrees. Left Upper Extremity: Glenohumeral joint flexion 110 degrees active 125 active assisted, abduction 80 degrees, 90 active assisted. Elbow flexion and extension within normal limits. Right Lower Extremity: Patient performs heel slide to 75 degrees of hip flexion, active assisted 85 degrees. He is able to sit bedside assuming 90 degrees of hip flexion. Knee flexion 85 degrees active, 100 active assisted extension -5 degrees. Ankle dorsiflexion limited to 0 degrees, plantar flexion 25 degrees. Left Lower Extremity: Patient performs heel slide to 65 degrees of hip flexion, active assisted to 80 degrees. He is able to sit bedside assuming 90 degrees of hip flexion. Knee flexion 90 degrees active 105 active assisted. Ankle dorsiflexion to 0 degrees, plantarflexion 25 degrees. Strength: Right Upper Extremity: 2/5 flexion and abduction right shoulder, 4-/5 bicep tricep, fair field artillery cannoneer Left Upper Extremity: 4-/5 flexion and abduction right shoulder, 4/5 bicep and tricep. Good field artillery cannoneer Right Lower Extremity: Patient perform straight leg raise with 0 degree lag. Hip flexion 4-/5, hip abduction 3+/5, plantar and dorsiflexion 4-/5. Hamstring 4-/5 Left Lower Extremity: Perform straight leg raise with 0 degree lag. Hip flexion 4-/5, hip abduction 3+/5, plantar and dorsiflexion 4-/5. Hamstring 4-/5 Sensation: Decreased sensation stocking distribution bilateral lower extremities Bed Mobility/Transfers: Supine?sit: CGA Sit?stand: Minimal assist Stand?sit: CGA Sit?supine: CGA Gait: 350 feet with CGA using F front wheeled walker. Decreased alireza. Path deviation to the left. Balance: Static Sitting: Normal Dynamic Sitting: Good Static Standing: Fair Dynamic Standing: Fair Assessment: Patient is a 84-year-old male referred to physical therapy services with the diagnosis of paraphimosis and bilateral lower extremity edema. Patient demonstrated minimal improvements for this episode of care and will continue to require skilled physical therapy services upon return to SNF. Goals: Goals X1 week 1. Supine-Sit: Min assist x1 MET 2. Sit-Supine: Min assist x1 MET 3. Sit-Stand: Contact-guard x1 to front wheeled walker NOT MET 4. Stand-Sit: Contact-guard x1 from wheeled walker MET 5. Bed-Chair: Contact-guard x1 with front wheeled walker NOT MET 6. Chair-Bed: Contact-guard x1 with front wheeled walker NOT MET 7. Gait: 50 feet with front wheeled walker with contact-guard x1 NOT MET DISCHARGE RECOMMENDATIONS: Return to [facility] with utilization of PT services to promote further functional mobility training and lower extremity strengthening and gait training TREATMENT CODE/TIME: NC. Thank you for the opportunity to participate in the care of this patient. Amanda Perkins PT, DPT, CLT [facility] [place], [place]
== END 2019-12-07 13:18 | disposition skilled nursing facility (03) | DRG 292 ==
LOC: ICU 12-05 12:49 → MS 12-05 21:12
PROVIDERS: Internal Medicine; Admitting Provider Internal Medicine; PCP Family Medicine; Visit Provider Internal Medicine
DX: I50.813 Acute on chronic right heart failure (principal); I48.19 Other persistent atrial fibrillation; I27.20 Pulmonary hypertension, unspecified; N47.2 Paraphimosis; Z79.01 Long term (current) use of anticoagulants; E11.9 Type 2 diabetes mellitus without complications; I42.2 Other hypertrophic cardiomyopathy; G30.9 Alzheimer's disease, unspecified; F02.80 Dementia in other diseases classified elsewhere, unspecified severity, without behavioral disturbance, psychotic disturbance, mood disturbance, and anxiety; I87.2 Venous insufficiency (chronic) (peripheral); Z11.59 Encounter for screening for other viral diseases; I50.30 Unspecified diastolic (congestive) heart failure
CPT/HCPCS: 36415; 80048; 80061; 93306; 97110; 97162; 97530; 99223; 99233; 99239; NC; U0003; 83036; 83735; 83880; 84443; 84484; 85025; 93005; 93010; 93970; 94762; A0425; A0428; J1940

== ENCOUNTER 2019-12-13 15:38 | Outpatient (REF) | payer MEDICARE, BC, MEDICAID, SELFPAY ==
[2019-12-14 02:30] LABS: COVID-19 RT-PCR UVMMC Result Negative (Negative)
== END 2019-12-13 15:58 ==
LOC: LBN 15:38
PROVIDERS: PCP Family Medicine; Visit Provider Nurse Practitioner Adult Health
DX: Z11.59 Encounter for screening for other viral diseases (principal)
CPT/HCPCS: U0003

== ENCOUNTER 2019-12-14 14:28 | Outpatient (REF) | payer MEDICARE, BC, MEDICAID, SELFPAY ==
[2019-12-14 14:42] LABS: Anion Gap 9.4 mmol/L (3-11); BUN 41 mg/dL (7-18); CO2 27.6 mmol/L (21.0-32.0); CREATININE 1.63 mg/dL (0.70-1.30); Calcium 9.4 mg/dL (8.5-10.1); Chloride 103 mmol/L (98-107); Estimated GFR 40.71 (mL/min/1.73m2); Glucose 193 mg/dL (74-106); Potassium 4.1 mmol/L (3.5-5.1); Sodium 140 mmol/L (136-145)
== END 2019-12-14 14:48 ==
LOC: LBN 14:28
PROVIDERS: PCP Family Medicine; Visit Provider Nurse Practitioner Adult Health
DX: E78.5 Hyperlipidemia, unspecified (principal); I50.813 Acute on chronic right heart failure
CPT/HCPCS: 80048

== ENCOUNTER 2019-12-19 09:39 | Outpatient (REF) | payer MEDICARE, BC, MEDICAID, SELFPAY ==
[2019-12-21 02:50] LABS: SARS-CoV-2 RNA Undetected (Undetected)
== END 2019-12-19 09:59 ==
LOC: LBN 09:39
PROVIDERS: PCP Family Medicine; Visit Provider Nurse Practitioner Adult Health
DX: Z11.59 Encounter for screening for other viral diseases (principal)
CPT/HCPCS: U0003

== ENCOUNTER 2020-02-04 16:24 | Observation (INO) | payer MEDICARE, BC, MEDICAID, SELFPAY ==
[2020-02-04] VITALS (43 sets, daily range): BP systolic 93–128; BP diastolic 51–70; PULSE 45–69; RESP 11–20; TEMP 35.9–36.6; O2SAT 79–100
--- NOTE | 2020-02-04 16:30 | RT.EKG_ITS ---
APPROVED REPORT Exam: Resting ECG Patient Location: E HR:61 bpm ECG Measurements Heart Rate 61 AXIS NH [id number] P [id number] QRSd 165 QRS -79 QT 484 T 34 QTc 510 Conclusion Atrial flutter...A-rate 227 Right bundle branch block...QRSd>120, terminal axis(90,270) Inferior infarct, old...Q >35mS, II III aVF
[2020-02-04 17:10] LABS: Abs Immature Grans 0.03 10^3/uL (0.0-0.06); Absolute Basophil Count 0.03 10^3/uL (0.0-0.2); Absolute Eosinophil Count 0.05 10^3/uL (0.0-0.7); Absolute Lymphocyte Count 1.29 10^3/uL (1.2-3.4); Absolute Monocyte Count 0.56 10^3/uL (0.1-0.8); Absolute Neutrophil Count 6.94 10^3/uL (1.2-6.7); Basophils % 0.3; Eosinophils % 0.6; HCT 43.4 % (40.0-50.0); HGB 14.8 g/dL (13.5-17.5); Immature Grans % 0.3; Lymphocytes % 14.5; MCH 32.3 pg (27.0-33.0); MCHC 34.1 % (32.0-36.0); MCV 94.8 fL (80-95); MPV 11.5 fL (8.0-11.0); Monocytes % 6.3; Nucleated RBC 0 %; Platelet Count 133 10^3/uL (130-400); RBC 4.58 10^6/uL (4.36-5.78); RDW 14.2 % (11.8-14.1); RDW-SD 49.2 fL
[2020-02-04 17:26] LABS: ALT 32 U/L (16-63); AST 21 U/L (15-37); Albumin 3.8 g/dL (3.4-5.0); Alkaline Phosphatase 120 U/L (46-116); Anion Gap 9.7 mmol/L (3-11); BUN 49 mg/dL (7-18); Bilirubin, Total 0.6 mg/dL (0.2-1.0); CO2 26.3 mmol/L (21.0-32.0); CREATININE 2.06 mg/dL (0.70-1.30); Calcium 9.4 mg/dL (8.5-10.1); Chloride 95 mmol/L (98-107); Estimated GFR 31.07 (mL/min/1.73m2); Glucose 271 mg/dL (74-106); Magnesium 2.3 mg/dL (1.8-2.4); Potassium 4.2 mmol/L (3.5-5.1); Sodium 131 mmol/L (136-145); Total Protein 7.7 g/dL (6.4-8.2)
--- NOTE | 2020-02-04 17:30 | DI.RAD_ITS ---
EXAM: XR CHEST 2V PA LATERAL CLINICAL HISTORY: chest pain TECHNIQUE: 2D digital imaging was performed. COMPARISON: CR,XR XR CHEST 2V PA LATERAL from 10/01/2019 FINDINGS: The exam is limited by poor pulmonary inflation. The heart is enlarged. There are minimal dependent changes. No infiltrate, effusion or pulmonary edema is seen. There is an old right lower rib fract ure. There are severe degenerative changes of the right shoulder. Degenerative changes are seen in the thoracic spine. IMPRESSION: Cardiomegaly. No acute abnormality.
[2020-02-04 17:31] LABS: Troponin I 0.14 ng/mL (<0.06)
--- NOTE | 2020-02-04 17:42 | ED.GENADUL_ITS ---
Discharge Plan Disposition Patient Disposition: [facility] INPATIENT Condition: Serious Discharge Details Clinical Impression: Chest pain, Elevated troponin Primary Care Provider: Jasmine Cook ED Provider: Marvin Newton Home Meds and New Rx's Prescriptions: No Action spironolactone 25 mg tablet 25 mg PO DAILY Qty: 90 RF: 4 (DME) blood-glucose meter [GranicusTouch UltraMini] 1 EACH kit 1 kit UD PRN RF: 0 (DME) OneTouch Ultra Test 1 EACH strip 1 strip Intradermal 2X/WEEK Qty: 100 RF: 4 (DME) lancets [OneTouch Delica Lancets] 1 EACH misc 1 ea Intradermal 2X/WEEK Qty: 100 RF: 4 levothyroxine 75 mcg capsule 75 mcg PO DAILY Qty: 90 RF: 4 escitalopram oxalate 5 mg tablet 5 mg PO HS RF: 0 aspirin [Aspir-81] 81 mg Tablet,Delayed Release (Dr/Ec) 81 mg PO DAILY RF: 0 acetaminophen 325 mg Capsule 650 mg PO Q4H PRN PRN (Reason: Mild Pain (Scale Score 1-4)) RF: 0 magnesium hydroxide [Milk of Magnesia] 400 mg/5 mL Suspension 400 mg PO DAILY PRNRF: 0 diltiazem HCl 120 mg capsule,extended release 12 hr 120 mg PO DAILY RF: 0 bisacodyl [Dulcolax (bisacodyl)] 10 mg Suppository 10 mg DC DAILY PRN PRN (Reason: Constipation) RF: 0 torsemide 10 mg tablet 20 mg PO DAILY Qty: 90 RF: 4 apixaban 2.5 mg tablet 2.5 mg PO BID Qty: 60 RF: 4 loperamide 2 mg Capsule 2 mg PO QID PRNRF: 0 Fleet Enema 19-7 gram/118 mL Enema DC RF: 0 glucagon 1 mg Kit 1 mg RF: 0 Medical Decision Making 84-year-old male with multiple medical problems including history of CHF, chronic kidney disease, pulmonary hypertension, here with chest pain, sent from rehab facility. Chest pain now improved but still has some discomfort. Consider ACS: Screening ECG was reviewed and interpreted by me. Patient has A. fib, 61 bpm, right bundle branch block that is old. Initial troponin elevated. Patient typically does have elevated troponin and level tonight is not changed from prior. Patient was given 243 mg of aspirin as he had taken a baby aspirin earlier today. Chest x-ray was reviewed and interpreted by radiology: Moderate cardiomegaly with minor vascular congestion noted. Patient does not appear to be in volume overload on exam. Patient is not a candidate for CT of the chest to rule out PE as he has had severe anaphylactic reaction to contrast. He is on apixaban and has had no calf pain or swelling. He is saturating well in no respiratory distress. Patient reassessed and is remained stable. He appears comfortable in bed and eating. Patient hemodynamically stable. Given chest pain earlier and continued vague discomfort in setting of dementia with poor historian, risk factors and elevated troponin (albeit at prior level) consider ACS and will hospitalize for trending of troponin and further assessment. I did call and speak with Dr. Rodriguez who will admit the patient. We discussed ED presentation course. Care transitioned to hospitalist service. HPI General Mode of arrival: ambulatory . Date/Time Provider Initiated Documentation: 02/04/20 16:33 . Limitations to Documentation: no limitations . Information obtained by: patient . HPI Narrative: 84-year-old male with multiple medical problems including history of Alzheimer's disease, coronary hypertension, CHF, chronic kidney disease, here with chief complaint of chest discomfort. Patient notes this afternoon he developed chest pain localized to central chest without radiation. Pain was moderate and has improved. He notes he continues to still have some vague discomfort in his chest. He also notes that he has had some shortness of breath. Of note, patient is currently at [facility] and rehab. He is on apixaban. Dose of apixaban was decreased recently for nosebleeds. Patient denies associated calf pain or swelling. History is somewhat limited secondary to dementia but additional history obtained from family. Related Data Home Medications Medication Instructions Recorded Confirmed blood-glucose meter [GranicusTouch kit 07/24/12 02/04/20 UltraMini] OneTouch Ultra Test #100 strip 06/30/14 12/05/19 lancets [OneTouch Delica Lancets] #100 ea 06/30/14 02/04/20 apixaban 2.5 mg PO BID #60 tab 11/21/18 02/04/20 spironolactone 25 mg tablet 25 mg PO DAILY #90 tab 11/27/18 02/04/20 levothyroxine 75 mcg capsule 75 mcg PO DAILY #90 cap 01/19/19 02/04/20 escitalopram oxalate 5 mg PO HS 03/26/19 02/04/20 loperamide 2 mg PO QID PRN 10/01/19 12/05/19 aspirin [Aspir-81] 81 mg PO DAILY 12/04/19 02/04/20 acetaminophen 650 mg PO Q4H PRN PRN 12/05/19 02/04/20 bisacodyl [Dulcolax (bisacodyl)] 10 mg DC DAILY PRN PRN 12/05/19 02/04/20 diltiazem HCl 120 mg PO DAILY 12/05/19 02/04/20 magnesium hydroxide [Milk of 400 mg PO DAILY PRN 12/05/19 02/04/20 Magnesia] torsemide 20 mg PO DAILY #90 tab-cap 12/07/19 02/04/20 glucagon 1 mg 02/04/20 sodium phosphates [Fleet Enema] ml DC 02/04/20 Previous Rx's Medication Instructions Recorded apixaban 2.5 mg PO BID #60 tab 11/21/18 spironolactone 25 mg tablet 25 mg PO DAILY #90 tab 11/27/18 levothyroxine 75 mcg capsule 75 mcg PO DAILY #90 cap 01/19/19 torsemide 20 mg PO DAILY #90 tab-cap 12/07/19 Allergies Allergy/AdvReac Type Severity Reaction Status Date / Time procaine [Procaine] Allergy Severe Anaphylaxsi Unverified 12/05/19 02:33 s thiopental [Thiopental] Allergy Severe Anaphylaxsi Unverified 12/05/19 02:33 s shellfish derived Allergy Intermediate Swelling/Ed Unverified 12/05/19 02:33 gerson Iodinated Contrast Media Allergy Unknown Swelling/Ed Unverified 12/05/19 02:33 [Iodinated Contrast- Oral gerson and IV Dye] nitroglycerin AdvReac Severe bottomed Unverified 12/05/19 02:33 out BP General Stated Complaint: Chest Pain IRWIN: 2 Review of Systems All systems reviewed & are unremarkable except as noted in HPI and below Constitutional Constitutional: Denies fever(s) Cardiovascular Cardiovascular: Reports as per HPI PFSH Medical History Actinic keratosis Acute on chronic diastolic (congestive) heart failure Ambulatory dysfunction Ataxia Atrial fibrillation Cataracts, bilateral (10/24/15) Status post cataract surgery Cellulitis 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 (04/25/15) Decubitus ulcer of left buttock, stage 2 (07/18/17) Depressive disorder Elevated troponin Essential hypertension, benign (12/01/14) Falls frequently (07/11/16) Fatigue Hyperlipidemia Hypothyroidism Mild cognitive impairment Non-insulin dependent type 2 diabetes mellitus Non-neoplastic nevus Osteoarthritis Pneumonia Pulmonary hypertension Rosacea Spinal stenosis surgery Toxic metabolic encephalopathy Ulcerative colitis Urinary incontinence Visual disturbance Surgical History Appendectomy Carpal tunnel syndrome of right wrist ECTR: 04/07/2019 Colonoscopy - IV Sedation (11/18/12[place] [facility] [place] TESTING NEEDED History of appendectomy History of cataract surgery Bilaterally History of oral surgery tooth extraction History of tonsillectomy Status post laminectomy Family History Mother Diabetes Stroke Father Heart disease Colon cancer Sister Psoriasis Social History Smoking/Tobacco Use Status: Former Tobacco Use Alcohol Intake: never Drug use: Never Substance use type: does not use Current gender identity: male Sun/Zoroastrian: No preference Special snu needs: No Do you feel safe at home: Yes Do you feel safe in your relationship?: Yes Exam Const General: cooperative and no acute distress HENMT Mouth: moist mucous membranes Eyes Conjunctivae: normal conjunctivae Sclera: normal sclerae Neck Neck: trachea midline and supple Resp Auscultation: clear to auscultation bilaterally, no rales, no rhonchi and no wheezes Cardio Jugular venous pressure: no JVD Rate: regular rate and not tachycardic Rhythm: regular rhythm GI Palpation: soft, not firm, no guarding, no masses, not rigid and nontender Skin General skin exam: no rashes or lesions noted Neuro General: patient alert, patient awake and tone normal Cognition: abnormal cognition Extrem General: no calf tenderness and no edema Psych Appearance: grossly normal Course Vital Signs Vital signs: Vital Signs Temperature 36.6 C 02/04/20 16:31 Pulse 69 02/04/20 16:31 Respiratory Rate 17 02/04/20 16:31 Blood Pressure 125/67 02/04/20 16:31 Pulse Oximetry 95 02/04/20 16:31 Temperature 36.6 C 02/04/20 16:31 Temperature Source Skin 02/04/20 16:31 Pulse 69 02/04/20 16:31 Respiratory Rate 17 02/04/20 16:31 Respiratory Effort 02/04/20 16:50 Blood Pressure 125/67 02/04/20 16:31 Blood Pressure Position Supine 02/04/20 16:31 Pulse Oximetry 95 02/04/20 16:31 Oxygen Delivery Method Room Air 02/04/20 16:31 Oxygen Flow Rate 0 02/04/20 16:31 Comment 02/04/20 16:31 Lab/Test Results Lab/Test Results: Laboratory Tests Range/Units 02/04/20 02/04/20 17:00 17:00 WBC (4.4-10.8) 10^3/uL 8.90 RBC (4.36-5.78) 10^6/uL 4.58 Hgb (13.5-17.5) g/dL 14.8 Hct (40.0-50.0) % 43.4 MCV (80-95) fL 94.8 MCH (27.0-33.0) pg 32.3 MCHC (32.0-36.0) % 34.1 RDW (11.8-14.1) % 14.2 H Plt Count (130-400) 10^3/uL 133 MPV (8.0-11.0) fL 11.5 H Immature Gran % 0.3 Neutrophils % 78.0 Lymphocytes % 14.5 Monocytes % 6.3 Eosinophils % 0.6 Basophils % 0.3 Nucleated RBC % % 0 Absolute Neutrophils (1.2-6.7) 10^3/uL 6.94 H Absolute Lymphocytes (1.2-3.4) 10^3/uL 1.29 Absolute Monocytes (0.1-0.8) 10^3/uL 0.56 Absolute Eosinophils (0.0-0.7) 10^3/uL 0.05 Absolute Basophils (0.0-0.2) 10^3/uL 0.03 Sodium (136-145) mmol/L 131 L Potassium (3.5-5.1) mmol/L 4.2 Chloride (98-107) mmol/L 95 L Carbon Dioxide (21.0-32.0) mmol/L 26.3 Anion Gap (3-11) mmol/L 9.7 BUN (7-18) mg/dL 49 H Creatinine (0.70-1.30) mg/dL 2.06 H Estimated GFR/1.73 m2 (mL/min/1.73m2) 31.07 Glucose (74-106) mg/dL 271 H Calcium (8.5-10.1) mg/dL 9.4 Magnesium (1.8-2.4) mg/dL 2.3 Total Bilirubin (0.2-1.0) mg/dL 0.6 AST (15-37) U/L 21 ALT (16-63) U/L 32 Alkaline Phosphatase (46-116) U/L 120 H Troponin I (<0.06) ng/mL 0.14 H* Total Protein (6.4-8.2) g/dL 7.7 Albumin (3.4-5.0) g/dL 3.8
--- NOTE | 2020-02-04 19:30 | RT.EKG_ITS ---
APPROVED REPORT Exam: Resting ECG Patient Location: E HR:57 bpm ECG Measurements Heart Rate 57 AXIS [place] [id number] P [id number] QRSd 169 QRS -80 QT 528 T 30 QTc 516 Conclusion Atrial flutter with predominant 4:1 AV block...A-rate 223, multiple Ps Right bundle branch block...QRSd>120, terminal axis(90,270) Inferior infarct, old...Q >35mS, II III aVF
--- NOTE | 2020-02-04 19:33 | DI.VRAD_ITS ---
PROCEDURE INFORMATION: Exam: XR Chest, 2 Views Exam date and time: 02/04/2020 18:23 Age: 84 years old Clinical indication: Chest pain; Type not specified TECHNIQUE: Imaging protocol: XR of the chest Views: 2 views. COMPARISON: CT CHEST/ABD/PEL WO 12/04/2019 13:49 FINDINGS: Lungs: No consolidation. Pleural space: No pleural effusion. No pneumothorax. Heart/Mediastinum: Moderate cardiomegaly with minor vascular congestion. Bones/joints: Marked right glenohumeral degenerative changes. Right lateral 8th rib fracture, appearing chronic. IMPRESSION: Moderate cardiomegaly with minor vascular congestion. Dictated and Authenticated by: Melvi Chandler MD. Ordering:DENTON Wong MD
[2020-02-04 20:20] LABS: Troponin I 0.15 ng/mL (<0.06)
--- NOTE | 2020-02-04 21:46 | W.PM.HP.N ---
Date of service: 02/04/20 Time of Service: 21:46 Assessment and Plan Assessment and plan (1) Chest pain: Status: Acute Assessment and plan: Chest pain suggestive of anginal type symptoms. He does not have new EKG changes and his pain has largely subsided. Plan is to admit to observation status and trend his troponins. He has chronic troponin elevation. Thus far his troponins are not outside of his normal range. (2) Elevated troponin: Status: Acute Assessment and plan: He tends to have a chronic troponin leak between 0.08 and 0.15. His troponins are 0.14 and 0.15 with 1 more pending. I suspect this is related to his chronic troponin leak. The etiology of his chronic troponin leak is not clear. He may have underlying coronary artery disease that has not been fully elucidated. (3) Alzheimers disease: Status: Chronic Assessment and plan: He has mild Alzheimer's disease. Most of his problems are related to hard of hearing. He is still very dependent on help with ADLs. Plan is for him to return back to health and rehab. (4) Discharge planning issues: Status: Acute Assessment and plan: CODE STATUS was discussed and he remains a full code. Family would want him transferred to a tertiary care center if he decompensated or appear to have an acute coronary syndrome. History of Present Illness History of Present Illness Chief Complaint: Chest pain/rule out [place] Narrative: This is an 84-year-old man with moderate dementia that resides at the health and rehab. This evening he complained of some substernal chest pain and pressure. He was transferred to the emergency room for evaluation. By the time he got here his pain had largely abated. His initial troponin was elevated at 0.14. His EKG was unchanged with a right bundle branch block pattern. He is admitted to observation for further monitoring. Dr. Newton did speak with the family about potential transfer to tertiary care. The family felt that as long as his troponins remained only mildly elevated and his symptoms were controlled they preferred he stay here. If he developed an acute coronary syndrome or his pain was not well controlled they would agree to transfer to a tertiary care center. He remains a full code. Review of Systems Narrative: The patient is very hard of hearing. His daughter helped get some of the symptom history. At the time of my exam he was not complaining of any chest pain or pressure. He is having no breathing problems. He has no cough or shortness of breath. He has no digestive system complaints other than chronic diarrhea. He has no lower extremity pains or discomfort. [facility] Medical History Actinic keratosis Acute on chronic diastolic (congestive) heart failure Ambulatory dysfunction Ataxia Atrial fibrillation Cataracts, bilateral (10/24/15) Status post cataract surgery Cellulitis 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 (04/25/15) Decubitus ulcer of left buttock, stage 2 (07/18/17) Depressive disorder Elevated troponin Essential hypertension, benign (12/01/14) Falls frequently (07/11/16) Fatigue Hyperlipidemia Hypothyroidism Mild cognitive impairment Non-insulin dependent type 2 diabetes mellitus Non-neoplastic nevus Osteoarthritis Pneumonia Pulmonary hypertension Rosacea Spinal stenosis surgery Toxic metabolic encephalopathy Ulcerative colitis Urinary incontinence Visual disturbance Surgical History Appendectomy Carpal tunnel syndrome of right wrist ECTR: 04/07/2019 Colonoscopy - IV Sedation (11/18/12) [facility] [place]; NO FURTHER TESTING NEEDED History of appendectomy History of cataract surgery Bilaterally History of oral surgery tooth extraction History of tonsillectomy Status post laminectomy Family History Mother Diabetes Stroke Father Heart disease Colon cancer Sister Psoriasis Social History Smoking/Tobacco Use Status: Former Tobacco Use Alcohol Intake: never Drug use: Never Substance use type: does not use Current gender identity: male Sun/Confucianism: No preference Special sun needs: No Do you feel safe at home: Yes Do you feel safe in your relationship?: Yes Meds Home Medications and Allergies Home Medications Medication Instructions Recorded Confirmed Type blood-glucose meter [OneTouch kit 07/24/12 02/04/20 History UltraMini] OneTouch Ultra Test #100 strip 06/30/14 12/05/19 History lancets [OneTouch Delica Lancets] #100 ea 06/30/14 02/04/20 History apixaban 2.5 mg PO BID #60 tab 11/21/18 02/04/20 Rx spironolactone 25 mg tablet 25 mg PO DAILY #90 tab 11/27/18 02/04/20 Rx levothyroxine 75 mcg capsule 75 mcg PO DAILY #90 cap 01/19/19 02/04/20 Rx escitalopram oxalate 5 mg PO HS 03/26/19 02/04/20 History loperamide 2 mg PO QID PRN 10/01/19 12/05/19 History aspirin [Aspir-81] 81 mg PO DAILY 12/04/19 02/04/20 History acetaminophen 650 mg PO Q4H PRN PRN 12/05/19 02/04/20 History bisacodyl [Dulcolax (bisacodyl)] 10 mg ME DAILY PRN PRN 12/05/19 02/04/20 History diltiazem HCl 120 mg PO DAILY 12/05/19 02/04/20 History magnesium hydroxide [Milk of 400 mg PO DAILY PRN 12/05/19 02/04/20 History Magnesia] torsemide 20 mg PO DAILY #90 tab-cap 12/07/19 02/04/20 Rx glucagon 1 mg 02/04/20 History sodium phosphates [Fleet Enema] ml ME 02/04/20 History Allergies Allergy/AdvReac Type Severity Reaction Status Date / Time procaine [Procaine] Allergy Severe Anaphylaxsi Unverified 12/05/19 02:33 s thiopental [Thiopental] Allergy Severe Anaphylaxsi Unverified 12/05/19 02:33 s shellfish derived Allergy Intermediate Swelling/Ed Unverified 12/05/19 02:33 gerson Iodinated Contrast Media Allergy Unknown Swelling/Ed Unverified 12/05/19 02:33 [Iodinated Contrast- Oral gerson and IV Dye] nitroglycerin AdvReac Severe bottomed Unverified 12/05/19 02:33 out BP Exam Narrative Exam Narrative: On exam he sitting upright attentive and quite alert. He is hard of hearing but tries to answer questions based on what he thinks he can hear. When spoken very directly into his right ear he can comprehend and answers appropriately. He did not appear to be in any distress. He had no respiratory distress. His lung exam was clear to auscultation on the right and left. His heart sounded regular and without significant murmur. His abdomen was overall soft and nontender. No HSM was detected. The lower extremities appear to be well perfused and warm. Neurologically he can move upper and lower extremities and does not appear to have any focal deficits other than profound hearing loss. Results Labs Result diagrams: 02/04/20 17:00 02/04/20 17:00 Labs: Laboratory Results - last 24 hr 02/04/20 02/04/20 02/04/20 17:00 17:00 19:40 WBC 8.90 RBC 4.58 Hgb 14.8 Hct 43.4 MCV 94.8 MCH 32.3 MCHC 34.1 RDW 14.2 H Plt Count 133 MPV 11.5 H Immature Gran % 0.3 Neutrophils % 78.0 Lymphocytes % 14.5 Monocytes % 6.3 Eosinophils % 0.6 Basophils % 0.3 Nucleated RBC % 0 Absolute Neutrophils 6.94 H Absolute Lymphocytes 1.29 Absolute Monocytes 0.56 Absolute Eosinophils 0.05 Absolute Basophils 0.03 Sodium 131 L Potassium 4.2 Chloride 95 L Carbon Dioxide 26.3 Anion Gap 9.7 BUN 49 H Creatinine 2.06 H Estimated GFR/1.73 m2 31.07 Glucose 271 H Calcium 9.4 Magnesium 2.3 Total Bilirubin 0.6 AST 21 ALT 32 Alkaline Phosphatase 120 H Troponin I 0.14 H* 0.15 H* Total Protein 7.7 Albumin 3.8 Last Vital Signs Temp 35.9 C L 02/04/20 21:26 Pulse 56 L 02/04/20 21:26 Resp 18 02/04/20 21:26 BP 128/70 02/04/20 21:26 Pulse Ox 97 02/04/20 21:26 COVID-19 Screening Have you,or household,traveled outside [place] in last 14 days?: No Had IN PERSON contact w/suspected or confirmed C-19 person: No
[2020-02-04] MEDS: Acetaminophen 325 MG TAB 650 MG PO (22:26)
[2020-02-04] MEDS: Escitalopram 10 MG TAB 5 MG PO (22:27)
[2020-02-04] MEDS: Normal Saline Flush 10 ML SYR IVP (23:49)
[2020-02-04] MEDS: Normal Saline 1,000 ML 125 ML IV (23:49)
[2020-02-05 00:07] LABS: Troponin I 0.17 ng/mL (<0.06)
[2020-02-05 03:40] VITALS: BP 108/67; PULSE 55; RESP 18; TEMP 36.1; O2SAT 98
[2020-02-05] MEDS: Normal Saline 1,000 ML 125 ML IV (06:35)
[2020-02-05] MEDS: Levothyroxine 75 MCG TAB PO (06:35)
[2020-02-05] MEDS: Acetaminophen 325 MG TAB 650 MG PO (08:05)
[2020-02-05] MEDS: Apixaban 2.5 MG TAB PO (08:08)
[2020-02-05] MEDS: Torsemide 20 MG TAB PO (08:09)
[2020-02-05] MEDS: Spironolactone 25 MG TAB PO (08:09)
[2020-02-05] MEDS: Aspirin E.C. 81 MG TABEC PO (08:09)
[2020-02-05] MEDS: dilTIAZem CD 120 MG CAPCR PO (08:09)
[2020-02-05 08:10] VITALS: BP 137/68; PULSE 56; RESP 18; TEMP 36.4; O2SAT 97
[2020-02-05 08:25] LABS: BUN 49 mg/dL (7-18); CREATININE 1.77 mg/dL (0.70-1.30); Calcium 8.8 mg/dL (8.5-10.1); Chloride 101 mmol/L (98-107); Estimated GFR 37.01 (mL/min/1.73m2); Glucose 189 mg/dL (74-106); Potassium 4.1 mmol/L (3.5-5.1); Sodium 136 mmol/L (136-145)
[2020-02-05 08:55] LABS: Troponin I 0.16 ng/mL (<0.06)
--- NOTE | 2020-02-05 11:38 | INITIAL_ITS ---
- If Service Date Differs Date of service: 02/05/20 Time of Service: 11:38 Care Management Initial Assess REASON FOR HOSPITALIZATION:: chest pain PAST MEDICAL HISTORY/PAST SURGICAL HISTORY:: Medical History . Actinic keratosis. Acute on chronic diastolic (congestive) heart failure. Ambulatory dysfunction. Ataxia. Atrial fibrillation. Cataracts, bilateral (10/24/15). Status post cataract surgery. Cellulitis. 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 (04/25/15). Decubitus ulcer of left buttock, stage 2 (07/18/17). Depressive disorder. Elevated troponin. Essential hypertension, benign (12/01/14). Falls frequently (07/11/16). Fatigue. Hyperlipidemia. Hypothyroidism. Mild cognitive impairment. Non-insulin dependent type 2 diabetes mellitus. Non-neoplastic nevus. Osteoarthritis. Pneumonia. Pulmonary hypertension. Rosacea. Spinal stenosis. surgery. Toxic metabolic encephalopathy. Ulcerative colitis. Urinary incontinence. Visual disturbance. Surgical History . Appendectomy. Carpal tunnel syndrome of right wrist. ECTR: 04/07/2019. Colonoscopy - IV Sedation (11/18/12). [facility] [place]; NO FURTHER TESTING NEEDED. History of appendectomy. History of cataract surgery. Bilaterally. History of oral surgery. tooth extraction. History of tonsillectomy. Status post laminectomy PREVIOUS FUNCTIONAL STATUS/SOCIAL/FAMILY SUPPORTS:: Juan Pablo is an 84 year old male who has been living at the [facility] for the past few months. He is and his , Mel, resides in [place]. Juan Pablo has 3 daughters, 2 of whom live locally. Juan Pablo has dementia and is very weak, remaining in bed much of the time. Has patient been provided with info about the portal/API?: No Did the patient sign up for the portal?: No CODE STATUS:: Full Code INSURANCE COVERAGE / FINANCIAL ISSUES:: Medicare. BC BS. Medicaid - long-term CURRENT HOME/COMMUNITY SERVICES/EQUIPMENT:: Juan Pablo has been residing at [facility] for several months PRIMARY CARE PHYSICIAN:: Jasmine Cook
[2020-02-05 14:09] LABS: COVID-19 RT-PCR UVMMC Result Negative (Negative)
--- NOTE | 2020-02-05 14:51 | DSE_ITS ---
Date of service: 02/05/20 Time of Service: 14:51 DS: Diagnosis Discharge Diagnosis (1) Chest pain: Status: Resolved (2) Elevated troponin: Status: Chronic (3) Chronic diastolic CHF (congestive heart failure): Status: Chronic (4) CKD (chronic kidney disease): Status: Chronic (5) Alzheimers disease: Status: Chronic (6) COVID-19 ruled out by laboratory testing: Status: Ruled-out Discharge Plan Disposition Patient Disposition: 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 While his troponins were elevated (0.14->0.15->0.17 ->0.16), the patient did appear to have mild vascular congestion, which may have been the reason for this. Telemetry revealed Aflutter in the 50s. The patient's chest pain has resolved. He did not have EKG changes. The patient is maintained on his aspirin and apixaban. It is felt that the patient is safe for return to [facility] today with outpatient follow up for a stress test, instructions for daily weight monitoring, and prn torsemide in addition to his scheduled torsemide for weight gain greater than 3 lbs in 3 days. A zio patch could also potentially be of benefit as outpatient to ensure that the patient does not get paroxysmal rapid rates with his Afib. A referral for an MPI stress test has been sent. Home Meds and New Rx's Prescriptions: New torsemide 20 mg tablet 20 mg PO DAILY PRN PRN (Reason: prn weight gain/edema) Qty: 10 RF: 0 Continued spironolactone 25 mg tablet 25 mg PO DAILY Qty: 90 RF: 4 (DME) blood-glucose meter [Impact Radiusuch UltraMini] 1 EACH kit 1 kit UD PRN RF: 0 (DME) OneTouch Ultra Test 1 EACH strip 1 strip Intradermal 2X/WEEK Qty: 100 RF: 4 (DME) lancets [OneTouch Delica Lancets] 1 EACH misc 1 ea Intradermal 2X/WEEK Qty: 100 RF: 4 levothyroxine 75 mcg capsule 75 mcg PO DAILY Qty: 90 RF: 4 escitalopram oxalate 5 mg tablet 5 mg PO HS RF: 0 aspirin [Aspir-81] 81 mg Tablet,Delayed Release (Dr/Ec) 81 mg PO DAILY RF: 0 acetaminophen 325 mg Capsule 650 mg PO Q4H PRN PRN (Reason: Mild Pain (Scale Score 1-4)) RF: 0 magnesium hydroxide [Milk of Magnesia] 400 mg/5 mL Suspension 400 mg PO DAILY PRNRF: 0 diltiazem HCl 120 mg capsule,extended release 12 hr 120 mg PO DAILY RF: 0 bisacodyl [Dulcolax (bisacodyl)] 10 mg Suppository 10 mg WI DAILY PRN PRN (Reason: Constipation) RF: 0 torsemide 10 mg tablet 20 mg PO DAILY Qty: 90 RF: 4 apixaban 2.5 mg tablet 2.5 mg PO BID Qty: 60 RF: 4 loperamide 2 mg Capsule 2 mg PO QID PRNRF: 0 Fleet Enema 19-7 gram/118 mL Enema WI RF: 0 glucagon 1 mg Kit 1 mg RF: 0 Discharge Instructions Instructions: Chest Pain (DC) Additional Instructions: Return to the hospital with any fever, bleeding, chest pain, shortness of breath Activity:: Activity as Tolerated Equipment/Supplies:: No Equipment Needed Diet:: As Tolerated Discharge Orders Discharge Orders: Discharge Order (Routine); Ordered 02/05/20 Ordered By: Dania Chavarria Other Ambulatory Orders: NM MPI rest & stress day 2 (Routine) Timeframe: 2 Weeks Facility: [facility] - Location: CARDIAC LAB Ordered By: Dania Chavarria DS: Summary Status at Discharge Functional status at discharge: uses cane/walker Overall status at discharge: patient is back to baseline Mental Status: mental status grossly normal Speech and Movement: speech and movement normal Mood: anxious mood Affect: normal affect Exam Narrative Exam Narrative: General: pleasant but confused elderly male, A&Ox2, perseverating on the rights of his , hard to console HEENT: EOMI, MMM Heart: irregularly irregular rhythm Lungs: CTAB Abdomen: soft, nontender, nondistended Extremities: chronic venous stasis dermatitis, no edema Psych Mental Status: mental status grossly normal Speech and Movement: speech and movement normal Mood: anxious mood Affect: normal affect DS: Data Vitals/I&O Vitals and I&O: Vital Signs Temperature 36.4 C L 02/05/20 08:10 Temperature Source Tympanic 02/05/20 08:10 Pulse 56 L 02/05/20 08:10 Pulse Rhythm Irregular 02/05/20 04:15 Pulse 63 02/04/20 21:01 Respiratory Rate 18 02/05/20 08:10 Respiratory Effort Non-Labored 02/05/20 04:15 Respiratory Depth Normal 02/05/20 04:15 Respiratory Pattern Normal 02/05/20 04:15 Blood Pressure 137/68 02/05/20 08:10 Blood Pressure Mean 72 02/04/20 21:01 Blood Pressure Position Supine 02/04/20 16:31 Pulse Oximetry 97 02/05/20 08:10 Oxygen Delivery Method Room Air 02/05/20 08:10 Oxygen Flow Rate 0 02/05/20 08:10 Pain Level 0 02/05/20 08:10 Comment 02/04/20 23:30 Intake & Output 02/04/20 02/05/20 02/05/20 23:59 11:59 23:59 Intake Total 845.833 / 845.833 Output Total 150 / 150 750 / 750 Balance -140 / -140 95.833 / 95.833 Weight 74.389 kg 74.389 kg Intake: IV 845.833 / 845.833 Output: Urine 150 / 150 750 / 750 Other: Urine Color Yellow Yellow Urine Appearance Clear Clear Urine Odor Normal Comment grossily incontinent Voiding Methods Urinal Diaper Incontinent # Voids 1 Data Completed and Pending Completed studies during hospitalization [Text1]: CXR 02/04/2020: Moderate cardiomegaly with minor vascular congestion. Labs on day of discharge: Labs from last 24 hours 02/05/20 02/05/20 02/04/20 07:40 07:40 23:35 WBC RBC Hgb Hct MCV MCH MCHC RDW Plt Count MPV Immature Gran % Neutrophils % Lymphocytes % Monocytes % Eosinophils % Basophils % Nucleated RBC % Absolute Neutrophils Absolute Lymphocytes Absolute Monocytes Absolute Eosinophils Absolute Basophils Sodium 136 Potassium 4.1 Chloride 101 Carbon Dioxide 29.0 Anion Gap 6.0 BUN 49 H Creatinine 1.77 H Estimated GFR/1.73 m2 37.01 Glucose 189 H D Calcium 8.8 Magnesium Total Bilirubin AST ALT Alkaline Phosphatase Troponin I 0.16 H* 0.17 H* Total Protein Albumin COVID-19 PCR Nasopharyn COVID-19 PCR Ref Test Perform Site 02/04/20 02/04/20 02/04/20 20:05 19:40 17:00 WBC 8.90 RBC 4.58 Hgb 14.8 Hct 43.4 MCV 94.8 MCH 32.3 MCHC 34.1 RDW 14.2 H Plt Count 133 MPV 11.5 H Immature Gran % 0.3 Neutrophils % 78.0 Lymphocytes % 14.5 Monocytes % 6.3 Eosinophils % 0.6 Basophils % 0.3 Nucleated RBC % 0 Absolute Neutrophils 6.94 H Absolute Lymphocytes 1.29 Absolute Monocytes 0.56 Absolute Eosinophils 0.05 Absolute Basophils 0.03 Sodium Potassium Chloride Carbon Dioxide Anion Gap BUN Creatinine Estimated GFR/1.73 m2 Glucose Calcium Magnesium Total Bilirubin AST ALT Alkaline Phosphatase Troponin I 0.15 H* Total Protein Albumin COVID-19 PCR Negative Nasopharyn COVID-19 PCR Not Applicable Ref Test [facility]/04/20 17:00 WBC RBC Hgb Hct MCV MCH MCHC RDW Plt Count MPV Immature Gran % Neutrophils % Lymphocytes % Monocytes % Eosinophils % Basophils % Nucleated RBC % Absolute Neutrophils Absolute Lymphocytes Absolute Monocytes Absolute Eosinophils Absolute Basophils Sodium 131 L Potassium 4.2 Chloride 95 L Carbon Dioxide 26.3 Anion Gap 9.7 BUN 49 H Creatinine 2.06 H Estimated GFR/1.73 m2 31.07 Glucose 271 H Calcium 9.4 Magnesium 2.3 Total Bilirubin 0.6 AST 21 ALT 32 Alkaline Phosphatase 120 H Troponin I 0.14 H* Total Protein 7.7 Albumin 3.8 COVID-19 PCR Nasopharyn COVID-19 PCR Ref Test Perform Site 02/04/20 21:05 Nose MRSA Screen - Pending Preliminary micro results at discharge 02/04/20 21:05 MRSA Screen - Pending Nose [facility] Medical History Actinic keratosis Acute on chronic diastolic (congestive) heart failure Ambulatory dysfunction Ataxia Atrial fibrillation Cataracts, bilateral (10/24/15) Status post cataract surgery Cellulitis 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 (04/25/15) Decubitus ulcer of left buttock, stage 2 (07/18/17) Depressive disorder Elevated troponin Essential hypertension, benign (12/01/14) Falls frequently (07/11/16) Fatigue Hyperlipidemia Hypothyroidism Mild cognitive impairment Non-insulin dependent type 2 diabetes mellitus Non-neoplastic nevus Osteoarthritis Pneumonia Pulmonary hypertension Rosacea Spinal stenosis surgery Toxic metabolic encephalopathy Ulcerative colitis Urinary incontinence Visual disturbance Surgical History Appendectomy Carpal tunnel syndrome of right wrist ECTR: 04/07/2019 Colonoscopy - IV Sedation [place]11[place]18/12[place] [facility] [place] History of appendectomy History of cataract surgery Bilaterally History of oral surgery tooth extraction History of tonsillectomy Status post laminectomy Family History Mother Diabetes Stroke Father Heart disease Colon cancer Sister Psoriasis Social History Smoking/Tobacco Use Status: Former Tobacco Use Alcohol Intake: never Drug use: Never Substance use type: does not use Current gender identity: male Sun/Confucianist: No preference Special sun needs: No Do you feel safe at home: Yes Do you feel safe in your relationship?: Yes
== END 2020-02-05 17:52 | disposition intermediate care facility (04) ==
LOC: ER 21:16 → MS 21:23
PROVIDERS: Nurse Practitioner Acute Care; Admitting Provider Family Medicine; Emergency Provider Student in an Organized Health Care Education/Training Program; Visit Provider Family Medicine
DX: R07.89 Other chest pain (principal); R74.9 Abnormal serum enzyme level, unspecified; Z11.59 Encounter for screening for other viral diseases; G30.9 Alzheimer's disease, unspecified; F02.80 Dementia in other diseases classified elsewhere, unspecified severity, without behavioral disturbance, psychotic disturbance, mood disturbance, and anxiety; N18.9 Chronic kidney disease, unspecified; I50.32 Chronic diastolic (congestive) heart failure; I27.20 Pulmonary hypertension, unspecified; I48.91 Unspecified atrial fibrillation; Z79.01 Long term (current) use of anticoagulants; R27.0 Ataxia, unspecified; F32.9 Major depressive disorder, single episode, unspecified; E78.5 Hyperlipidemia, unspecified; E03.9 Hypothyroidism, unspecified; I42.2 Other hypertrophic cardiomyopathy; I11.0 Hypertensive heart disease with heart failure
CPT/HCPCS: 36415; 80048; 80053; 87081; 93005; 99219; 99239; 99285; U0003; 71046; 83735; 84484; 85025; 93010; 99217; G0378

== ENCOUNTER 2020-04-21 21:56 | Outpatient (REF) | payer MEDICARE, BC, MEDICAID, SELFPAY ==
[2020-04-21 16:35] LABS: Anion Gap 8.6 mmol/L (3-11); BUN 41 mg/dL (7-18); CO2 29.4 mmol/L (21.0-32.0); CREATININE 1.98 mg/dL (0.70-1.30); Calcium 9.3 mg/dL (8.5-10.1); Chloride 98 mmol/L (98-107); Estimated GFR 32.52 (mL/min/1.73m2); Glucose 224 mg/dL (74-106); Potassium 4.7 mmol/L (3.5-5.1); Sodium 136 mmol/L (136-145)
== END 2020-04-21 22:16 ==
LOC: LBN 21:56
PROVIDERS: Visit Provider Nurse Practitioner Adult Health
DX: I50.813 Acute on chronic right heart failure (principal)
CPT/HCPCS: 80048

== ENCOUNTER 2020-06-03 15:53 | Outpatient (REF) | payer MEDICARE, BC, MEDICAID, SELFPAY ==
[2020-06-03 16:23] LABS: Bilirubin Negative (Negative); Blood Negative (Negative); Clarity Clear (Clear); Glucose Negative (Negative); Ketones Negative (Negative); Leukocyte Esterase Negative (Negative); Nitrite Negative (Negative); Urobilinogen 0.2 EU/dL (Up TO 0.2)
== END 2020-06-03 16:13 ==
LOC: LBN 15:53
PROVIDERS: Visit Provider Nurse Practitioner Adult Health
DX: R30.9 Painful micturition, unspecified (principal)
CPT/HCPCS: 81003

== ENCOUNTER 2020-07-20 12:37 | Outpatient (REF) | payer MEDICARE, BC, MEDICAID, SELFPAY ==
[2020-07-20 16:51] LABS: Bilirubin Negative (Negative); Clarity Clear (Clear); Glucose Negative (Negative); Ketones Negative (Negative); Leukocyte Esterase Negative (Negative); Nitrite Negative (Negative); Specific Gravity 1.025 (1.005-1.025)
[2020-07-20 16:52] LABS: Blood Negative (Negative)
== END 2020-07-20 12:38 | disposition home or self-care (01) ==
LOC: LBN 12:37
PROVIDERS: Visit Provider Nurse Practitioner Adult Health
DX: N39.0 Urinary tract infection, site not specified (principal)
CPT/HCPCS: 81003; 87086

== ENCOUNTER 2020-08-03 13:39 | Outpatient (REF) | payer MEDICARE, BC, MEDICAID, SELFPAY ==
[2020-08-03 14:32] LABS: Abs Immature Grans 0.01 10^3/uL (0.0-0.06); Absolute Basophil Count 0.05 10^3/uL (0.0-0.2); Absolute Eosinophil Count 0.16 10^3/uL (0.0-0.7); Absolute Neutrophil Count 3.68 10^3/uL (1.2-6.7); Basophils % 0.8; Eosinophils % 2.7; HCT 41.7 % (40.0-50.0); Immature Grans % 0.2; Lymphocytes % 27.1; MCH 33.7 pg (27.0-33.0); MCHC 33.6 % (32.0-36.0); MCV 100.5 fL (80-95); MPV 11.6 fL (8.0-11.0); Monocytes % 6.8; Neutrophils % 62.4; Nucleated RBC 0 %; Platelet Count 141 10^3/uL (130-400); RBC 4.15 10^6/uL (4.36-5.78); RDW 14.1 % (11.8-14.1); RDW-SD 52.1 fL
[2020-08-03 14:42] LABS: ALT 14 U/L (16-63); AST 11 U/L (15-37); Albumin 3.8 g/dL (3.4-5.0); Alkaline Phosphatase 77 U/L (46-116); Anion Gap 9.7 mmol/L (3-11); BUN 39 mg/dL (7-18); Bilirubin, Total 0.7 mg/dL (0.2-1.0); CO2 27.3 mmol/L (21.0-32.0); CREATININE 1.7 mg/dL (0.70-1.30); Calcium 9.4 mg/dL (8.5-10.1); Chloride 102 mmol/L (98-107); Estimated GFR 38.78 (mL/min/1.73m2); Glucose 174 mg/dL (74-106); Potassium 4.9 mmol/L (3.5-5.1); Sodium 139 mmol/L (136-145)
== END 2020-08-03 13:40 | disposition home or self-care (01) ==
LOC: LBN 13:39
PROVIDERS: Visit Provider Family Medicine
DX: I50.9 Heart failure, unspecified (principal); N18.9 Chronic kidney disease, unspecified
CPT/HCPCS: 80053; 85025

== ENCOUNTER 2020-08-11 19:53 | Outpatient (REF) | payer MEDICARE, BC, MEDICAID, SELFPAY ==
[2020-08-15 19:35] LABS: COVID-19 RT-PCR Result Duplicate ((See Note)); COVID-19 RT-PCR UVMMC Result Negative (Negative)
== END 2020-08-11 19:54 | disposition home or self-care (01) ==
LOC: LBN 19:53
PROVIDERS: Visit Provider Nurse Practitioner Adult Health
DX: Z20.822 Contact with and (suspected) exposure to COVID-19 (principal)
CPT/HCPCS: U0003

== ENCOUNTER 2020-09-01 09:59 | Outpatient (REF) | payer MEDICARE, BC, MEDICAID, SELFPAY ==
[2020-09-02 10:31] LABS: Clarity Clear (Clear); pH 5.5 (5-8)
[2020-09-02 10:32] LABS: Bilirubin Negative (Negative); Blood Negative (Negative); Glucose Negative (Negative); Ketones Negative (Negative); Leukocyte Esterase Negative (Negative); Nitrite Negative (Negative); Urobilinogen 0.2 EU/dL (Up TO 0.2)
== END 2020-09-01 10:00 | disposition home or self-care (01) ==
LOC: NCHCN 09:59
PROVIDERS: Visit Provider Family Medicine
DX: N39.0 Urinary tract infection, site not specified (principal); R35.0 Frequency of micturition
CPT/HCPCS: 81003